=== PATIENT | female | born 1995 | race Caucasian/White ===

== ENCOUNTER 2018-01-07 16:54 | Emergency (ER) | payer OTHER, SELFPAY ==
[2018-01-07 16:56] VITALS: BP 158/83; PULSE 122; RESP 18; TEMP 36.4; O2SAT 99; BMI 22.5
--- NOTE | 2018-01-07 17:05 | EKG12_ITS ---
Test Reason : GENILLNESS Blood Pressure : / mmHG Vent. Rate : 098 BPM Atrial Rate : 098 BPM P-R Int : 150 ms QRS Dur : 084 ms QT Int : 372 ms P-R-T Axes : 078 075 063 degrees QTc Int : 474 ms Normal sinus rhythm Normal ECG Confirmed by QUINTIN CHAVEZ, LALITHA ([id number]), senior editor JOSE CHEN ([id number]) on 01/10/2018 1:08:25 PM Referred By: KATIE Confirmed By:LALITHA RIBEIRO MD
[2018-01-07 17:08] VITALS: BP 130/82; BP 136/86; BP 136/91; PULSE 99
[2018-01-07] MEDS: 0.9% Normal Saline 1,000 ML 150 ML IV (17:19)
[2018-01-07 17:23] LABS: Absolute Lymphocyte Count 1.89 X10^3/ul (0.83-4.51); Absolute Neutrophil Count 3.8 X10^3/uL (2.0-7.7); Basophil# 0.01 X10^3/uL; Basophil% 0.2 % (0-1); Eosinophils% 3.1 % (0-5); Hematocrit 39.4 % (37-47); Hemoglobin 12.9 g/dl (12.0-15.0); Lymphocyte # 1.89 X10^3/ul (4.0); Lymphocyte % 29.8 % (19-41); Mean Corp Hgb Conc 32.7 g/gl (32-36); Mean Corpuscular Volume 85.7 fL (81-99); Monocyte# 0.47 X10^3/uL; Monocyte% 7.4 % (0-10); Neutrophil # 3.77 X10^3/uL (2.7-7.7); Neutrophil % 59.3 % (47-70); POSITIVE COUNT NO; POSITIVE DIFFERENTIAL NO; POSITIVE MORPHOLOGY NO; Platelet Count 278 K/mm3 (150-450); RBC Distribution Width CV 12.5 % (11.6-14.6); RBC Distribution Width SD 38.7 fl (35.1-43.9); White Blood Count 6.4 K/mm3 (4.4-11.0)
[2018-01-07 17:44] LABS: Anion Gap 7 (5-15); BUN 12 mg/dL (7-18); BUN/Creat Ratio 14.1 RATIO (10-20); Calcium,Total 8.6 mg/dL (8.5-10.1); Chloride 106 mmol/L (98-107); Creatinine, Serum 0.85 mg/dL (0.55-1.02); EST Glomerular Filtration Rate 87 mL/min (>60); Est Glom Filt Rate - Afr Amer 105 mL/min (>60); Estimated Creatinine Clearance 91.83 ml/min; Glucose 90 mg/dL (74-106); Potassium 3.3 mmol/L (3.5-5.1); Sodium Level 140 mmol/L (136-145); Thyroid Stim Hormone (TSH) 5.82 uIU/mL (0.358-3.74)
[2018-01-07 17:50] VITALS: BP 137/86; PULSE 85; RESP 22; O2SAT 100
[2018-01-07 18:25] LABS: Pregnancy, Serum, hCG Quali. NEGATIVE Negative (0-9 Nonpreg)
[2018-01-07 18:42] LABS: Bacteria 0 SEEN /hpf (None Seen); Mucous, Urine 0 SEEN /hpf (<or=2+); Red Blood Cells-Urine 0 SEEN /hpf (0-5)
[2018-01-07 19:03] VITALS: BP 121/84; PULSE 82; RESP 16; O2SAT 100
[2018-01-07 19:04] LABS: Color, Urine Yellow (Yellow); Glucose, Dipstick Normal (Normal); Ketone-Dipstick 5 mg/dl (Negative); Leukocyte Esterase-Dipstick Negative /ul (Negative); Nitrite-Dipstick Negative (Negative); Occult Blood-Urine Negative /ul (Negative); Protein-Dipstick Negative (Negative); Urine Bilirubin Dipstick Negative (Negative); Urine Clarity Clear (Clear); Urine Urobilinogen Normal (Normal)
--- NOTE | 2018-01-07 19:18 | ED.VISSUMM ---
- ER Visit Summary Date of Service: 01/07/18 Chief Complaint: [Not feeling well] History of Present Illness: The patient is a 22 F [presents the emergency department with multiple complaints. Patient states that she has had episodes of feeling lightheaded and dizzy over the last 2-3 days. Patient had a severe headache but mostly resolved at this time. Patient has had no energy. Patient at times feels somewhat short of breath but she denies any chest pain. Patient is currently nursing a 1-year-old. Patient denies any rectal bleeding or dysuria. She has had some urinary frequency. Patient tells me that she feels anxious and she is had no appetite. Patient is unsure if she is may be anemic. Patient also believes that she might be starting her period soon as she has had some PMS and hormonal issues with her period. Patient also with history of anxiety. She has not had any fevers or recent illness.] Physical Examination: [HEENT-PERRLA, EOMI. Cranial nerves II through XII grossly intact. TMs clear. Mucous membranes moist. No adenopathy. Cardiovascular-regular rate and rhythm without murmur or ectopy Lungs-clear to auscultation, chest wall stable without crepitus or subcu emphysema Abdomen-normoactive bowel sounds, soft, nontender, no rebound or rigidity, no peritoneal signs. Extremities-intact ?4, normal range of motion, normal pulses, atraumatic] Test Results: [EKG obtained arrival shows sinus rhythm with a ventricular rate of 98 bpm with no acute ST segment changes. CBC with differential was normal. Chemistries showed a slightly depressed potassium of 3.3. Urinalysis was normal. TSH was slightly elevated at 5.82. Orthostatic vital signs were negative.] Emergency Department Course and Treatment: [Patient received 40 mEq of potassium chloride p.o.] Treatment Plan: [Follow-up with primary care physician for further evaluation of her thyroid. Patient does not want to start any medication for anxiety given that she is nursing.] Disposition: [Discharged to home in stable condition] Impression: [Anxiety Hypothyroidism Hypokalemia] This note was generated with [employer] software. It may contain incorrect words, spelling, and punctuation that were not noted in review of the chart prior to signing ED Disposition - Plan for ED Patient: Chief Complaint: General Illness Referrals: Nitish Browning, STOCKROOM SELECTOR-C [Primary Care Provider] -
--- NOTE | 2018-01-07 19:22 | ED.DCSUM_ITS ---
- ER Visit Summary Date of Service: 01/07/18 Chief Complaint: [Not feeling well] History of Present Illness: The patient is a 22 F [presents the emergency department with multiple complaints. Patient states that she has had episodes of feeling lightheaded and dizzy over the last 2-3 days. Patient had a severe headache but mostly resolved at this time. Patient has had no energy. Patient at times feels somewhat short of breath but she denies any chest pain. Patient is currently nursing a 1-year-old. Patient denies any rectal bleeding or dysuria. She has had some urinary frequency. Patient tells me that she feels anxious and she is had no appetite. Patient is unsure if she is may be anemic. Patient also believes that she might be starting her period soon as she has had some PMS and hormonal issues with her period. Patient also with history of anxiety. She has not had any fevers or recent illness.] Physical Examination: [HEENT-PERRLA, EOMI. Cranial nerves II through XII grossly intact. TMs clear. Mucous membranes moist. No adenopathy. Cardiovascular-regular rate and rhythm without murmur or ectopy Lungs-clear to auscultation, chest wall stable without crepitus or subcu emphysema Abdomen-normoactive bowel sounds, soft, nontender, no rebound or rigidity, no peritoneal signs. Extremities-intact ?4, normal range of motion, normal pulses, atraumatic] Test Results: [EKG obtained arrival shows sinus rhythm with a ventricular rate o f 98 bpm with no acute ST segment changes. CBC with differential was normal. Chemistries showed a slightly depressed potassium of 3.3. Urinalysis was normal. TSH was slightly elevated at 5.82. Orthostatic vital signs were negative.] Emergency Department Course and Treatment: [Patient received 40 mEq of potassium chloride p.o.] Treatment Plan: [Follow-up with primary care physician for further evaluation of her thyroid. Patient does not want to start any medication for anxiety given that she is nursing.] Disposition: [Discharged to home in stable condition] Impression: [Anxiety Hypothyroidism Hypokalemia] This note was generated with [employer] software. It may contain incorrect words, spelling, and punctuation that were not noted in review of the chart prior to signing ED Disposition - Plan for ED Patient: Chief Complaint: General Illness Referrals: Nitish Browning, WATER TREATMENT TECHNICIAN-C [Primary Care Provider] -
--- NOTE | 2018-01-07 19:22 | ED.DEP ---
ED Disposition - Plan for ED Patient: Chief Complaint: General Illness Instructions: ED Stress React, ED Hypothyroidism Referrals: Nitish Browning, SHOE SPRAYER-C [Primary Care Provider] - 3-5 Days
--- NOTE | 2018-01-07 19:22 | DCINST.ED_ITS ---
ED Disposition - Plan for ED Patient: Chief Complaint: General Illness Instructions: ED Stress React, ED Hypothyroidism Referrals: Nitish Browning, REJECT OPENER-C [Primary Care Provider] - 3-5 Days
[2018-01-07 19:28] LABS: Squamous Epithelial Cells - UA 0-5 SEEN /hpf (5-10); White Blood Cells 0-5 SEEN /hpf (0-5)
[2018-01-07 19:36] VITALS: BP 108/92; PULSE 86; RESP 24; O2SAT 98
--- NOTE | 2018-01-07 19:36 | ED.RN ---
IV DC'ED, CATHETER INTACT, SMALL GAUZE DRESSING PLACED. DISCHARGE INSTRUCTIONS GIVEN TO AND REVIEWED WITH PATIENT, PATIENT DENIES QUESTIONS OR CONCERNS AND VOICES UNDERSTANDING OF DISCHARGE INSTRUCTIONS. PT AMBULATES OUT OF ROOM WITHOUT DIFFICULTY.
== END 2018-01-07 19:40 | disposition home or self-care (01) ==
PROVIDERS: Emergency Provider Emergency Medicine; Family Provider Nurse Practitioner Family; PCP Nurse Practitioner Family
DX: F41.9 Anxiety disorder, unspecified (principal); E03.9 Hypothyroidism, unspecified; E87.6 Hypokalemia; R51 Headache; R35.0 Frequency of micturition; R05 Cough; Z86.2 Personal history of diseases of the blood and blood-forming organs and certain disorders involving the immune mechanism
CPT/HCPCS: 80048; 81001; 84443; 84703; 85025; 93005; 96360; 96361; 99285; J7030; A4216

== ENCOUNTER 2020-07-19 22:25 | Outpatient (CLI) | payer MEDICAID, SELFPAY ==
[2020-07-19 22:45] VITALS: BP 137/75; PULSE 133; TEMP 37.1
[2020-07-19 22:52] VITALS: BMI 28.5
--- NOTE | 2020-07-19 23:17 | OB.TRI.NOTE ---
HPI - General HPI Narrative BANDAR BECK, is a 25 F at 38 weeks gestation who presents to triage with c/o contractions starting earlier in the day. Patient denies any loss of fluid or vaginal bleeding. Positive movement. Maternal Data Information NORA Calculator Estimated Delivery Date Method Current WG Current Estimate 08/04/20 Manual 38w 2d PFSH Home Medications ferrous sulfate [iron] 325 mg PO QODAY 07/19/20 [History Last Taken 07/18/20 2200] levothyroxine 50 mcg PO DAILY 07/19/20 [History Last Taken 07/19/20 1000] [id number] [] tab PO DAILY 07/19/20 [History Last Taken Unknown] Allergy/AdvReac Type Severity Reaction Status Date / Time No Known Allergies Allergy Verified 07/19/20 22:52 Social History Smoking Status: Never smoker History Elective abortions Hx Para 0 Spontaneous abortions Hx # Term Pregnancies Ectopic pregnancies Hx # Pregnancies Multiple births # of living children ROS Eyes Eyes: Denies blurry vision Cardiovascular Cardiovascular: Reports none; Denies chest pain at rest, chest pain with activity or dizziness Respiratory/Chest Respiratory/Chest: Denies cough or dyspnea Gastrointestinal Gastrointestinal: Reports none and other; Denies diarrhea or vomiting Genitourinary Genitourinary: Denies dysuria Musculoskeletal Musculoskeletal: Reports none Integumentary Integumentary: Reports none; Denies rash Neurologic Neurologic: Denies dizziness, headache(s) or other visual disturbances Psychiatric Psychiatric: Reports none Physical Exam Const alert and no apparent distress General Appearance: cooperative Orientation / Consciousness: awake Exam Limitations: no limitations HEENT normocephalic Eyes General Eye: normal appearance of both eyes Neck full ROM Chest inspection of chest normal Resp normal respiratory effort and normal air movement Effort and Inspection: symmetric chest movement Auscultation: clear to auscultation bilaterally Cardio regular rate GI soft to palpation, non-tender and non-distended Inspection: and other Back/Spine normal ROM Extremity full ROM, normal capillary refill and no calf tenderness Skin no rashes or lesions noted Neuro oriented x3 and CN's II-XII intact bilaterally Psych mental status grossly normal NST FHR Rate Baby A Baseline: 125 Variability:: Moderate Accelerations:: 15 x 15 Decelerations:: None NST Reactive:: Yes FHR Category:: Category I Uterine Activity:: Irregular Assessment & Plan (1) 38 weeks gestation of : (2) Uterine contractions: PLAN: Cat. 1 tracing TOCO with irregular contractions that palpate mild and relaxed in between CE unchanged D/C home with follow up in office this week Dr. Tyrell monroe
== END 2020-07-20 00:20 | disposition home or self-care (01) ==
LOC: WPOUT 22:34 → WP 22:34
PROVIDERS: PCP Nurse Practitioner Family; Referring Provider Advanced Practice Midwife; Visit Provider Advanced Practice Midwife
DX: O62.9 Abnormality of forces of labor, unspecified (principal); Z3A.38 38 weeks gestation of pregnancy
CPT/HCPCS: 59025; 59050; 99218; G0378

== ENCOUNTER 2020-07-28 11:00 | Inpatient (IN) | payer MEDICAID, SELFPAY ==
[2020-07-28] VITALS (39 sets, daily range): BP systolic 106–133; BP diastolic 62–85; PULSE 30–117; RESP 16–18; TEMP 36.8–37.4; O2SAT 81–100; BMI 27.5
[2020-07-28] MEDS: Lactated Ringers 1,000 ML 50 ML IV (11:15)
[2020-07-28] MEDS: Lactated Ringers 500 ML 999 ML IV (11:33)
[2020-07-28 11:35] LABS: Absolute Lymphocyte Count 1.95 X10^3/uL (0.83-4.51); Absolute Neutrophil Count 7.9 X10^3/uL (2.0-7.7); Basophil# 0.03 X10^3/uL; Basophil% 0.3 % (0-1); Eosinophil# 0.02 X10^3/uL; Eosinophils% 0.2 % (0-5); Hematocrit 33.8 % (37-47); Hemoglobin 11.3 g/dL (12.0-15.0); Lymphocyte # 1.95 X10^3/ul (0.83-4.51); Lymphocyte % 18.2 % (19-41); Mean Corp Hgb Conc 33.4 g/dL (32-36); Mean Corpuscular Hgb 29.5 pg (27.0-32.0); Mean Corpuscular Volume 88.3 fL (81-99); Mean Platelet Vol. 9.1 fl (6.2-12.0); Monocyte# 0.69 X10^3/uL; Monocyte% 6.4 % (0-10); NRBC Flagged by Analyzer 0 % (0-5); Neutrophil # 7.91 X10^3/uL (2.7-7.7); Neutrophil % 73.8 % (47-70); Platelet Count 232 K/mm3 (150-450); RBC Distribution Width CV 13.8 % (11.6-14.6); RBC Distribution Width SD 44.6 fl (35.1-43.9); Red Blood Count 3.83 M/mm3 (4.2-5.4); White Blood Count 10.7 K/mm3 (4.4-11.0)
[2020-07-28] MEDS: Oxytocin 30 units/NS 500 ml 30 UNITS/500 ML IV.SOLN IV (12:15)
--- NOTE | 2020-07-28 12:23 | HP.PCM.OB_ITS ---
HPI - General General Date of Admission: 07/28/20 HPI Narrative * BANDAR BECK, is a 25 F @39 weeks who presents for elective IOL for h/o fast labor and Multip with fields score >8. Pt was counseled on risks of IOL but wished to proceed today. Maternal Data Information NORA Calculator Estimated Delivery Date Method Current WG Current Estimate 08/04/20 Manual 39w 0d PFSH PFSH Medical History (Updated 07/28/20 @ 12:[address] Danuta Thorpe MD) Thyroid disorder Home Medications ferrous sulfate [iron] 325 mg PO QODAY 07/19/20 [History Last Taken 07/18/20 2200] levothyroxine 50 mcg PO DAILY 07/19/20 [History Last Taken 07/19/20 1000] [id number] [] tab PO DAILY 07/19/20 [History Last Taken Unknown] Allergy/AdvReac Type Severity Reaction Status Date / Time No Known Allergies Allergy Verified 07/28/20 11:07 Surgical History (Updated 07/28/20 @ 11:54 by Olga Parker) History of surgery Social History Smoking Status: Never smoker History Elective abortions Hx Para 1 Spontaneous abortions Hx # Term Pregnancies Ectopic pregnancies Hx # Pregnancies Multiple births # of living children NST FHR Rate Baby A Baseline: 145 Variability:: Moderate Accelerations:: 15 x 15 NST Reactive:: Yes FHR Category:: Category I Uterine Activity:: irregular Vital Signs Vital Signs Vital Signs: 07/28/20 11:55 Temperature 99.3 F H Temperature Source Temporal Pulse Rate 99 Blood Pressure 122/69 H BP Systolic 122 BP Diastolic 69 Weight Weight: 75.1 kg Body Mass Index (BMI) 27.5 Physical Exam Narrative VE: 5/7/-2 on admission Const alert and oriented x3 Labs Labs Labs: Blood Type B POSITIVE Antibody Screen NEGATIVE Hct 33.8 % (37-47) L Hgb 11.3 g/dL (12.0-15.0) L Rhogam given: No Assessment & Plan (1) 39 weeks gestation of : (2) Elective induction of labor planned: PLAN: Admit to L&D [facility] FHR/TOCO Epidural if requested for pain Monitor VS Anticipate Pitocin and AROM for IOL
[2020-07-28] MEDS: fentaNYL-bupivacaine (epidural) 100 ML BAG EPIDURAL (13:07)
[2020-07-28] MEDS: Oxytocin 30 units/NS 500 ml 30 UNITS/500 ML IV.SOLN 334 UNITS IV (14:50)
--- NOTE | 2020-07-28 15:07 | EX.PCM.OBRPT ---
Assessment & Plan (1) Precipitate labor, with delivery: (2) Vaginal delivery: Maternal Data Information NORA Calculator Estimated Delivery Date Method Current WG Current Estimate 08/04/20 Manual 39w 0d Vaginal Delivery Maternal Presentation Maternal Presentation: Elective Induction Type of Induction: Pitocin and Amniotomy Operative Information Date of Procedure: 07/28/20 Pre-Operative Diagnosis: term gestation, h/o Fast labor, Post-Operative Diagnosis: same, live male infant, Precipitous delivery Surgery / Procedure Performed: Spontaneous Vaginal Delivery Type of Anesthesia: Epidural Estimated Blood Loss: 100 Time of Delivery: 14:48 Findings Description of Procedure: of a live male infant. Patient was fully dilated resting comfortably with epidural in place. With contractions good maternal pushing efforts delivered 's head. 1 loose nuchal cord was noted. It was not reduced prior to delivery gentle downward traction deliver the anterior shoulder followed by the rest infant's body. The infant was placed on the mother's chest for immediate skin to skin. Delayed cord clamping was performed. Pitocin was started and placenta delivered spontaneously without complication. First-degree perineal laceration was appreciated. It was repaired with 3-0 repeated in a subcuticular fashion.. Presentation: Vertex Amniotic Membrane Rupture Type: Artificial Amniotic Fluid Description: Clear Placental Delivery Description: Spontaneous Placenta Disposition: [facility] Specimen(s) Removed: placenta Cord Vessel Description: 3 Vessels Cord Entanglement: Around neck x 1, loose Nuchal Cord Compression: Without compression A Gender: Male (1 minute): 8 (5 minute): 9 Delayed Cord Clamping: Yes Post Vaginal Delivery Medications Given After Delivery: IV Pitocin Laceration: Perineal Extension/lac and 1st degree Complication Complications: None Admit VTE Documentation VTE Present on Admission: No VTE Mechan Device Prophylaxis: None VTE Pharm Prophylaxis Ordered: No Reason Prophylaxis Not Ordered: Procedure Not Indicated
[2020-07-28] MEDS: 0.9% Saline Lock 10 ML Syringe IV (17:36)
[2020-07-28] MEDS: Ibuprofen 600 MG Tablet PO (23:20)
[2020-07-29 03:25] VITALS: BP 118/71; PULSE 81; RESP 18; TEMP 36.6
[2020-07-29] MEDS: Acetaminophen 500 MG Tablet 1000 MG PO (03:32)
[2020-07-29] MEDS: Levothyroxine 50 MCG Tablet PO (05:47)
--- NOTE | 2020-07-29 07:40 | PCM.PN.OB ---
Subjective Subjective patient seen at bedside, doing well. Patient reports good pain control. lochia mild. breast feeding. Objective Data Objective Data Vital Signs: Vital Signs Temp Pulse Resp BP Pulse Ox 97.8 F 81 18 118/71 100 07/29/20 03:25 07/29/20 03:25 07/29/20 03:25 07/29/20 03:25 07/28/20 14:01 Oxygen Delivery Method Room Air Weight: 75.1 kg Body Mass Index (BMI) 27.5 Intake & Output: Intake and Output for Last 24 Hours 07/27/20 07/28/20 07/29/20 23:59 23:59 23:59 Intake Total 1183.64 / 1183.64 Output Total 600 / 600 Balance 583.64 / 583.64 Lab / Micro Data Result Diagrams: 07/28/20 11:15 Labs: Laboratory Results - last 24 hr 07/28/20 07/28/20 11:15 11:15 WBC 10.7 RBC 3.83 L Hgb 11.3 L Hct 33.8 L MCV 88.3 MCH 29.5 MCHC 33.4 RDW Std Deviation 44.6 H RDW Coeff of Binh 13.8 Plt Count 232 MPV 9.1 Immature Gran % (Auto) 1.100 H Neut % (Auto) 73.8 H Lymph % (Auto) 18.2 L [place] % (Auto) 6.4 Eos % (Auto) 0.2 Baso % (Auto) 0.3 Absolute Neuts (auto) 7.9 H Absolute Lymphs (auto) 1.95 Nucleated RBC % 0 Blood Type B POSITIVE Antibody Screen NEGATIVE Micro: Microbiology 07/28/20 11:15 Mucosa - Nose SARS-CoV-2 Antigen (Rapid) - Final Assessment & Plan (1) Vaginal delivery: PLAN: PPD#1 , Doing well Routine care pain mgmt ambulation dc home
--- NOTE | 2020-07-29 07:41 | PCM.DC ---
Discharge Instructions Diet Discharge Diet: No restrictions Activity May resume sexual activity in: 6-8 weeks Dressing / Incision Call your doctor if you observe: Fever of 101 or Higher, Inability to urinate, Using more than 1 pad per hour and Uncontrolled pain Follow Up Care Please Follow Up With: Danuta Thorpe MD When: 1-2 weeks post and again at 6 weeks post . [phone] Test Results: Test results from this visit will be discussed in further detail at your follow-up appointment, if applicable. Discharge Plan Admission Admit Date/Time: 07/28/20 11:00 Attending Provider: Danuta Thorpe Primary Care Provider: Nitish Browning NP Instructions Forms: Information Discharge Orders/Prescriptions Prescriptions: Continued levothyroxine 50 mcg Tablet 50 mcg PO DAILY RF: 0 ferrous sulfate [iron] 325 mg (65 mg iron) Tablet 325 mg PO QODAY RF: 0 [id number]-FA 1 mg Tablet PO DAILY RF: 0 Referrals / Follow Up: Nitish Browning BILINGUAL EXECUTIVE ASSISTANT, BILINGUAL EXECUTIVE ASSISTANT-C [Primary Care Provider] -
[2020-07-29 07:44] VITALS: BP 114/77; PULSE 84; RESP 16; TEMP 36.7; O2SAT 98
[2020-07-29 11:25] VITALS: BP 106/68; PULSE 89; RESP 18; TEMP 36.8; O2SAT 97
[2020-07-29] MEDS: Ibuprofen 600 MG Tablet PO (12:08)
[2020-07-29 17:46] VITALS: BP 126/87; PULSE 87; RESP 18; TEMP 36.8
== END 2020-07-29 18:30 | disposition home or self-care (01) | DRG 560 ==
PROVIDERS: Admitting Provider Obstetrics & Gynecology; PCP Nurse Practitioner Family; Visit Provider Obstetrics & Gynecology
DX: O99.284 Endocrine, nutritional and metabolic diseases complicating childbirth (principal); O62.3 Precipitate labor; E07.9 Disorder of thyroid, unspecified; Z3A.39 39 weeks gestation of pregnancy; Z37.0 Single live birth; Z79.899 Other long term (current) drug therapy; O69.81X0 Labor and delivery complicated by cord around neck, without compression, not applicable or unspecified; O70.0 First degree perineal laceration during delivery
CPT/HCPCS: 59025; 59050; 85025; 86850; 86900; 86901; 87426; 99218; J7120; A4216; G0378

== ENCOUNTER 2023-12-21 07:45 | Inpatient (IN) | payer MEDICAID, SELFPAY ==
[2023-12-21] VITALS (69 sets, daily range): BP systolic 98–136; BP diastolic 52–87; PULSE 77–111; RESP 16–20; TEMP 36.2–36.7; O2SAT 79–100; BMI 27.5
[2023-12-21] MEDS: Lactated Ringers 1,000 ML 50 ML IV (08:00)
[2023-12-21 08:25] LABS: Absolute Lymphocyte Count 1.69 X10^3/uL (0.83-4.51); Absolute Neutrophil Count 7.4 X10^3/uL (2.0-7.7); Basophil# 0.03 X10^3/uL; Basophil% 0.3 % (0-1); Eosinophil# 0.02 X10^3/uL; Eosinophils% 0.2 % (0-5); Hematocrit 34.3 % (37-47); Hemoglobin 11.4 g/dL (12.0-15.0); Lymphocyte # 1.69 X10^3/ul (0.83-4.51); Lymphocyte % 16.9 % (19-41); Mean Corp Hgb Conc 33.2 g/dL (32-36); Mean Corpuscular Hgb 29.2 pg (27.0-32.0); Mean Corpuscular Volume 87.7 fL (81-99); Mean Platelet Vol. 9.2 fl (6.2-12.0); Monocyte# 0.77 X10^3/uL; Monocyte% 7.7 % (0-10); NRBC Flagged by Analyzer 0 % (0-5); Platelet Count 244 K/mm3 (150-450); RBC Distribution Width CV 13.6 % (11.6-14.6); RBC Distribution Width SD 43.5 fl (35.1-43.9); Red Blood Count 3.91 M/mm3 (4.2-5.4)
[2023-12-21 08:58] LABS: Syphilis Antibodies Non-reactive
--- NOTE | 2023-12-21 12:25 | PN.OBGYN_ITS ---
Subjective Subjective AROM for clear fluid. 7 cm 80 -1 very soft. No epidural. No pit Objective Data Objective Data Vital Signs: Vital Signs Temp Pulse Resp BP Pulse Ox 97.2 F L 109 H 16 118/71 97 12/21/23 11:29 12/21/23 11:27 12/21/23 11:29 12/21/23 11:27 12/21/23 09:41 Weight: 73.9 kg Body Mass Index (BMI) 27.5 Intake & Output: Intake and Output for Last 24 Hours 12/19/23 12/20/23 12/21/23 23:59 23:59 23:59 Intake Total 213.33 / 213.33 Balance 213.33 / 213.33 Lab / Micro Data 12/21/23 08:00 Labs: Laboratory Results - last 24 hr 12/21/23 08:00: WBC 10.0, RBC 3.91 L, Hgb 11.4 L, Hct 34.3 L, MCV 87.7, MCH 29.2, MCHC 33.2, RDW Std Deviation 43.5, RDW Coeff of Binh 13.6, Plt Count 244, MPV 9.2, Immature Gran % (Auto) 0.900, Neut % (Auto) 74.0 H, Lymph % (Auto) 16.9 L, [place] % (Auto) 7.7, Eos % (Auto) 0.2, Baso % (Auto) 0.3, Absolute Neuts (auto) 7.4, Absolute Lymphs (auto) 1.69, Nucleated RBC % 0, Syphilis Total Ab Non- reactive, Blood Type B POSITIVE, Antibody Screen NEGATIVE Assessment & Plan (1) Normal labor: (2) 39 weeks gestation of : PLAN: Plan expectant management
[2023-12-21] MEDS: fentaNYL-bupivacaine (epidural) 100 ML BAG EPIDURAL (13:58)
--- NOTE | 2023-12-21 14:12 | PCM.PN.CNM ---
Subjective Subjective Called to patient's room by nursing due to patient being unmedicated and feeling pushy. Arrived to room and patient was sitting up for epidural placement. Objective Data Objective Data Vital Signs: Vital Signs Temp Pulse Resp BP Pulse Ox 97.6 F L 81 18 102/57 L 100 12/21/23 13:36 12/21/23 14:10 12/21/23 13:36 12/21/23 14:10 12/21/23 14:06 Weight: 162 lb 14.746 oz Body Mass Index (BMI) 27.5 Intake & Output: Intake and Output for Last 24 Hours 12/19/23 12/20/23 12/21/23 23:59 23:59 23:59 Intake Total 213.33 / 213.33 Balance 213.33 / 213.33 Lab / Micro Data 12/21/23 08:00 Labs: Laboratory Results - last 24 hr 12/21/23 08:00: WBC 10.0, RBC 3.91 L, Hgb 11.4 L, Hct 34.3 L, MCV 87.7, MCH 29.2, MCHC 33.2, RDW Std Deviation 43.5, RDW Coeff of Binh 13.6, Plt Count 244, MPV 9.2, Immature Gran % (Auto) 0.900, Neut % (Auto) 74.0 H, Lymph % (Auto) 16.9 L, [place] % (Auto) 7.7, Eos % (Auto) 0.2, Baso % (Auto) 0.3, Absolute Neuts (auto) 7.4, Absolute Lymphs (auto) 1.69, Nucleated RBC % 0, Syphilis Total Ab Non-reactive, Blood Type B POSITIVE, Antibody Screen NEGATIVE Assessment & Plan (1) Spontaneous onset of labor: (2) Normal labor: PLAN: Plan NST reactive. Cat. 1 tracing CE / Continue to monitor and anticipate
[2023-12-21] MEDS: Lactated Ringers 1,000 ML 999 ML IV (14:18)
[2023-12-21] MEDS: Oxytocin 15 Units/NS 250ml 15 UNITS/250 ML IV.SOLN 83 UNITS IV (14:34)
[2023-12-21] MEDS: Oxytocin 10 UNITS/ML Vial IM (14:34)
--- NOTE | 2023-12-21 14:39 | EX.PCM.OBVAG ---
Assessment & Plan (1) Spontaneous onset of labor: (2) Normal labor: (3) (spontaneous vaginal delivery): (4) Thyroid disorder: COMMENT: hypothroid Maternal Data Information NORA Calculator Estimated Delivery Date Method Current WG Current Estimate 12/28/23 Manual 39w 0d Vaginal Delivery Maternal Presentation Maternal Presentation: Active Labor Maternal Presentation: at 39 weeks gestation that presented in spontaneous labor. Type of Induction: Pitocin and Amniotomy Vaginal Delivery Information Procedure Performed: Spontaneous Vaginal Delivery Surgeon/Practitioner: Sowmya Elder Pre-Procedure Diagnosis: Term gestation, spontaneous onset of labor Post-Procedure Diagnosis: , Live Type of anesthesia: Epidural Estimated Blood Loss: 150 Time of Delivery: 14:29 Findings Description of procedure: Patient quickly progressed to complete dilation. With good maternal effort, head delivered followed by anterior shoulder and remainder of body without any force, delay, or traction. Vigorous female was delivered atraumatically and placed on maternal abdomen. Pitocin IV started for active management of the third stage of labor. 3 vessel cord clamped and cut after delay and placed immediately skin to skin with patient. Placenta delivered spontaneously and intact. After inspection, vagina and perineum are intact. Vaginal sweep performed. Fundus is firm 2 below U and bleeding is hemostatic. Sponge and sharps counts correct. Patient and infant bonding well at this time. Dr. [place] notified of delivery. Routine post orders placed. Presentation: Vertex Amniotic Membrane Rupture Type: Artificial Amniotic Fluid Description: Clear Placental Delivery Description: Spontaneous Placenta Disposition: [facility] Specimen collected: No Cord Vessel Description: 3 Vessels Cord Entanglement: None Nuchal Cord Compression: Without compression A Gender: Female (1 minute): 9 (5 minute): 9 Delayed Cord Clamping: Yes Oilseed Meat Presser tinning machine set up operator: No Post Vaginal Deli Medications given after delivery: IV Pitocin and IM Pitocin Episiotomy Description: None Laceration: None Complication Complications: No
[2023-12-21] MEDS: Methylergonovine 0.2 MG/ML Ampul IM (15:18)
[2023-12-21] MEDS: 0.9% Saline Lock 10 ML Syringe IV (17:30)
[2023-12-21] MEDS: Acetaminophen 500 MG Tablet 1000 MG PO (17:45)
[2023-12-21] MEDS: Naproxen 500 MG Tablet PO (20:35)
[2023-12-22 03:33] VITALS: PULSE 82; O2SAT 98
[2023-12-22 03:34] VITALS: BP 103/63; PULSE 68; PULSE 82; RESP 16; TEMP 36.6; O2SAT 98
[2023-12-22] MEDS: Acetaminophen 500 MG Tablet 1000 MG PO (03:40)
[2023-12-22] MEDS: Levothyroxine 25 MCG TABLET PO (06:06)
--- NOTE | 2023-12-22 06:36 | DS.PCM_ITS ---
Providers Date of Admission: 12/21/23 Primary Care Physician: Nitish Browning, RESEARCH SCIENTIST-C Reason For Visit: VAGINAL DELIVERY Diagnosis Discharge Diagnosis (1) (spontaneous vaginal delivery): Status: Acute Code(s): O80 - Encounter for full-term uncomplicated delivery (2) Thyroid disorder: Status: Acute Code(s): E07.9 - Disorder of thyroid, unspecified (3) Care and examination of lactating mother: Status: Acute Code(s): Z39.1 - Encounter for care and examination of lactating mother Plan PPD 1 Routine care Pain control D/C home with follow up in office Medications at Discharge Home Medications ferrous sulfate 325 mg (65 mg iron) tablet (iron) 325 mg PO QODAY anemia 07/19/20 levothyroxine 50 mcg tablet 50 mcg PO DAILY hypothyroid 07/19/20 [id number] 1 mg tablet 1 tab PO DAILY 07/19/20 Hospital Course Operations None Procedures None Summary of Care Provided Minutes Spent on Discharge: 15 Hospital Course: Patient had vaginal delivery. Hospital course was uneventful. Physical Exam Narrative Patient seen at bedside. Denies pain. Ambulating and voiding without difficulty. Lochia decreased. Desires discharge home today. Const alert and oriented x3 General Appearance: Negative for in distress HEENT normocephalic Eyes General Eye: normal appearance of both eyes Neck General: normal visual inspection Chest Chest: symmetrical chest wall rise Resp normal respiratory effort and normal air movement Effort and Inspection: symmetric chest movement; Negative for tachypneic Auscultation: clear to auscultation bilaterally Cardio regular rate and regular rhythm Peripheral Pulses: pulses 2+ throughout GI normal to inspection, nondistended, normoactive bowel sounds Narrative: Ice to perineum OB / External & Speculum: vaginal bleeding and other Lochia decreasing Uterus Palpation: uterus fundus firm (Below U) Extremity normal to inspection, full ROM and normal capillary refill Skin no rashes or lesions noted Neuro oriented x3, CN's II-XII intact bilaterally and gait normal Psych mental status grossly normal, thought process normal and activity/motor behavior normal Weight / BMI Weight Weight: 162 lb 14.746 oz Body Mass Index (BMI) 27.5 ABG / Lab / Microbiology Data 12/21/23 08:00 Laboratory: Laboratory Results - last 24 hr 12/21/23 08:00: WBC 10.0, RBC 3.91 L, Hgb 11.4 L, Hct 34.3 L, MCV 87.7, MCH 29.2, MCHC 33.2, RDW Std Deviation 43.5, RDW Coeff of Binh 13.6, Plt Count 244, MPV 9.2, Immature Gran % (Auto) 0.900, Neut % (Auto) 74.0 H, Lymph % (Auto) 16.9 L, [place] % (Auto) 7.7, Eos % (Auto) 0.2, Baso % (Auto) 0.3, Absolute Neuts (auto) 7.4, Absolute Lymphs (auto) 1.69, Nucleated RBC % 0, Syphilis Total Ab Non- reactive, Blood Type B POSITIVE, Antibody Screen NEGATIVE D/C Instructions Discharge Diet: No restrictions Discharge Activity: Return to Normal Activity, No Restrictions, May Drive, May Shower and May Take a Tub Bath (Warm water only. No bath salts, soaps, bubbles) May resume sexual activity in: 6-8 weeks Weight Bearing Status: Weight bearing as tolerated Call your doctor if you observe: Fever of 101 or Higher, Inability to urinate, Using more than 1 pad per hour, Shortness of breath, Dizziness, Chest pain, Calf discomfort and Uncontrolled pain Please Follow Up With: [facility] When: 2 weeks in office or virtual Meaningful Use Info Meaningful Use Meaningful Use Diagnoses (Choose all that apply): None applicable Ischemic Stroke Statin Dosing Therapy Reference: STATIN DOSE THERAPY REFERENCE: * Patients > 75 years receive moderate or high dose statin therapy. * Patients 75 years or YOUNGER should receive HIGH intensity statin dose unless contraindicated. You will be required to document reason for non-treatment if statin daily dose does not meet guidelines. HIGH DOSE STATIN THERAPY DAILY Atorvastatin > than or = to 40 mg Rosuvastatin > than or = to 20 mg Amlodipine + Atorvastatin > than or = to 2.5/40 mg Ezetimibe + Simvastatin 10/80 mg Simvastatin 80mg Discharge Plan Admission Admit Date/Time: 12/21/23 07:45 Primary Reason for Your Visit: Labor and Delivery Attending Provider: Sowmya Elder Primary Care Provider: Nitish Browning RESEARCH SCIENTIST Discharge Orders/Prescriptions Prescriptions: Continued levothyroxine 50 mcg Tablet 50 mcg PO DAILY ferrous sulfate [iron] 325 mg (65 mg iron) Tablet 325 mg PO QODAY [id number] 1 mg Tablet 1 tab PO DAILY Discontinued polyethylene glycol 3350 [Miralax] 17 gram/dose powder 4 g PO QODAY Referrals / Follow Up: Sowmya Elder CNM [Med Staff - [facility] Practice Prof] - Nitish Browning RESEARCH SCIENTIST, RESEARCH SCIENTIST-C [Primary Care Provider] - Disposition Disposition (needs filled in before D/C Order can be placed): Home, Self Care
[2023-12-22 10:39] VITALS: BP 125/74; PULSE 102
[2023-12-22 10:40] VITALS: BP 125/74; PULSE 102; RESP 15; TEMP 36.1
[2023-12-22 16:10] VITALS: BP 130/71; PULSE 93; RESP 15; TEMP 36.4
--- NOTE | 2023-12-26 13:04 | NURSING ---
Follow up phone call made. Patient states she is doing well only having slight discomfort, taking OTC pain med for it. Denies any headaches, visual disturbances, flu like symptoms or Baby Blues. States her bleed is minimal. Patient states is going well, nursing very coupe of hours, having lots of wets and dirty diapers. Denies any questions at this time.
--- NOTE | 2024-01-30 20:40 | PCM.HP.OB ---
HPI - General General Date of Admission: 12/21/23 Date of Service: 12/21/23 HPI Narrative BANDAR BECK, is a 29 F who presents in active labor. Membranes in tact. Hx of precipitous labor. Maternal Data Information NORA Calculator Estimated Delivery Date Method Current WG Current Estimate 12/28/23 Manual 44w 5d Final NORA: 12/28/23 Gestational age: 39 PFSH PFSH Medical History Care and examination of lactating mother (spontaneous vaginal delivery) Thyroid disorder Home Medications ?Medication ?Instructions ?Recorded ?Last Taken ?Type ferrous sulfate 325 mg (65 mg 325 mg PO QODAY anemia 07/19/20 12/20/23 22:00 History iron) tablet (iron) 325 mg levothyroxine 50 mcg tablet 50 mcg PO DAILY hypothyroid 07/19/20 12/21/23 06:00 History [id number] 1 mg 1 tab PO DAILY 07/19/20 12/18/23 12:00 History tablet 1 TAB Allergy/AdvReac Type Severity Reaction Status Date / Time No Known Allergies Allergy Verified 12/21/23 08:33 Surgical History History of surgery Social History Smoking Status: Never smoker History Elective abortions Hx Para 2 Spontaneous abortions Hx # Term Pregnancies Ectopic pregnancies Hx # Pregnancies Multiple births # of living children NST FHR Rate Baby A FHR Category:: Category I ROS Constitutional Constitutional: Denies fatigue, fever(s) or malaise Eyes Eyes: Denies change in vision ENT HEENT: Denies dizziness or headache(s) Cardiovascular Cardiovascular: Denies chest pain, dyspnea or lightheadedness Respiratory/Chest Respiratory/Chest: Denies cough or dyspnea Gastrointestinal Gastrointestinal: Denies change in bowel habits Genitourinary Genitourinary: Denies burning urination or genital lesions Integumentary Integumentary: Denies rash Neurologic Neurologic: Denies confusion, dizziness, headache(s), numbness or weakness Vital Signs Vital Signs Vital Signs: Weight Weight: 73.9 kg Body Mass Index (BMI) 27.5 Physical Exam Const alert and no apparent distress General Appearance: cooperative HEENT normocephalic Resp normal respiratory effort GI soft to palpation GI Narrative: gravid, nontender, appropriate for gestational age Extremity no calf tenderness General Extremity: edema Skin no wounds Rashes: No rashes noted Psych activity/motor behavior normal Labs Labs Labs: Blood Type B POSITIVE Antibody Screen NEGATIVE Hct 34.3 % (37-47) L Hgb 11.4 g/dL (12.0-15.0) L Syphilis Total Ab Non-reactive Rhogam given: No Assessment & Plan (1) Normal labor and delivery: (2) 39 weeks gestation of : PLAN: Plan Admit for labor. Epidural prn.
== END 2023-12-22 17:50 | disposition home or self-care (01) | DRG 560 ==
LOC: WPOUT 07:48 → WP 07:48
PROVIDERS: Obstetrics & Gynecology; Admitting Provider Advanced Practice Midwife; PCP Nurse Practitioner Family; Referring Provider Advanced Practice Midwife; Visit Provider Advanced Practice Midwife
DX: O99.284 Endocrine, nutritional and metabolic diseases complicating childbirth (principal); Z37.0 Single live birth; E07.9 Disorder of thyroid, unspecified; F17.210 Nicotine dependence, cigarettes, uncomplicated; Z3A.39 39 weeks gestation of pregnancy; O99.334 Smoking (tobacco) complicating childbirth; Z79.890 Hormone replacement therapy
CPT/HCPCS: 59025; 59050; 85025; 86780; 86850; 86900; 86901; 99221; A4216; G0378

== ENCOUNTER 2024-08-04 14:20 | Emergency (ER) | payer MEDICAID, SELFPAY ==
[2024-08-04 14:20] VITALS: BP 146/94; PULSE 104; RESP 19; TEMP 36.5; O2SAT 98; BMI 23.1
[2024-08-04 14:22] VITALS: BP 146/94; PULSE 104; RESP 19; TEMP 36.5; O2SAT 98
--- OUTSIDE RECORDS SUMMARY | 2024-08-04 14:53 | XMS RPT_ITS | CCD ---
Author Organization [facility] Care Team Providers Care Epic Anesthesia Analyst Name Role Phone Marisel Belle MD Unavailable NALLELY HEARING AND SPEECH ASSISTANT - TRANSITIONAL CARE MANAGER, KARLA Simon Primary Care Phys ician PinellasKarla price CNP Primary Care Provider NallelyKarla price CNP Primary Care Provider Unavailable Primary Care Provider Unavailabl e NALLELYKAMALA PUENTESN - STEPHY, KARLA Simon Attending U navailable NALLELY HEARING AND SPEECH ASSISTANT - TRANSITIONAL CARE MANAGER, KARLA Simon Primary Care U navailable NALLELY HEARING AND SPEECH ASSISTANT - TRANSITIONAL CARE MANAGER, KARLA Simon Primary Care U navailable REFERRING, VINAYAK COLE Attending Unavailable NALLELY HEARING AND SPEECH ASSISTANT - TRANSITIONAL CARE MANAGER, KARLA Simon Attending U navailable NALLELY HEARING AND SPEECH ASSISTANT - TRANSITIONAL CARE MANAGER, KARLA Simon Primary Care U navailable [place] TRANSITIONAL CARE MANAGER, Karla Simon Primary Care Provider [phone]( [phone] DANUTA CASTILLO Referring Unavail able KARLA BROWNING Primary Care Unavailable KARLA BROWNING Primary Care Unavailable DANUTA CASTILLO Attending Unavail able KARLA BROWNING Primary Care Unavailable DANUTA CASTILLO Attending Unavail able DANUTA CASTILLO Attending Unavail able KARLA BROWNING Primary Care Unavailable KARLA BROWNING Primary Care Unavailable SOWMYA ELDER Attending Unavailable DANUTA CASTILLO Attending Unavail able KARLA BROWNING Primary Care Unavailable KARLA BROWNING Primary Care Unavailable DANUTA CASTILLO Attending Unavail able KARLA BROWNING Primary Care Unavailable ANDREIA RAINES Referring Unavailable DANUTA CASTILLO Attending Unavail able NELITZYT DANUTA MARLOW Referring Unavail able NALLELYKARLA CARRASQUILLO Primary Care Unavailable MILENAT DANUTA MARLOW Referring Unavail able NALLELYKARLA CARRASQUILLO Primary Care Unavailable NEYRUBYT MARLOWDANUTA WEISS Attending Unavail able NEYRUBYT MARLOWDANUTA WEISS Referring Unavail able NALLELYKARLA CARRASQUILLO Primary Care Unavailable NALLELY, KARLA Simon Primary Care Unavailable SOWMYA ELDER Referring Unavailable NALLELYKARLA CARRASQUILLO Primary Care Unavailable ANDREIA RAINES Attending Unavailable NALLELYKARLA CARRASQUILLO Primary Care Unavailable NEYRUBYT MARLOWDANUTA IRBY Referring Unavail able NALLELY, KARLA Simon Primary Care Unavailable MILENAT DANUTA MARLOW Attending Unavail able NALLELYKARLA CARRASQUILLO Primary Care Unavailable NELITZYT DANUTA MARLOW Attending Unavail able NALLELY, KARLA Simon Primary Care Unavailable DANUTA CASTILLO Attending Unavail able NALLELYKARLA CARRASQUILLO Primary Care Unavailable JOSETTE SHARMA Attending Unavailable NALLELYKARLA CARRASQUILLO Primary Care Unavailable MILENAT DANUTA MARLOW Attending Unavail able DANUTA CASTILLO Attending Unavail able NALLELYKARLA CARRASQUILLO Primary Care Unavailable DANUTA CASTILLO Referring Unavail able NALLELY, KARLA Simon Primary Care Unavailable NALLELYKARLA CARRASQUILLO Primary Care Unavailable SOWMYA ELDER Attending Unavailable NALLELYKARLA CARRASQUILLO Primary Care Unavailable SOWMYA ELDER Referring Unavailable Sowmya Elder Admitting Unavailable Sowmya Elder Attending Unavailable Sowmya Elder Referring Unavailable Nallely RETAIL ASSOCIATE, Karla Ansari Primary Care Unav ailable NALLELYKARLA MALONE APRN, CNP Attending U navailable NALLELYKARLA MALONE APRN, CNP Primary Care U navailable NALLELY KARLA GUERRERO CNP Attending U navailable NALLELYKARLA MALONE APRN, CNP Primary Care U navailable NALLELY GAURANG Lezama CNP, KARLA Simon Primary Care U navailable NALLELYFOREIGN Lezama CNP, KARLA Simon Attending U navailable Medications Current Medications Medication Drug Class(es) Dates Sig (Normalized) Sig (Original) acetaminophen 500 mg oral tablet (6 sources) Start: 01-11-2021 Tylenol Dose : 500 mg =, Oral, 0 Refill(s) Start Date: 01/11/21 Status: Ordered Repeat number: 1 ascorbic acid 500 mg oral tablet (1 source) Vitamin C take 1 tablet by mouth once daily ascorbic acid (Vitamin C) 500 mg tablet Take 1 tablet (500 mg) by mouth once daily. 0 Active cetirizine hydrochloride 10 mg oral tablet (4 sources) Histamine-1 Receptor Antagonist Start: 01-25-2024 Zyrtec 10 mg oral tablet Dose : 10 mg = 1 tab(s), Oral, qDay, # 90 tab(s), 1 Refill(s), Pharmacy: [id number], Seasonal allergies, 164, cm, 01/25/24 13:07:00 EST, Height, kg, 01/25/24 13:07:00 EST, Dosing Weight Start Date: 01/25/24 Status: Ordered Quantity: 90.0 Unit: tab(s) Repeat number: 2 Indications: Other seasonal allergic rhinitis; Start: 12-06-2022 Zyrtec 10 mg o ral tablet Dose : 10 mg = 1 tab(s), Oral, qDay, # 90 tab(s), 1 Refill(s), Pharmacy: [id number], Seasonal allergies, 162.5, cm, 06/13/23 9:02:00 EDT, Height, kg, 06/13/23 9:02:00 EDT, Dosing Weight Start Date: 06/13/23 Status: Ordered cream base (1 source) Start: 01-23-2023 cream base Ind ications: Anal fissure Nifedipine 0.2% cream, to be applied rectally 30 minutes prior to bowel movements. 60 g 1 01/23/2023 Active ferrous sulfate (SLOW FE) 137 mg (45 mg iron) TbER (16 sources) ferrous sulfate (SLOW FE) 137 mg (45 mg iron) TbER Take by mouth. Active hydrocortisone 25 mg/ml topical cream (4 sources) Corticosteroid Start: 09-23-2020 End: 05-07-2022 hydrocortisone (ANUSOL-HC) 2.5 % rectal cream by RECTAL route twice daily. 30 g 0 09/23/2020 05/07/2022 Discontinued (Course of therapy completed) Start: 09-08-2020 End: 05-07-2022 hydrocortisone (ANUSOL-HC) 2 5 mg suppository 1 Suppository by RECTAL route twice daily. 30 Suppository 0 09/08/2020 05/07/2022 Discontinued (Course of therapy completed) Comment on above: 1 Suppository by REC JENNIFER route twice daily. by RECTAL route twic e daily. levothyroxine sodium 0.025 mg oral tablet (20 sources) l-Thyroxine Start: 06-20-2024 levothyroxine 25 mcg (0.025 mg) oral tablet Dose : 37.5 mcg = 1.5 tab(s), Oral, qDayAC, # 135 tab(s), 0 Refill(s), Pharmacy: [facility], 164, cm, 05/28/24 7:05:00 EDT, Height, kg, 05/28/24 7:05:00 EDT, Dosing Weight Start Date: 06/20/24 Status: Ordered Quantity: 135.0 Unit: tab(s) Repeat number: 1 Start: 09-01-2023 levothyroxine 25 mcg (0.025 mg) oral tablet Dose : 37.5 mcg = 1.5 tab(s), Oral, qDayAC, # 135 tab(s), 0 Refill(s), Pharmacy: [facility], 162.5, cm, 06/13/23 9:02:00 EDT, Height, kg, 06/13/23 9:02:00 EDT, Dosing Weight Start Date: 09/01/23 Status: Ordered Start: 03-29-2023 take 1 tablet by syed th once daily levothyroxine (SYNTHROID) 25 mcg tablet Take 25 mcg by mouth once daily. 03/29/2023 Active Start: 12-06-2022 levothyroxine 25 mcg (0.025 mg) oral tablet Dose : 37.5 mcg = 1.5 tab(s), Oral, qDayAC, # 135 tab(s), 1 Refill(s), Pharmacy: [facility], 162.5, cm, 06/13/23 9:02:00 EDT, Height, kg, 06/13/23 9:02:00 EDT, Dosing Weight Start Date: 06/13/23 Status: Ordered Start: 11-16-2020 End: 08-13-2021 levothyroxine 50 mcg (0.05 m g) oral tablet Dose : 50 mcg = 1 tab(s), Oral, qDay, # 90 tab(s), 2 Refill(s), [facility], Hypothyroidism, 162, cm, 11/16/20 10:56:00 EDT, Height, kg, 11/16/20 10:56:00 EDT, Dosing Weight Start Date: 11/16/20 Stop Date: 08/13/21 Status: Ordered Start: 04-09-2018 End: 05-22-2023 levothyroxine (SYNTHROID) 50 mcg tablet Take 50 mcg by mouth once daily. taking 25mcg tablets 1 1/2 tablets daily 0 04/09/2018 05/22/2023 Discontinued (Dosage adjustment) Start: 04-09-2018 take 0.5 tablet by m outh once daily levothyroxine (SYNTHROID) 50 mcg tablet Take 0.5 tablets by mouth once daily. 0 04/09/2018 Active take 1 capsule by mo akh once daily, then take 1 capsule by mouth once daily levothyroxine (Tirosint) 25 mcg capsule Take 1 capsule (25 mcg) by mouth once daily. 1 1/2 tabs daily 0 Active Comment on above: Take 1 tablet by syed th once daily. Take 0.5 tablets by mouth once daily. Take 50 mcg by mouth once daily. taking 25mcg tablets 1 1/2 tablets daily magnesium oxide 250 mg oral tablet (4 sources) Start: 12-06-2022 take 1 mg by mouth once daily Magnesium 250 mg tablet mg = tab(s), Oral, qDay, 0 Refill(s) Start Date: 12/06/22 Status: Ordered take 1 tablet by mouth once teofilo y magnesium oxide (Mag-Ox) 400 mg tablet Take 1 tablet (400 mg) by mouth once daily. 0 Active norethindrone 0.35 mg oral tablet (2 sources) Start: 09-08-2020 End: 05-07-2022 take 1 tablet by mouth once daily Norethindrone, Contraceptive, (ORTHO MICRONOR) 0.35 mg tablet Take 1 tablet by mouth once daily. 1 Package 5 09/08/2020 05/07/2022 Discontinued Comment on above: Take 1 tablet by syed th once daily. polyethylene glycol [id number] mg powder for oral solution (3 sources) Osmotic Laxative Start: 01-25-2024 End: 07-23-2024 take 17 doses by mouth once daily Miralax Powder Packet Dose : 17 gram(s) =, Oral, qDay, dissolve in water or juice before taking, # 255 gram(s), 5 Refill(s), Pharmacy: [facility], Chronic idiopathic constipation, 164, cm, 01/25/24 13:07:00 EST, Height, kg, 01/25/24 13:07:00 EST, Dosing Weight Start Date: 01/25/24 Stop Date: 07/23/24 Status: Ordered Quantity: 255.0 Unit: g Repeat number: 6 Indications: Chronic idiopathic constipation; Start: 06-13-2023 End: 12-10-2023 take 17 doses by mouth once daily Miralax Powder Packet Dose : 17 gram(s) =, Oral, qDay, dissolve in water or juice before taking, # 255 gram(s), 5 Refill(s), Pharmacy: [facility], Chronic idiopathic constipation, 162.5, cm, 06/13/23 9:02:00 EDT, Height, kg, 06/13/23 9:02:00 EDT, Dosing Weight Start Date: 06/13/23 Stop Date: 12/10/23 Status: Ordered Prenatabs Rx oral tablet (2 sources) Start: 06-13-2023 take 1 tablet by mouth once daily Prenatabs Rx oral tablet tab(s), Oral, qDay, 0 Refill(s) Start Date: 06/13/23 Status: Ordered Tunosord-Tr-Unp-Fe-FA ( VITAMIN) tab (2 sources) End: 05-07-2022 take 1 tablet by mouth once Qbxhhoui-Ma-Fml-Fe-FA ( VITAMIN) tab Take 1 tablet by mouth. 0 05/07/2022 Discontinued take 1 tablet by mouth once Pren atal Lykiwklo-Bp-Dms-Fe-FA ( VITAMIN) tab Take 1 tablet by mouth. 0 Active Comment on above: Take 1 tablet by syed th. vit 32-frbm-iolte-dha (SELECT-OB+DHA) 29 mg iron-1 mg -250 mg (20 sources) vit 54-ujvm-djcby-dha (SELECT-OB+DHA) 29 mg iron-1 mg -250 mg Take by mouth as directed. Take 1 tablet and 1 capsule by mouth daily. Active vit 33- kcor-mxtbl-smc (SELECT-OB+DHA) 29 mg iron-1 mg -250 mg Take by mouth as directed. Take 1 tablet and 1 capsule by mouth daily. 0 Active Comment on above: Take by mouth as dir ected. Take 1 tablet and 1 capsule by mouth daily. Zinc (4 sources) Start: 12-06-2022 take 1 mg by mouth once daily Zinc mg =, Oral, qDay, 0 Refill(s) Start Date: 12/06/22 Status: Ordered Repeat number: 1 Start: 12-06-2022 take 1 mg by mouth once daily Zinc mg =, Oral, qDay, 0 Refill(s) Start Date: 12/06/22 Status: Ordered Completed/Discontinued Medications Medication Drug Class(es) Dates Sig (Normalized) Sig (Original) NIFEdipine (3 sources) Dihydropyridine Calcium Channel Andrea Start: 06-13-2023 Nifedipine 0.2% Rectal Ointment Nifedipine 0.2% Rectal Ointment, 0 Refill(s), 60.2 Start Date: 06/13/23 Status: Ordered Repeat number: 1 Start: 06-13-2023 Nifedipine 0.2 % Rectal Ointment Nifedipine 0.2% Rectal Ointment, 0 Refill(s), 60.2 Start Date: 06/13/23 Status: Ordered pramoxine hydrochloride 10 mg/ml rectal foam (1 source) Start: 12-06-2022 End: 01-05-2023 apply 1 dose topically twice daily Proctofoam NS 1% rectal foam Dose = 1 moises, Topical, BID, # 15 gram(s), 5 Refill(s), Pharmacy: [facility], Hemorrhoid, 162.5, cm, 12/06/22 8:57:00 EDT, Height, kg, 12/06/22 8:57:00 EDT, Dosing Weight Start Date: 12/06/22 Stop Date: 01/05/23 Status: Ordered VIT-FE FUMARATE-FA (3 sources) Start: 09-19-2016 take 1 tablet by mouth once daily VITAMINS 28-0.8 MG TABS One tablet by mouth daily VIT-FE FUMARATE-FA [id number] Marisel Belle MD VIT-FE FUMARATE-FA (1 source) Start: 09-19-2016 take 1 tablet by mouth once daily VITAMINS 28-0.8 MG TABS One tablet by mouth daily VIT-FE FUMARATE-FA [id number] Marisel Belle MD Problems Active Problems Problem Classification Problem Date Documented Da te Episodic/Chronic Deficiency and other anemia (6 sources) Anemia 11-16-2020 Episodic Deficiency and other anemia (4 sources) Anemia, unspecified; Translations: [Anemia, unspecified] Onset: 06-08-2023 Episodic Hemorrhoids (4 sources) Hemorrhoids 11-25-2021 Episodic Malaise and fatigue (1 source) Asthenia; Translations: [Weakness] Episodic Other complications of (1 source) Anemia complicating , third trimester; Translations: [Anemia during in third trimester] Onset: 09-27-2023 Chronic Other complications of (1 source) Hemorrhoids in ; Translations: [Hemorrhoids in , third trimester] 12-01-2023 Episodic Other complications of (1 source) Supervision of high risk , unspecified, third trimester; Translations: [Supervision of high risk in third trimester] Onset: 12-01-2023 Episodic Other complications of (1 source) Hemorrhoids in , third trimester; Translations: [Hemorrhoids in in third trimester] Onset: 12-01-2023 Episodic Other complications of (1 source) Endocrine, nutritional and metabolic diseases complicating , third trimester; Translations: [Hypothyroidism during in third trimester] Onset: 12-01-2023 Episodic Other ear and sense organ disorders (1 source) Bilateral earache; Translations: [Otalgia, bilateral] Episodic Other female genital disorders (1 source) Vaginal irritation; Translations: [Other specified noninflammatory disorders of vagina] 12-29-2023 Episodic Other gastrointestinal disorders (3 sources) Chronic idiopathic constipation 06-13-2023 Chronic Other screening for suspected conditions (not mental disorders or infectious disease) (10 sources) Encounter for screening for diabetes mellitus; Translations: [Encounter for screening for lipoid disorders] Onset: 06-08-2023 Episodic Other upper respiratory disease (4 sources) Seasonal allergy 06-03-2022 Chronic Other upper respiratory infections (2 sources) Upper respiratory infection; Translations: [Acute upper respiratory infection, unspecified] Episodic Residual codes; unclassified (1 source) Gestation period, 8 weeks; Translations: [8 weeks gestation of ] 05-22-2023 Episodic Residual codes; unclassified (3 sources) Increased body mass index 06-13-2023 Episodic Residual codes; unclassified (2 sources) Gestation period, 13 weeks; Translations: [13 weeks gestation of ] 06-23-2023 Episodic Residual codes; unclassified (2 sources) Gestation period, 19 weeks; Translations: [19 weeks gestation of ] 08-03-2023 Episodic Residual codes; unclassified (1 source) Gestation period, 22 weeks; Translations: [22 weeks gestation of ] 08-30-2023 Episodic Residual codes; unclassified (2 sources) Gestation period, 23 weeks; Translations: [23 weeks gestation of ] 09-01-2023 Episodic Residual codes; unclassified (1 source) Gestation period, 26 weeks; Translations: [26 weeks gestation of ] 09-27-2023 Episodic Residual codes; unclassified (1 source) Gestation period, 28 weeks; Translations: [28 weeks gestation of ] 10-11-2023 Episodic Residual codes; unclassified (1 source) Gestation period, 30 weeks; Translations: [30 weeks gestation of ] 10-25-2023 Episodic Residual codes; unclassified (1 source) Gestation period, 32 weeks; Translations: [32 weeks gestation of ] 11-08-2023 Episodic Residual codes; unclassified (2 sources) Gestation period, 35 weeks; Translations: [35 weeks gestation of ] 11-23-2023 Episodic Residual codes; unclassified (2 sources) Gestation period, 36 weeks; Translations: [36 weeks gestation of ] 12-01-2023 Episodic Residual codes; unclassified (1 source) Gestation period, 37 weeks; Translations: [37 weeks gestation of ] 12-13-2023 Episodic Residual codes; unclassified (1 source) 36 weeks gestation of ; Translations: [36 weeks gestation of ] Onset: 12-01-2023 Episodic Thyroid disorders (11 sources) Hypothyroidism; Translations: [Hypothyroidism, unspecified] Onset: 06-08-2023 11-05-2018 Chronic Unclassified (15 sources) Patient encounter status 11-01-2019 Comment on above: Screening cholestero l panel: 2021 Lab results show: - LDL: 69 - HDL: 62 - T Unclassified (3 sources) Non-smoker 06-13-2023 Unclassified (20 sources) [facility] Education - COMMON Onset: 05-22-2023 05-22-2023 Unclassified (20 sources) Education - [place] Onset: 05-22-2023 05-22-2023 Unclassified (1 source) Breast fed 05-28-2024 Past or Other Problems Problem Classification Problem Date Documented Date Episodic/Chronic Anal and rectal conditions (20 sources) Anal fissure; Translations: [Anal fissure, unspecified] Onset: 05-22-2023 01-23-2023 Episodic Deficiency and other anemia (20 sources) Iron deficiency anemia; Translations: [Iron deficiency anemia, unspecified] Onset: 01-08-2007 Resolved: 11-13-2014 11-13-2014 Episodic Diabetes or abnormal glucose tolerance complicating ; childbirth; or the puerperium (20 sources) Abnormal glucose level; Translations: [Abnormal glucose complicating ] Onset: 11-18-2016 Resolved: 02-28-2017 02-28-2017 Episodic Immunizations and screening for infectious disease (20 sources) Rubella non-immune ; Translations: [Supervision of other high risk pregnancies, unspecified trimester] Onset: 07-27-2016 Resolved: 02-28-2017 10-13-2016 Episodic Menstrual disorders (20 sources) Excessive and frequent menstruation; Translations: [Excessive and frequent menstruation with regular cycle] Onset: 01-08-2007 Resolved: 11-13-2014 11-13-2014 Chronic Other complications of (20 sources) Anemia in mother complicating , childbirth AND/OR puerperium; Translations: [Anemia complicating , third trimester] Onset: 11-18-2016 Resolved: 02-28-2017 02-28-2017 Chronic Other complications of (20 sources) Anemia of ; Translations: [Anemia complicating , third trimester] Onset: 09-27-2023 Resolved: 02-05-2024 09-27-2023 Chronic Other complications of (17 sources) Hypothyroidism in ; Translations: [Endocrine, nutritional and metabolic diseases complicating , second trimester] Onset: 12-06-2023 Resolved: 02-05-2024 08-30-2023 Episodic Other complications of (15 sources) High risk ; Translations: [Supervision of high risk , unspecified, third trimester] Onset: 12-06-2023 Resolved: 02-05-2024 10-11-2023 Episodic Other nutritional; endocrine; and metabolic disorders (20 sources) H/O: hypothyroidism; Translations: [Personal history of other endocrine, nutritional and metabolic disease] Onset: 12-05-2019 12-05-2019 Episodic Other nutritional; endocrine; and metabolic disorders (1 source) Personal history of other endocrine, nutritional and metabolic disease; Translations: [History of hypothyroidism] Onset: 05-22-2023 Episodic Other and delivery including normal (20 sources) Primigravida; Translations: [Gestation period, 20 weeks] Onset: 06-27-2016 Resolved: 12-06-2023 10-13-2016 Episodic Other skin disorders (20 sources) Localized swelling, mass and lump, left upper limb; Translations: [Localized superficial swelling, mass, or lump] Onset: 09-01-2023 Resolved: 02-05-2024 09-01-2023 Episodic Residual codes; unclassified (20 sources) History of past delivery; Translations: [Personal history of other complications of , childbirth and the puerperium] Onset: 12-05-2019 Resolved: 09-08-2020 09-08-2020 Episodic Residual codes; unclassified (1 source) 23 weeks gestation of ; Translations: [23 weeks gestation of ] Onset: 09-05-2023 Episodic Residual codes; unclassified (1 source) 19 weeks gestation of ; Translations: [19 weeks gestation of ] Onset: 08-03-2023 Episodic Residual codes; unclassified (1 source) 13 weeks gestation of ; Translations: [13 weeks gestation of ] Onset: 06-23-2023 Episodic Residual codes; unclassified (1 source) 8 weeks gestation of ; Translations: [8 weeks gestation of ] Onset: 06-23-2023 Episodic Results Test Name Value Interpretation Reference Range Facil ity .Auto Diffon 07-11-2024 Basophil, Absolute 0.0 10 3/mcL Normal 0.0-0.3 [facility] Comment on above: Performed By: #### A DIFF, CBC, TSH, FT4, FERR, FE, FT3, ANEU, IBC #### [address] [address] Basophils/100 WBC (Bld) 0.5 % Normal 0.0-2.[address] [facility] Comment on above: Performed By: #### A DIFF, CBC, TSH, FT4, FERR, FE, FT3, ANEU, IBC #### [address] [address] Eosinophil, Absolute 0.1 10 3/mcL Normal 0.0-0.7 [facility] Comment on above: Performed By: #### A DIFF, CBC, TSH, FT4, FERR, FE, FT3, ANEU, IBC #### [address] [address] Eosinophils/100 WBC (Bld) 2.4 % Normal 0.0-6.[address] [facility] Comment on above: Performed By: #### A DIFF, CBC, TSH, FT4, FERR, FE, FT3, ANEU, IBC #### [address] [address] Lymphocyte, Absolute 2.2 10 3/mcL Normal 0.9-4.3 [facility] Comment on above: Performed By: #### A DIFF, CBC, TSH, FT4, FERR, FE, FT3, ANEU, IBC #### [address] [address] Lymphocytes/100 WBC (Bld) 43.3 % High 20.0-40.[address] [facility] Comment on above: Performed By: #### A DIFF, CBC, TSH, FT4, FERR, FE, FT3, ANEU, IBC #### [address] [address] Monocyte, Absolute 0.4 10 3/mcL Normal 0.1-1.4 [facility] Comment on above: Performed By: #### A DIFF, CBC, TSH, FT4, FERR, FE, FT3, ANEU, IBC #### [address] [address] Monocytes/100 WBC (Bld) 7.5 % Normal 2.0-13.[address] [facility] Comment on above: Performed By: #### A DIFF, CBC, TSH, FT4, FERR, FE, FT3, ANEU, IBC #### [address] [address] Neutrophils/100 WBC (Bld) 46.3 % Low 50.0-75.[address] [facility] Comment on above: Performed By: #### A DIFF, CBC, TSH, FT4, FERR, FE, FT3, ANEU, IBC #### [address] [address] .GFRon 07-11-2024 Estimated Glomerular Filtration Rate 119 ml/min/1.73sqm Normal [facility] Comment on above: Result Comment: Stages of Chronic Kidney Disease (CKD) Stage Description eGFR(ml/min/1.73 sq.m.) CKD 1 Normal kidney function or >=90 normal kindney function with possible kidney damage (ex. Proteinuria) CKD 2 Kidney damage with mild loss 60-89 of kidney function CKD 3a Mild to moderate loss of kidney 45-59 function CKD 3b Moderate to severe loss of 30-44 of kindey function CKD 4 Severe loss of kidney function 15-29 CKD 5 Kidney failure <15 Note: (go live 2024) the eGFR calculation was updated to the 2020 CKD-EPI creatinine equation without a race factor to calculate the eGFR results. Performed By: #### A DIFF, CBC, TSH, FT4, FERR, FE, FT3, ANEU, IBC #### [address] [address] .NEUABSon 07-11-2024 Neutrophil, Absolute 2.3 10 3/mcL Normal 2.3-8.1 [facility] Comment on above: Performed By: #### A DIFF, CBC, TSH, FT4, FERR, FE, FT3, ANEU, IBC #### [address] [address] A1Con 07-11-2024 Glucose [Mass/Vol] 105 mg/dL Normal [facility] Comment on above: Result Comment: Pauline mated Average Glucose calculated by equation ((28.7xA1C)-46.7) Estimated average glucose (eAG) is a calculated value from Hemoglobin A1C and is development representative of the average blood glucose level in the last 2-3 month period. Normal range: less than 114 mg/dL Performed By: #### A DIFF, CBC, TSH, FT4, FERR, FE, FT3, ANEU, IBC #### [address] [address] HbA1c (Bld) [Mass fraction] 5.3 % Normal 4.3-6.[address] [facility] Comment on above: Performed By: #### A DIFF, CBC, TSH, FT4, FERR, FE, FT3, ANEU, IBC #### [address] [address] CBCon 07-11-2024 Erythrocyte distribution width (RBC) [Ratio] 12.9 % Normal 11.5-15.[address] [facility] Comment on above: Performed By: #### A DIFF, CBC, TSH, FT4, FERR, FE, FT3, ANEU, IBC #### [address] [address] Hematocrit (Bld) [Volume fraction] 37.6 % Normal 34.0-46.[address] [facility] Comment on above: Performed By: #### A DIFF, CBC, TSH, FT4, FERR, FE, FT3, ANEU, IBC #### [address] [address] Hgb 12.7 G/dL Normal 12.0-16.0 [facility] [facility] Comment on above: Performed By: #### A DIFF, CBC, TSH, FT4, FERR, FE, FT3, ANEU, IBC #### [address] [address] MCH (RBC) [Entitic mass] 28.3 pg Normal 27.0-33.[address] [facility] Comment on above: Performed By: #### A DIFF, CBC, TSH, FT4, FERR, FE, FT3, ANEU, IBC #### [address] [address] MCHC 33.8 G/dL Normal 32.0-36.[address] [facility] Comment on above: Performed By: #### A DIFF, CBC, TSH, FT4, FERR, FE, FT3, ANEU, IBC #### [address] [address] MCV (RBC) [Entitic vol] 83.7 fL Normal 80.0-99.[address] [facility] Comment on above: Performed By: #### A DIFF, CBC, TSH, FT4, FERR, FE, FT3, ANEU, IBC #### [address] [address] Platelet 272 10 3/mcL Normal 150-[address] [facility] Comment on above: Performed By: #### A DIFF, CBC, TSH, FT4, FERR, FE, FT3, ANEU, IBC #### [address] [address] Platelet mean volume (Bld) [Entitic vol] 7.5 fL Normal 6.6-10.[address] [facility] Comment on above: Performed By: #### A DIFF, CBC, TSH, FT4, FERR, FE, FT3, ANEU, IBC #### [address] [address] RBC 4.49 10 6/mcL Normal 4.10-5.[address] [facility] Comment on above: Performed By: #### A DIFF, CBC, TSH, FT4, FERR, FE, FT3, ANEU, IBC #### [address] [address] WBC 5.0 10 3/mcL Normal 4.5-10.[address] [facility] Comment on above: Performed By: #### A DIFF, CBC, TSH, FT4, FERR, FE, FT3, ANEU, IBC #### [place] [id number] CMPon 07-11-2024 Albumin Level 4.1 G/dL Normal 3.5-5.[address] [facility] Comment on above: Performed By: #### A DIFF, CBC, TSH, FT4, FERR, FE, FT3, ANEU, IBC #### [place] [address] Albumin/Globulin [Mass ratio] 1.2 {ratio} Normal 1.1-2.[address] [facility] Comment on above: Performed By: #### A DIFF, CBC, TSH, FT4, FERR, FE, FT3, ANEU, IBC #### [place] [address] ALP [Catalytic activity/Vol] 79 U/L Normal 40-[address] [facility] Comment on above: Performed By: #### A DIFF, CBC, TSH, FT4, FERR, FE, FT3, ANEU, IBC #### [place] [address] ALT [Catalytic activity/Vol] 23 U/L Normal 14-[address] [facility] Comment on above: Performed By: #### A DIFF, CBC, TSH, FT4, FERR, FE, FT3, ANEU, IBC #### [place] [address] AST [Catalytic activity/Vol] 17 U/L Normal 10-[address] [facility] Comment on above: Performed By: #### A DIFF, CBC, TSH, FT4, FERR, FE, FT3, ANEU, IBC #### [place] [id number] Bili Total 0.6 mg/dL Normal 0.2-1.[address] [facility] Comment on above: Result Comment: Use of this assay is not recommended for patients undergoing treatment with eltrombopag due to the potential for falsely elevated results. Performed By: #### A DIFF, CBC, TSH, FT4, FERR, FE, FT3, ANEU, IBC #### [place] [id number] BUN/Creatinine Ratio 26 ratio Normal 7-27 [facility] Comment on above: Performed By: #### A DIFF, CBC, TSH, FT4, FERR, FE, FT3, ANEU, IBC #### [place] [address] Calcium [Mass/Vol] 8.8 mg/dL Normal 8.4-10.2 [facility] Comment on above: Performed By: #### A DIFF, CBC, TSH, FT4, FERR, FE, FT3, ANEU, IBC #### [place] [address] Chloride [Moles/Vol] 104 mmol/L Normal 98-107 [facility] Comment on above: Performed By: #### A DIFF, CBC, TSH, FT4, FERR, FE, FT3, ANEU, IBC #### [place] [address] CO2 [Moles/Vol] 28 mmol/L Normal 22-[address] [facility] Comment on above: Performed By: #### A DIFF, CBC, TSH, FT4, FERR, FE, FT3, ANEU, IBC #### [place] [address] Creatinine [Mass/Vol] 0.70 mg/dL Normal 0.51-0.[address] [facility] Comment on above: Performed By: #### A DIFF, CBC, TSH, FT4, FERR, FE, FT3, ANEU, IBC #### [place] [address] Electrolyte Balance 7.0 mEq/L Normal 4.0-15.0 [facility] Comment on above: Performed By: #### A DIFF, CBC, TSH, FT4, FERR, FE, FT3, ANEU, IBC #### [place] [address] Globulin 3.4 G/dL Normal 2.7-4.[address] [facility] Comment on above: Performed By: #### A DIFF, CBC, TSH, FT4, FERR, FE, FT3, ANEU, IBC #### [address] [address] Glucose [Mass/Vol] 77 mg/dL Normal 70-105 [facility] Comment on above: Performed By: #### A DIFF, CBC, TSH, FT4, FERR, FE, FT3, ANEU, IBC #### [address] [address] Potassium [Moles/Vol] 4.1 mmol/L Normal 3.5-5.[address] [facility] Comment on above: Performed By: #### A DIFF, CBC, TSH, FT4, FERR, FE, FT3, ANEU, IBC #### [address] [address] Sodium [Moles/Vol] 139 mmol/L Normal 136-145 [facility] Comment on above: Performed By: #### A DIFF, CBC, TSH, FT4, FERR, FE, FT3, ANEU, IBC #### [address] [address] Total Protein 7.5 G/dL Normal 6.4-8.[address] [facility] Comment on above: Performed By: #### A DIFF, CBC, TSH, FT4, FERR, FE, FT3, ANEU, IBC #### [address] [address] Urea nitrogen [Mass/Vol] 18 mg/dL Normal 7-[address] [facility] Comment on above: Performed By: #### A DIFF, CBC, TSH, FT4, FERR, FE, FT3, ANEU, IBC #### [address] [address] FEon 07-11-2024 Iron [Mass/Vol] 67 ug/dL Normal 50-[address] [facility] Comment on above: Performed By: #### A DIFF, CBC, TSH, FT4, FERR, FE, FT3, ANEU, IBC #### [address] [address] FT3on 07-11-2024 Free T3 [Mass/Vol] 2.41 pg/mL Normal 2.30-4.00 [facility] Comment on above: Performed By: #### A DIFF, CBC, TSH, FT4, FERR, FE, FT3, ANEU, IBC #### [address] [address] FT4on 07-11-2024 Free T4 [Mass/Vol] 0.95 ng/dL Normal 0.76-1.46 [facility] Comment on above: Performed By: #### A DIFF, CBC, TSH, FT4, FERR, FE, FT3, ANEU, IBC #### [address] [address] IBCon 07-11-2024 TIBC 352 mcg/dL Normal 250-[address] [facility] Comment on above: Performed By: #### A DIFF, CBC, TSH, FT4, FERR, FE, FT3, ANEU, IBC #### [address] [address] LABORATORYOrdered By: SYSTEM SYSTEM on 07-11-2024 Albumin BCP dye [Mass/Vol] 4.1 G/dL Normal 3.5 - 5.0 G/dL AO ADM SS Albumin/Globulin [Mass ratio] 1.2 {ratio} Normal 1.1 - 2.5 ratio AO ADM SS ALP [Catalytic activity/Vol] 79 U/L Normal 40 - 135 U/L AO ADM SS ALT With P-5'-P [Catalytic activity/Vol] 23 U/L Normal 14 - 59 U/L AO ADM SS AST With P-5'-P [Catalytic activity/Vol] 17 U/L Normal 10 - 40 U/L AO ADM SS Basophils (Bld) [#/Vol] 0.0 103/mcL Normal 0.0 - 0.3 10^3/mcL AO Workflow SS Basophils/100 WBC (Bld) 0.5 % Normal 0.0 - 2.5 % AO Workflow SS Bilirubin [Mass/Vol] 0.6 mg/dL Normal 0.2 - 1.0 mg/dL AO ADM SS Comment on above: Interpretive Data: U se of this assay is not recommended for patients undergoing treatment with eltrombopag due to the potential for falsely elevated results. Calcium [Mass/Vol] 8.8 mg/dL Normal 8.4 - 10.2 mg/dL AO ADM SS Chloride [Moles/Vol] 104 mmol/L Normal 98 - 107 mmol/L AO ADM SS CO2 [Moles/Vol] 28 mmol/L Normal 22 - 29 mmol/L AO AD M SS Creatinine [Mass/Vol] 0.70 mg/dL Normal 0.51 - 0.95 mg/dL AO ADM SS Electrolyte Balance 7.0 mEq/L Normal 4.0 - 15.0 mEq/L AO ADM SS Eosinophil, Absolute 0.1 103/mcL Normal 0.0 - 0 .7 10^3/mcL AO Workflow SS Eosinophils/100 WBC (Bld) 2.4 % Normal 0.0 - 6.0 % AO Workflow SS Erythrocyte distribution width (RBC) [Ratio] 12.9 % Normal 11.5 - 15.5 % AO Workflow SS Estimated Glomerular Filtration Rate 119 ml/min/1.73sqm Invalid Interpretation Code AO Chemistry S Comment on above: Interpretive Data: Stages of Chronic Kidney Disease (CKD) Stage Description eGFR(ml/min/1.73 sq.m.) CKD 1 Normal kidney function or >=90 normal kindney function with possible kidney damage (ex. Proteinuria) CKD 2 Kidney damage with mild loss 60-89 of kidney function CKD 3a Mild to moderate loss of kidney 45-59 function CKD 3b Moderate to severe loss of 30-44 of kindey function CKD 4 Severe loss of kidney function 15-29 CKD 5 Kidney failure <15 Note: (go live 2024) the eGFR calculation was updated to the 2020 CKD-EPI creatinine equation without a race factor to calculate the eGFR results. Free T3 [Mass/Vol] 2.41 pg/mL Normal 2.30 - 4. 00 pg/mL AO ADM SS Free T4 [Mass/Vol] 0.95 ng/dL Normal 0.76 - 1. 46 ng/dL AO ADM SS Globulin 3.4 G/dL Normal 2.7 - 4.4 G/dL AO ADM SS Glucose [Mass/Vol] 105 mg/dL Invalid Interpretation Code AO Chemistry S Comment on above: Interpretive Data: E stimated average glucose (eAG) is a calculated value from Hemoglobin A1C and is development representative of the average blood glucose level in the last 2-3 month period. Normal range: less than 114 mg/dL Glucose [Mass/Vol] 77 mg/dL Normal 70 - 105 mg/dL AO ADM SS HbA1c (Bld) [Mass fraction] 5.3 % Normal 4.3 - 6.4 % AO ADM SS Hematocrit (Bld) [Volume fraction] 37.6 % Normal 34.0 - 46.0 % AO Workflow SS Hemoglobin (Bld) [Mass/Vol] 12.7 G/dL Normal 12.0 - 16.0 G/dL AO Workflow SS Iron [Mass/Vol] 67 ug/dL Normal 50 - 170 mcg/dL AO A DM SS Iron binding capacity [Mass/Vol] 352 mcg/dL Normal 250 - 450 mcg/dL AO ADM SS Lymphocytes (Bld) [#/Vol] 2.2 103/mcL Normal 0.9 - 4.3 10^3/mcL AO Workflow SS Lymphocytes/100 WBC (Bld) 43.3 % High 20.0 - 40.0 % AO Workflow SS MCH (RBC) [Entitic mass] 28.3 pg Normal 27.0 - 33.0 pg AO Workflow SS MCHC 33.8 G/dL Normal 32.0 - 36.0 G/dL AO Workf low SS MCV (RBC) [Entitic vol] 83.7 fL Normal 80.0 - 99.0 fL AO Workflow SS Monocytes (Bld) [#/Vol] 0.4 103/mcL Normal 0.1 - 1.4 10^3/mcL AO Workflow SS Monocytes/100 WBC (Bld) 7.5 % Normal 2.0 - 13.0 % AO Workflow SS Neutrophils (Bld) [#/Vol] 2.3 103/mcL Normal 2.3 - 8.1 10^3/mcL AO Workflow SS Neutrophils/100 WBC (Bld) 46.3 % Low 50.0 - 75.0 % AO Workflow SS Platelet mean volume (Bld) [Entitic vol] 7.5 fL Normal 6.6 - 10.5 fL AO Workflow SS Platelets (Bld) [#/Vol] 272 103/mcL Normal 150 - 450 10^3/mcL AO Workflow SS Potassium [Moles/Vol] 4.1 mmol/L Normal 3.5 - 5.1 mmol/L AO ADM SS Protein [Mass/Vol] 7.5 G/dL Normal 6.4 - 8.2 G/dL AO ADM SS RBC (Bld) [#/Vol] 4.49 106/mcL Normal 4.10 - 5.3 0 10^6/mcL AO Workflow SS Sodium [Moles/Vol] 139 mmol/L Normal 136 - 145 mmol/L AO ADM SS TSH Qn 1.46 m[IU]/L Normal 0.36 - 3.74 mcIU/mL AO ADM SS Urea nitrogen [Mass/Vol] 18 mg/dL Normal 7 - 18 mg/dL AO ADM SS Urea nitrogen/Creatinine [Mass ratio] 26 ratio Normal 7 - 27 ratio AO ADM SS WBC (Bld) [#/Vol] 5.0 103/mcL Normal 4.5 - 10.8 10^3/mcL AO Workflow SS LABORATORYOrdered By: Jacob Velasquez on 07-11-2024 Cholesterol [Mass/Vol] 160 mg/dL Normal 0 - 200 mg/dL AO ADM SS Comment on above: Interpretive Data: C holesterol Reference Interval: Less than 200 Desirable 200-239 Borderline high risk 240 and above High risk Cholesterol in HDL [Mass/Vol] 65 mg/dL High 40 - 60 mg/dL AO ADM SS Cholesterol in LDL [Mass/Vol] 90 mg/dL Normal 0 - 130 mg/dL AO ADM SS Triglyceride [Mass/Vol] 25 mg/dL Normal 0 - 150 mg/dL AO ADM SS Comment on above: Interpretive Data: T riglyceride Reference Interval: Less than 150 Normal 150-199 Borderline high risk 200-499 High risk 500 or higher Very high risk LIPIDon 07-11-2024 Cholesterol [Mass/Vol] 160 mg/dL Normal 0-[address] [facility] Comment on above: Result Comment: Chol esterol Reference Interval: Less than 200 Desirable 200-239 Borderline high risk 240 and above High risk Performed By: #### A DIFF, CBC, TSH, FT4, FERR, FE, FT3, ANEU, IBC #### [place] [address] [place], [place] [address] Cholesterol in HDL [Mass/Vol] 65 mg/dL High 40-[address] [facility] Comment on above: Performed By: #### A DIFF, CBC, TSH, FT4, FERR, FE, FT3, ANEU, IBC #### [place] [address] [place], [place] [address] Cholesterol in LDL [Mass/Vol] 90 mg/dL Normal 0-[address] [facility] Comment on above: Performed By: #### A DIFF, CBC, TSH, FT4, FERR, FE, FT3, ANEU, IBC #### [address] [address] Triglyceride [Mass/Vol] 25 mg/dL Normal 0-[address] [facility] Comment on above: Result Comment: Trig lyceride Reference Interval: Less than 150 Normal 150-199 Borderline high risk 200-499 High risk 500 or higher Very high risk Performed By: #### A DIFF, CBC, TSH, FT4, FERR, FE, FT3, ANEU, IBC #### [address] [address] TSHon 07-11-2024 TSH Qn 1.46 m[IU]/L Normal 0.36-3.[address] [facility] Comment on above: Performed By: #### A DIFF, CBC, TSH, FT4, FERR, FE, FT3, ANEU, IBC #### [address] [address] .Auto Diffon 05-28-2024 Basophil, Absolute 0.0 10 3/mcL Normal 0.0-0.3 [facility] Comment on above: Performed By: #### A DIFF, CBC, TSH, FT4, FERR, FE, FT3, ANEU, IBC #### [address] [address] Basophils/100 WBC (Bld) 0.4 % Normal 0.0-2.[address] [facility] Comment on above: Performed By: #### A DIFF, CBC, TSH, FT4, FERR, FE, FT3, ANEU, IBC #### [address] [address] Eosinophil, Absolute 0.1 10 3/mcL Normal 0.0-0.7 [facility] Comment on above: Performed By: #### A DIFF, CBC, TSH, FT4, FERR, FE, FT3, ANEU, IBC #### [address] [address] Eosinophils/100 WBC (Bld) 1.2 % Normal 0.0-6.[address] [facility] Comment on above: Performed By: #### A DIFF, CBC, TSH, FT4, FERR, FE, FT3, ANEU, IBC #### [address] [address] Lymphocyte, Absolute 2.6 10 3/mcL Normal 0.9-4.3 [facility] Comment on above: Performed By: #### A DIFF, CBC, TSH, FT4, FERR, FE, FT3, ANEU, IBC #### [address] [address] Lymphocytes/100 WBC (Bld) 40.8 % High 20.0-40.[address] [facility] Comment on above: Performed By: #### A DIFF, CBC, TSH, FT4, FERR, FE, FT3, ANEU, IBC #### [address] [address] Monocyte, Absolute 0.6 10 3/mcL Normal 0.1-1.4 [facility] Comment on above: Performed By: #### A DIFF, CBC, TSH, FT4, FERR, FE, FT3, ANEU, IBC #### [address] [address] Monocytes/100 WBC (Bld) 9.4 % Normal 2.0-13.[address] [facility] Comment on above: Performed By: #### A DIFF, CBC, TSH, FT4, FERR, FE, FT3, ANEU, IBC #### [address] [address] Neutrophils/100 WBC (Bld) 48.2 % Low 50.0-75.[address] [facility] Comment on above: Performed By: #### A DIFF, CBC, TSH, FT4, FERR, FE, FT3, ANEU, IBC #### [address] [address] .GFRon 05-28-2024 Estimated Glomerular Filtration Rate 98 ml/min/1.73sqm Normal [facility] Comment on above: Result Comment: Stages of Chronic Kidney Disease (CKD) Stage Description eGFR(ml/min/1.73 sq.m.) CKD 1 Normal kidney function or >=90 normal kindney function with possible kidney damage (ex. Proteinuria) CKD 2 Kidney damage with mild loss 60-89 of kidney function CKD 3a Mild to moderate loss of kidney 45-59 function CKD 3b Moderate to severe loss of 30-44 of kindey function CKD 4 Severe loss of kidney function 15-29 CKD 5 Kidney failure <15 Note: (go live 2024) the eGFR calculation was updated to the 2020 CKD-EPI creatinine equation without a race factor to calculate the eGFR results. Performed By: #### A DIFF, CBC, TSH, FT4, FERR, FE, FT3, ANEU, IBC #### [address] [address] .NEUABSon 05-28-2024 Neutrophil, Absolute 3.1 10 3/mcL Normal 2.3-8.1 [facility] Comment on above: Performed By: #### A DIFF, CBC, TSH, FT4, FERR, FE, FT3, ANEU, IBC #### [address] [address] CBCon 05-28-2024 Erythrocyte distribution width (RBC) [Ratio] 13.8 % Normal 11.5-15.[address] [facility] Comment on above: Performed By: #### A DIFF, CBC, TSH, FT4, FERR, FE, FT3, ANEU, IBC #### [place] [address] Hematocrit (Bld) [Volume fraction] 38.8 % Normal 34.0-46.[address] [facility] Comment on above: Performed By: #### A DIFF, CBC, TSH, FT4, FERR, FE, FT3, ANEU, IBC #### [place] [address] Hgb 13.3 G/dL Normal 12.0-16.[address] [facility] Comment on above: Performed By: #### A DIFF, CBC, TSH, FT4, FERR, FE, FT3, ANEU, IBC #### [address] [address] MCH (RBC) [Entitic mass] 28.4 pg Normal 27.0-33.[address] [facility] Comment on above: Performed By: #### A DIFF, CBC, TSH, FT4, FERR, FE, FT3, ANEU, IBC #### [address] [address] MCHC 34.2 G/dL Normal 32.0-36.[address] [facility] Comment on above: Performed By: #### A DIFF, CBC, TSH, FT4, FERR, FE, FT3, ANEU, IBC #### [address] [address] MCV (RBC) [Entitic vol] 83.0 fL Normal 80.0-99.[address] [facility] Comment on above: Performed By: #### A DIFF, CBC, TSH, FT4, FERR, FE, FT3, ANEU, IBC #### [address] [address] Platelet 278 10 3/mcL Normal 150-[address] [facility] Comment on above: Performed By: #### A DIFF, CBC, TSH, FT4, FERR, FE, FT3, ANEU, IBC #### [address] [address] Platelet mean volume (Bld) [Entitic vol] 7.3 fL Normal 6.6-10.[address] [facility] Comment on above: Performed By: #### A DIFF, CBC, TSH, FT4, FERR, FE, FT3, ANEU, IBC #### [address] [address] RBC 4.67 10 6/mcL Normal 4.10-5.[address] [facility] Comment on above: Performed By: #### A DIFF, CBC, TSH, FT4, FERR, FE, FT3, ANEU, IBC #### [address] [address] WBC 6.5 10 3/mcL Normal 4.5-10.[address] [facility] Comment on above: Performed By: #### A DIFF, CBC, TSH, FT4, FERR, FE, FT3, ANEU, IBC #### [address] [address] CMPon 05-28-2024 Albumin Level 4.3 G/dL Normal 3.5-5.[address] [facility] Comment on above: Performed By: #### A DIFF, CBC, TSH, FT4, FERR, FE, FT3, ANEU, IBC #### [place] [id number] Albumin/Globulin [Mass ratio] 1.2 {ratio} Normal 1.1-2.[address] [facility] Comment on above: Performed By: #### A DIFF, CBC, TSH, FT4, FERR, FE, FT3, ANEU, IBC #### [place] [id number] ALP [Catalytic activity/Vol] 84 U/L Normal 40-[address] [facility] Comment on above: Performed By: #### A DIFF, CBC, TSH, FT4, FERR, FE, FT3, ANEU, IBC #### [place] [id number] ALT [Catalytic activity/Vol] 21 U/L Normal 14-[address] [facility] Comment on above: Performed By: #### A DIFF, CBC, TSH, FT4, FERR, FE, FT3, ANEU, IBC #### [place] [phone] AST [Catalytic activity/Vol] 13 U/L Normal 10-[address] [facility] Comment on above: Performed By: #### A DIFF, CBC, TSH, FT4, FERR, FE, FT3, ANEU, IBC #### [place] [id number] Bili Total 0.4 mg/dL Normal 0.2-1.[address] [facility] Comment on above: Result Comment: Use of this assay is not recommended for patients undergoing treatment with eltrombopag due to the potential for falsely elevated results. Performed By: #### A DIFF, CBC, TSH, FT4, FERR, FE, FT3, ANEU, IBC #### [address] [address] BUN/Creatinine Ratio 21 ratio Normal 7-27 [facility] Comment on above: Performed By: #### A DIFF, CBC, TSH, FT4, FERR, FE, FT3, ANEU, IBC #### [address] [address] Calcium [Mass/Vol] 9.2 mg/dL Normal 8.4-10.2 [facility] Comment on above: Performed By: #### A DIFF, CBC, TSH, FT4, FERR, FE, FT3, ANEU, IBC #### [address] [address] Chloride [Moles/Vol] 103 mmol/L Normal 98-107 [facility] Comment on above: Performed By: #### A DIFF, CBC, TSH, FT4, FERR, FE, FT3, ANEU, IBC #### [address] [address] CO2 [Moles/Vol] 27 mmol/L Normal 22-[address] [facility] Comment on above: Performed By: #### A DIFF, CBC, TSH, FT4, FERR, FE, FT3, ANEU, IBC #### [place] [id number] Creatinine [Mass/Vol] 0.82 mg/dL Normal 0.55-1.[address] [facility] Comment on above: Result Comment: Test ing performed on Siemens Dimension EXL analyzer using a modified kinetic Benita technique. Performed By: #### A DIFF, CBC, TSH, FT4, FERR, FE, FT3, ANEU, IBC #### [place] [address] Electrolyte Balance 8.0 mEq/L Normal 4.0-15.0 [facility] Comment on above: Performed By: #### A DIFF, CBC, TSH, FT4, FERR, FE, FT3, ANEU, IBC #### [address] [address] Globulin 3.6 G/dL Normal 1.5-3.[address] [facility] Comment on above: Performed By: #### A DIFF, CBC, TSH, FT4, FERR, FE, FT3, ANEU, IBC #### [address] [address] Glucose [Mass/Vol] 74 mg/dL Normal 70-105 [facility] Comment on above: Performed By: #### A DIFF, CBC, TSH, FT4, FERR, FE, FT3, ANEU, IBC #### [address] [address] Potassium [Moles/Vol] 4.4 mmol/L Normal 3.5-5.[address] [facility] Comment on above: Performed By: #### A DIFF, CBC, TSH, FT4, FERR, FE, FT3, ANEU, IBC #### [address] [address] Sodium [Moles/Vol] 138 mmol/L Normal 136-145 [facility] Comment on above: Performed By: #### A DIFF, CBC, TSH, FT4, FERR, FE, FT3, ANEU, IBC #### [address] [address] Total Protein 7.9 G/dL Normal 6.4-8.[address] [facility] Comment on above: Performed By: #### A DIFF, CBC, TSH, FT4, FERR, FE, FT3, ANEU, IBC #### [address] [address] Urea nitrogen [Mass/Vol] 17 mg/dL Normal 7-[address] [facility] Comment on above: Performed By: #### A DIFF, CBC, TSH, FT4, FERR, FE, FT3, ANEU, IBC #### [address] [address] XR SINUSES PARANASAL MINIMUM 3 VIEWSon 05-28-2024 XR SINUSES PARANASAL MINIMUM 3 VIEWS ORIGINAL EXAMINATION: THREE XRAY VIEWS OF THE SINUSES05/28/2024 12:25 pm COMPARISON: None HISTORY: ORDERING SYSTEM PROVIDED HISTORY: Reason for Exam: right maxillary pain & swelling with previous dental cavity, not improved with ATB, worsening FINDINGS: No air-fluid levels are evident within the paranasal sinuses. No fractures or dislocations. No periapical lucencies however, not tailored for dental evaluation. IMPRESSION: No acute radiographic finding. Interpreted by: Lonny Lang DO Preliminary Report By: Lonny Lang DO Electronically signed By Lonny Lang DO Dictated Date: 05/28/2024 12:30:20 PM Prelim Date: 05/28/2024 12:31:40 PM Sign Date: 05/28/2024 12:31:40 PM Ordering Provider: KARLA BROWNING [facility] H AND P Exam - OB/GYNon - H&P Exam - [employer] [facility] Medical Records Department [address] [place] [id number] H P Exam - [employer] 01/30/242039 MR#: [id number] Acct: [id number] Name: KATTY CHAUHAN Rep #: [id number] : 1995 29 From: Josette Sharma MD PCP: SAMMY TamezC Status:DIS IN Location: [id number] HPI - General General Date of Admission: 12/21/23 Date of Service: 12/21/23 HPI Narrative KATTY CHAUHAN, is a 29 F who presents in active labor. Membranes in tact. Hx of precipitous labor. Maternal Data Information NORA Calculator Estimated Delivery Date Method Current WG Current Estimate 12/28/23 Manual 44w 5d Final NORA: 12/28/23 Gestational age: 39 PFSH PFSH Medical History Care and examination of lactating mother (spontaneous vaginal delivery) Thyroid disorder Home Medications ???Medication ???Instructions ???Recorded ???Last Taken ???Type ferrous sulfate 325 mg (65 mg 325 mg PO QODAY anemia 07/19/20 12/20/23 22:00 History iron) tablet (iron) 325 mg levothyroxine 50 mcg tablet 50 mcg PO DAILY hypothyroid 07/19/20 12/21/23 06:00 History [id number] 1 mg 1 tab PO DAILY 07/19/20 12/18/23 12:00 History tablet 1 TAB Allergy/AdvReac Type Severity Reaction Status Date / Time No Known Allergies Allergy Verified 12/21/23 08:33 Surgical History History of surgery Social History Smoking Status: Never smoker History Elective abortions Hx Para 2 Spontaneous abortions Hx # Term Pregnancies Ectopic pregnancies Hx # Pregnancies Multiple births # of living children NST FHR Rate Baby A FHR Category:: Category I ROS Constitutional Constitutional: Denies fatigue, fever(s) or malaise Eyes Eyes: Denies change in vision ENT HEENT: Denies dizziness or headache(s) Cardiovascular Cardiovascular: Denies chest pain, dyspnea or lightheadedness Respiratory/Chest Respiratory/Chest: Denies cough or dyspnea Gastrointestinal Gastrointestinal: Denies change in bowel habits Genitourinary Genitourinary: Denies burning urination or genital lesions Integumentary Integumentary: Denies rash Neurologic Neurologic: Denies confusion, dizziness, headache(s), numbness or weakness Vital Signs Vital Signs Vital Signs: Weight Weight: 73.9 kg Body Mass Index (BMI) 27.5 Physical Exam Const alert and no apparent distress General Appearance: cooperative HEENT normocephalic Resp normal respiratory effort GI soft to palpation GI Narrative: gravid, nontender, appropriate for gestational age Extremity no calf tenderness General Extremity: edema Skin no wounds Rashes: No rashes noted Psych activity/motor behavior normal Labs Labs Labs: Blood Type B POSITIVE Antibody Screen NEGATIVE Hct 34.3 % (37-47) L Hgb 11.4 g/dL (12.0-15.0) L Syphilis Total Ab Non-reactive Rhogam given: No Assessment Plan (1) Normal labor and delivery: (2) 39 weeks gestation of : PLAN: Plan Admit for labor. Epidural prn. 01/30/242047 Cosigner Signature (if applicable): CC: RETAIL ASSOCIATEKeri Browning; Dr. Josette Sharma MD Signed Normal [facility] .Auto Diffon 01-23-2024 Basophil, Absolute 0.0 10 3/mcL Normal 0.0-0.2 [facility] Comment on above: Performed By: #### A DIFF, CBC, TSH, FT4, FERR, FE, FT3, ANEU, IBC #### [address] [address] Basophils/100 WBC (Bld) 0.3 % Normal 0.0-2.[address] [facility] Comment on above: Performed By: #### A DIFF, CBC, TSH, FT4, FERR, FE, FT3, ANEU, IBC #### [address] [address] Eosinophil, Absolute 0.2 10 3/mcL Normal 0.0-0.7 [facility] Comment on above: Performed By: #### A DIFF, CBC, TSH, FT4, FERR, FE, FT3, ANEU, IBC #### [address] [address] Eosinophils/100 WBC (Bld) 2.5 % Normal 0.0-7.[address] [facility] Comment on above: Performed By: #### A DIFF, CBC, TSH, FT4, FERR, FE, FT3, ANEU, IBC #### [address] [address] Lymphocyte, Absolute 2.1 10 3/mcL Normal 0.9-4.3 [facility] Comment on above: Performed By: #### A DIFF, CBC, TSH, FT4, FERR, FE, FT3, ANEU, IBC #### [address] [address] Lymphocytes/100 WBC (Bld) 26.9 % Normal 20.0-40.[address] [facility] Comment on above: Performed By: #### A DIFF, CBC, TSH, FT4, FERR, FE, FT3, ANEU, IBC #### [address] [address] Monocyte, Absolute 0.5 10 3/mcL Normal 0.1-1.4 [facility] Comment on above: Performed By: #### A DIFF, CBC, TSH, FT4, FERR, FE, FT3, ANEU, IBC #### [address] [address] Monocytes/100 WBC (Bld) 6.7 % Normal 2.0-13.[address] [facility] Comment on above: Performed By: #### A DIFF, CBC, TSH, FT4, FERR, FE, FT3, ANEU, IBC #### [address] [address] Neutrophils/100 WBC (Bld) 63.6 % Normal 50.0-75.[address] [facility] Comment on above: Performed By: #### A DIFF, CBC, TSH, FT4, FERR, FE, FT3, ANEU, IBC #### [address] [address] .NEUABSon 01-23-2024 Neutrophil, Absolute 4.9 10 3/mcL Normal 2.3-8.1 [facility] Comment on above: Performed By: #### A DIFF, CBC, TSH, FT4, FERR, FE, FT3, ANEU, IBC #### [address] [address] CBCon 01-23-2024 Erythrocyte distribution width (RBC) [Ratio] 13.0 % Normal 11.5-15.[address] [facility] Comment on above: Performed By: #### A DIFF, CBC, TSH, FT4, FERR, FE, FT3, ANEU, IBC #### [address] [address] Hematocrit (Bld) [Volume fraction] 35.8 % Normal 34.0-46.[address] [facility] Comment on above: Performed By: #### A DIFF, CBC, TSH, FT4, FERR, FE, FT3, ANEU, IBC #### [address] [address] Hgb 12.1 G/dL Normal 12.0-16.[address] [facility] Comment on above: Performed By: #### A DIFF, CBC, TSH, FT4, FERR, FE, FT3, ANEU, IBC #### [place] [id number] MCH (RBC) [Entitic mass] 29.5 pg Normal 27.0-33.[address] [facility] Comment on above: Performed By: #### A DIFF, CBC, TSH, FT4, FERR, FE, FT3, ANEU, IBC #### [address] [address] MCHC 33.7 G/dL Normal 32.0-36.[address] [facility] Comment on above: Performed By: #### A DIFF, CBC, TSH, FT4, FERR, FE, FT3, ANEU, IBC #### [place] [address] MCV (RBC) [Entitic vol] 87.5 fL Normal 80.0-99.[address] [facility] Comment on above: Performed By: #### A DIFF, CBC, TSH, FT4, FERR, FE, FT3, ANEU, IBC #### [place] [id number] Platelet 281 10 3/mcL Normal 150-[address] [facility] Comment on above: Performed By: #### A DIFF, CBC, TSH, FT4, FERR, FE, FT3, ANEU, IBC #### [place] [address] Platelet mean volume (Bld) [Entitic vol] 7.2 fL Normal 6.6-10.[address] [facility] Comment on above: Performed By: #### A DIFF, CBC, TSH, FT4, FERR, FE, FT3, ANEU, IBC #### [place] [id number] RBC 4.09 10 6/mcL Low 4.10-5.[address] [facility] Comment on above: Performed By: #### A DIFF, CBC, TSH, FT4, FERR, FE, FT3, ANEU, IBC #### [address] [address] WBC 7.7 10 3/mcL Normal 4.5-10.[address] [facility] Comment on above: Performed By: #### A DIFF, CBC, TSH, FT4, FERR, FE, FT3, ANEU, IBC #### [address] [address] FEon 01-23-2024 Iron [Mass/Vol] 65 ug/dL Normal 50-[address] [facility] Comment on above: Performed By: #### A DIFF, CBC, TSH, FT4, FERR, FE, FT3, ANEU, IBC #### [address] [address] Leti 01-23-2024 Ferritin [Mass/Vol] 24.0 ng/mL Normal 8.0-252.0 [facility] Comment on above: Performed By: #### A DIFF, CBC, TSH, FT4, FERR, FE, FT3, ANEU, IBC #### [address] [address] FT3on 01-23-2024 Free T3 [Mass/Vol] 2.87 pg/mL Normal 2.30-4.00 [facility] Comment on above: Performed By: #### A DIFF, CBC, TSH, FT4, FERR, FE, FT3, ANEU, IBC #### [address] [address] FT4on 01-23-2024 Free T4 [Mass/Vol] 0.97 ng/dL Normal 0.76-1.46 [facility] Comment on above: Performed By: #### A DIFF, CBC, TSH, FT4, FERR, FE, FT3, ANEU, IBC #### [address] [address] IBCon 01-23-2024 TIBC 388 mcg/dL Normal 250-[address] [facility] Comment on above: Performed By: #### A DIFF, CBC, TSH, FT4, FERR, FE, FT3, ANEU, IBC #### [address] [place], [place] [address] LABORATORYOrdered By: SYSTEM SYSTEM on 01-23-2024 Basophils (Bld) [#/Vol] 0.0 103/mcL Normal 0.0 - 0.2 10^3/mcL AO Workflow SS Basophils/100 WBC (Bld) 0.3 % Normal 0.0 - 2.5 % AO Workflow SS Eosinophil, Absolute 0.2 103/mcL Normal 0.0 - 0 .7 10^3/mcL AO Workflow SS Eosinophils/100 WBC (Bld) 2.5 % Normal 0.0 - 7.0 % AO Workflow SS Erythrocyte distribution width (RBC) [Ratio] 13.0 % Normal 11.5 - 15.5 % AO Workflow SS Ferritin [Mass/Vol] 24.0 ng/mL Normal 8.0 - 25 2.0 ng/mL AO ADM SS Free T3 [Mass/Vol] 2.87 pg/mL Normal 2.30 - 4. 00 pg/mL AO ADM SS Free T4 [Mass/Vol] 0.97 ng/dL Normal 0.76 - 1. 46 ng/dL AO ADM SS Hematocrit (Bld) [Volume fraction] 35.8 % Normal 34.0 - 46.0 % AO Workflow SS Hemoglobin (Bld) [Mass/Vol] 12.1 G/dL Normal 12.0 - 16.0 G/dL AO Workflow SS Iron [Mass/Vol] 65 ug/dL Normal 50 - 170 mcg/dL AO A DM SS Iron binding capacity [Mass/Vol] 388 mcg/dL Normal 250 - 450 mcg/dL AO ADM SS Lymphocytes (Bld) [#/Vol] 2.1 103/mcL Normal 0.9 - 4.3 10^3/mcL AO Workflow SS Lymphocytes/100 WBC (Bld) 26.9 % Normal 20.0 - 40.0 % AO Workflow SS MCH (RBC) [Entitic mass] 29.5 pg Normal 27.0 - 33.0 pg AO Workflow SS MCHC 33.7 G/dL Normal 32.0 - 36.0 G/dL AO Workf low SS MCV (RBC) [Entitic vol] 87.5 fL Normal 80.0 - 99.0 fL AO Workflow SS Monocytes (Bld) [#/Vol] 0.5 103/mcL Normal 0.1 - 1.4 10^3/mcL AO Workflow SS Monocytes/100 WBC (Bld) 6.7 % Normal 2.0 - 13.0 % AO Workflow SS Neutrophils (Bld) [#/Vol] 4.9 103/mcL Normal 2.3 - 8.1 10^3/mcL AO Workflow SS Neutrophils/100 WBC (Bld) 63.6 % Normal 50.0 - 75.0 % AO Workflow SS Platelet mean volume (Bld) [Entitic vol] 7.2 fL Normal 6.6 - 10.5 fL AO Workflow SS Platelets (Bld) [#/Vol] 281 103/mcL Normal 150 - 450 10^3/mcL AO Workflow SS RBC (Bld) [#/Vol] 4.09 106/mcL Low 4.10 - 5.3 0 10^6/mcL AO Workflow SS TSH Qn 1.27 m[IU]/L Normal 0.36 - 3.74 mcIU/mL AO ADM SS WBC (Bld) [#/Vol] 7.7 103/mcL Normal 4.5 - 10.8 10^3/mcL AO Workflow SS TSHon 01-23-2024 TSH Qn 1.27 m[IU]/L Normal 0.36-3.[address] [facility] Comment on above: Performed By: #### A DIFF, CBC, TSH, FT4, FERR, FE, FT3, ANEU, IBC #### [address] [address] BACTERIAL VAGINOSIS NAATon 1 02-27-2023 Lactobacillus crispatus+gasseri+je nsenii + Gardnerella vaginalis + Atopobium vaginae rRNA ONEL+probe Ql (Vag fld) Negative Normal Negative for bacterial vaginosis [facility] Comment on above: Order Comment: Speci men Type: SWABOrdering Facility: [facility] Address: [address] [place] [address] Performed By: #### B VAMP, CVTV ####[facility] [id number] [place] [address] [place] PHOENIX/TRICHOMONAS NAATon 1 02-27-2023 C. glabrata RNA ONEL+probe Ql (Vag fld) Negative Normal Negative for Phoenix glabrata [facility] Comment on above: Order Comment: Speci men Type: SWABOrdering Facility: [facility] Address: [address] [place] [address] Performed By: #### Josue VAMP, CVTV ####[facility] [id number] [place] [address] [place] sp DNA ONEL+probe Ql (Vag fld) Negative Normal Negative for Phoenix species [facility] Comment on above: Order Comment: Speci men Type: SWABOrdering Facility: [facility] Address: [address] [place] [address] Performed By: #### Josue VAMP, CVTV ####[facility] [id number] [place] [address] [place] T. vaginalis DNA ONEL+probe Ql (Unsp spec) Negative Normal Negative for Trichomonas vaginalis by amplification [facility] Comment on above: Order Comment: Speci men Type: SWABOrdering Facility: [facility] Address: [address] [place] [address] Performed By: #### Josue VAMP, CVTV ####[facility] [id number] [place] [address] [place] CBC W/Diff, Automatedon 10-3 -2023 Absolute Lymph 1.69 X10 3/uL Normal 0.83-4.51 [facility] Comment on above: Performed By: #### B TS, L100.0100 #### [facility] [address] [place], [address] Absolute Neut 7.4 X10 3/uL Normal 2.0-7.7 [facility] Comment on above: Performed By: #### Josue TS, L100.0100 #### [facility] [address] [place], [address] Basophils/100 WBC (Bld) 0.3 % Normal 0-1 [facility] Comment on above: Performed By: #### Josue BOBBY, L100.0100 #### [facility] [address] [place], [address] Eosinophils/100 WBC (Bld) 0.2 % Normal 0-5 [facility] Comment on above: Performed By: #### Josue BOBBY, L100.0100 #### [facility] [address] [place], [address] Erythrocyte distribution width (RBC) [Ratio] 13.6 % Normal 11.6-14.6 [facility] Comment on above: Performed By: #### Josue BOBBY, L100.0100 #### [facility] [address] [place], [address] Hematocrit (Bld) [Volume fraction] 34.3 % Low 37-47 [facility] Comment on above: Performed By: #### Josue BOBBY, L100.0100 #### [facility] [address] [place], [address] Hemoglobin (Bld) [Mass/Vol] 11.4 g/dL Low 12.0-15.0 [facility] Comment on above: Performed By: #### Josue BOBBY, L100.0100 #### [facility] [address] [place], [address] IG% 0.900 Normal 0.0-0.9 [facility] Comment on above: Result Comment: IG% - Immature Granulocytes (promyelocytes, myelocytes and metamyelocytes) > 1% indicates that a LEFT SHIFT is Present. Performed By: #### B DIAMANTE, L100.0100 #### [facility] [address] [place], [address] Lymphocytes/100 WBC (Bld) 16.9 % Low 19-41 [facility] Comment on above: Performed By: #### Josue BOBBY, L100.0100 #### [facility] [address] [place], [address] MCH (RBC) [Entitic mass] 29.2 pg Normal 27.0-32.0 [facility] Comment on above: Performed By: #### Josue BOBBY, L100.0100 #### [facility] [address] [place], [address] MCHC (RBC) [Mass/Vol] 33.2 g/dL Normal 32-36 [facility] Comment on above: Performed By: #### Josue BOBBY, L100.0100 #### [facility] [address] [place], [address] MCV (RBC) [Entitic vol] 87.7 fL Normal 81-99 [facility] Comment on above: Performed By: #### Josue BOBBY, L100.0100 #### [facility] [address] [place], [address] Monocytes/100 WBC (Bld) 7.7 % Normal 0-10 [facility] Comment on above: Performed By: #### Josue BOBBY, L100.0100 #### [facility] [address] [place], [address] Neutrophils/100 WBC (Bld) 74.0 % High 47-70 [facility] Comment on above: Performed By: #### Josue BOBBY, L100.0100 #### [facility] [address] [place], [address] Nucleated RBC (Bld) [#/Vol] 0 10*3/uL Normal 0-5 [facility] Comment on above: Performed By: #### Josue BOBBY, L100.0100 #### [facility] [address] [place], [address] Platelet mean volume (Bld) [Entitic vol] 9.2 fL Normal 6.2-12.0 [facility] Comment on above: Performed By: #### Josue BOBBY, L100.0100 #### [facility] [address] [place], [address] Platelets (Bld) [#/Vol] 244 10*3/uL Normal 150-450 [facility] Comment on above: Performed By: #### Josue BOBBY, L100.0100 #### [facility] [address] [place], [address] RBC (Bld) [#/Vol] 3.91 10*6/uL Low 4.2-5.4 [facility] Comment on above: Performed By: #### B DIAMANTE, L100.0100 #### [facility] [address] [place], [address] RDW SD 43.5 fl Normal 35.1-43.9 [facility] Comment on above: Performed By: #### Josue BOBBY, L100.0100 #### [facility] [address] [place], [address] WBC (Bld) [#/Vol] 10.0 10*3/uL Normal 4.4-11.0 [facility] Comment on above: Performed By: #### Josue BOBBY, L100.0100 #### [facility] [address] [place], [address] L509.8000on 12-21-2023 Syphilis Abs Non-Reactive Normal [facility] Comment on above: Performed By: #### L 509.8000 #### [facility] [address] [place], [address] MR/OB.VAGDELIon 12-21-2023 MR/OB.VAGDELI [facility] Medical Records Department [address] [place] [address] OB VAGINAL DELIVERY 12/21/23 1439 MR#: [id number] Acct: [id number] Name: KATTY CHAUHAN Rep #: [id number] : 1995 28 From: Sowmya Elder CNM PCP: Karla Browning BOLA-C Status:ADM IN Location: [id number] Assessment Plan (1) Spontaneous onset of labor: (2) Normal labor: (3) (spontaneous vaginal delivery): (4) Thyroid disorder: COMMENT: hypothroid Maternal Data Information NORA Calculator Estimated Delivery Date Method Current WG Current Estimate 12/28/23 Manual 39w 0d Vaginal Delivery Maternal Presentation Maternal Presentation: Active Labor Maternal Presentation: at 39 weeks gestation that presented in spontaneous labor. Type of Induction: Pitocin and Amniotomy Vaginal Delivery Information Procedure Performed: Spontaneous Vaginal Delivery Surgeon/Practitione r: Sowmya Elder Pre-Procedure Diagnosis: Term gestation, spontaneous onset of labor Post-Procedure Diagnosis: , Live infant Type of anesthesia: Epidural Estimated Blood Loss: 150 Time of Delivery: 14:29 Findings Description of procedure: Patient quickly progressed to complete dilation. With good maternal effort, head delivered followed by anterior shoulder and remainder of body without any force, delay, or traction. Vigorous female was delivered atraumatically and placed on maternal abdomen. Pitocin IV started for active management of the third stage of labor. 3 vessel cord clamped and cut after delay and infant placed immediately skin to skin with patient. Placenta delivered spontaneously and intact. After inspection, vagina and perineum are intact. Vaginal sweep performed. Fundus is firm 2 below U and bleeding is hemostatic. Sponge and sharps counts correct. Patient and infant bonding well at this time. Dr. [place] notified of delivery. Routine post orders placed. Presentation: Vertex Amniotic Membrane Rupture Type: Artificial Amniotic Fluid Description: Clear Placental Delivery Description: Spontaneous Placenta Disposition: [facility] Specimen collected: No Cord Vessel Description: 3 Vessels Cord Entanglement: None Nuchal Cord Compression: Without compression Infant A Gender: Female (1 minute): 9 (5 minute): 9 Delayed Cord Clamping: Yes Stage Driver geographic information systems director: No Post Vaginal Deli Medications given after delivery: IV Pitocin and IM Pitocin Episiotomy Description: None Laceration: None Complication Complications: No 12/21/23 1444 Cosigner Signature (if applicable): CC: BRIAN Elder; RETAIL ASSOCIATE-C Karla Browning Signed Normal [facility] Type AND Screenon 12-21-2023 Ab SCREEN GEL Negative [facility] Comment on above: Order Comment: Labor Performed By: #### B TS, L100.0100 #### [facility] [address] [place], [address] URINE OB DIP B/Oon 4 Glucose Ql (U) Negative Neg mg/dL [facility] Interpretation and review of laboratory results Normal [facility] Protein.monoclonal (U) [Mass/Vol] Negative Neg mg/dL [facility] URINE OB DIP B/Oon 4 Glucose Ql (U) Negative Neg mg/dL [facility] Protein.monoclonal (U) [Mass/Vol] Negative Neg mg/dL [facility] URINE OB DIP B/Oon 4 Glucose Ql (U) Negative Neg mg/dL [facility] Protein.monoclonal (U) [Mass/Vol] Negative Neg mg/dL [facility] ROUTINE, GROUP B ST REP PCRon 11-24-2023 ROUTINE, GROUP B STREP PCR GROUP B STREP PCR: Negative for Group B Streptococcus by PCR. Normal [facility] Comment on above: Performed By: #### 6 30-4 #### [facility] CLIA [id number] [address] [place] [address] [place] UA DIP, URINE (POC)on 2023 BILIRUBIN UA (POCT) Negative Negative [facility] CLARITY UA (POCT) Clear [facility] COLOR UA (POCT) Yellow [facility] GLUCOSE UA (POCT) Negative Negative mg/dL [facility] Hemoglobin Ql (U) Trace-intact Abnormal Negative [facility] Interpretation and review of laboratory results Abnormal [facility] KETONE UA (POCT) Negative Negative mg/dL [facility] LEUK[facility] (POCT) Negative Negative [facility] NITRITE UA (POCT) Negative Negative [facility] PH UA (POCT) 7.0 4.5 - 8.0 [facility] Protein Ql (U) Negative Negative mg/dL [facility] SPECIFIC GRAVITY UA (POCT) 1.015 1.005 - 1.030 [facility] UROBILINOGEN UA (POCT) 0.2 Normal E.U./dL [facility] Location:[facility], [address] , [place], [address] [facility] CBC panel Auto (Bld)on 11-22 Erythrocyte distribution width (RBC) [Ratio] 13.6 % Normal 11.5-15.0 [facility] Comment on above: Order Comment: Speci men Type: BLOOD SPECIMENOrdering Facility: [facility] Address: [address] [place] [address] Performed By: #### 6 30-4 #### [facility] CLIA [id number] [address] [place] [address] [place] Hematocrit (Bld) [Volume fraction] 31.4 % Low 36.0-46.0 [facility] Comment on above: Order Comment: Speci men Type: BLOOD SPECIMENOrdering Facility: [facility] Address: [address] [place] [address] Performed By: #### 6 30-4 #### [facility] CLIA [id number] [address] [place] [address] [place] Hemoglobin (Bld) [Mass/Vol] 10.7 g/dL Low 11.5-15.5 [facility] Comment on above: Order Comment: Speci men Type: BLOOD SPECIMENOrdering Facility: [facility] Address: [address] [place] [address] Performed By: #### 6 30-4 #### [facility] CLIA [id number] [address] [place] [address] [place] MCH (RBC) [Entitic mass] 29.4 pg Normal 26.0-34.0 [facility] Comment on above: Order Comment: Speci men Type: BLOOD SPECIMENOrdering Facility: [facility] Address: [address] [place] [address] Performed By: #### 6 30-4 #### [facility] CLIA [id number] [address] [place] [address] [place] MCHC (RBC) [Mass/Vol] 34.1 g/dL Normal 30.5-36.0 [facility] Comment on above: Order Comment: Speci men Type: BLOOD SPECIMENOrdering Facility: [facility] Address: [address] [place] [address] Performed By: #### 6 30-4 #### [facility] CLIA [id number] [address] [place] [address] [place] MCV (RBC) [Entitic vol] 86.3 fL Normal 80.0-100.0 [facility] Comment on above: Order Comment: Speci men Type: BLOOD SPECIMENOrdering Facility: [facility] Address: [address] [place] [address] Performed By: #### 6 30-4 #### [facility] CLIA [id number] [address] [place] [address] [place] Nucleated RBC (Bld) [#/Vol] 10*3/uL Normal <0.01 [facility] Comment on above: Order Comment: Speci men Type: BLOOD SPECIMENOrdering Facility: [facility] Address: [address] [place] [address] Performed By: #### 6 30-4 #### [facility] CLIA [id number] [address] [place] [address] [place] Platelet mean volume (Bld) [Entitic vol] 8.8 fL Low 9.0-12.7 [facility] Comment on above: Order Comment: Speci men Type: BLOOD SPECIMENOrdering Facility: [facility] Address: [address] [place] [address] Performed By: #### 6 30-4 #### [facility] CLIA [id number] [address] [place] [address] [place] Platelets (Bld) [#/Vol] 211 10*3/uL Normal 150-400 [facility] Comment on above: Order Comment: Speci men Type: BLOOD SPECIMENOrdering Facility: [facility] Address: [address] [place] [address] Performed By: #### 6 30-4 #### [facility] CLIA [id number] [address] [place] [address] [place] RBC (Bld) [#/Vol] 3.64 10*6/uL Low 3.90-5.20 [facility] Comment on above: Order Comment: Speci men Type: BLOOD SPECIMENOrdering Facility: [facility] Address: [address] [place] [address] Performed By: #### 6 30-4 #### [facility] CLIA [id number] [address] [place] [address] [place] WBC (Bld) [#/Vol] 8.77 10*3/uL Normal 3.70-11.00 [facility] [facility] Comment on above: Order Comment: Speci men Type: BLOOD SPECIMENOrdering Facility: [facility] Address: [address] [place] [address] Performed By: #### 6 30-4 #### [facility] CLIA [id number] [address] [place] [address] [place] URINE OB DIP B/Oon 4 Glucose Ql (U) Negative Neg mg/dL [facility] Protein.monoclonal (U) [Mass/Vol] Negative Neg mg/dL [facility] CNPNataliia 10-12-2023 CNPN Telephone ([id number]) ---- KATTY CHAUHAN ([id number]) 1995 F Date Time Provider Department 10/12/23 NURSE SUPERVISOR [facility] [id number] During your visit today, we recorded the following information about you: Josette Green RN 10/12/2023 9:51 AM Signed 3rd risk assessment form submitted 10/12/2023. 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 - levothyroxine (SYNTHROID) 25 mcg tablet Take 25 mcg by mouth once daily. - vit 11-zrwp-pmkqz-dha (SELECT-OB+DHA) 29 mg iron-1 mg -250 mg Take by mouth as directed. Take 1 tablet and 1 capsule by mouth daily. Problem List As Of Date 10/12/2023 Noted Resolved Excessive or frequent menstruation [N92.0] 01/08/2007 11/13/2014 Dysmenorrhea [N94.6] 01/08/2007 11/13/2014 Iron deficiency anemia, unspecified [D50.9] 01/08/2007 11/13/2014 Patient request for diagnostic testing [Z01.89] 06/16/2016 09/08/2020 Supervision of normal [Z34.90] 06/27/2016 Rubella non-immune status, antepartum [O09.899,* 7 02/28/2017 Antepartum anemia complicating in thi*11/18/2016 02/28/2017 Abnormal glucose complicating [O99.81*11/18/2016 02/28/2017 History of hypothyroidism [Z86.39] 12/05/2019 History of precipitous delivery [Z87.59] 12/05/2019 09/08/2020 Anal fissure [K60.2] 05/22/2023 Axillary mass, left [R22.32] 09/01/2023 Anemia during in third trimester [O99*09/27/2023 Encounter Status:Closed by JOSETTE GREEN on 10/12/23 Normal [facility] CBC panel Auto (Bld)on 09-26 Erythrocyte distribution width (RBC) [Ratio] 12.2 % Normal 11.5-15.0 [facility] Comment on above: Order Comment: Speci men Type: BLOOD SPECIMENOrdering Facility: [facility] Address: [address] [place] [address] Performed By: #### 5 8410-2 ####[facility] [id number] [place] [address] [place] Hematocrit (Bld) [Volume fraction] 30.2 % Low 36.0-46.0 [facility] Comment on above: Order Comment: Speci men Type: BLOOD SPECIMENOrdering Facility: [facility] Address: [address] [place] [address] Performed By: #### 5 8410-2 ####[facility] [id number] [address] [place] Hemoglobin (Bld) [Mass/Vol] 10.0 g/dL Low 11.5-15.5 [facility] Comment on above: Order Comment: Speci men Type: BLOOD SPECIMENOrdering Facility: [facility] Address: [address] [place] [address] Performed By: #### 5 8410-2 ####[facility] [id number] [place] [address] [place] MCH (RBC) [Entitic mass] 29.0 pg Normal 26.0-34.0 [facility] Comment on above: Order Comment: Speci men Type: BLOOD SPECIMENOrdering Facility: [facility] Address: [address] [place] [address] Performed By: #### 5 8410-2 ####[facility] [id number] [place] [address] [place] MCHC (RBC) [Mass/Vol] 33.1 g/dL Normal 30.5-36.0 [facility] Comment on above: Order Comment: Speci men Type: BLOOD SPECIMENOrdering Facility: [facility] Address: [address] [place] [address] Performed By: #### 5 8410-2 ####[facility] [id number] [place] [address] [place] MCV (RBC) [Entitic vol] 87.5 fL Normal 80.0-100.0 [facility] Comment on above: Order Comment: Speci men Type: BLOOD SPECIMENOrdering Facility: [facility] Address: [address] [place] [address] Performed By: #### 5 8410-2 ####[facility] [id number] [place] [address] [place] Nucleated RBC (Bld) [#/Vol] 10*3/uL Normal <0.01 [facility] Comment on above: Order Comment: Speci men Type: BLOOD SPECIMENOrdering Facility: [facility] Address: [address] [place] [address] Performed By: #### 5 8410-2 ####[facility] [id number] [place] [address] [place] Platelet mean volume (Bld) [Entitic vol] 8.6 fL Low 9.0-12.7 [facility] Comment on above: Order Comment: Speci men Type: BLOOD SPECIMENOrdering Facility: [facility] Address: [address] [place] [address] Performed By: #### 5 8410-2 ####[facility] [id number] [place] [address] [place] Platelets (Bld) [#/Vol] 226 10*3/uL Normal 150-400 [facility] Comment on above: Order Comment: Speci men Type: BLOOD SPECIMENOrdering Facility: [facility] Address: [address] [place] [address] Performed By: #### 5 8410-2 ####[facility] [id number] [place] [address] [place] RBC (Bld) [#/Vol] 3.45 10*6/uL Low 3.90-5.20 [facility] Comment on above: Order Comment: Speci men Type: BLOOD SPECIMENOrdering Facility: [facility] Address: [address] [place] [address] Performed By: #### 5 8410-2 ####[facility] [id number] [place] [address] [place] WBC (Bld) [#/Vol] 7.47 10*3/uL Normal 3.70-11.00 [facility] Comment on above: Order Comment: Speci men Type: BLOOD SPECIMENOrdering Facility: [facility] Address: [address] [place] [address] Performed By: #### 5 8410-2 ####[facility] [id number] [place] [address] [place] GESTATIONAL GLUCOSE SCREEN, 1-HOUR, 50 GRAM, NON-FASTINGon 09-27-2023 Glucose [Mass/Vol] 98 mg/dL Normal 74-134 [facility] Comment on above: Order Comment: Speci men Type: BLOOD SPECIMENOrdering Facility: [facility] Address: [address] [place] [address] Result Comment: [facility] Congress of Obstetricians and Gynecologists (Mary Jane/Malika) guidelines state a gestational diabetes mellitus positive screen is made, in women not previously diagnosed with overt diabetes, when the 1 hr plasma glucose level is equal to or above 140 mg/dL. The [facility] [place] recommends a 135 mg/dL cutoff. Performed By: #### 6 30-4 #### [facility] CLIA [id number] [address] [place] [address] [place] Reagin and Treponema pallidu m IgG and IgM [Interp]on 09-27-2023 T. pallidum IgG+IgM IA Ql (S) Non-Reactive Normal Nonreactive [facility] Comment on above: Order Comment: Speci men Type: BLOOD SPECIMENOrdering Facility: [facility] Address: [address] [place] [address] Performed By: #### M HENRIQUEO, 21915-8 ####[facility] [id number] [place] [address] [place] Reagin+T pallidum IgG+IgM Se rPl-Impon 09-27-2023 Reagin and Treponema pallidum IgG and IgM [Interp] Cannot exclude recent Treponemal infection if specimen collected within 7-10 days after appearance of suspect lesions or 2-3 weeks after an exposure. Clinical correlation is required. Normal [facility] Comment on above: Order Comment: Speci men Type: BLOOD SPECIMENOrdering Facility: [facility] Address: [address] [place] [address] Performed By: #### M HENRIQUEO, 51441-5 ####[facility] [id number] [place] [address] [place] T3Free SerPl-mCncon 09-27-19 24 Free T3 [Mass/Vol] 2.0 pg/mL Low 2.3-4.1 [facility] Comment on above: Order Comment: Speci men Type: BLOOD SPECIMENOrdering Facility: [facility] Address: [address] [place] [address] Performed By: #### 3 016-3, 3024-7, 3051-0 ####[facility] [id number] [place] [address] [place] T4 Free SerPl-mCncon 024 Free T4 [Mass/Vol] 0.9 ng/dL Normal 0.9-1.7 [facility] Comment on above: Order Comment: Speci men Type: BLOOD SPECIMENOrdering Facility: [facility] Address: [address] [place] [address] Performed By: #### 3 016-3, 3024-7, 3051-0 ####[facility] [id number] [place] [address] [place] THYROID PEROXIDASE ANTIBODYo n 09-27-2023 TPO Ab Qn 5.5 [IU]/mL Normal <5.6 [facility] Comment on above: Order Comment: Moon ramirez Type: BLOOD SPECIMENOrdering Facility: [facility] Address: [address] [place] [address] Result Comment: Thyr oid Peroxidase Antibody test is used as an aid in diagnosis of autoimmune thyroid disease. Clinical correlation is required. Performed By: #### M ICRO, 89865-3 ####[facility] [id number] [place] [address] [place] THYROID STIMULATING IMMUNOGL OBULIN BLOODon 09-27-2023 Thyroid stimulating immunoglobulins actual/normal (S) [Relative mass conc] % Normal <0.55 [facility] Comment on above: Order Comment: Moon ramirez Type: BLOOD SPECIMENOrdering Facility: [facility] Address: [address] [place] [address] Result Comment: Thyr oid Stimulating Immunoglobulin test is used as an aid in diagnosis of autoimmune hyperthyroidism especially in patients with Grave's orbitopathy and dermopathy. Low positive TSH receptor stimulating antibody levels may occasionally be found in patients with autoimmune hypothyroidism. Clinical correlation is required. Performed By: #### 6 30-4 #### [facility] CLIA [id number] [address] [place] [address] [place] TSI QUALITATIVE Negative Normal Negative [facility] Comment on above: Order Comment: Moon ramirez Type: BLOOD SPECIMENOrdering Facility: [facility] Address: [address] [place] [address] Performed By: #### 6 30-4 #### [facility] CLIA [id number] [address] [place] [address] [place] TSH SerPl-aCncon 09-27-2023 TSH Qn 1.480 m[IU]/L Normal 0.270-4.200 [facility] Comment on above: Order Comment: Speci men Type: BLOOD SPECIMENOrdering Facility: [facility] Address: [address] [place] [address] Result Comment: If t he patient is , TSH reference range varies by gestational period: First Trimester (weeks 9-12): 0.180-2.990 mIU/L Second Trimester: 0.110-3.980 mIU/L Third Trimester: 0.480-4.710 mIU/L Damon Oliver et al. A Practical Approach for the Verifications and Determination of Site- and Trimester-Specific Reference Intervals for Thyroid Function tests in . Thyroid, 2019:29:3:412-420. Mehdi Nogueira, et al. 2017 Guidelines of the [place] Thy[employer] for the Diagnosis and Management of Thyroid Disease during and the . Thyroid, 2017:27:3:315-389. Performed By: #### 3 016-3, 3024-7, 3051-0 ####[facility] [id number] [place] [address] [place] Armando 09-05-2023 CNPN Telephone (OBGYWM) ---- KATTY CHAUHAN ([id number]) 1995 F Date Time Provider Department 09/05/23 ANDREIA RAINES During your visit today, we recorded the following information about you: Allergies As of Date: 09/05/2023 (No Known Allergies) Date Reviewed: 09/01/2023 Reviewed by: Andreia Raines APRN.TRANSITIONAL CARE MANAGER - Fully Assessed Prescriptions as of 09/08/2023 - levothyroxine (SYNTHROID) 25 mcg tablet Take 25 mcg by mouth once daily. - vit 11-dfid-pgqjn-dha (SELECT-OB+DHA) 29 mg iron-1 mg -250 mg Take by mouth as directed. Take 1 tablet and 1 capsule by mouth daily. Problem List As Of Date 09/05/2023 Noted Resolved Excessive or frequent menstruation [N92.0] 01/08/2007 11/13/2014 Dysmenorrhea [N94.6] 01/08/2007 11/13/2014 Iron deficiency anemia, unspecified [D50.9] 01/08/2007 11/13/2014 Patient request for diagnostic testing [Z01.89] 06/16/2016 09/08/2020 Supervision of normal [Z34.90] 06/27/2016 Rubella non-immune status, antepartum [O09.899,* 7 02/28/2017 Antepartum anemia complicating in thi*11/18/2016 02/28/2017 Abnormal glucose complicating [O99.81*11/18/2016 02/28/2017 History of hypothyroidism [Z86.39] 12/05/2019 History of precipitous delivery [Z87.59] 12/05/2019 09/08/2020 Anal fissure [K60.2] 05/22/2023 Axillary mass, left [R22.32] 09/01/2023 Encounter Status:Closed by ANDREIA RAINES on 09/08/23 Normal [facility] BREAST LTD LTon 09-04 [facility] * * *Final Report* * * DATE OF EXAM: Sep 05 2023 9:18AM WRU 0593 - [facility] BREAST Natanael Ulien LT / PROCEDURE REASON: multiple diagnoses * * * * Physician Interpretation * * * * #[id number] - [facility] BREAST Natanael Ulien LIMITED ULTRASOUND OF LEFT BREAST: 09/05/2023 HISTORY: Multiple Diagnoses. RESULT: No prior exams were available for comparison. Color flow and real-time ultrasound of the left breast were performed. Munson scale images of the real-time examination were reviewed. IMPRESSION: NEGATIVE There is no sonographic evidence of malignancy. There is no abnormality seen in the left axilla to correspond with the palpable abnormality in the left axilla, however, clinical correlation is recommended. Tawny phillips:09/05/2023 09:26:38 Cardiac Cath Technologist(s): Yumiko Hernandez Ultrasound BI-RADS: Category 1: Negative Multiple national specialty organizations have released breast cancer screening guidelines for women at average risk for developing breast cancer - guidelines that are based on both evidence and opinion, yet differ on when to start and how often to screen for breast cancer. With representation from Breast Imaging, Internal Medicine, Women's Health, Family Medicine, and Medical/Surgical Oncology, the [facility] has carefully reviewed the data and reached the following consensus: 1) All women should engage in shared decision-making with their providers to decide when to start and how often to screen; 2) All women should have the opportunity to start screening mammography at age 40; 3) For women ages 45-55, we recommend annual screening mammograms; 4) For women ages 55 and over, we support both the transition from an annual to a biennial interval if this aligns more with patient's values and preferences, or continuation with annual screening; 5) All women should discuss with their providers when to stop screening mammograms. Public Relations Officer: Maciel Transcribe Date/Time: Sep 05 2023 9:07A Dictated by : TAWNY SHARMA MD This examination was interpreted and the report reviewed and electronically signed by: TAWNY SHARMA MD on Sep 05 2023 9:26AM EST [id number] Normal [facility] US Breast - left limitedon 0 09-05-2023 IMPRESSION: NEGATIVE There is no sonographic evidence of malignancy. There is no abnormality seen in the left axilla to correspond with the palpable abnormality in the left axilla, however, clinical correlation is recommended. Tawny phillips:09/05/2023 09:26:38 Cardiac Cath Technologist(s): Yumiko Hernandez Ultrasound BI-RADS: Category 1: Negative Multiple national specialty organizations have released breast cancer screening guidelines for women at average risk for developing breast cancer - guidelines that are based on both evidence and opinion, yet differ on when to start and how often to screen for breast cancer. With representation from Breast Imaging, Internal Medicine, Women's Health, Family Medicine, and Medical/Surgical Oncology, the [facility] has carefully reviewed the data and reached the following consensus: 1) All women should engage in shared decision-making with their providers to decide when to start and how often to screen; 2) All women should have the opportunity to start screening mammography at age 40; 3) For women ages 45-55, we recommend annual screening mammograms; 4) For women ages 55 and over, we support both the transition from an annual to a biennial interval if this aligns more with patient's values and preferences, or continuation with annual screening; 5) All women should discuss with their providers when to stop screening mammograms. Public Relations Officer: Maciel Transcribe Date/Time: Sep 05 2023 9:07A Dictated by : TAWNY SHARMA MD This examination was interpreted and the report reviewed and electronically signed by: TAWNY SHARMA MD on Sep 05 2023 9:26AM [facility] DIVISION OF RADIOLOGY * * *Final Report* * * DATE OF EXAM: Sep 05 2023 9:18AM WRU 0593 - [facility] BREAST LTD LT / PROCEDURE REASON: multiple diagnoses * * * * Physician Interpretation * * * * #[id number] - [facility] US BREAST LTD LT LIMITED ULTRASOUND OF LEFT BREAST: 09/05/2023 HISTORY: Multiple Diagnoses. RESULT: No prior exams were available for comparison. Color flow and real-time ultrasound of the left breast were performed. Munson scale images of the real-time examination were reviewed. DIVISION OF RADIOLOGY Provider, [facility] [place] - 09/05/2023 * * *Final Report* * * DATE OF EXAM: Sep 05 2023 9:18AM WRU 0593 - [facility] US BREAST LTD LT / PROCEDURE REASON: multiple diagnoses * * * * Physician Interpretation * * * * #[id number] - [facility] US BREAST LTD LT LIMITED ULTRASOUND OF LEFT BREAST: 09/05/2023 HISTORY: Multiple Diagnoses. RESULT: No prior exams were available for comparison. Color flow and real-time ultrasound of the left breast were performed. Munson scale images of the real-time examination were reviewed. IMPRESSION IMPRESSION: NEGATIVE There is no sonographic evidence of malignancy. There is no abnormality seen in the left axilla to correspond with the palpable abnormality in the left axilla, however, clinical correlation is recommended. Tawny santacruz/maciel:09/05/2023 09:26:38 Cardiac Cath Technologist(s): Yumiko Hernandez Ultrasound BI-RADS: Category 1: Negative Multiple national specialty organizations have released breast cancer screening guidelines for women at average risk for developing breast cancer - guidelines that are based on both evidence and opinion, yet differ on when to start and how often to screen for breast cancer. With representation from Breast Imaging, Internal Medicine, Women's Health, Family Medicine, and Medical/Surgical Oncology, the [facility] has carefully reviewed the data and reached the following consensus: 1) All women should engage in shared decision-making with their providers to decide when to start and how often to screen; 2) All women should have the opportunity to start screening mammography at age 40; 3) For women ages 45-55, we recommend annual screening mammograms; 4) For women ages 55 and over, we support both the transition from an annual to a biennial interval if this aligns more with patient's values and preferences, or continuation with annual screening; 5) All women should discuss with their providers when to stop screening mammograms. Public Relations Officer: Maciel Transcribe Date/Time: Sep 05 2023 9:07A Dictated by : TAWNY SHARMA MD This examination was interpreted and the report reviewed and electronically signed by: TAWNY SHARMA MD on Sep 05 2023 9:26AM EST [facility] Radiology Study observation (narrative) [facility] US Breast - left limitedOrde red By: [facility] Provider on 09-05-2023 [facility] CNOVon 09-01-2023 CNOV Office Visit (OBGYWM) ---- KATTY CHAUHAN ([id number]) 1995 F Date Time Provider Department 09/01/23 11:00 AM ANDREIA RAINES During your visit today, we recorded the following information about you: Pulse Respiration Blood pressure Weight 78/minute 12/minute 118/70 65.3 kg Andreia Raines APRN.CNP 09/01/2023 11:38 AM Signed Boat Cleaner offered: Patient declines. Katty Chauhan is a 28 year old female who presents for problem visit left axillary lump HPI: Recurring tenderness to left axillae for past few months,. Is 23 weeks and has only noticed this tenderness with the I . Yesterday morning, noticed tenderness during shower and for the first time, noticed swelling. No fever or chills. No redness. No drainage. No nipple discharge. No past breast problems or mammogram. History breast cancer in [facility], diagnosed in s. OB History T2 L2 SAB0 IAB0 Ectopic0 Multiple0 Live Births2 Neonatal Nurse History LMP: 03/23/2023 (Exact Date), Age at Menarche: Age at First : Age at Menopause: Neonatal Nurse History Comments: Sexual Activity: Yes; Male Contraception: No contraception data on record PAST MEDICAL HISTORY Diagnosis Date Chlamydia 2012 Excessive or frequent menstruation Heavy periods Hemorrhoid Hypothyroidism Iron deficiency anemia, unspecified 2006 Anemia, iron def. PMH - PAST MEDICAL HISTORY OF age 6 pneumonia PAST SURGICAL HISTORY Procedure Laterality Date APPENDECTOMY 01/2017 PAST SURGICAL HISTORY OF wisdom teeth FAMILY HISTORY Problem Relation Age of Onset Hypertension Mother Heart Mother Mitrial Valve Thyroid Mother Heart Father Thyroid Father No Known Problems Sister Breast Cancer Maternal Grandmother Thyroid Maternal Grandmother Diabetes Maternal Grandmother Cancer Maternal Grandfather lung other (Parkinson's Disease) Paternal Grandmother Cancer Paternal Grandfather lung Thyroid Maternal Aunt No Known Problems Son Social History Tobacco Use Smoking status: Never Smokeless tobacco: Never Vaping Use Vaping Use: Never used Substance Use Topics Alcohol use: Not Currently Comment: Rarely, not while Drug use: No Current Outpatient Medications Medication Sig levothyroxine (SYNTHROID) 25 mcg tablet vit 37-bdqc-xjydz-dha (SELECT-OB+DHA) 29 mg iron-1 mg -250 mg Take by mouth as directed. Take 1 tablet and 1 capsule by mouth daily. No current facility-administer ed medications for this visit. Allergies As of Date: 09/01/2023 (No Known Allergies) Fully Assessed 08/30/2023 REVIEW OF SYSTEMS Breast: see HPI. Allergies and current medication updated:Yes EXAM: BP 118/70 Pulse 78 Resp 12 Wt 144 lb (65.3kg) SpO2 100% LMP 03/23/2023 GENERAL: pleasant, female in no apparent distress, gravid NECK: Supple, full range of motion, and no adenopathy BREAST: soft, non-tender, symmetric, no dominant mass, normal nipple-areolar complex, no lymphadenopathy, and no nipple discharge. Left axilla - 1 cm tender mass CHEST: Normal inspiratory effort NEURO: alert and oriented x3,exam grossly non-focal ASSESSMENT/PLAN: 1. Axillary mass, left - ICD9: 782.2, ICD10: R22.32 (primary diagnosis) - [facility] BREAST Natanael Ulien LEFT 2. 23 weeks gestation of - ICD9: V22.2, ICD10: Z3A.23 - [facility] LEFT Will notify of results. Follow- up at next OB visit 09/27/2023 and as needed Andreia Raines APRN.[facility] Medical Decision Making: Problems: Moderate: New problem with uncertain prognosis Data: Unique test(s) ordered: 1 Risk: Moderate: Moderate risk from testing/treatment Medical Decision Making Level: 4 - Moderate Allergies As of Date: 09/01/2023 (No Known Allergies) Date Reviewed: 09/01/2023 Reviewed by: Andreia Raines APRN.[facility] - Fully Assessed Reason for Visit: Axillary swelling [Other] Primary Visit Diagnosis:Axillary mass, left [R22.32] Other Visit Diagnosis:23 weeks gestation of [Z3A.23] Order(s):[facility] LEFT [[id number]] Order #: [id number] FUTURE Prescriptions as of 09/01/2023 - levothyroxine (SYNTHROID) 25 mcg tablet Take 25 mcg by mouth once daily. - vit 54-zixq-rhkuj-dha (SELECT-OB+DHA) 29 mg iron-1 mg -250 mg Take by mouth as directed. Take 1 tablet and 1 capsule by mouth daily. Problem List As Of Date 09/01/2023 Noted Resolved Excessive or frequent menstruation [N92.0] 01/08/2007 11/13/2014 Dysmenorrhea [N94.6] 01/08/2007 11/13/2014 Iron deficiency anemia, unspecified [D50.9] 01/08/2007 11/13/2014 Patient request for diagnostic testing [Z01.89] 06/16/2016 09/08/2020 Supervision of normal [Z34.90] 06/27/2016 Rubella non-immune status, antepartum [O09.899,* 7 02/28/2017 Antepartum anemia complicating in thi*11/18/2016 02/28/2017 Abnormal glucose complicating [O99.81*11/18/2016 02/28/2017 His (more content not included)... Normal [facility] 08-31-2023 CNPN Telephone ([facility]) ---- KATTY CHAUHAN ([id number]) 1995 F Date Time Provider Department 08/31/23 CLAM PICKER [facility] During your visit today, we recorded the following information about you: Josette Green RN 08/31/2023 10:15 AM Signed 2nd risk assessment form submitted 08/31/2023. Josette Green RN Allergies As of Date: 08/31/2023 (No Known Allergies) Date Reviewed: 08/30/2023 Reviewed by: Aubrey Jurado MA - Fully Assessed Reason for Visit: [employer] Developer - Other [3602] Cmt: BOB Prescriptions as of 08/31/2023 - levothyroxine (SYNTHROID) 25 mcg tablet - vit 74-gtvl-xtylq-dha (SELECT-OB+DHA) 29 mg iron-1 mg -250 mg Take by mouth as directed. Take 1 tablet and 1 capsule by mouth daily. Problem List As Of Date 08/31/2023 Noted Resolved Excessive or frequent menstruation [N92.0] 01/08/2007 11/13/2014 Dysmenorrhea [N94.6] 01/08/2007 11/13/2014 Iron deficiency anemia, unspecified [D50.9] 01/08/2007 11/13/2014 Patient request for diagnostic testing [Z01.89] 06/16/2016 09/08/2020 Supervision of normal [Z34.90] 06/27/2016 Rubella non-immune status, antepartum [O09.899,* 7 02/28/2017 Antepartum anemia complicating in thi*11/18/2016 02/28/2017 Abnormal glucose complicating [O99.81*11/18/2016 02/28/2017 History of hypothyroidism [Z86.39] 12/05/2019 History of precipitous delivery [Z87.59] 12/05/2019 09/08/2020 Anal fissure [K60.2] 05/22/2023 Encounter Status:Closed by JOSETTE GREEN on 08/31/23 [facility] ALPHA FETOPRO MATERNALon AFP, MATERNAL 0.85 MoM Normal [facility] Comment on above: Order Comment: Speci men Type: BLOOD SPECIMENOrdering Facility: [facility] Address: [address] [place] [address] Result Comment: 46.9 1 ng/mL Performed By: #### A FPMAT ####[facility] [id number] [address] [place] DATE OF COLLECTION #1 08/03/23 Normal [facility] Comment on above: Order Comment: Speci men Type: BLOOD SPECIMENOrdering Facility: [facility] Address: [address] [place] [address] Performed By: #### A FPMAT ####[facility] [id number] [place] [id number] [place] DATE RECEIVED 08/04/23 [facility] Comment on above: Order Comment: Speci men Type: BLOOD SPECIMENOrdering Facility: [facility] Address: [address] [place] [address] Performed By: #### A FPMAT ####[facility] [id number] [place] [id number] [place] NORA 12/28/23 Normal [facility] Comment on above: Order Comment: Speci men Type: BLOOD SPECIMENOrdering Facility: [facility] Address: [address] [place], [place] [address] Performed By: #### A FPMAT ####[facility] [id number] [place] [address] [place] GESTATION AT DATE OF SAMPLE 19 weeks 0 days (by dates) Normal [facility] Comment on above: Order Comment: Speci men Type: BLOOD SPECIMENOrdering Facility: [facility] Address: [address] [place] [address] Performed By: #### A FPMAT ####[facility] [id number] [place] [address] [place] INSULIN DEPENDENT DIABETES None Normal [facility] Comment on above: Order Comment: Speci men Type: BLOOD SPECIMENOrdering Facility: [facility] Address: [address] [place] [address] Performed By: #### A FPMAT ####[facility] [id number] [place] [address] [place] IVF No Normal [facility] Comment on above: Order Comment: Speci men Type: BLOOD SPECIMENOrdering Facility: [facility] Address: [address] [place] [address] Performed By: #### A FPMAT ####[facility] [id number] [place] [address] [place] LMP 03/23/23 Normal [facility] Comment on above: Order Comment: Speci men Type: BLOOD SPECIMENOrdering Facility: [facility] Address: [address] [place], [place] [address] Performed By: #### A FPMAT ####[facility] [id number] [place] [address] [place] MATERNAL AFP COMMENT See comments below Normal [facility] Comment on above: Order Comment: Moon ramirez Type: BLOOD SPECIMENOrdering Facility: [facility] Address: [address] [place] [address] Result Comment: INTE RPRETATION Screening result : Screen negative Risk of NTD : 1 in 7,000 Comment : The interpretation is for NTD only A screen negative result does not exclude the possibility of a neural tube defect, because screening does not detect all affected pregnancies Performed By: #### A FPMAT ####[facility] [id number] [place] [address] [place] MATERNAL AGE AT NORA 28 years Normal [facility] Comment on above: Order Comment: Moon ramirez Type: BLOOD SPECIMENOrdering Facility: [facility] Address: [address] [place] [address] Performed By: #### A FPMAT ####[facility] [id number] [place] [address] [place] PATIENT'S WEIGHT DAY OF COLLECTION 140 lb. Normal [facility] Comment on above: Order Comment: Moon ramirez Type: BLOOD SPECIMENOrdering Facility: [facility] Address: [address] [place] [address] Performed By: #### A FPMAT ####[facility] [id number] [place] [address] [place] INTERP-MATERNAL AFP Negative Normal Screen Negative [facility] Comment on above: Order Comment: Moon ramirez Type: BLOOD SPECIMENOrdering Facility: [facility] Address: [address] [place] [address] Performed By: #### A FPMAT ####[facility] [id number] [place] [address] [place] PREVIOUS NTD None Normal [facility] Comment on above: Order Comment: Speci men Type: BLOOD SPECIMENOrdering Facility: [facility] Address: [address] [place] [address] Performed By: #### A FPMAT ####[facility] [id number] [place] [address] [place] RISK OF NTD ;1:7000 Normal [facility] Comment on above: Order Comment: Speci men Type: BLOOD SPECIMENOrdering Facility: [facility] Address: [address] [place] [address] Performed By: #### A FPMAT ####[facility] [id number] [address] [place] SAMPLE #1 [id number] Normal [facility] Comment on above: Order Comment: Speci men Type: BLOOD SPECIMENOrdering Facility: [facility] Address: [address] [place] [address] Performed By: #### A FPMAT ####[facility] [id number] [place] [address] [place] STAFF REVIEW (MATERNAL SCREENS) Reviewed by Rico Kaufman MD, Ph.D ([id number]) Normal [facility] Comment on above: Order Comment: Speci men Type: BLOOD SPECIMENOrdering Facility: [facility] Address: [address] [place] [address] Performed By: #### A FPMAT ####[facility] [id number] [place] [address] [place] Examination level ultrasound on 08-03-2023 Indication anatomy survey Impression REMOTE READ The patient is referred for anatomic survey. - Single, live, intrauterine . - biometry is consistent with the established gestational age. - No malformations were visualized on a complete anatomic survey. - The amniotic fluid volume is normal amount. - The placenta is anterior, fundal. - The Transabdominal cervical length measures 33.5 mm with no evidence of funneling or other dynamic changes. - Not all structural malformations can be detected by ultrasound examination. Recommendations Follow up as clinically indicated. Maternal Assessment Height 163 cm Height (ft) 5 ft Height (in) 4 in Physical Exam Initial weight (lb) 134 lb Initial BMI 22.99 kg/m Maternal assessment other: 3 Para 2 Method Transabdominal ultrasound examination. View: Adequate visualization Kern . Number of fetuses: 1 Dating LMP on: 03/23/2023 GA by LMP 19 w + 0 d NORA by LMP: 12/28/2023 GA by prior assessment 19 w + 0 d NORA by prior assessment: 12/28/2023 Ultrasound examination on: 08/03/2023 GA by U/S based upon: AC, BPD, Femur, HC GA by U/S 19 w + 0 d NORA by U/S: 12/28/2023 Assigned: based on stated NORA, selected on 08/03/2023 Assigned GA 19 w + 0 d Assigned NORA: 12/28/2023 General Evaluation Cardiac activity present. FHR 148 bpm. movements: present. Presentation: breech Placenta: Placental site: anterior, fundal Umbilical cord: normal insertion, 3 vessel cord Amniotic fluid: Amount of AF: normal amount. MVP 5.7 cm Growth Overview Exam date GA BPD (mm) HC (mm) AC (mm) FL (mm) HL (mm) EFW (g) 08/03/2023 19w 0d 41 26% 158.8 39% 139.4 57% 29.6 70% 27.7 45% 275 52% Biometry Standard BPD 41.0 mm 18w 3d 26% Hadlock OFD 57.7 mm 18w 6d 71% Nicolaides HC 158.8 mm 18w 5d 39% Mango Cerebellum tr 19.7 mm 19w 0d 38% Hill Nuchal fold 5.5 mm AC 139.4 mm 19w 2d 57% Hadlock Femur 29.6 mm 19w 2d 70% Mango Humerus 27.7 mm 18w 6d 45% Mango EFW 275 g 19w 0d 52% Hadlock EFW (lb) 0 lb EFW (oz) 10 oz EFW by: Hadlock (HC-AC-FL) Extended Doll Wig Maker Rooted Hair 4.9 mm CM 3.4 mm 11% Nicolaides Extremities / Bony Struc FL / HC 0.19 83% Hadlock Other Structures FHR 148 bpm Anatomy Cranium: normal Lateral ventricles: normal Choroid plexus: normal Midline falx: normal Cavum septi pellucidi: normal Cerebellum: normal Cisterna magna: normal Head / Neck Vermis: normal Neck: normal Nuchal fold: normal Lips: normal Profile: normal Nose: normal Face Maxilla: normal Mandible: normal Orbits: normal Lens: normal 4-chamber view: normal RVOT view: normal LVOT view: normal 3-vessel view: normal 4-fafrhg-uojjbif view: normal Heart / Thorax Situs: situs solitus (normal) Aortic arch view: normal Ductal arch view: normal SVC: normal IVC: normal Cardiac axis: normal Rt lung: normal Lt lung: normal Diaphragm: normal Cord insertion: normal Stomach: normal Kidneys: normal Bladder: normal Genitals: normal Abdomen Abdom. wall: normal Cervical spine: normal Thoracic spine: normal Lumbar spine: normal Sacral spine: normal Arms: normal Legs: normal Rt upper arm: normal Rt forearm: normal Rt hand: normal Rt fingers: normal Lt upper arm: normal Lt forearm: normal Lt hand: normal Lt fingers: normal Rt upper leg: normal Rt lower leg: normal Rt foot: normal Lt upper leg: normal Lt lower leg: normal Lt foot: normal sex: female Wants to know sex: yes Maternal Structures Uterus / Cervix Uterus: Visualized Cervix: Visualized Approach: Transabdominal Cervical length 33.5 mm Ovaries / Tubes / Adnexa Rt ovary: Visualized Lt ovary: Visualized Performed By: Kassi Benton RDMS, RVT Read By: Arabella Pena M.D. MATERNAL MEDICINE [facility] Radiology Study observation (narrative) [facility] Armando 06-30-2023 BRAD Telephone (OBGYWM) ---- KATTY CHAUHAN ([id number]) 1995 F Date Time Provider Department 06/30/23 JOSETTE SHARMA During your visit today, we recorded the following information about you: Josette Vazquez RN 06/30/2023 2:30 PM Signed 14w1d Patient called to inquire about her Ivnvnxd12 results. Can you please review in CP's absence and release to [facility]. Thank you. KHALIDA Duarte Jennifer, MD 06/30/2023 3:50 PM Signed Screen negative. Low risk for trisomy 21/18/15 Gender is available if she wants to know. Released to [facility] Josette Vazquez RN 06/30/2023 4:22 PM Signed Patient notified. Josette Vazquez RN Allergies As of Date: 06/30/2023 (No Known Allergies) Date Reviewed: 06/23/2023 Reviewed by: Aubrey Jurado MA - Fully Assessed Reason for Visit: Results [95] Cmt: [id number] Prescriptions as of 06/30/2023 - levothyroxine (SYNTHROID) 25 mcg tablet - vit 93-djly-jutnz-dha (SELECT-OB+DHA) 29 mg iron-1 mg -250 mg Take by mouth as directed. Take 1 tablet and 1 capsule by mouth daily. Problem List As Of Date 06/30/2023 Noted Resolved Excessive or frequent menstruation [N92.0] 01/08/2007 11/13/2014 Dysmenorrhea [N94.6] 01/08/2007 11/13/2014 Iron deficiency anemia, unspecified [D50.9] 01/08/2007 11/13/2014 Patient request for diagnostic testing [Z01.89] 06/16/2016 09/08/2020 Supervision of normal [Z34.90] 06/27/2016 Rubella non-immune status, antepartum [O09.899,* 7 02/28/2017 Antepartum anemia complicating in thi*11/18/2016 02/28/2017 Abnormal glucose complicating [O99.81*11/18/2016 02/28/2017 History of hypothyroidism [Z86.39] 12/05/2019 History of precipitous delivery [Z87.59] 12/05/2019 09/08/2020 Anal fissure [K60.2] 05/22/2023 Encounter Status:Closed by JOSETTE VAZQUEZ on 06/30/23 Normal [facility] CBC panel Auto (Bld)on 06-22 Erythrocyte distribution width (RBC) [Ratio] 12.4 % Normal 11.5-15.0 [facility] Comment on above: Order Comment: Speci men Type: BLOOD SPECIMENOrdering Facility: [facility] Address: [address] [place] [address] Performed By: #### 6 30-4 #### [facility] CLIA [id number] [address] [place] [address] [place] Hematocrit (Bld) [Volume fraction] 35.6 % Low 36.0-46.0 [facility] Comment on above: Order Comment: Speci men Type: BLOOD SPECIMENOrdering Facility: [facility] Address: [address] [place] [address] Performed By: #### 6 30-4 #### [facility] CLIA [id number] [address] [place] [address] [place] Hemoglobin (Bld) [Mass/Vol] 11.9 g/dL Normal 11.5-15.5 [facility] Comment on above: Order Comment: Speci men Type: BLOOD SPECIMENOrdering Facility: [facility] Address: [address] [place] [address] Performed By: #### 6 30-4 #### [facility] CLIA [id number] [address] [place] [address] [place] MCH (RBC) [Entitic mass] 28.7 pg Normal 26.0-34.0 [facility] Comment on above: Order Comment: Speci men Type: BLOOD SPECIMENOrdering Facility: [facility] Address: [address] [place], [place] [id number] Performed By: #### 6 30-4 #### [facility] CLIA [id number] [address] [place] [address] [place] MCHC (RBC) [Mass/Vol] 33.4 g/dL Normal 30.5-36.0 [facility] Comment on above: Order Comment: Speci men Type: BLOOD SPECIMENOrdering Facility: [facility] Address: [address] [place] [address] Performed By: #### 6 30-4 #### [facility] CLIA [id number] [address] [place] [address] [place] MCV (RBC) [Entitic vol] 86.0 fL Normal 80.0-100.0 [facility] Comment on above: Order Comment: Speci men Type: BLOOD SPECIMENOrdering Facility: [facility] Address: [address] [place] [address] Performed By: #### 6 30-4 #### [facility] CLIA [id number] [address] [place] [address] [place] Nucleated RBC (Bld) [#/Vol] 10*3/uL Normal <0.01 [facility] Comment on above: Order Comment: Speci men Type: BLOOD SPECIMENOrdering Facility: [facility] Address: [address] [place] [address] Performed By: #### 6 30-4 #### [facility] CLIA [id number] [address] [place] [address] [place] Platelet mean volume (Bld) [Entitic vol] 8.8 fL Low 9.0-12.7 [facility] Comment on above: Order Comment: Speci men Type: BLOOD SPECIMENOrdering Facility: [facility] Address: [address] [place] [address] Performed By: #### 6 30-4 #### [facility] CLIA [id number] [address] [place] [address] [place] Platelets (Bld) [#/Vol] 264 10*3/uL Normal 150-400 [facility] Comment on above: Order Comment: Speci men Type: BLOOD SPECIMENOrdering Facility: [facility] Address: [address] [place] [address] Performed By: #### 6 30-4 #### [facility] CLIA [id number] [address] [place] [address] [place] RBC (Bld) [#/Vol] 4.14 10*6/uL Normal 3.90-5.20 [facility] Comment on above: Order Comment: Speci men Type: BLOOD SPECIMENOrdering Facility: [facility] Address: [address] [place] [address] Performed By: #### 6 30-4 #### [facility] CLIA [id number] [address] [place] [address] [place] WBC (Bld) [#/Vol] 8.23 10*3/uL Normal 3.70-11.00 [facility] Comment on above: Order Comment: Speci men Type: BLOOD SPECIMENOrdering Facility: [facility] Address: [address] [place] [address] Performed By: #### 6 30-4 #### [facility] CLIA [id number] [address] [place] [address] [place] nuchal translucency me asured by USon 06-23-2023 Indication First trimester screening Impression REMOTE READ 1. Single, live, intrauterine . 2. [place] rump length measurement is consistent with the established gestational age. 3. No gross abnormalities are noted. 4. The nuchal translucency measurement appears within normal limits at 1.5 mm. Maternal Structures: Left Ovary: Size 27 mm x 27 mm x 18 mm Recommendations Return for anatomy ultrasound Maternal Assessment Height 163 cm Height (ft) 5 ft Height (in) 4 in Physical Exam Initial weight (lb) 134 lb Initial BMI 22.99 kg/m Maternal assessment other: 3 Para 2 Method Transabdominal ultrasound examination Kern . Number of fetuses: 1 Dating LMP on: 03/23/2023 GA by LMP 13 w + 1 d NORA by LMP: 12/28/2023 Ultrasound examination on: 06/23/2023 GA by U/S based upon: CRL GA by U/S 13 w + 0 d NORA by U/S: 12/29/2023 Assigned: based on the LMP, selected on 06/23/2023 Assigned GA 13 w + 1 d Assigned NORA: 12/28/2023 General Evaluation Cardiac activity present Placenta: anterior Cord vessels: 3 vessel cord Amniotic fluid: normal amount Biometry Standard FHR 159 bpm CRL 67.2 mm 13w 0d 35% Hadlock NT 1.50 mm Anatomy The following structures appear normal: Cranium. Face. Abdominal wall. Stomach. Bladder. Arms. Legs. Maternal Structures Uterus / Cervix Uterus: Visualized Uterus length 122 mm Uterus width 99 mm Uterus height 96 mm Uterus Vol 603.5 cm Ovaries / Tubes / Adnexa Rt ovary: Not visualized Lt ovary: Visualized Lt ovary D1 27 mm Lt ovary D2 27 mm Lt ovary D3 18 mm Lt ovary Vol 6.8 cm Performed By: Kassi Benton RDMS, RVT Read By: Arabella Pena M.D. MATERNAL MEDICINE [facility] Radiology Study observation (narrative) [facility] HBV surface Ag Ser Qlon 05-0 HBV surface Ag Ql (S) Negative Normal Negative [facility] Comment on above: Order Comment: Speci men Type: BLOOD SPECIMENOrdering Facility: [facility] Address: [address] [place] [address] Performed By: #### 6 30-4 #### [facility] CLIA [id number] [address] [place] [address] [place] HCV Ab Ser Qlon 06-23-2023 HCV Ab Ql (S) Negative Normal Negative [facility] Comment on above: Order Comment: Speci men Type: BLOOD SPECIMENOrdering Facility: [facility] Address: [address] [place] [address] Result Comment: The result suggests no evidence of active infection with Hepatitis C virus. Should recent infection be suspected, repeat testing may be considered 4-6 weeks after this draw. Performed By: #### 1 6128-1 ####[facility] [id number] [address] [place] HIV 1+2 Ab IA Qlon 4 HIV 1 and 2 Ab IA.rapid Nom (S/P/Bld) Normal [facility] Comment on above: Order Comment: Speci men Type: BLOOD SPECIMENOrdering Facility: [facility] Address: [address] [place] [address] Result Comment: Test not indicated. Performed By: #### 6 30-4 #### [facility] CLIA [id number] [address] [place] [address] HIV 1+2 Ab+HIV1 p24 Ag IA Ql Non-Reactive Normal Nonreactive [facility] Comment on above: Order Comment: Speci men Type: BLOOD SPECIMENOrdering Facility: [facility] Address: [address] [place] [address] Performed By: #### 6 30-4 #### [facility] CLIA [id number] [address] [place] [address] [place] HIV immunoassay testing algorithm interpretation (S/P/Bld) [Interp] Normal [facility] Comment on above: Order Comment: Speci men Type: BLOOD SPECIMENOrdering Facility: [facility] Address: [address] [place] [address] Result Comment: No e vidence of HIV-1 or HIV-2 infection. Should recent infection be suspected, repeat testing may be considered 2-3 weeks after this draw. [place] Rev. Code 3701.243(E): This information has been disclosed to you from confidential records protected from disclosure by state law. ???You shall make no further disclosure of this information without the specific, written, and informed release of the individual to whom it pertains or as otherwise permitted by state law. A general authorization for the release of medical or other information is not sufficient for the purpose of the release of HIV test results or diagnoses. Performed By: #### 6 30-4 #### [facility] CLIA [id number] [address] [place] [address] [place] [address] [place] [id number] PLUSon 06-23-2023 Cell-free DNA./Cell-free DNA.total Dosage of chromosome-specific cfDNA (cfDNA) [Molar fraction] 6% Normal [facility] Comment on above: Order Comment: Speci men Type: BLOOD SPECIMENOrdering Facility: [facility] Address: [address] [place] [address] Performed By: #### M AT21 ####[facility] [id number] [place] [address] Chr 13+18+21+X+Y aneuploidy Dosage of chromosome-specific cfDNA Ql (cfDNA) Negative Normal [facility] Comment on above: Order Comment: Speci men Type: BLOOD SPECIMENOrdering Facility: [facility] Address: [address] [place] [address] Performed By: #### M AT21 ####[facility] LABCLIA [id number] [place] [address] Chr 21 trisomy Dosage of chromosome-specific cfDNA Ql (cfDNA) Negative Normal [facility] Comment on above: Order Comment: Speci men Type: BLOOD SPECIMENOrdering Facility: [facility] Address: [address] [place] [address] Performed By: #### M AT21 ####[facility] LABCLIA [id number] [place] [address] Chr X and Y aneuploidy risk Sequencing Ql (cfDNA) [Interp] Not detected Normal [facility] Comment on above: Order Comment: Speci men Type: BLOOD SPECIMENOrdering Facility: [facility] Address: [address] [place] [address] Result Comment: Not Detected Not Detected Performed By: #### M AT21 ####[facility] LABCLIA [id number] [facility] [place] [address] Citation Mack (Reference lab test) Comment Normal [facility] Comment on above: Order Comment: Speci men Type: BLOOD SPECIMENOrdering Facility: [facility] Address: [address] [place] [address] Result Comment: 1. P juan HURLEY, et al. Nat Med. 2012;14(3):296-305. 2. Rebecca POSADA et al. Prenat Diag. 2013;33(6):591-597. 3. Sae C, et al. Clin Chem. 2015 Apr;61(4):608-616. 4. Lavern HURLEY, et al. Nat Med. 2011;13(11):913-920. 5. ACOG/SMFM Practice Bulletin No. 226, Nov 2019. Performed By: #### M AT21 ####[facility] LABCLIA [id number] [place] [address] Gestational age Estimated from conception date Kern Normal [facility] Comment on above: Order Comment: Moon ramirez Type: BLOOD SPECIMENOrdering Facility: [facility] Address: [address] [place] [address] Performed By: #### M AT21 ####SEQUTrunk ArchiveM[facility] LABCLIA [id number] [place] [address] GESTATIONALAGE AGE > OR = 9W Yes Normal [facility] Comment on above: Order Comment: Moon ramirez Type: BLOOD SPECIMENOrdering Facility: [facility] Address: [address] [place] [address] Performed By: #### M AT21 ####[facility]ot[facility] LABCLIA [id number] [place] [address] Laboratory comment Mack (Report) Comment Normal [facility] Comment on above: Order Comment: Moon ramirez Type: BLOOD SPECIMENOrdering Facility: [facility] Address: [address] [place] [address] Result Comment: The MaterniT(R) 21 PLUS laboratory-developed test (LDT) analyzes circulating cell-free DNA from a maternal blood sample. This test is used for screening purposes and not diagnostic. Clinical correlation is recommended. Validation data on twin pregnancies is limited and the ability of this test to detect aneuploidy in higher multiple gestations has not yet been validated. Performed By: #### M AT21 ####[facility] LABCLIA [id number] [place] [address] medical genetics director name Nom (Provider) Comment Normal [facility] Comment on above: Order Comment: Speci men Type: BLOOD SPECIMENOrdering Facility: [facility] Address: [address] [place] [address] Result Comment: This specimen showed an expected representation of chromosome 21, 18 and 13 material. Clinical correlation is suggested. Comment Stephan Santizo MD, PhD, Director, [facility] Performed By: #### M AT21 ####[facility] LABCLIA [id number] [place] [address] LIMITATIONS OF THE TEST Comment Normal [facility] Comment on above: Order Comment: Speci ashley Type: BLOOD SPECIMENOrdering Facility: [facility] Address: [address] [place] [address] Result Comment: Chantelle nogueira the results of these tests are highly reliable, discordant results, including inaccurate sex prediction, may occur due to placental, maternal, or mosaicism or neoplasm; vanishing twin; prior maternal organ transplant; or other causes. These tests are screening tests and not diagnostic; they do not replace the accuracy and precision of diagnosis with CVS or amniocentesis. A patient with a positive test result should be referred for genetic counseling and offered invasive diagnosis for confirmation of test results.[5] The results of this testing, including the benefits and limitations, should be discussed with a qualified healthcare provider. management decisions, including termination of the , should not be based on the results of these tests alone. The healthcare provider is responsible for the use of this information in the management of their patient. Sex chromosomal aneuploidies are not reportable for known multiple gestations. A negative result does not ensure an unaffected nor does it exclude the possibility of other chromosomal abnormalities or defects which are not a part of these tests. An uninformative result may be reported, the causes of which may include, but are not limited to, insufficient sequencing coverage, noise or artifacts in the region, amplification or sequencing bias, or insufficient fraction. These tests are not intended to identify pregnancies at risk for neural tube defects or ventral wall defects. Testing for whole chromosome abnormalities (including sex chromosomes) and for subchromosomal abnormalities could lead to the potential discovery of both and maternal genomic abnormalities that could have major, minor, or no, clinical significance. Evaluating the significance of a positive or a non-reportable result may involve both invasive testing and additional studies on the mother. Such investigations may lead to a diagnosis of maternal chromosomal or subchromosomal abnormalities, which on occasion may be associated with benign or malignant maternal neoplasms. These tests may not accurately identify triploidy, balanced rearrangements, or the precise location of subchromosomal duplications or deletions; these may be detected by diagnosis with CVS or amniocentesis. The ability to report results may be impacted by maternal BMI, maternal weight, maternal systemic lupus erythematosus (SLE) and/or by certain pharmaceutical agents such as low molecular weight heparin (for example: Lovenox(R), Xaparin(R), Clexane(R) and Fragmin(R)). Performed By: #### M AT21 ####[facility] LABChalet TechIA [id number] [place] [address] Monosomy X risk Dosage of chromosome-specific cfDNA Ql (Plasma cell-free+WBC DNA) [Interp] Not detected Normal [facility] Comment on above: Order Comment: Spechanh ramirez Type: BLOOD SPECIMENOrdering Facility: [facility] Address: [address] [place] [address] Performed By: #### M AT21 ####[facility] LABCLIA [id number] [place] [address] NEGATIVE PREDICTIVE VALUE Note Normal [facility] Comment on above: Order Comment: Speci men Type: BLOOD SPECIMENOrdering Facility: [facility] Address: [address] [place] [address] Result Comment: The Negative Predictive Value (NPV) for trisomy 21, 18, and 13 is greater than 99%. The NPV for SCA and ESS cannot be calculated as SCA and ESS are only reported when an abnormality is detected. Performed By: #### M AT21 ####[employer] LABCLIA [id number] [place] [address] NOTE Comment Normal [facility] Comment on above: Order Comment: Speci men Type: BLOOD SPECIMENOrdering Facility: [facility] Address: [address] [place] [address] Result Comment: See Notes [employer]. is a subsidiary of [employer], using the brand [facility]. This test was developed and its performance characteristics determined by [employer]. It has not been cleared or approved by the Food and Drug Administration. This laboratory is certified under the Clinical Laboratory Improvement Amendments (CLIA) as qualified to perform high complexity clinical laboratory testing and accredited by the [employer] [place] [employer] (CAP). If there is future clinical need for adding MaterniT GENOME testing, this specimen will be available until term. [facility] samples will not be retained beyond 60 days. [facility] patients will have to send a new sample for re-sequencing ([facility] Test Code: [id number]). Performed By: #### M AT21 ####SEQUVinfolio-LABChirpifyRP LABCLIA [id number] [place] [address] PERFORMANCE CHARACTERISTICS Note Normal [facility] Comment on above: Order Comment: Moon ashley Type: BLOOD SPECIMENOrdering Facility: [facility] Address: [address] [place] [address] Result Comment: ! Sex ! Accuracy: 99.4% ! ! ! ! Region (associated syndrome) ! Est. Sens# ! Est. Spec ! ! ! ! Trisomy 21 (Down Syndrome) ! 99.1% ! 99.9% ! ! ! ! Trisomy 18 (Lopez Syndrome) ! >99.9% ! 99.6% ! ! ! ! Trisomy 13 (Patau Syndrome) ! 91.7% ! 99.7% ! ! ! ! Sex Chromosome Aneuploidies## ! 96.2% ! 99.7% ! ! ! * As reported in [facility] database nstd37 [https://www.ncbi.nlm.nih.gov/dbvar/studies/nstd37/ ] # Estimated Sensitivity. Sensitivity estimated across the observed size distribution of each syndrome [per ISCA database nstd37] and across the range of fractions observed in routine clinical NIPT. Actual sensitivity can also be influenced by other factors such as the size of the event, total sequence counts, amplification bias, or sequence bias. ## Kern gestation only. Performed By: #### Nicci AT21 ####[employer] LABCLIA [id number] [facility] [place] [address] POSITIVE PREDICTIVE VALUE N/A Normal [facility] Comment on above: Order Comment: Speci men Type: BLOOD SPECIMENOrdering Facility: [facility] Address: [address] [place] [address] Performed By: #### Nicci AT21 ####[facility] LABCLIA [id number] [place] [address] Reference Lab Test Method Comment Normal [facility] Comment on above: Order Comment: Speci men Type: BLOOD SPECIMENOrdering Facility: [facility] Address: [address] [place] [address] Result Comment: See Notes Circulating cell-free DNA was purified from the plasma component of maternal blood. The extracted DNA was then converted into a genomic DNA library for aneuploidy analysis of chromosomes 21, 18, and 13 via next generation sequencing.[1] Optional findings based on the test order include sex chromosome aneuploidy (SCA)[2], and enhanced sequencing series (ESS)[3], which will only be reported on as an additional finding when an abnormality is detected. SCA testing includes information on X and Y representation, while ESS testing includes deletions in selected regions (22q, 15q, 11q, 8q, 5p, 4p, 1p) and trisomy of chromosomes 16 and 22. Performed By: #### M AT21 ####[employer] LABChalet TechIA [id number] [place] [address] Sex Dosage of chromosome-specific cfDNA Nom (cfDNA) Comment Normal [facility] Comment on above: Order Comment: Speci men Type: BLOOD SPECIMENOrdering Facility: [facility] Address: [address] [place] [address] Result Comment: Cons istent with Female Performed By: #### M AT21 ####[facility] LABCLIA [id number] [place] [address] Test performance information Mack (Unsp spec) Comment Normal [facility] Comment on above: Order Comment: Speci men Type: BLOOD SPECIMENOrdering Facility: [facility] Address: [address] [place] [address] Result Comment: The performance characteristics of the MaterniT(R) 21 PLUS laboratory-developed test (LDT) have been determined in a clinical validation study with women at increased risk for chromosomal aneuploidy.[1-4] Performed By: #### M AT21 ####[facility] LABCLIA [id number] [place] [address] Trisomy 13 risk Dosage of chromosome-specific cfDNA Ql (cfDNA) [Interp] Negative Normal [facility] Comment on above: Order Comment: Speci men Type: BLOOD SPECIMENOrdering Facility: [facility] Address: [address] [place] [address] Performed By: #### M AT21 ####[facility] LABCLIA [id number] [place] [address] Trisomy 18 risk Dosage of chromosome-specific cfDNA Ql (Plasma cell-free+WBC DNA) [Interp] Negative Normal [facility] Comment on above: Order Comment: Speci men Type: BLOOD SPECIMENOrdering Facility: [facility] Address: [address] [place] [address] Performed By: #### M AT21 ####SEQUTrunk ArchiveM[facility] LABCLIA [id number] [place] [address] RUBELLA IGG ANTIBODYon 06-22 RUBELLA IGG AB, QUAL Positive Normal Positive [facility] Comment on above: Order Comment: Speci men Type: BLOOD SPECIMENOrdering Facility: [facility] Address: [address] [place] [address] Result Comment: The result suggests recent or past exposure to Rubella virus or history of Rubella vaccination. Positive result may also be seen due to presence of passively-transferred antibodies. Please correlate with patient's history. Performed By: #### R UBIGG ####[facility] LABCLIA [id number] [facility] [place] [address] [place] Reagin and Treponema pallidu m IgG and IgM [Interp]on 06-23-2023 T. pallidum IgG+IgM IA Ql (S) Non-Reactive Normal Nonreactive [facility] Comment on above: Order Comment: Speci [facility] Type: BLOOD SPECIMENOrdering Facility: [facility] Address: [address] [place] [address] Performed By: #### 6 30-4 #### [facility] CLIA [id number] [address] [place], [place] [address] [address] [place] Reagin+T pallidum IgG+IgM Se rPl-Impon 06-23-2023 Reagin and Treponema pallidum IgG and IgM [Interp] Cannot exclude recent Treponemal infection if specimen collected within 7-10 days after appearance of suspect lesions or 2-3 weeks after an exposure. Clinical correlation is required. Normal [facility] Comment on above: Order Comment: Speci men Type: BLOOD SPECIMENOrdering Facility: [facility] Address: [address] [place] [address] Performed By: #### 6 30-4 #### [facility] CLIA [id number] [address] [place] [address] [place] TSH SerPl-aCncon 06-23-2023 TSH Qn 1.070 m[IU]/L Normal 0.270-4.200 [facility] Comment on above: Order Comment: Speci men Type: BLOOD SPECIMENOrdering Facility: [facility] Address: [address] [place] [address] Result Comment: If t he patient is , TSH reference range varies by gestational period: First Trimester (weeks 9-12): 0.180-2.990 mIU/L Second Trimester: 0.110-3.980 mIU/L Third Trimester: 0.480-4.710 mIU/L Damon Oliver et al. A Practical Approach for the Verifications and Determination of Site- and Trimester-Specific Reference Intervals for Thyroid Function tests in . Thyroid, 2019:29:3:412-420. Mehdi Nogueira, et al. 2017 Guidelines of the [place] Thyroid Association for the Diagnosis and Management of Thyroid Disease during and the . Thyroid, 2017:27:3:315-389. Performed By: #### 3 016-3 ####[facility] LABCLIA [id number] [place] [address] [place] TYPE + SCREEN PRENATALon ABO B Normal [facility] Comment on above: Order Comment: Speci men Type: BLOOD SPECIMENOrdering Facility: [facility] Address: [address] [place] [address] Performed By: #### T SPN ####CC MAIN BLOOD BANKCLIA [id number] [address] HISTORICAL AB SCR STATUS Negative Normal [facility] Comment on above: Order Comment: Speci men Type: BLOOD SPECIMENOrdering Facility: [facility] Address: [address] [place] [address] Performed By: #### T SPN ####CC MAIN BLOOD BANKCLIA [id number] [address] OF [place] Rh Nom (Bld) Positive Normal [facility] Comment on above: Order Comment: Speci men Type: BLOOD SPECIMENOrdering Facility: [facility] Address: [address] [place] [address] Performed By: #### T SPN ####CC [facility] BLOOD BANKCLIA [id number] [address] OF [facility] TYPE AND SCREEN EXPIRATION 06/26/2023 23:59 Normal [facility] Comment on above: Order Comment: Speci men Type: BLOOD SPECIMENOrdering Facility: [facility] Address: [address] [place] [address] Performed By: #### T SPN ####CC [facility] BLOOD BANKCLIA [id number] [address] .Auto Diffon 06-08-2023 Basophil, Absolute 0.0 10 3/mcL Normal 0.0-0.2 [facility] ([place]) Comment on above: Performed By: #### T SH, ANEU, ADIFF, GFR, CBC, CMP, FT4, LIPID #### Sivlina Batista[address] [address] Basophils/100 WBC (Bld) 0.2 % Normal 0.0-2.5 [facility] ([place]) Comment on above: Performed By: #### T SH, ANEU, ADIFF, GFR, CBC, CMP, FT4, LIPID #### Silvina [address] [address] Eosinophil, Absolute 0.0 10 3/mcL Normal 0.0-0.4 [facility] ([place]) Comment on above: Performed By: #### T SH, ANEU, ADIFF, GFR, CBC, CMP, FT4, LIPID #### [address] [address] Eosinophils/100 WBC (Bld) 0.4 % Normal 0.0-7.0 [facility] ([place]) Comment on above: Performed By: #### T SH, ANEU, ADIFF, GFR, CBC, CMP, FT4, LIPID #### [address] [address] Lymphocyte, Absolute 1.7 10 3/mcL Normal 0.8-3.9 [facility] ([place]) Comment on above: Performed By: #### T SH, ANEU, ADIFF, GFR, CBC, CMP, FT4, LIPID #### [address] [address] Lymphocytes/100 WBC (Bld) 18.6 % Normal 10.0-50.0 [facility] ([place]) Comment on above: Performed By: #### T SH, ANEU, ADIFF, GFR, CBC, CMP, FT4, LIPID #### [address] [address] Monocyte, Absolute 0.6 10 3/mcL Normal 0.2-1.0 [facility] ([place] Comment on above: Performed By: #### T SH, ANEU, ADIFF, GFR, CBC, CMP, FT4, LIPID #### [address] [address] Monocytes/100 WBC (Bld) 6.0 % Normal 1.7-13.0 [facility] ([place]) Comment on above: Performed By: #### T SH, ANEU, ADIFF, GFR, CBC, CMP, FT4, LIPID #### [address] [address] Neutrophils/100 WBC (Bld) 74.8 % Normal 37.0-80.0 [facility] ([place]) Comment on above: Performed By: #### T SH, ANEU, ADIFF, GFR, CBC, CMP, FT4, LIPID #### [address] [address] .GFRon 06-08-2023 GFR 157 ml/min/1.73sqm Normal [facility] ([place]) Comment on above: Result Comment: GFR Population mean for , Non- Americans Ages 20-29 = 116 mL/min/1.73 sq.m. Ages 30-39 = 107 mL/min/1.73 sq.m. Ages 40-49 = 99 mL/min/1.73 sq.m. Ages 50-59 = 93 mL/min/1.73 sq.m. Ages 60-69 = 85 mL/min/1.73 sq.m. Ages 70+ = 75 mL/min/1.73 sq.m. Chronic Kidney Disease: Less than 60 mL/min/1.73 square meters End Stage Renal Disease: Less than 15 mL/min/1.73 square meters Performed By: #### T SH, CBC, FT4, ANEU, ADIFF #### [address] [address] GFR Non- 130 ml/min/1.73sqm Normal [facility] ([place]) Comment on above: Result Comment: GFR Population mean for , Non- Americans Ages 20-29 = 116 mL/min/1.73 sq.m. Ages 30-39 = 107 mL/min/1.73 sq.m. Ages 40-49 = 99 mL/min/1.73 sq.m. Ages 50-59 = 93 mL/min/1.73 sq.m. Ages 60-69 = 85 mL/min/1.73 sq.m. Ages 70+ = 75 mL/min/1.73 sq.m. Chronic Kidney Disease: Less than 60 mL/min/1.73 square meters End Stage Renal Disease: Less than 15 mL/min/1.73 square meters Performed By: #### T SH, CBC, FT4, ANEU, ADIFF #### [address] [address] .NEUABSon 06-08-2023 Neutrophil, Absolute 6.9 10 3/mcL High 2.9-6.2 [facility] ([place]) Comment on above: Performed By: #### T SH, ANEU, ADIFF, GFR, CBC, CMP, FT4, LIPID #### [address] [address] CBCon 06-08-2023 Erythrocyte distribution width (RBC) [Ratio] 13.3 % Normal 11.5-14.5 [facility] ([place]) Comment on above: Performed By: #### T SH, ANEU, ADIFF, GFR, CBC, CMP, FT4, LIPID #### [place] [address] Hematocrit (Bld) [Volume fraction] 33.7 % Low 37.0-47.0 [facility] ([place]) Comment on above: Performed By: #### T SH, ANEU, ADIFF, GFR, CBC, CMP, FT4, LIPID #### [place] [address] Hgb 11.8 G/dL Low 12.0-16.0 [facility] ([place]) Comment on above: Performed By: #### T SH, ANEU, ADIFF, GFR, CBC, CMP, FT4, LIPID #### [place] [id number] MCH (RBC) [Entitic mass] 29.5 pg Normal 27.0-31.2 [facility] ([place]) Comment on above: Performed By: #### T SH, ANEU, ADIFF, GFR, CBC, CMP, FT4, LIPID #### [place] [address] MCHC 35.0 G/dL Normal 33.0-37.0 [facility] ([place]) Comment on above: Performed By: #### T SH, ANEU, ADIFF, GFR, CBC, CMP, FT4, LIPID #### [place] [address] MCV (RBC) [Entitic vol] 84.2 fL Normal 80.0-94.0 [facility] ([place]) Comment on above: Performed By: #### T SH, ANEU, ADIFF, GFR, CBC, CMP, FT4, LIPID #### [address] [address] Platelet 277 10 3/mcL Normal 130-400 [facility] ([place]) Comment on above: Performed By: #### T SH, ANEU, ADIFF, GFR, CBC, CMP, FT4, LIPID #### [address] [address] Platelet mean volume (Bld) [Entitic vol] 7.5 fL Normal 7.4-10.4 [facility] ([place]) Comment on above: Performed By: #### T SH, ANEU, ADIFF, GFR, CBC, CMP, FT4, LIPID #### [address] [address] RBC 4.00 10 6/mcL Low 4.20-5.40 [facility] ([place]) Comment on above: Performed By: #### T SH, ANEU, ADIFF, GFR, CBC, CMP, FT4, LIPID #### [address] [address] WBC 9.2 10 3/mcL Normal 4.6-10.8 [facility] ([place]) Comment on above: Performed By: #### T SH, ANEU, ADIFF, GFR, CBC, CMP, FT4, LIPID #### [address] [address] CMPon 06-08-2023 Albumin Level 3.8 G/dL Normal 3.5-5.0 [facility] ([place]) Comment on above: Performed By: #### T SH, CBC, FT4, ANEU, ADIFF #### [address] [address] Albumin/Globulin [Mass ratio] 1.2 {ratio} Normal 1.1-2.5 [facility] ([place]) Comment on above: Performed By: #### T SH, CBC, FT4, ANEU, ADIFF #### [address] [address] ALP [Catalytic activity/Vol] 58 U/L Normal 40-135 [facility] ([place]) Comment on above: Performed By: #### T SH, CBC, FT4, ANEU, ADIFF #### [address] [address] ALT [Catalytic activity/Vol] 20 U/L Normal 14-59 [facility] ([place]) Comment on above: Performed By: #### T SH, CBC, FT4, ANEU, ADIFF #### [address] [address] AST [Catalytic activity/Vol] 12 U/L Normal 10-40 [facility] ([place]) Comment on above: Performed By: #### T SH, CBC, FT4, ANEU, ADIFF #### [address] [address] Bili Total 0.4 mg/dL Normal 0.2-1.0 [facility] ([place]) Comment on above: Result Comment: Use of this assay is not recommended for patients undergoing treatment with eltrombopag due to the potential for falsely elevated results. Performed By: #### T SH, CBC, FT4, ANEU, ADIFF #### [address] [address] BUN/Creatinine Ratio 18 ratio Normal 7-27 [facility] ([place]) Comment on above: Performed By: #### T SH, CBC, FT4, ANEU, ADIFF #### [address] [address] Calcium [Mass/Vol] 8.1 mg/dL Low 8.4-10.2 [facility] ([place]) Comment on above: Performed By: #### T SH, CBC, FT4, ANEU, ADIFF #### [address] [address] Chloride [Moles/Vol] 98 mmol/L Normal 98-107 [facility] ([place]) Comment on above: Performed By: #### T SH, CBC, FT4, ANEU, ADIFF #### [address] [address] CO2 [Moles/Vol] 22 mmol/L Normal 22-29 [facility] ([place]) Comment on above: Performed By: #### T RAQUEL, CBC, FT4, ANEU, ADIFF #### [address] [address] Creatinine [Mass/Vol] 0.55 mg/dL Normal 0.55-1.02 [facility] ([place]) Comment on above: Performed By: #### T SH, CBC, FT4, ANEU, ADIFF #### [address] [address] Electrolyte Balance 12.0 mEq/L Normal 4.0-15.0 [facility] ([place]) Comment on above: Performed By: #### T RAQUEL, CBC, FT4, ANEU, ADIFF #### [address] [address] Globulin 3.1 G/dL Normal [facility] ([place]) Comment on above: Performed By: #### T RAQUEL, CBC, FT4, ANEU, ADIFF #### [address] [address] Glucose [Mass/Vol] 82 mg/dL Normal 70-105 [facility] ([place]) Comment on above: Performed By: #### T RAQUEL, CBC, FT4, ANEU, ADIFF #### [address] [address] Potassium [Moles/Vol] 4.0 mmol/L Normal 3.5-5.1 [facility] ([place]) Comment on above: Performed By: #### T RAQUEL, CBC, FT4, ANEU, ADIFF #### [address] [address] Sodium [Moles/Vol] 132 mmol/L Low 136-145 [facility] ([place]) Comment on above: Performed By: #### T SH, CBC, FT4, ANEU, ADIFF #### [address] [address] Total Protein 6.9 G/dL Normal 6.4-8.2 [facility] ([place]) Comment on above: Performed By: #### T SH, CBC, FT4, ANEU, ADIFF #### [place] [address] [place], [place] [address] Urea nitrogen [Mass/Vol] 10 mg/dL Normal - [facility] ([place]) Comment on above: Performed By: #### T SH, CBC, FT4, ANEU, ADIFF #### [place] [address] [place], [place] [address] FT4on 06-08-2023 Free T4 [Mass/Vol] 1.18 ng/dL Normal 0.76-1.46 [facility] ([place]) Comment on above: Performed By: #### T SH, ANEU, ADIFF, GFR, CBC, CMP, FT4, LIPID #### [place] [address] [place], [place] [address] LABORATORYOrdered By: SYSTEM SYSTEM on 06-08-2023 Albumin BCP dye [Mass/Vol] 3.8 G/dL Normal 3.5 - 5.0 G/dL AO ADM SS Albumin/Globulin [Mass ratio] 1.2 {ratio} Normal 1.1 - 2.5 ratio AO ADM SS ALP [Catalytic activity/Vol] 58 U/L Normal 40 - 135 U/L AO ADM SS ALT With P-5'-P [Catalytic activity/Vol] 20 U/L Normal 14 - 59 U/L AO ADM SS AST With P-5'-P [Catalytic activity/Vol] 12 U/L Normal 10 - 40 U/L AO ADM SS Basophil, Absolute 0.0 103/mcL Normal 0.0 - 0.2 10^3/mcL AO Workflow SS Basophils/100 WBC (Bld) 0.2 % Normal 0.0 - 2.5 % AO Workflow SS Bilirubin [Mass/Vol] 0.4 mg/dL Normal 0.2 - 1.0 mg/dL AO ADM SS Comment on above: Interpretive Data: U se of this assay is not recommended for patients undergoing treatment with eltrombopag due to the potential for falsely elevated results. Calcium [Mass/Vol] 8.1 mg/dL Low 8.4 - 10.2 mg/dL AO ADM SS Chloride [Moles/Vol] 98 mmol/L Normal 98 - 107 mmol/L AO ADM SS CO2 [Moles/Vol] 22 mmol/L Normal 22 - 29 mmol/L AO AD M SS Creatinine [Mass/Vol] 0.55 mg/dL Normal 0.55 - 1.02 mg/dL AO ADM SS Electrolyte Balance 12.0 mEq/L Normal 4.0 - 15.0 mEq/L AO ADM SS Eosinophil, Absolute 0.0 103/mcL Normal 0.0 - 0 .4 10^3/mcL AO Workflow SS Eosinophils/100 WBC (Bld) 0.4 % Normal 0.0 - 7.0 % AO Workflow SS Erythrocyte distribution width (RBC) [Ratio] 13.3 % Normal 11.5 - 14.5 % AO Workflow SS Free T4 [Mass/Vol] 1.18 ng/dL Normal 0.76 - 1. 46 ng/dL AO ADM SS GFR/1.73 sq M.predicted among blacks MDRD (S/P/Bld) [Vol rate/Area] 157 ml/min/1.73sqm Invalid Interpretation Code AO Chemistry S Comment on above: Interpretive Data: GFR Population mean for , Non- Americans Ages 20-29 = 116 mL/min/1.73 sq.m. Ages 30-39 = 107 mL/min/1.73 sq.m. Ages 40-49 = 99 mL/min/1.73 sq.m. Ages 50-59 = 93 mL/min/1.73 sq.m. Ages 60-69 = 85 mL/min/1.73 sq.m. Ages 70+ = 75 mL/min/1.73 sq.m. Chronic Kidney Disease: Less than 60 mL/min/1.73 square meters End Stage Renal Disease: Less than 15 mL/min/1.73 square meters GFR/1.73 sq M.predicted among non-blacks MDRD (S/P/Bld) [Vol rate/Area] 130 ml/min/1.73sqm Invalid Interpretation Code AO Chemistry S Comment on above: Interpretive Data: GFR Population mean for , Non- Americans Ages 20-29 = 116 mL/min/1.73 sq.m. Ages 30-39 = 107 mL/min/1.73 sq.m. Ages 40-49 = 99 mL/min/1.73 sq.m. Ages 50-59 = 93 mL/min/1.73 sq.m. Ages 60-69 = 85 mL/min/1.73 sq.m. Ages 70+ = 75 mL/min/1.73 sq.m. Chronic Kidney Disease: Less than 60 mL/min/1.73 square meters End Stage Renal Disease: Less than 15 mL/min/1.73 square meters Globulin 3.1 G/dL Invalid Interpretation Code AO ADM SS Glucose [Mass/Vol] 82 mg/dL Normal 70 - 105 mg/dL AO ADM SS Hematocrit (Bld) [Volume fraction] 33.7 % Low 37.0 - 47.0 % AO Workflow SS Hemoglobin (Bld) [Mass/Vol] 11.8 G/dL Low 12.0 - 16.0 G/dL AO Workflow SS Lymphocyte, Absolute 1.7 103/mcL Normal 0.8 - 3 .9 10^3/mcL AO Workflow SS Lymphocytes/100 WBC (Bld) 18.6 % Normal 10.0 - 50.0 % AO Workflow SS MCH (RBC) [Entitic mass] 29.5 pg Normal 27.0 - 31.2 pg AO Workflow SS MCHC 35.0 G/dL Normal 33.0 - 37.0 G/dL AO Workf low SS MCV (RBC) [Entitic vol] 84.2 fL Normal 80.0 - 94.0 fL AO Workflow SS Monocyte, Absolute 0.6 103/mcL Normal 0.2 - 1.0 10^3/mcL AO Workflow SS Monocytes/100 WBC (Bld) 6.0 % Normal 1.7 - 13.0 % AO Workflow SS Neutrophil, Absolute 6.9 103/mcL High 2.9 - 6 .2 10^3/mcL AO Workflow SS Neutrophils/100 WBC (Bld) 74.8 % Normal 37.0 - 80.0 % AO Workflow SS Platelet mean volume (Bld) [Entitic vol] 7.5 fL Normal 7.4 - 10.4 fL AO Workflow SS Platelets (Bld) [#/Vol] 277 103/mcL Normal 130 - 400 10^3/mcL AO Workflow SS Potassium [Moles/Vol] 4.0 mmol/L Normal 3.5 - 5.1 mmol/L AO ADM SS Protein [Mass/Vol] 6.9 G/dL Normal 6.4 - 8.2 G/dL AO ADM SS RBC (Bld) [#/Vol] 4.00 106/mcL Low 4.20 - 5.4 0 10^6/mcL AO Workflow SS Sodium [Moles/Vol] 132 mmol/L Low 136 - 145 mmol/L AO ADM SS TSH Qn 0.66 m[IU]/L Normal 0.36 - 3.74 mcIU/mL AO ADM SS Urea nitrogen [Mass/Vol] 10 mg/dL Normal 7 - 18 mg/dL AO ADM SS Urea nitrogen/Creatinine [Mass ratio] 18 ratio Normal 7 - 27 ratio AO ADM SS WBC (Bld) [#/Vol] 9.2 103/mcL Normal 4.6 - 10.8 10^3/mcL AO Workflow SS LABORATORYOrdered By: Vish Morris on 06-08-2023 Cholesterol [Mass/Vol] 166 mg/dL Normal 0 - 200 mg/dL AO ADM SS Comment on above: Interpretive Data: C holesterol Reference Interval: Less than 200 Desirable 200-239 Borderline high risk 240 and above High risk Cholesterol in HDL [Mass/Vol] 60 mg/dL Normal 40 - 60 mg/dL AO ADM SS Cholesterol in LDL [Mass/Vol] 98 mg/dL Normal 0 - 130 mg/dL AO ADM SS Triglyceride [Mass/Vol] 40 mg/dL Normal 0 - 150 mg/dL AO ADM SS Comment on above: Interpretive Data: T riglyceride Reference Interval: Less than 150 Normal 150-199 Borderline high risk 200-499 High risk 500 or higher Very high risk LIPIDon 06-08-2023 Cholesterol [Mass/Vol] 166 mg/dL Normal 0-200 [facility] ([place]) Comment on above: Result Comment: Chol esterol Reference Interval: Less than 200 Desirable 200-239 Borderline high risk 240 and above High risk Performed By: #### T SH, CBC, FT4, ANEU, ADIFF #### [place] [address] [address] Cholesterol in HDL [Mass/Vol] 60 mg/dL Normal 40-60 [facility] ([place]) Comment on above: Performed By: #### T SH, CBC, FT4, ANEU, ADIFF #### [id number] [place], [place] [address] Cholesterol in LDL [Mass/Vol] 98 mg/dL Normal 0-130 [facility] ([place]) Comment on above: Performed By: #### T SH, CBC, FT4, ANEU, ADIFF #### [address] [address] Triglyceride [Mass/Vol] 40 mg/dL Normal 0-150 [facility] ([place]) Comment on above: Result Comment: Trig lyceride Reference Interval: Less than 150 Normal 150-199 Borderline high risk 200-499 High risk 500 or higher Very high risk Performed By: #### T SH, CBC, FT4, ANEU, ADIFF #### [address] [place], [place] [address] TSHon 06-08-2023 TSH Qn 0.66 m[IU]/L Normal 0.36-3.74 [facility] ([place]) Comment on above: Performed By: #### T SH, ANEU, ADIFF, GFR, CBC, CMP, FT4, LIPID #### [address] [address] CNPNon 05-23-2023 [facility] Telephone ([id number]) ---- KATTY CHAUHAN ([id number]) 1995 F Date Time Provider Department 05/23/23 [facility] [facility] [id number] During your visit today, we recorded the following information about you: Josette Green RN 05/23/2023 12:38 PM Signed 1st risk assessment form submitted 05/23/2023. 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 Take 1 tablet and 1 capsule by mouth daily. Problem List As Of Date 05/23/2023 Noted Resolved Excessive or frequent menstruation [N92.0] 01/08/2007 11/13/2014 Dysmenorrhea [N94.6] 01/08/2007 11/13/2014 Iron deficiency anemia, unspecified [D50.9] 01/08/2007 11/13/2014 Patient request for diagnostic testing [Z01.89] 06/16/2016 09/08/2020 Supervision of normal [Z34.90] 06/27/2016 Rubella non-immune status, antepartum [O09.899,* 7 02/28/2017 Antepartum anemia complicating in thi*11/18/2016 02/28/2017 Abnormal glucose complicating [O99.81*11/18/2016 02/28/2017 History of hypothyroidism [Z86.39] 12/05/2019 History of precipitous delivery [Z87.59] 12/05/2019 09/08/2020 Anal fissure [K60.2] 05/22/2023 Encounter Status:Closed by JOSETTE GREEN on 05/23/23 Normal [facility] Bacteria Ur Culton Bacteria identified Cx Nom (U) ORGANISM ID: 1 <10,000 CFU/ml Normal urogenital chante Normal [facility] Comment on above: Performed By: #### 6 30-4 #### [facility] CLIA [id number] [address] [place] [address] [place] C. trachomatis+N. gonorrhoea e DNA ONEL+probe Ql (Unsp spec)on 05-22-2023 C. trachomatis rRNA ONEL+probe Ql (Unsp spec) Negative Normal Negative for Chlamydia trachomatis by amplificaton [facility] Comment on above: Order Comment: Speci men Type: SWABOrdering Facility: [facility] Address: [address] [place] [address] Performed By: #### 3 6902-5 ####[facility] [id number] [place] [address] [place] N. gonorrhoeae rRNA ONEL+probe Ql (Unsp spec) Negative Normal Negative for Neisseria gonorrhoeae by amplification [facility] Comment on above: Order Comment: Speci men Type: SWABOrdering Facility: [facility] Address: [address] [place] [address] Performed By: #### 3 6902-5 ####[facility] [id number] [place] [address] [place] HIGH RISK HUMAN PAPILLOMA BARTOLO (HPV), PCR FOR DETECTION AND GENOTYPINGon 05-22-2023 HPV 16 Ag Ql (Unsp spec) Negative Normal Negative for HPV DNA high risk type 16 by PCR [facility] Comment on above: Order Comment: Speci men Type: FLUID SPECIMENOrdering Facility: [facility] Address: [address] [place] [address] Performed By: #### L [id number], HPVHRT ####[facility] [id number] [place] [address] [place] HPV 18 Ag Ql (Unsp spec) Negative Normal Negative for HPV DNA high risk type 18 by PCR [facility] Comment on above: Order Comment: Speci men Type: FLUID SPECIMENOrdering Facility: [facility] Address: [address] [place] [address] Performed By: #### L [id number], HPVHRT ####[facility] [id number] [place] [address] [place] HPV 31+33+35+39+45+51+52 +56+58+59+66+68 DNA ONEL+probe Ql (Cvx) Negative for HPV DNA high risk types: 31,33,35,39,45,51,5 2,56,58,59,66,68 by PCR. Normal Negative for HPV DNA high risk types: 31,33,35,39,45,5 1,52,56,58,59,66 ,68 by PCR. [facility] Comment on above: Order Comment: Speci men Type: FLUID SPECIMENOrdering Facility: [facility] Address: [address] [place] [address] Performed By: #### L [id number], HPVHRT ####[facility] [id number] [place] [address] [place] PAP TESTon 05-22-2023 ADEQUACY Satisfactory for interpretation. Normal [facility] Comment on above: Order Comment: Speci men Type: FLUID SPECIMENOrdering Facility: [facility] Address: [address] [place] [address] Performed By: #### L [id number], HPVHRT ####[facility] [id number] [address] [place] CASE REPORT Normal [facility] Comment on above: Order Comment: Speci men Type: FLUID SPECIMENOrdering Facility: [facility] Address: [address] [place] [address] Result Comment: Gyne cologic Cytology Report Case: [id number] Authorizing Provider: Sowmya Elder APRN.CNM Collected: 05/22/2023 01:51 PM Ordering Location: OB/Gynecology Received: 05/23/2023 08:49 AM First Screen: Bethanie, Abby, CT, ASCP Specimen: Pap Test, ThinPrep, Cervix Performed By: #### L [id number], HPVHRT ####[facility] [id number] [place] [address] [place] CLINICAL HISTORY, CYTOLOGY, CLOTHING AND TEXTILES TEACHER (Indicate Weeks) Normal [facility] Comment on above: Order Comment: Speci men Type: FLUID SPECIMENOrdering Facility: [facility] Address: [address] [place] [address] Performed By: #### L [id number], HPVHRT ####[facility] [id number] [place] [address] [place] FINAL PERFORMING LAB Normal [facility] Comment on above: Order Comment: Speci men Type: FLUID SPECIMENOrdering Facility: [facility] Address: [address] [place], [place] [address] Result Comment: Tech nical component, liner machine operator helper screening performed at [facility], [address] [place] [address] CLIA# [id number] Diagnostic interpretation performed at [facility], [address] [place] [address] [place] [address] CLIA# [id number] Optical Mechanic Apprentice: Clark Vazquez M.D. Performed By: #### L [id number], HPVHRT ####[facility] [id number] [place] [address] [place] HPV REFLEX Yes HPV Normal [facility] Comment on above: Order Comment: Speci men Type: FLUID SPECIMENOrdering Facility: [facility] Address: [address] [place] [address] Performed By: #### L [id number], HPVHRT ####[facility] [id number] [place] [address] [place] INTERPRETATION, CYTOLOGY, CLOTHING AND TEXTILES TEACHER Normal [facility] Comment on above: Order Comment: Speci men Type: FLUID SPECIMENOrdering Facility: [facility] Address: [address] [place] [address] Result Comment: Nega tive for intraepithelial lesion or malignancy. Performed By: #### L [id number], HPVHRT ####[facility] [id number] [place] [id number] [place] LMP 03/23/2023 Normal [facility] Comment on above: Order Comment: Speci men Type: FLUID SPECIMENOrdering Facility: [facility] Address: [address] [place] [address] Performed By: #### L [id number], HPVHRT ####[facility] [id number] [place] [id number] [place] PAP DISCLAIMER COMMENT The Pap Smear is a screening test for cervical cancer. False negative results occur with all screening tests, emphasizing the need for rescreening at recommended intervals, and clinical correlation. Normal [facility] Comment on above: Order Comment: Speci men Type: FLUID SPECIMENOrdering Facility: [facility] Address: [address] [place] [address] Performed By: #### L [id number], HPVHRT ####[facility] [id number] [place] [address] [place] .Auto Diffon 12-01-2022 Basophil, Absolute 0.0 10 3/mcL Normal 0.0-0.2 [facility] ([place]) Comment on above: Performed By: #### T SH, CBC, FT4, ANEU, ADIFF #### [address] [address] Basophils/100 WBC (Bld) 0.3 % Normal 0.0-2.5 [facility] ([place]) Comment on above: Performed By: #### T SH, CBC, FT4, ANEU, ADIFF #### [address] [address] Eosinophil, Absolute 0.2 10 3/mcL Normal 0.0-0.4 [facility] ([place]) Comment on above: Performed By: #### T SH, CBC, FT4, ANEU, ADIFF #### [address] [address] Eosinophils/100 WBC (Bld) 2.4 % Normal 0.0-7.0 [facility] ([place]) Comment on above: Performed By: #### T SH, CBC, FT4, ANEU, ADIFF #### [address] [address] Lymphocyte, Absolute 2.2 10 3/mcL Normal 0.8-3.9 [facility] ([place]) Comment on above: Performed By: #### T SH, CBC, FT4, ANEU, ADIFF #### [address] [address] Lymphocytes/100 WBC (Bld) 31.2 % Normal 10.0-50.0 [facility] ([place]) Comment on above: Performed By: #### T SH, CBC, FT4, ANEU, ADIFF #### [address] [address] Monocyte, Absolute 0.6 10 3/mcL Normal 0.2-1.0 [facility] ([place]) Comment on above: Performed By: #### T SH, CBC, FT4, ANEU, ADIFF #### [address] [address] Monocytes/100 WBC (Bld) 8.3 % Normal 1.7-13.0 [facility] ([place]) Comment on above: Performed By: #### T SH, CBC, FT4, ANEU, ADIFF #### [address] [address] Neutrophils/100 WBC (Bld) 57.8 % Normal 37.0-80.0 [facility] ([place]) Comment on above: Performed By: #### T SH, CBC, FT4, ANEU, ADIFF #### [address] [address] .NEUABSon 12-01-2022 Neutrophil, Absolute 4.1 10 3/mcL Normal 2.9-6.2 [facility] ([place]) Comment on above: Performed By: #### T SH, CBC, FT4, ANEU, ADIFF #### [address] [address] CBCon 12-01-2022 Erythrocyte distribution width (RBC) [Ratio] 13.4 % Normal 11.5-14.5 [facility] ([place]) Comment on above: Performed By: #### T SH, CBC, FT4, ANEU, ADIFF #### [address] [address] Hematocrit (Bld) [Volume fraction] 38.6 % Normal 37.0-47.0 [facility] ([place]) Comment on above: Performed By: #### T SH, CBC, FT4, ANEU, ADIFF #### [address] [address] Hgb 12.9 G/dL Normal 12.0-16.0 [facility] ([place]) Comment on above: Performed By: #### T SH, CBC, FT4, ANEU, ADIFF #### [address] [address] MCH (RBC) [Entitic mass] 28.2 pg Normal 27.0-31.2 [facility] ([place]) Comment on above: Performed By: #### T SH, CBC, FT4, ANEU, ADIFF #### [place] [id number] MCHC 33.4 G/dL Normal 33.0-37.0 [facility] ([place]) Comment on above: Performed By: #### T SH, CBC, FT4, ANEU, ADIFF #### [address] [address] MCV (RBC) [Entitic vol] 84.4 fL Normal 80.0-94.0 [facility] ([place]) Comment on above: Performed By: #### T SH, CBC, FT4, ANEU, ADIFF #### [address] [address] Platelet 297 10 3/mcL Normal 130-400 [facility] ([place]) Comment on above: Performed By: #### T SH, CBC, FT4, ANEU, ADIFF #### [address] [address] Platelet mean volume (Bld) [Entitic vol] 7.8 fL Normal 7.4-10.4 [facility] ([place]) Comment on above: Performed By: #### T SH, CBC, FT4, ANEU, ADIFF #### [address] [address] RBC 4.57 10 6/mcL Normal 4.20-5.40 [facility] ([place]) Comment on above: Performed By: #### T SH, CBC, FT4, ANEU, ADIFF #### [address] [address] WBC 7.0 10 3/mcL Normal 4.6-10.8 [facility] ([place]) Comment on above: Performed By: #### T SH, CBC, FT4, ANEU, ADIFF #### [address] [address] FT4on 12-01-2022 Free T4 [Mass/Vol] 1.05 ng/dL Normal 0.76-1.46 [facility] ([place]) Comment on above: Performed By: #### T SH, CBC, FT4, ANEU, ADIFF #### [address] [address] TSHon 12-01-2022 TSH Qn 2.55 m[IU]/L Normal 0.36-3.74 [facility] ([place]) Comment on above: Performed By: #### T SH, CBC, FT4, ANEU, ADIFF #### [address] [address] STREP A MOLECULAR (POC)on Procedural Control Valid [facility] Strep A (POCT) Negative Negative [facility] LABORATORYOrdered By: Vish Morris on 11-18-2021 Basophil, Absolute 0.0 103/mcL Invalid Interpretation Code 0.0 - 0.2 10^3/mcL AO Workflow SS Basophils/100 WBC (Bld) 0.2 % Invalid Interpretation Code 0.0 - 2.5 % AO Workflow SS Eosinophil, Absolute 0.1 103/mcL Invalid Interpretation Code 0.0 - 0.4 10^3/mcL AO Workflow SS Eosinophils/100 WBC (Bld) 1.2 % Invalid Interpretation Code 0.0 - 7.0 % AO Workflow SS Erythrocyte distribution width (RBC) [Ratio] 13.5 % Invalid Interpretation Code 11.5 - 14.5 % AO Workflow SS Hematocrit (Bld) [Volume fraction] 36.7 % Invalid Interpretation Code 37.0 - 47.0 % AO Workflow SS Hemoglobin (Bld) [Mass/Vol] 12.4 G/dL Invalid Interpretation Code 12.0 - 16.0 G/dL AO Workflow SS Lymphocyte, Absolute 1.9 103/mcL Invalid Interpretation Code 0.8 - 3.9 10^3/mcL AO Workflow SS Lymphocytes/100 WBC (Bld) 31.7 % Invalid Interpretation Code 10.0 - 50.0 % AO Workflow SS MCH (RBC) [Entitic mass] 28.5 pg Invalid Interpretation Code 27.0 - 31.2 pg AO Workflow SS MCHC 33.7 G/dL Invalid Interpretation Code 33.0 - 37.0 G/dL AO Workflow SS MCV (RBC) [Entitic vol] 84.4 fL Invalid Interpretation Code 80.0 - 94.0 fL AO Workflow SS Monocyte, Absolute 0.4 103/mcL Invalid Interpretation Code 0.2 - 1.0 10^3/mcL AO Workflow SS Monocytes/100 WBC (Bld) 7.1 % Invalid Interpretation Code 1.7 - 13.0 % AO Workflow SS Neutrophil, Absolute 3.6 103/mcL Invalid Interpretation Code 2.9 - 6.2 10^3/mcL AO Workflow SS Neutrophils/100 WBC (Bld) 59.8 % Invalid Interpretation Code 37.0 - 80.0 % AO Workflow SS Platelet mean volume (Bld) [Entitic vol] 7.3 fL Invalid Interpretation Code 7.4 - 10.4 fL AO Workflow SS Platelets (Bld) [#/Vol] 304 103/mcL Invalid Interpretation Code 130 - 400 10^3/mcL AO Workflow SS RBC (Bld) [#/Vol] 4.35 106/mcL Invalid Interpretation Code 4.20 - 5.40 10^6/mcL AO Workflow SS WBC (Bld) [#/Vol] 6.0 103/mcL Invalid Interpretation Code 4.6 - 10.8 10^3/mcL AO Workflow SS LABORATORYOrdered By: Jaquelin Nelson on 11-18-2021 Free T4 [Mass/Vol] 1.15 ng/dL Invalid Interpretation Code 0.76 - 1.46 ng/dL AO ADM SS Iron [Mass/Vol] 98 ug/dL Invalid Interpretation Code 50 - 170 mcg/dL AO ADM SS Iron binding capacity [Mass/Vol] 399 mcg/dL Invalid Interpretation Code 250 - 450 mcg/dL AO ADM SS TSH Qn 1.88 m[IU]/L Invalid Interpretation Code 0.36 - 3.74 mcIU/mL AO ADM SS LABORATORYOrdered By: Amber Correia on 05-13-2021 Albumin BCP dye [Mass/Vol] 4.2 G/dL Invalid Interpretation Code 3.5 - 5.0 G/dL AO ADM SS Albumin/Globulin [Mass ratio] 1.2 {ratio} Invalid Interpretation Code 1.1 - 2.5 ratio AO ADM SS ALP [Catalytic activity/Vol] 104 U/L Invalid Interpretation Code 40 - 135 U/L AO ADM SS ALT With P-5'-P [Catalytic activity/Vol] 21 U/L Invalid Interpretation Code 14 - 59 U/L AO ADM SS AST With P-5'-P [Catalytic activity/Vol] 12 U/L Invalid Interpretation Code 10 - 40 U/L AO ADM SS Bilirubin [Mass/Vol] 0.6 mg/dL Invalid Interpretation Code 0.2 - 1.0 mg/dL AO ADM SS Calcium [Mass/Vol] 8.8 mg/dL Invalid Interpretation Code 8.4 - 10.2 mg/dL AO ADM SS Chloride [Moles/Vol] 102 mmol/L Invalid Interpretation Code 98 - 107 mmol/L AO ADM SS Cholesterol [Mass/Vol] 137 mg/dL Invalid Interpretation Code 0 - 200 mg/dL AO ADM SS Cholesterol in HDL [Mass/Vol] 62 mg/dL Invalid Interpretation Code 40 - 60 mg/dL AO ADM SS Cholesterol in LDL [Mass/Vol] 69 mg/dL Invalid Interpretation Code 0 - 130 mg/dL AO ADM SS CO2 [Moles/Vol] 23 mmol/L Invalid Interpretation Code 22 - 29 mmol/L AO ADM SS Creatinine [Mass/Vol] 0.76 mg/dL Invalid Interpretation Code 0.55 - 1.02 mg/dL AO ADM SS Electrolyte Balance 15.0 mEq/L Invalid Interpretation Code 4.0 - 15.0 mEq/L AO ADM SS Free T4 [Mass/Vol] 1.19 ng/dL Invalid Interpretation Code 0.76 - 1.46 ng/dL AO ADM SS Globulin 3.4 G/dL Invalid Interpretation Code AO ADM SS Glucose [Mass/Vol] 75 mg/dL Invalid Interpretation Code 70 - 105 mg/dL AO ADM SS Iron [Mass/Vol] 37 ug/dL Invalid Interpretation Code 50 - 170 mcg/dL AO ADM SS Iron binding capacity [Mass/Vol] 362 mcg/dL Invalid Interpretation Code 250 - 450 mcg/dL AO ADM SS Potassium [Moles/Vol] 3.8 mmol/L Invalid Interpretation Code 3.5 - 5.1 mmol/L AO ADM SS Protein [Mass/Vol] 7.6 G/dL Invalid Interpretation Code 6.4 - 8.2 G/dL AO ADM SS Sodium [Moles/Vol] 140 mmol/L Invalid Interpretation Code 136 - 145 mmol/L AO ADM SS Triglyceride [Mass/Vol] 29 mg/dL Invalid Interpretation Code 0 - 150 mg/dL AO ADM SS TSH Qn 1.54 m[IU]/L Invalid Interpretation Code 0.36 - 3.74 mcIU/mL AO ADM SS Urea nitrogen [Mass/Vol] 15 mg/dL Invalid Interpretation Code 7 - 18 mg/dL AO ADM SS Urea nitrogen/Creatinine [Mass ratio] 20 ratio Invalid Interpretation Code 7 - 27 ratio AO ADM SS LABORATORYOrdered By: Adriana Bonilla on 05-13-2021 Basophil, Absolute 0.00 103/mcL Invalid Interpretation Code 0.00 - 0.19 10^3/mcL AO Auto Heme SS Basophils/100 WBC (Bld) 0.3 % Invalid Interpretation Code 0.0 - 2.5 % AO Auto Heme SS Eosinophil, Absolute 0.10 103/mcL Invalid Interpretation Code 0.00 - 0.40 10^3/mcL AO Auto Heme SS Eosinophils/100 WBC (Bld) 2.4 % Invalid Interpretation Code 0.0 - 7.0 % AO Auto Heme SS Erythrocyte distribution width (RBC) [Ratio] 13.2 % Invalid Interpretation Code 11.5 - 14.5 % AO Auto Heme SS Hematocrit (Bld) [Volume fraction] 37.9 % Invalid Interpretation Code 37.0 - 47.0 % AO Auto Heme SS Hemoglobin (Bld) [Mass/Vol] 12.9 G/dL Invalid Interpretation Code 12.0 - 16.0 G/dL AO Auto Heme SS Lymphocyte, Absolute 1.30 103/mcL Invalid Interpretation Code 0.77 - 3.85 10^3/mcL AO Auto Heme SS Lymphocytes/100 WBC (Bld) 29.8 % Invalid Interpretation Code 10.0 - 50.0 % AO Auto Heme SS MCH (RBC) [Entitic mass] 28.5 pg Invalid Interpretation Code 27.0 - 31.2 pg AO Auto Heme SS MCHC (RBC) [Mass/Vol] 34.0 G/dL Invalid Interpretation Code 33.0 - 37.0 G/dL AO Auto Heme SS MCV (RBC) [Entitic vol] 84.1 fL Invalid Interpretation Code 80.0 - 94.0 fL AO Auto Heme SS Monocyte, Absolute 0.50 103/mcL Invalid Interpretation Code 0.15 - 1.00 10^3/mcL AO Auto Heme SS Monocytes/100 WBC (Bld) 11.4 % Invalid Interpretation Code 1.7 - 13.0 % AO Auto Heme SS Neutrophil, Absolute 2.50 103/mcL Invalid Interpretation Code 2.85 - 6.16 10^3/mcL AO Auto Heme SS Neutrophils/100 WBC (Bld) 56.1 % Invalid Interpretation Code 37.0 - 80.0 % AO Auto Heme SS Platelet mean volume (Bld) [Entitic vol] 7.7 fL Invalid Interpretation Code 7.4 - 10.4 fL AO Auto Heme SS Platelets (Bld) [#/Vol] 282 103/mcL Invalid Interpretation Code 130 - 400 10^3/mcL AO Auto Heme SS RBC (Bld) [#/Vol] 4.51 106/mcL Invalid Interpretation Code 4.20 - 5.40 10^6/mcL AO Auto Heme SS WBC (Bld) [#/Vol] 4.50 103/mcL Invalid Interpretation Code 4.60 - 10.80 10^3/mcL AO Auto Heme SS LABORATORYOrdered By: SYSTEM SYSTEM on 05-13-2021 GFR 110 ml/min/1.73sqm Invalid Interpretation Code AO Chemistry S GFR Non- 91 ml/min/1.73sqm Invalid Interpretation Code AO Chemistry S Office Visit: OB Routineon 0 09-19-2016 Albumin Ql (U) N [facility] Documentation of current medications (procedure) Done Invalid Interpretation Code [facility] Glucose Test strip mass conc (U) N [facility] Protein mass conc Done [facility] Urine, glucose presence N Invalid Interpretation Code [facility] Urine, protein N Invalid Interpretation Code [facility] Vital Signs Date Time Vital Sign Value Performing Clinician Ines carvalho 02-05-2024 08:41-0500 Body mass index (BMI) [Ratio] 25.23 kg/m2 Danuta Marlow MD Work Phone: [facility] 02-05-2024 08:41-0500 Body weight 66.68 kg Danuta Marlow MD Work Phone: [facility] 02-05-2024 08:41-0500 Diastolic blood pressure 64 mm[Hg] Danuta Marlow MD Work Phone: [facility] 02-05-2024 08:41-0500 Systolic blood pressure 110 mm[Hg] Danuta Marlow MD Work Phone: [facility] 12-29-2023 14:42-0500 Body mass index (BMI) [Ratio] 26.33 kg/m2 Sowmya Plotts HEARING AND SPEECH ASSISTANT.CNM Work Phone: [facility] 12-29-2023 14:42-0500 Body weight 69.58 kg Sowmya Plotts HEARING AND SPEECH ASSISTANT.CNM Work Phone: [facility] 12-29-2023 14:42-0500 Diastolic blood pressure 60 mm[Hg] Sowmya Plotts HEARING AND SPEECH ASSISTANT.CNM Work Phone: [facility] 12-29-2023 14:42-0500 Systolic blood pressure 122 mm[Hg] Sowmya Plotts HEARING AND SPEECH ASSISTANT.CNM Work Phone: [facility] 12-13-2023 10:10-0400 Body mass index (BMI) [Ratio] 27.81 kg/m2 Danuta Marlow MD Work Phone: [facility] 12-13-2023 10:10-0400 Body weight 73.48 kg Danuta Marlow MD Work Phone: [facility] 12-13-2023 10:10-0400 Diastolic blood pressure 68 mm[Hg] Danuta Marlow MD Work Phone: [facility] 12-13-2023 10:10-0400 Systolic blood pressure 118 mm[Hg] Danuta Marlow MD Work Phone: [facility] 12-06-2023 09:22-0400 Body mass index (BMI) [Ratio] 27.64 kg/m2 Danuta Malrow MD Work Phone: [facility] 12-06-2023 09:22-0400 Body weight 73.03 kg Danuta Marlow MD Work Phone: [facility] 12-06-2023 09:22-0400 Diastolic blood pressure 60 mm[Hg] Danuta Marlow MD Work Phone: [facility] 12-06-2023 09:22-0400 Systolic blood pressure 102 mm[Hg] Danuta Marlow MD Work Phone: [facility] 12-01-2023 15:11-0400 Body mass index (BMI) [Ratio] 27.46 kg/m2 Danuta Marlow MD Work Phone: [facility] 12-01-2023 15:11-0400 Body weight 72.58 kg Danuta Marlow MD Work Phone: [facility] 12-01-2023 15:11-0400 Diastolic blood pressure 68 mm[Hg] Danuta Marlow MD Work Phone: [facility] 12-01-2023 15:11-0400 Systolic blood pressure 110 mm[Hg] Danuta Marlow MD Work Phone: [facility] 11-24-2023 11:11-0400 Body mass index (BMI) [Ratio] 27.46 kg/m2 Josette Sharma MD Work Phone: [facility] 11-24-2023 11:11-0400 Body weight 72.58 kg Josette Sharma MD Work Phone: [facility] 11-24-2023 11:11-0400 Diastolic blood pressure 62 mm[Hg] Josette Sharma MD Work Phone: [facility] 11-24-2023 11:11-0400 Systolic blood pressure 118 mm[Hg] Josette Sharma MD Work Phone: [facility] 11-23-2023 09:15-0400 Body mass index (BMI) [Ratio] 27.81 kg/m2 Danuta Marlow MD Work Phone: [facility] 11-23-2023 09:15-0400 Body weight 73.48 kg Danuta Marlow MD Work Phone: [facility] 11-23-2023 09:15-0400 Diastolic blood pressure 60 mm[Hg] Danutasoila Marlow MD Work Phone: [facility] 11-23-2023 09:15-0400 Systolic blood pressure 110 mm[Hg] Danuta Marlow MD Work Phone: [facility] 11-08-2023 10:04-0400 Body mass index (BMI) [Ratio] 26.78 kg/m2 Danuta Marlow MD Work Phone: [facility] 11-08-2023 10:04-0400 Body weight 70.76 kg Danutasoila Marlow MD Work Phone: [facility] 11-08-2023 10:04-0400 Diastolic blood pressure 60 mm[Hg] Danuta Marlow MD Work Phone: [facility] 11-08-2023 10:04-0400 Systolic blood pressure 108 mm[Hg] Danuta Marlow MD Work Phone: [facility] 10-25-2023 10:59-0400 Body mass index (BMI) [Ratio] 26.09 kg/m2 Danuta Marlow MD Work Phone: [facility] 10-25-2023 10:59-0400 Body weight 68.95 kg Danuta Marlow MD Work Phone: [facility] 10-25-2023 10:59-0400 Diastolic blood pressure 74 mm[Hg] Danuta Marlow MD Work Phone: [facility] 10-25-2023 10:59-0400 Systolic blood pressure 128 mm[Hg] Danuta Marlow MD Work Phone: [facility] 10-11-2023 09:30-0400 Body mass index (BMI) [Ratio] 26.09 kg/m2 Danuta Marlow MD Work Phone: [facility] 10-11-2023 09:30-0400 Body weight 68.95 kg Danuta Marlow MD Work Phone: [facility] 10-11-2023 09:30-0400 Diastolic blood pressure 64 mm[Hg] Danuta Marlow MD Work Phone: [facility] 10-11-2023 09:30-0400 Systolic blood pressure 122 mm[Hg] Danuta Marlow MD Work Phone: [facility] 09-27-2023 09:24-0400 Body mass index (BMI) [Ratio] 25.47 kg/m2 Danuta Marlow MD Work Phone: [facility] 09-27-2023 09:24-0400 Body weight 67.31 kg Danuta Marlow MD Work Phone: [facility] 09-27-2023 09:24-0400 Diastolic blood pressure 60 mm[Hg] Danuta Marlow MD Work Phone: [facility] 09-27-2023 09:24-0400 Systolic blood pressure 120 mm[Hg] Danuta Marlow MD Work Phone: [facility] 09-01-2023 11:03-0400 Body mass index (BMI) [Ratio] 24.72 kg/m2 Andreia Raines APRN.TRANSITIONAL CARE MANAGER Work Phone: [facility] 09-01-2023 11:03-0400 Body weight 65.32 kg Andreia Raines HEARING AND SPEECH ASSISTANT.TRANSITIONAL CARE MANAGER Work Phone: [facility] 09-01-2023 11:03-0400 Diastolic blood pressure 70 mm[Hg] Andreia Raines APRN.TRANSITIONAL CARE MANAGER Work Phone: [facility] 09-01-2023 11:03-0400 Heart rate 78 /min Andreia Raines APRN.TRANSITIONAL CARE MANAGER Work Phone: [facility] 09-01-2023 11:03-0400 Respiratory rate 12 /min Andreia Raines APRN.TRANSITIONAL CARE MANAGER Work Phone: [facility] 09-01-2023 11:03-0400 SaO2% (BldA) [Mass fraction] 100 % Andreia Raines APRN.TRANSITIONAL CARE MANAGER Work Phone: [facility] 09-01-2023 11:03-0400 Systolic blood pressure 118 mm[Hg] Andreia Raines APRN.TRANSITIONAL CARE MANAGER Work Phone: [facility] 08-30-2023 09:54-0400 Body mass index (BMI) [Ratio] 24.89 kg/m2 Danuta Marlow MD Work Phone: [facility] 08-30-2023 09:54-0400 Body weight 65.77 kg Danuta Marlow MD Work Phone: [facility] 08-30-2023 09:54-0400 Diastolic blood pressure 60 mm[Hg] Danuta Marlow MD Work Phone: [facility] 08-30-2023 09:54-0400 Systolic blood pressure 114 mm[Hg] Danuta Marlow MD Work Phone: [facility] 08-03-2023 15:31-0400 Body mass index (BMI) [Ratio] 24.03 kg/m2 Danuta Marlow MD Work Phone: [facility] 08-03-2023 15:31-0400 Body weight 63.5 kg Danuta Marlow MD Work Phone: [facility] 08-03-2023 15:31-0400 Diastolic blood pressure 60 mm[Hg] Danuta Marlow MD Work Phone: [facility] 08-03-2023 15:31-0400 Systolic blood pressure 104 mm[Hg] Danuta Marlow MD Work Phone: [facility] 06-23-2023 09:29-0400 Body mass index (BMI) [Ratio] 23.17 kg/m2 Danuta Marlow MD Work Phone: [facility] 06-23-2023 09:29-0400 Body weight 61.24 kg Danuta Marlow MD Work Phone: [facility] 06-23-2023 09:29-0400 Diastolic blood pressure 62 mm[Hg] Danuta Marlow MD Work Phone: [facility] 06-23-2023 09:29-0400 Systolic blood pressure 104 mm[Hg] Danuta Marlow MD Work Phone: [facility] 05-22-2023 13:01-0400 Body height 162.6 cm Sowmya Plotts HEARING AND SPEECH ASSISTANT.CNM Work Phone: [facility] 05-22-2023 13:01-0400 Body weight 60.78 kg Sowmya Plotts HEARING AND SPEECH ASSISTANT.CNM Work Phone: [facility] 05-22-2023 13:01-0400 Diastolic blood pressure 60 mm[Hg] Sowmya Plotts HEARING AND SPEECH ASSISTANT.CNM Work Phone: [facility] 05-22-2023 13:01-0400 Systolic blood pressure 116 mm[Hg] Sowmya Plotts HEARING AND SPEECH ASSISTANT.CNM Work Phone: [facility] 01-23-2023 09:42-0500 Body height 165.1 cm Josette Davila MD Work Phone: [facility] 01-23-2023 09:42-0500 Body mass index (BMI) [Ratio] 22.13 kg/m2 Josette Davila MD Work Phone: [facility] 01-23-2023 09:42-0500 Body weight 60.33 kg Josette Davila MD Work Phone: [facility] 01-23-2023 09:42-0500 Diastolic blood pressure 80 mm[Hg] Josette Davila MD Work Phone: [facility] 01-23-2023 09:42-0500 Heart rate 128 /min Josette Davila MD Work Phone: [facility] 01-23-2023 09:42-0500 Respiratory rate 16 /min Josette Davila MD Work Phone: [facility] 01-23-2023 09:42-0500 Systolic blood pressure 125 mm[Hg] Josette Davila MD Work Phone: [facility] 05-07-2022 08:51-0400 Body temperature 99.19 [degF] Alexis Canas MD Work Phone: [facility] 05-07-2022 08:51-0400 Body weight 59.24 kg Alexis Canas MD Work Phone: [facility] 05-07-2022 08:51-0400 Diastolic blood pressure 76 mm[Hg] Alexis Canas MD Work Phone: [facility] 05-07-2022 08:51-0400 Heart rate 135 /min Alexis Canas MD Work Phone: [facility] 05-07-2022 08:51-0400 Respiratory rate 18 /min Alexis Canas MD Work Phone: [facility] 05-07-2022 08:51-0400 SaO2% (BldA) [Mass fraction] 99 % Alexis Canas MD Work Phone: [facility] 05-07-2022 08:51-0400 Systolic blood pressure 116 mm[Hg] Alexis Canas MD Work Phone: [facility] 06-20-2021 08:21-0400 Body temperature 98.71 [degF] [facility] HEARING AND SPEECH ASSISTANT.TRANSITIONAL CARE MANAGER Work Phone: [facility] 06-20-2021 08:21-0400 Body weight 62.32 [facility] HEARING AND SPEECH ASSISTANT.TRANSITIONAL CARE MANAGER Work Phone: [facility] 06-20-2021 08:21-0400 Diastolic blood pressure 80 mm[Hg] [facility] HEARING AND SPEECH ASSISTANT.TRANSITIONAL CARE MANAGER Work Phone: [facility] 06-20-2021 08:21-0400 Heart rate 124 /min Tone Mckenzievamsi HEARING AND SPEECH ASSISTANT.TRANSITIONAL CARE MANAGER Work Phone: [facility] 06-20-2021 08:21-0400 Respiratory rate 18 /min [facility] HEARING AND SPEECH ASSISTANT.TRANSITIONAL CARE MANAGER Work Phone: [facility] 06-20-2021 08:21-0400 SaO2% (BldA) [Mass fraction] 99 % [facility] HEARING AND SPEECH ASSISTANT.TRANSITIONAL CARE MANAGER Work Phone: [facility] 06-20-2021 08:21-0400 Systolic blood pressure 118 mm[Hg] [facility] HEARING AND SPEECH ASSISTANT.TRANSITIONAL CARE MANAGER Work Phone: [facility] 09-19-2016 14:10-0400 BMI (Body Mass Index) 26.56 kg/m2 Marisel Belle MD [facility] 09-19-2016 14:10-0400 Body Temperature 99.7 [degF] Marisel Belle MD [facility] 09-19-2016 14:10-0400 BP Diastolic 82 mm[Hg] Marisel Belle MD [facility] 09-19-2016 14:10-0400 BP Systolic 121 mm[Hg] Marisel Belle MD [facility] 09-19-2016 14:10-0400 Height 165.1 cm Marisel Belle MD [facility] 09-19-2016 14:10-0400 Pulse (Heart Rate) 116 /min Marisel Belle MD [facility] 09-19-2016 14: Respiratory Rate 18 /min Marisel Belle MD [facility] 09-19-2016 14: Weight 72.39 kg Marisel Belle MD [facility] Encounters Encounter Date Encounter Type Care Provider Facility Start: 07-11-2024 End: 07-15-2024 ambulatory KARLA Alfred NALLELY HEARING AND SPEECH ASSISTANT - TRANSITIONAL CARE MANAGER Facility:[facility] Start: 07-11-2024 End: 07-15-2024 Encounter for general adult medical examination without abnormal findings KARLA Alfred NALLELY HEARING AND SPEECH ASSISTANT - TRANSITIONAL CARE MANAGER Facility:[facility] Start: 07-11-2024 End: 07-15-2024 Outreach Lab KARLA Alfred NALLELY HEARING AND SPEECH ASSISTANT - TRANSITIONAL CARE MANAGER [facility] Start: 05-28-2024 End: 05-28-2024 ambulatory KARLA BROWNING HEARING AND SPEECH ASSISTANT - TRANSITIONAL CARE MANAGER Facility:[facility] Start: 03-06-2024 End: 03-06-2024 ambulatory Danuta Marlow MD Work Phone: OB/Gynecology Comment on above: Start: 02-05-2024 End: 02-05-2024 ambulatory DANUTA MARLOW Facility:[facility] Start: 02-05-2024 End: 02-05-2024 Patient encounter procedure Danuta Marlow MD Work Phone: OB/Gynecology Comment on above: care and examination (Primary Dx) Start: 01-23-2024 End: 01-23-2024 ambulatory KARLA BROWNING HEARING AND SPEECH ASSISTANT - TRANSITIONAL CARE MANAGER Facility:[facility] Start: 01-23-2024 End: 01-23-2024 Patient encounter procedure KARLA BROWNING HEARING AND SPEECH ASSISTANT - TRANSITIONAL CARE MANAGER [facility] Start: 12-29-2023 End: 12-29-2023 Patient encounter procedure Sowmya Elder APRN.CNM Work Phone: OB/Gynecology Comment on above: Vaginal irritation ( Primary Dx); Mother currently breast-feeding; (spontaneous vaginal delivery) Start: 12-29-2023 End: 12-29-2023 ambulatory Danuta Marlow MD Work Phone: OB/Gynecology Comment on above: Itching Start: 12-21-2023 End: 12-22-2023 ambulatory Sowmya Elder CNM Work Phone: OB/Gynecology Comment on above: Ob Delivery Note Start: 12-21-2023 End: 12-22-2023 Evaluation and management of inpatient Sowmya Elder Facility:[facility] Start: 12-13-2023 End: 12-13-2023 ambulatory DANUTA MARLOW Facility:[facility] Start: 12-13-2023 End: 12-13-2023 Patient encounter procedure Danuta Marlow MD Work Phone: OB/Gynecology Comment on above: Supervision of high risk in third trimester (Primary Dx); Anemia during in third trimester; Hypothyroidism during in third trimester; 37 weeks gestation of Start: 12-06-2023 End: 12-06-2023 ambulatory KARLA BROWNING Facility:[facility] Start: 12-06-2023 End: 12-06-2023 Patient encounter procedure Danuta Marlow MD Work Phone: OB/Gynecology Comment on above: Supervision of high risk in third trimester (Primary Dx); Anemia during in third trimester; Hypothyroidism during in third trimester; 36 weeks gestation of Start: 12-01-2023 End: 12-01-2023 ambulatory KARLA BROWNING Facility:[facility] Start: 12-01-2023 End: 12-01-2023 Patient encounter procedure Danuta Marlow MD Work Phone: OB/Gynecology Comment on above: Supervision of high risk in third trimester (Primary Dx); Anemia during in third trimester; Hemorrhoids in in third trimester; Hypothyroidism during in third trimester; 36 weeks gestation of Start: 11-24-2023 End: 11-24-2023 ambulatory Danuta Marlow MD Work Phone: OB/Gynecology Comment on above: Spotting Start: 11-24-2023 End: 11-24-2023 Office outpatient visit 15 minutes Josette Sharma MD Work Phone: OB/Gynecology Comment on above: Supervision of high risk in third trimester (Primary Dx); 35 weeks gestation of ; Anemia during in third trimester; Hypothyroidism during in third trimester Start: 11-23-2023 End: 11-23-2023 ambulatory KARLA BROWNING Facility:[facility] Start: 11-23-2023 End: 11-23-2023 Patient encounter procedure Danuta Malrow MD Work Phone: OB/Gynecology Comment on above: Supervision of high risk in third trimester (Primary Dx); Anemia during in third trimester; Hypothyroidism during in third trimester; 35 weeks gestation of Start: 11-08-2023 End: 11-08-2023 ambulatory KARLA BROWNING Facility:[facility] Start: 11-08-2023 End: 11-08-2023 Patient encounter procedure Danuta Marlow MD Work Phone: OB/Gynecology Comment on above: Supervision of high risk in third trimester (Primary Dx); Anemia during in third trimester; Hypothyroidism during in third trimester; 32 weeks gestation of Start: 11-03-2023 End: 11-03-2023 ambulatory Danuta Marlow MD Work Phone: OB/Gynecology Comment on above: Safe while Start: 10-25-2023 End: 10-25-2023 ambulatory KARLA BROWNING Facility:[facility] Start: 10-25-2023 End: 10-25-2023 Patient encounter procedure Danuta Marlow MD Work Phone: OB/Gynecology Comment on above: Supervision of high risk in third trimester (Primary Dx); Anemia during in third trimester; Hypothyroidism during in third trimester; 30 weeks gestation of Start: 10-12-2023 End: 10-12-2023 Telephone encounter Nurse [employer] [facility] Comment on above: [employer] 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 (PR[employer]) Start: 10-11-2023 End: 10-11-2023 ambulatory KARLA BROWNING Facility:[facility] Start: 10-11-2023 End: 10-11-2023 Patient encounter procedure Danuta Marlow MD Work Phone: OB/Gynecology Comment on above: Supervision of high risk in third trimester (Primary Dx); Anemia during in third trimester; Hypothyroidism during in third trimester; Need for vaccination; 28 weeks gestation of Start: 09-27-2023 End: 09-27-2023 ambulatory DANUTA MARLOW Facility:[facility] Start: 09-27-2023 End: 09-27-2023 Patient encounter procedure Danuta Marlow MD Work Phone: OB/Gynecology Comment on above: Hypothyroidism durin g in second trimester (Primary Dx); Encounter for supervision of other normal in second trimester; 26 weeks gestation of Start: 09-05-2023 Telephone encounter Andreia nogueira APRN.CNP Work Phone: OB/Gynecology Start: 09-05-2023 End: 09-05-2023 ambulatory KARLA VANNPKINS Facility:[facility] Start: 09-05-2023 End: 09-05-2023 Subsequent hospital visit by physician [facility] Work Phone: Radiology Comment on above: Axillary mass, left [R22.32] Start: 09-01-2023 End: 09-01-2023 ambulatory KARLA BROWNING Facility:[facility] Start: 09-01-2023 End: 09-01-2023 Patient encounter procedure Andreia Raines APRN.TRANSITIONAL CARE MANAGER Work Phone: OB/Gynecology Comment on above: Axillary mass, left (Primary Dx); 23 weeks gestation of Start: 08-31-2023 ambulatory Danuta Marlow MD Work Phone: OB/Gynecology Comment on above: Swelling under arm Start: 08-31-2023 Telephone encounter [employer] Web Developer RN OB Gynecology Comment on above: [employer] 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 (PRAF) Start: 08-30-2023 End: 08-30-2023 ambulatory DANUTA MARLOW Facility:[facility] Start: 08-30-2023 End: 08-30-2023 Patient encounter procedure Danuta Marlow MD Work Phone: OB/Gynecology Comment on above: Encounter for superv ision of other normal in second trimester (Primary Dx); Hypothyroidism during in second trimester; 22 weeks gestation of Start: 08-03-2023 End: 08-03-2023 ambulatory DANUTA MARLOW Facility:[facility] Start: 08-03-2023 End: 08-03-2023 Patient encounter procedure Danuta Marlow MD Work Phone: OB/Gynecology Comment on above: Encounter for superv ision of other normal in second trimester (Primary Dx); 19 weeks gestation of Start: 08-03-2023 End: 08-03-2023 ambulatory DANUTA MARLOW Facility:[facility] Start: 08-03-2023 End: 08-03-2023 Patient encounter procedure [employer] [facility] Work Phone: OB/Gynecology Comment on above: Encounter for anatomic survey (Primary Dx); 19 weeks gestation of Start: 06-30-2023 Telephone encounter Josette desouza MD Work Phone: OB/Gynecology Comment on above: Results ([id number]) Start: 06-23-2023 End: 06-23-2023 ambulatory KARLA BROWNING Facility:[facility] Start: 06-23-2023 End: 06-23-2023 Patient encounter procedure Danuta Marlow MD Work Phone: OB/Gynecology Comment on above: Encounter for superv ision of other normal in second trimester (Primary Dx); 13 weeks gestation of ; Encounter for supervision of other normal in first trimester; History of hypothyroidism Encounter for (NT) n uchal translucency scan (Primary Dx); 13 weeks gestation of Start: 06-08-2023 End: 06-13-2023 ambulatory KARLA BROWNING HEARING AND SPEECH ASSISTANT - TRANSITIONAL CARE MANAGER Facility:[facility] Start: 06-08-2023 End: 06-12-2023 Outreach Lab KARLA BROWNING HEARING AND SPEECH ASSISTANT - TRANSITIONAL CARE MANAGER [facility] Start: 06-05-2023 ambulatory Danuta Marlow MD Work Phone: OB/Gynecology Comment on above: Breast Pump RX Start: 05-23-2023 Telephone encounter [employer] Web Developer RN Maternal Medicine Comment on above: [employer] 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 (PRAF) Start: 05-22-2023 End: 05-22-2023 ambulatory KARLA BROWNING Facility:[facility] Start: 05-22-2023 End: 05-22-2023 Patient encounter procedure Sowmya Elder GAURANG.CNM Work Phone: OB/Gynecology Comment on above: with uncer tain dates in first trimester (Primary Dx); History of hypothyroidism; Encounter for supervision of other normal in first trimester; 8 weeks gestation of ; Anal fissure Start: 04-19-2023 ambulatory Danuta Marlow MD Work Phone: OB/Gynecology Comment on above: Appt. Start: 03-31-2023 End: 06-20-2023 ambulatory KARLA BROWNING HEARING AND SPEECH ASSISTANT - TRANSITIONAL CARE MANAGER Facility:[facility] Start: 03-31-2023 End: 06-20-2023 Physical therapy management PHY WO ID REFERRING [facility] Start: 01-23-2023 End: 01-23-2023 Office outpatient new 45 minutes Josette Davila MD Work Phone: [facility] [place] Comment on above: Anal fissure (Primar y Dx) Start: 01-02-2023 Telephone encounter Karla Ontiveros MD Work Phone: General Surgery Comment on above: request for medical records Start: 12-01-2022 End: 12-06-2022 ambulatory KALRA BROWNING HEARING AND SPEECH ASSISTANT - TRANSITIONAL CARE MANAGER Facility:[facility] Start: 05-07-2022 End: 05-07-2022 Patient encounter procedure Alexis Canas MD Work Phone: [facility] Comment on above: Sore throat (Primary Dx); Otalgia, bilateral Start: 11-18-2021 End: 11-22-2021 Outreach Lab KARLA BROWNING HEARING AND SPEECH ASSISTANT - TRANSITIONAL CARE MANAGER [facility] Start: 06-20-2021 End: 06-20-2021 Patient encounter procedure Tone Roy HEARING AND SPEECH ASSISTANT.TRANSITIONAL CARE MANAGER Work Phone: [facility] Comment on above: URI with cough and c ongestion (Primary Dx) Start: 05-13-2021 End: 05-17-2021 Outreach Lab KARLA BROWNING HEARING AND SPEECH ASSISTANT - TRANSITIONAL CARE MANAGER [facility] Start: 06-16-2016 End: 09-08-2020 Patient requested procedure Danuta Marlow MD Work Phone: [facility] Procedures Date Procedure Procedure Detail Performing Clinician Start: 12-13-2023 Urnls dip stick/tabl et rgnt non-auto w/o micrscp Danuta Marlow MD Work Phone: Start: 12-06-2023 Urnls dip stick/tabl et rgnt non-auto w/o micrscp Danuta Marlow MD Work Phone: Start: 12-01-2023 Urnls dip stick/tabl et rgnt non-auto w/o micrscp Danuta Marlow MD Work Phone: Start: 11-24-2023 Urnls dip stick/tabl et rgnt auto w/o microscopy Josette Sharma MD Work Phone: Start: 11-23-2023 Urnls dip stick/tabl et rgnt non-auto w/o micrscp Danuta Marlow MD Work Phone: Start: 09-05-2023 Us breast uni real t galdino with image limited Andreia Rainesfabiola MENESESTRANSITIONAL CARE MANAGER Work Phone: Start: 08-03-2023 Us preg uterus after 1st trimest 1/ gestation Danuta Marlow MD Work Phone: Start: 06-23-2023 Antibody screen DANUTA MARLOW Comment on above: Order Comment: Speci men Type: BLOOD SPECIMENOrdering Facility: [facility] Address: [address] [place] [address] Performed By: #### T SPN ####CC MAIN BLOOD BANKCLIA [id number] [address] [place] Start: 06-23-2023 Us nuchal umana slucency 1st gestation Sowmya Elder APRN.CNM Work Phone: Start: 05-07-2022 STREP A MOLECULAR (POC) Alexis Canas MD Work Phone: Plan of Treatment Date Care Activity Detail Author Start: 2043 Zoster Vaccines (1 of 2) Zoster Vaccines (1 of 2) [facility] Start: 10-10-2033 Urine microalbumin profile DTaP,Tdap,Td Vaccine (10 - Td or Tdap) [facility] Start: 05-12-2030 DTaP/Tdap/Td Vaccines (9 - Td or Tdap) DTaP/Tdap/Td Vaccines (9 - Td or Tdap) [facility] Start: 05-12-2030 Urine microalbumin profile [facility] Start: 05-21-2028 Screening for malignant neoplasm of cervix [facility] Start: 09-09-2025 Screening for malignant neoplasm of cervix Pap Testing [facility] Start: 02-04-2025 End: 02-04-2025 Patient encounter procedure 02/04/2025 1:20 PM EST Office Visit OB/Gynecology [address] [place] [address] Danuta Castillo MD [address] [place] [address] Annual OB/Gynecology Comment on above: Annual Start: 02-05-2024 End: 02-05-2024 Patient encounter procedure 02/05/2024 8:40 AM EST Office Visit OB/Gynecology [address] [place] [address] Danuta Castillo MD [address] [place] [address] 6 week visit OB/Gynecology Comment on above: 6 week visit Start: 12-29-2023 End: 12-29-2023 Patient encounter procedure 12/29/2023 2:30 PM EST Office Visit OB/Gynecology [address] [place] [address] Sowmya Elder APRN.[facility] [address] [place] [address] Post Patum vaginal itching OB/Gynecology Comment on above: Post Patum vaginal itching Start: 12-21-2023 End: 12-21-2023 Patient encounter procedure 12/21/2023 8:40 AM EDT Routine Office Visit OB/Gynecology [address] [place] [address] Danuta Castillo MD [address] [place] [address] Routine OB OB/Gynecology Comment on above: Routine OB Start: 12-13-2023 End: 12-13-2023 Patient encounter procedure 12/13/2023 10:10 AM EDT Routine Office Visit OB/Gynecology [address] [place] [address] Danuta Castillo MD [address] [place] [address] OB OB/Gynecology Comment on above: OB Start: 12-06-2023 End: 12-06-2023 Patient encounter procedure 12/06/2023 9:10 AM EDT Routine Office Visit OB/Gynecology [address] [place] [address] Danuta Castillo MD [address] [place] [address] OB OB/Gynecology Comment on above: OB Start: 12-01-2023 End: 12-01-2023 Patient encounter procedure 12/01/2023 2:50 PM EDT Routine Office Visit OB/Gynecology [address] [place] [address] Danuta Castillo MD [address] [place] [address] OB OB/Gynecology Comment on above: OB Start: 11-23-2023 End: 11-23-2023 Patient encounter procedure 11/23/2023 9:10 AM EDT Routine Office Visit OB/Gynecology [address] [place] [address] Danuta Castillo MD [address] [place] [address] OB OB/Gynecology Comment on above: OB Start: 11-08-2023 End: 11-08-2023 Patient encounter procedure 11/08/2023 9:50 AM EDT Routine Office Visit OB/Gynecology [address] [place] [address] Danuta Castillo MD [address] [place] [address] OB OB/Gynecology Comment on above: OB Start: 11-02-2023 RSV Vaccine (1 - Risk 1-dose series) RSV Vaccine (1 - Risk 1-dose series) [facility] Start: 10-25-2023 End: 10-25-2023 Patient encounter procedure 10/25/2023 10:50 AM EDT Routine Office Visit OB/Gynecology [address] [place] [address] Danuta Castillo MD [address] [place] [address] OB OB/Gynecology Comment on above: OB Start: 10-22-2023 Covid-19 Vaccine () Covid-19 Vaccine () [facility] Start: 10-22-2023 Covid-19 Vaccine () Covid-19 Vaccine () [facility] Start: 10-22-2023 Influenza vaccination [facility] Start: 10-11-2023 End: 10-11-2023 Patient encounter procedure 10/11/2023 9:10 AM EDT Routine Office Visit OB/Gynecology [address] [place] [address] Danuta Castillo MD [address] [address] OB OB/Gynecology Comment on above: OB Start: 09-30-2023 End: 11-29-2023 THYROID STIMULATING IMMUNOGLOBULIN BLOOD THYROID STIMULATING IMMUNOGLOBULIN BLOOD Lab Routine Encounter for supervision of other normal in second trimester Hypothyroidism during in second trimester 22 weeks gestation of Expected: 09/30/2023 (Approximate), Expires: 11/29/2023 [facility] Comment on above: Expected: 09/30/2023 (Approximate), Expi res: 11/29/2023 Start: 09-30-2023 End: 12-30-2023 Thyrotropin [Units/volume] in Serum or Plasma THYROID STIMULATING HORMONE Lab Routine Hypothyroidism during in second trimester 22 weeks gestation of Expected: 09/30/2023 (Approximate), Expires: 12/30/2023 [facility] Comment on above: Expected: 09/30/2023 (Approximate), Expi res: 12/30/2023 Start: 09-30-2023 End: 12-30-2023 Thyroxine (T4) free [Mass/volume] in Serum or Plasma T4 FREE/FREE THYROXINE Lab Routine 22 weeks gestation of Hypothyroidism during in second trimester Expected: 09/30/2023 (Approximate), Expires: 12/30/2023 [facility] Comment on above: Expected: 09/30/2023 (Approximate), Expi res: 12/30/2023 Start: 09-30-2023 End: 12-30-2023 Triiodothyronine (T3) Free [Mass/volume] in Serum or Plasma T3, FREE Lab Routine 22 weeks gestation of Hypothyroidism during in second trimester Expected: 09/30/2023 (Approximate), Expires: 12/30/2023 [facility] Comment on above: Expected: 09/30/2023 (Approximate), Expi res: 12/30/2023 Start: 09-27-2023 End: 09-27-2023 Patient encounter procedure 09/27/2023 9:10 AM EDT Routine Office Visit OB/Gynecology [address] [place] [address] Danuta Castillo MD [address] [place] [address] OB OB/Gynecology Comment on above: OB Start: 09-10-2023 PAP TESTING PAP TESTING [facility] Start: 09-05-2023 End: 09-05-2023 Patient encounter procedure 09/05/2023 9:00 AM EDT Appointment Radiology [address] [place] [address] Axillary mass, left [R22.32]; 23 weeks gestation of [Z3A.23], Ok per [facility] Radiology Comment on above: Axillary mass, left [R22.32]; 23 weeks g estation of [Z3A.23], Ok per JK Start: 09-01-2023 End: 09-01-2023 Patient encounter procedure 09/01/2023 11:00 AM EDT Office Visit OB/Gynecology [address] [place] [address] Andreia Raines APRN.TRANSITIONAL CARE MANAGER [address] [place] [address] Axillary swelling - see [employer] message OB/Gynecology Comment on above: Axillary swelling - see mychart message Start: 08-30-2023 End: 11-29-2023 CBC panel - Blood by Automated count COMPLETE BLOOD COUNT Lab Routine Encounter for supervision of other normal in second trimester Expected: 08/30/2023, Expires: 11/29/2023 [facility] Work Phone: Comment on above: Expected: 08/30/2023, Expires: Start: 08-30-2023 End: 11-29-2023 GESTATIONAL GLUCOSE SCREEN, 1-HOUR, 50 GRAM, NON-FASTING GESTATIONAL GLUCOSE SCREEN, 1-HOUR, 50 GRAM, NON-FASTING Lab Routine Encounter for supervision of other normal in second trimester Expected: 08/30/2023, Expires: 11/29/2023 [facility] Comment on above: Expected: 08/30/2023, Expires: Start: 08-30-2023 End: 11-29-2023 SYPHILIS TOTAL W/REFLEX SYPHILIS TOTAL W/REFLEX Lab Routine Encounter for supervision of other normal in second trimester Expected: 08/30/2023, Expires: 11/29/2023 [facility] Comment on above: Expected: 08/30/2023, Expires: Start: 08-30-2023 End: 11-29-2023 THYROID PEROXIDASE ANTIBODY THYROID PEROXIDASE ANTIBODY Lab Routine Encounter for supervision of other normal in second trimester Hypothyroidism during in second trimester 22 weeks gestation of Expected: 08/30/2023, Expires: 11/29/2023 [facility] Comment on above: Expected: 08/30/2023, Expires: Start: 08-30-2023 End: 08-30-2023 Patient encounter procedure 08/30/2023 9:50 AM EDT Routine Office Visit OB/Gynecology [address] [place] [address] Danuta Castillo MD [address] [place] [address] OB OB/Gynecology Comment on above: OB Start: 08-21-2023 End: 08-21-2023 Patient encounter procedure 08/21/2023 10:30 AM EDT Routine Office Visit OB/Gynecology [address] [place] [address] Danuta Castillo MD [address] [place] [address] OB OB/Gynecology Comment on above: OB Start: 08-03-2023 End: 11-02-2023 ALPHA FETOPRO MATERNAL [facility] Work Phone: Comment on above: Expected: 08/03/2023, Expires: Start: 07-28-2023 End: 07-28-2023 Patient encounter procedure 07/28/2023 10:40 AM EDT Routine Office Visit OB/Gynecology [address] [place] [address] Danuta Castillo MD [address] [place] [address] ob OB/Gynecology Comment on above: ob Start: 07-28-2023 End: 07-28-2023 Patient encounter procedure 07/28/2023 9:30 AM EDT Routine Office Visit OB/Gynecology [address] [place] [address] Anatomy OB/Gynecology Comment on above: Anatomy Start: 06-23-2023 End: 09-22-2023 Chromosome 21 trisomy [Presence] in Blood or Tissue by Cytogenetics [facility] Work Phone: Comment on above: Expected: 06/23/2023, Expires: 4 Start: 06-23-2023 End: 06-22-2024 OBSTETRIC ULTRASOUND WHI OBSTETRIC ULTRASOUND WHI Anc Imaging Routine Encounter for supervision of other normal in second trimester Expected: 06/23/2023, Expires: 06/22/2024 [facility] Comment on above: Expected: 06/23/2023, Expires: 5 Start: 05-22-2023 End: 08-21-2023 CBC panel - Blood by Automated count CBC Lab Routine with uncertain dates in first trimester History of hypothyroidism Encounter for supervision of other normal in first trimester Expected: 05/22/2023, Expires: 08/21/2023 [facility] Work Phone: Comment on above: Expected: 05/22/2023, Expires: 4 Start: 05-22-2023 End: 08-21-2023 Hepatitis B virus surface Ag [Presence] in Serum HEP B SURF AG SCRN Lab Routine with uncertain dates in first trimester History of hypothyroidism Encounter for supervision of other normal in first trimester Expected: 05/22/2023, Expires: 08/21/2023 [facility] Work Phone: Comment on above: Expected: 05/22/2023, Expires: 4 Start: 05-22-2023 End: 08-21-2023 Hepatitis C virus Ab [Presence] in Serum HEPATITIS C ANTIBODY IA WITH CONFIRMATION Lab Routine with uncertain dates in first trimester History of hypothyroidism Encounter for supervision of other normal in first trimester Expected: 05/22/2023, Expires: 08/21/2023 [facility] Work Phone: Comment on above: Expected: 05/22/2023, Expires: 4 Start: 05-22-2023 End: 08-21-2023 HIV 1+2 Ab [Presence] in Serum or Plasma by Immunoassay HIV 1 2 COMBO(AG/AB),WITH REFLEX TO DIFFERENTIATION Lab Routine with uncertain dates in first trimester History of hypothyroidism Encounter for supervision of other normal in first trimester Expected: 05/22/2023, Expires: 08/21/2023 [facility] Work Phone: Comment on above: Expected: 05/22/2023, Expires: 4 Start: 05-22-2023 End: 05-21-2024 NUCHAL TRANSLUCENCY WHI NUCHAL TRANSLUCENCY WHI Anc Imaging Routine with uncertain dates in first trimester 8 weeks gestation of Expected: 05/22/2023, Expires: 05/21/2024 [facility] Work Phone: Comment on above: Expected: 05/22/2023, Expires: 5 Start: 05-22-2023 End: 08-21-2023 RUBELLA IGG AB RUBELLA IGG AB Lab Routine with uncertain dates in first trimester History of hypothyroidism Encounter for supervision of other normal in first trimester Expected: 05/22/2023, Expires: 08/21/2023 [facility] Work Phone: Comment on above: Expected: 05/22/2023, Expires: 4 Start: 05-22-2023 End: 08-21-2023 SYPHILIS TOTAL W/REFLEX SYPHILIS TOTAL W/REFLEX Lab Routine with uncertain dates in first trimester History of hypothyroidism Encounter for supervision of other normal in first trimester Expected: 05/22/2023, Expires: 08/21/2023 [facility] Work Phone: Comment on above: Expected: 05/22/2023, Expires: 4 Start: 05-22-2023 End: 08-21-2023 Thyrotropin [Units/volume] in Serum or Plasma TSH BLD Lab Routine History of hypothyroidism Expected: 05/22/2023, Expires: 08/21/2023 [facility] Work Phone: Comment on above: Expected: 05/22/2023, Expires: 4 Start: 05-22-2023 End: 08-21-2023 TYPE + SCREEN TYPE + SCREEN Blood Bank Routine with uncertain dates in first trimester History of hypothyroidism Encounter for supervision of other normal in first trimester Expected: 05/22/2023, Expires: 08/21/2023 [facility] Work Phone: Comment on above: Expected: 05/22/2023, Expires: Start: 02-20-2023 Behavioral Health Screening Behavioral Health Screening [facility] Start: 02-20-2023 Depression Assessment Depression Assessment [facility] Start: 2023 Screening for malignant neoplasm of cervix HPV Testing [facility] Start: 10-21-2022 Covid-19 Vaccine () Covid-19 Vaccine () [facility] Start: 10-21-2022 Influenza vaccination Influenza Vaccine (#1) [facility] Start: 02-20-2022 DEPRESSION ASSESSMENT DEPRESSION ASSESSMENT [facility] Start: 10-21-2021 Influenza vaccination [facility] Start: 02-15-2017 Varicella vaccination Varicella Vaccines (2 of 2 - 13+ 2-dose series) [facility] Start: 10-17-2016 End: 10-17-2016 Appointment Appointment [facility] Start: 09-19-2016 End: 09-19-[address] [facility] Start: 2014 Screening for malignant neoplasm of cervix [facility] Start: 2011 Annual PCP Team Chronic Disease Visit Annual PCP Team Chronic Disease Visit [facility] Start: 2011 Anxiety Screening Anxiety Screening [facility] Start: 2011 Depression Screening Depression Screening [facility] Start: 2011 Hepatitis C screening Hepatitis C Screening [facility] Start: 2005 Adult depression screening assessment DEPRESSION SCREENING [facility] Start: 1998 COVID-19 VACCINE (1) COVID-19 VACCINE (1) [facility] Start: 1993 COVID-19 VACCINE (#1) COVID-19 VACCINE (#1) [facility] Start: 1993 HIV screening HIV Screening [facility] Start: 1993 Lipid panel Lipid Panel [facility] Start: 1993 Thyroid stimulating hormone measurement TSH Level [facility] Start: 1993 Yearly Adult Physical Yearly Adult Physical [facility] Bacteria identified in Urine by Culture URINE CULTURE Microbiology Routine with uncertain dates in first trimester History of hypothyroidism Encounter for supervision of other normal in first trimester Ordered: 05/22/2023 [facility] Work Phone: Comment on above: Ordered: 05/22/2023 BACTERIAL VAGINOSIS NAAT BACTERI AL VAGINOSIS NAAT Lab Routine Vaginal irritation 12/29/2023 3:04 PM EST [facility] PHOENIX/TRICHOMONAS NAAT PHOENIX /TRICHOMONAS NAAT Lab Routine Vaginal irritation 12/29/2023 3:04 PM EST [facility] Work Phone: Chlamydia trachomatis+Neisseria gonorrhoeae DNA [Presence] in Unspecified specimen by ONEL with probe detection GONORRHEA/CHLAMYDIA NAAT Lab Routine with uncertain dates in first trimester History of hypothyroidism Encounter for supervision of other normal in first trimester Ordered: 05/22/2023 [facility] Work Phone: Comment on above: Ordered: 05/22/2023 PAP TEST PAP TEST Lab Rou nico with uncertain dates in first trimester History of hypothyroidism Encounter for supervision of other normal in first trimester Ordered: 05/22/2023 [facility] Work Phone: Comment on above: Ordered: 05/22/2023 POC INDUSTRIAL TWISTING MACHINE OPERATOR ULTRASOUND POC INDUSTRIAL TWISTING MACHINE OPERATOR ULTRASO UND Anc Imaging Routine with uncertain dates in first trimester Ordered: 05/22/2023 [facility] Work Phone: Comment on above: Ordered: 05/22/2023 ROUTINE, GR OUP B STREP PCR ROUTINE, GROUP B STREP PCR Microbiology Routine 35 weeks gestation of Supervision of high risk in third trimester 11/24/2023 1:00 PM EDT [facility] Work Phone: End: 09-30-2024 US Breast - left limited US BREAST LTD LEFT Radiology Routine Axillary mass, left 23 weeks gestation of 1 Occurrences starting 09/01/2023 until 09/30/2024 [facility] Work Phone: Comment on above: 1 Occurrences starting 09/01/2023 until 09/30/2024 [facility] [place] Immunizations Immunization Date Immunization Notes Care Provider Celestina mir 10-11-2023 tetanus toxoid, reduced diphtheria toxoid, and acellular pertussis vaccine, adsorbed Danuta Barbara Marlow MD Work Phone: [facility] 05-12-2020 tetanus toxoid, reduced diphtheria toxoid, and acellular pertussis vaccine, adsorbed Tone Pendlebury HEARING AND SPEECH ASSISTANT.TRANSITIONAL CARE MANAGER Work Phone: [facility] 01-22-2020 influenza, injectabl e, quadrivalent, contains preservative Tone Pendlebury HEARING AND SPEECH ASSISTANT.TRANSITIONAL CARE MANAGER Work Phone: [facility] 01-22-2020 influenza virus vaccine, unspecified formulation Karla Ontiveros MD Work Phone: [facility] 12-27-2016 influenza, injectabl e, quadrivalent, contains preservative Tone P[place]lebury HEARING AND SPEECH ASSISTANT.TRANSITIONAL CARE MANAGER Work Phone: [facility] 11-17-2016 tetanus toxoid, reduced diphtheria toxoid, and acellular pertussis vaccine, adsorbed Tone Pendlebury HEARING AND SPEECH ASSISTANT.TRANSITIONAL CARE MANAGER Work Phone: [facility] 07-27-2007 tetanus toxoid, reduced diphtheria toxoid, and acellular pertussis vaccine, adsorbed Tone Pendlebury HEARING AND SPEECH ASSISTANT.TRANSITIONAL CARE MANAGER Work Phone: [facility] Work Phone: 07-27-2007 varicella virus vaccine Tone Pendlebury HEARING AND SPEECH ASSISTANT.TRANSITIONAL CARE MANAGER Work Phone: [facility] Work Phone: 09-24-1998 measles, mumps and rubella virus vaccine Tone Pendlebury HEARING AND SPEECH ASSISTANT.TRANSITIONAL CARE MANAGER Work Phone: [facility] Work Phone: 01-31-1997 diphtheria, tetanus toxoids and pertussis vaccine Tone Pendlebury HEARING AND SPEECH ASSISTANT.TRANSITIONAL CARE MANAGER Work Phone: [facility] Work Phone: 01-31-1997 trivalent poliovirus vaccine, live, oral Tone Pendlebury HEARING AND SPEECH ASSISTANT.TRANSITIONAL CARE MANAGER Work Phone: [facility] Work Phone: 08-12-1994 trivalent poliovirus vaccine, live, oral Tone Pendlebury HEARING AND SPEECH ASSISTANT.TRANSITIONAL CARE MANAGER Work Phone: [facility] Work Phone: 05-27-1994 haemophilus influenz ae type b vaccine, HbOC conjugate [facility] HEARING AND SPEECH ASSISTANT.TRANSITIONAL CARE MANAGER Work Phone: [facility] Work Phone: 05-27-1994 measles, mumps and rubella virus vaccine [facility] HEARING AND SPEECH ASSISTANT.[facility] Work Phone: [facility] Work Phone: 01-28-1994 hepatitis B vaccine, pediatric or pediatric/adolescent dosage [facility] HEARING AND SPEECH ASSISTANT.[facility] Work Phone: [facility] Work Phone: 1993 diphtheria, tetanus toxoids and pertussis vaccine [facility] HEARING AND SPEECH ASSISTANT.[facility] Work Phone: [facility] Work Phone: 1993 haemophilus influenz ae type b vaccine, HbOC conjugate [facility] HEARING AND SPEECH ASSISTANT.[facility] Work Phone: [facility] Work Phone: 1993 hepatitis B vaccine, pediatric or pediatric/adolescent dosage [facility] HEARING AND SPEECH ASSISTANT.[facility] Work Phone: [facility] Work Phone: 1993 diphtheria, tetanus toxoids and pertussis vaccine [facility] HEARING AND SPEECH ASSISTANT.[facility] Work Phone: [facility] Work Phone: 1993 haemophilus influenz ae type b vaccine, HbOC conjugate [facility] HEARING AND SPEECH ASSISTANT.TRANSITIONAL CARE MANAGER Work Phone: [facility] Work Phone: 1993 trivalent poliovirus vaccine, live, oral [facility] HEARING AND SPEECH ASSISTANT.TRANSITIONAL CARE MANAGER Work Phone: [facility] Work Phone: 1993 diphtheria, tetanus toxoids and pertussis vaccine [facility] HEARING AND SPEECH ASSISTANT.TRANSITIONAL CARE MANAGER Work Phone: [facility] Work Phone: 1993 haemophilus influenz ae type b vaccine, HbOC conjugate Tone Manuela HEARING AND SPEECH ASSISTANT.TRANSITIONAL CARE MANAGER Work Phone: [facility] Work Phone: 1993 trivalent poliovirus vaccine, live, oral Tone Manuela HEARING AND SPEECH ASSISTANT.TRANSITIONAL CARE MANAGER Work Phone: [facility] Work Phone: 1993 hepatitis B vaccine, pediatric or pediatric/adolescent dosage 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 2019 Medicaid [employer] [employer] [employer] [id number] 2019-Present [phone] [address] [facility] [place] [address] Medicaid [id number] 1993 Unknown [id number] 1993 Unknown [id number] 1993 Unknown [id number] 1993 Unknown [id number] 1993 Unknown [id number] 1993 Unknown [id number] Unknown [id number] Social History Date Type Detail Facility Start: 11-05-2018 End: 05-28-2024 Never smoked tobacco (finding) [facility] Comment on above: No smoke exposure Sex Assigned At Female [facility] Start: 06-20-2021 End: 02-05-2024 Alcohol intake Ex-drinker (finding) [facility] Start: 06-16-2016 History SDOH Alcohol Comment Rarely, not while [facility] Start: 12-05-2019 History SDOH Financial 5 [facility] Start: 12-05-2019 History SDOH Food Worry 1 [facility] Start: 12-05-2019 History SDOH Transpo rt Med 2 [facility] Start: 12-05-2019 Education 15 [facility] Start: 1993 Sex Assigned At Not on file [facility] Start: 06-10-2021 End: 01-23-2023 Exposure to SARS-CoV-2 (event) Not sure [facility] Work Phone: Start: 05-07-2022 Tobacco use and exposure Smokeless tobacco non-user [facility] Start: 09-08-2020 End: 12-27-2022 History of Social function [facility] Work Phone: Start: 09-08-2020 End: 12-27-2022 Tobacco use panel [facility] Work Phone: How hard is it for y ou to pay for the very basics like food, housing, medical care, and heating Not hard at all [facility] Work Phone: (I/We) worried reece er (my/our) food would run out before (I/we) got money to buy more. Never true [facility] Work Phone: The thought of krysten martinez myself has occurred to me Never [facility] Tobacco smoking stat us NHIS Tobacco smoking consumption unknown [facility] Work Phone: Start: 01-19-2023 Gender identity Identifies as female gender (finding) [facility] Start: 04-06-2023 [facility] Sexual Orientation [facility] Start: 08-15-2018 Sex Female (finding) [facility] Goals Date Patient Goal Desired Activity /State Personal health goal Functional Status Date Assessment Result Facility 03-31-2023 Functional Status Home Living Ad ditional Information OBJECTIVE: Posture: slouched posture in sitting Gait: amb with no AD and no deficits Transfers: WNL Lumbar ROM: WFL Pelvis: deferred Hamstring length: deferred Quadricep length: deferred Abdominal: pos diastatis recti at umbilicus , 1.5 finger width EXTERNAL: - integumentary integrity: normal, no discoloration or inflammation observed - discharge: none observed -vaginal mucosa: deep pink, WNL - vaginal introitus: no visible prolapse - perineal body: deferred - time restraint - perineal body contraction: deferred - time restraint Sensation: no abnormalities or asymmetries INTERNAL: -muscle assessment: normal tone and sensation bilateral, no tender points throughout assessment - voluntary PFM contraction: slight pelvic tilt observed, co-contract with TrA PERFECT Scale: Power [2-3/5 strength; questionable lift at times], Endurance [ 3-4 sec hold] , Repetitions [], Fast Twitch [x5 in 10sec], Co-contraction [ yes], [facility] Clinical Notes 12-05-2019 to 02-05-2024 Danuta Castillo MD - 02/05/2024 8:41 AM Sowmya Lucero APRN.CNM - 12/29/2023 2:33 PM ESTTelephone Encounter - Josette Vazquez RN - 12/29/2023 8:50 AM ESTPatient Instructions Note Date & Type Note Facility 02-05-2024 Note HNO ID: [id number] Author: DANUTA CASTILLO MD Service: ? Author Type: Physician Type: Progress Notes Filed: 02/05/2024 08:59 Note Text: Boat Cleaner offered: Patient declines. VISIT Katty Chauhan is a 29 year old year old here for visit. Delivery Summary: 12/21/2023 Female Cee ROS/ Recovery: Feeding: Breast feeding problems: None Menses since delivery: none Menstrual pattern prior to : Regular periods Falling Spring since delivery: Not resumed Depression: denies symptoms of depression. OB Depression and Anxiety Screening- This Encounter (since 02/04/2024) Over the past 2 weeks have you felt down, depressed, or hopeless? Negative Over the past two weeks, have you felt little interest or pleasure in doing things?? Negative Feeling nervous, anxious or on edge 0-Not at all Not being able to stop or control worrying 0-Not al all Anxiety Pre-Screening Total (If >/= 3 additional questions will be reviewed) 0 Emotional support: Yes Bowel symptoms: Negative for abdominal discomfort, blood in stools or black stools and change in bowel habits Abdomen: N/A Bladder symptoms: No dysuria, gross hematuria, urinary frequency, urinary urgency, or incontinence Other issues: None Last Pap: 2023 normal HPV: negative PAST MEDICAL HISTORY Diagnosis Date 2012 Excessive or frequent menstruation Heavy periods Hemorrhoid Hypothyroidism Iron deficiency anemia, unspecified 2006 Anemia, iron def. PMH - PAST MEDICAL HISTORY OF age 6 pneumonia PAST SURGICAL HISTORY Procedure Laterality Date APPENDECTOMY 01/2017 PAST SURGICAL HISTORY OF wisdom teeth FAMILY HISTORY Problem Relation Age of Onset Hypertension Mother Heart Mother Mitrial Valve Thyroid Mother Heart Father Thyroid Father No Known Problems Sister Breast Cancer Maternal Grandmother Thyroid Maternal Grandmother Diabetes Maternal Grandmother Cancer Maternal Grandfather lung other (Parkinson's Disease) Paternal Grandmother Cancer Paternal Grandfather lung Thyroid Maternal Aunt No Known Problems Son Social History Tobacco Use Smoking status: Never Smokeless tobacco: Never Vaping Use Vaping status: Never Used Substance Use Topics Alcohol use: Not Currently Comment: Rarely, not while Drug use: Never PHYSICAL EXAMINATION: SENSITIVE EXAM: The sensitive examination was discussed with the Patient or Patient's Authorized Animal Physiology Teacher. As applicable, any other physician, advance practice provider, medical student, or other health professional student that will be observing or involved in the sensitive examination for educational or training purposes was discussed with the Patient or Authorized Animal Physiology Teacher. The Patient or Authorized Animal Physiology Teacher has agreed to proceed with the sensitive examination. (Sensitive examination includes inspection and/or palpation of the breasts, pelvis, prostate and anorectal regions). BP 110/64 Wt 147 lb (66.7kg) LMP 03/23/2023 GENERAL: pleasant, female in no apparent distress HEENT: Normocephalic, atraumatic, mucus membranes moist, and no lesions NECK: full range of motion, DERMATOLOGY: Normal, without lesions, non-icteric, and non-hirsute BREAST: soft, non-tender, symmetric, no dominant mass, normal nipple-areolar complex, no lymphadenopathy, and no nipple discharge CHEST: Normal inspiratory effort ABDOMEN: soft, non-tender, and no masses. INCISION: N/A PELVIC: external genitalia normal, normal Bartholin's glands, urethra, [place]'s glands, no vulvar lesions, no cervical lesions, good vaginal support, physiologic discharge present, normal appearing perineal body and perianal region BIMANUAL: uterus normal size, shape and consistency, no adnexal masses, and non-tender NEURO: alert and oriented x3,exam grossly non-focal EXTREMITIES: normal ASSESSMENT AND PLAN: 29 year old status post with normal course. Contraception plan: vasectomy considering - vs paragard possible. Follow up: RTC for annual exams and PRN Danuta Thorpe MD [facility] 02-05-2024 History of Presen t illness Narrative Boat Cleaner offered: Patient declines. VISIT Katty Chauhan is a 29 year old year old here for visit. Delivery Summary: 12/21/2023 Female Cee ROS/ Recovery: Feeding: Breast feeding problems: None Menses since delivery: none Menstrual pattern prior to : Regular periods Falling Spring since delivery: Not resumed Depression: denies symptoms of depression. OB Depression and Anxiety Screening- This Encounter (since 02/04/2024) Over the past 2 weeks have you felt down, depressed, or hopeless? Negative Over the past two weeks, have you felt little interest or pleasure in doing things? Negative Feeling nervous, anxious or on edge 0-Not at all Not being able to stop or control worrying 0-Not al all Anxiety Pre-Screening Total (If >/= 3 additional questions will be reviewed) 0 Emotional support: Yes Bowel symptoms: Negative for abdominal discomfort, blood in stools or black stools and change in bowel habits Abdomen: N/A Bladder symptoms: No dysuria, gross hematuria, urinary frequency, urinary urgency, or incontinence Other issues: None Last Pap: 2023 normal HPV: negative PAST MEDICAL HISTORY Diagnosis Date Chlamydia 2012 Excessive or frequent menstruation Heavy periods Hemorrhoid Hypothyroidism Iron deficiency anemia, unspecified 2006 Anemia, iron def. PMH - PAST MEDICAL HISTORY OF age 6 pneumonia PAST SURGICAL HISTORY Procedure Laterality Date APPENDECTOMY 01/2017 PAST SURGICAL HISTORY OF wisdom teeth FAMILY HISTORY Problem Relation Age of Onset Hypertension Mother Heart Mother Mitrial Valve Thyroid Mother Heart Father Thyroid Father No Known Problems Sister Breast Cancer Maternal Grandmother Thyroid Maternal Grandmother Diabetes Maternal Grandmother Cancer Maternal Grandfather lung other (Parkinson's Disease) Paternal Grandmother Cancer Paternal Grandfather lung Thyroid Maternal Aunt No Known Problems Son Social History Tobacco Use Smoking status: Never Smokeless tobacco: Never Vaping Use Vaping status: Never Used Substance Use Topics Alcohol use: Not Currently Comment: Rarely, not while Drug use: Never PHYSICAL EXAMINATION: SENSITIVE EXAM: The sensitive examination was discussed with the Patient or Patient's Authorized Animal Physiology Teacher. As applicable, any other physician, advance practice provider, medical student, or other health professional student that will be observing or involved in the sensitive examination for educational or training purposes was discussed with the Patient or Authorized Animal Physiology Teacher. The Patient or Authorized Animal Physiology Teacher has agreed to proceed with the sensitive examination. (Sensitive examination includes inspection and/or palpation of the breasts, pelvis, prostate and anorectal regions). BP 110/64 Wt 147 lb (66.7kg) LMP 03/23/2023 GENERAL: pleasant, female in no apparent distress HEENT: Normocephalic, atraumatic, mucus membranes moist, and no lesions NECK: full range of motion, DERMATOLOGY: Normal, without lesions, non-icteric, and non-hirsute BREAST: soft, non-tender, symmetric, no dominant mass, normal nipple-areolar complex, no lymphadenopathy, and no nipple discharge CHEST: Normal inspiratory effort ABDOMEN: soft, non-tender, and no masses. INCISION: N/A PELVIC: external genitalia normal, normal Bartholin's glands, urethra, [place]'s glands, no vulvar lesions, no cervical lesions, good vaginal support, physiologic discharge present, normal appearing perineal body and perianal region BIMANUAL: uterus normal size, shape and consistency, no adnexal masses, and non-tender NEURO: alert and oriented x3,exam grossly non-focal EXTREMITIES: normal ASSESSMENT AND PLAN: 29 year old status post with normal course. Contraception plan: vasectomy considering - vs paragard possible. Follow up: RTC for annual exams and PRN Danuta Thorpe MD documented in this encounter [facility] 12-29-2023 Note HNO ID: [id number] Author: SOWMYA ELDER APRN.CNM Service: ? Author Type: Bakery Supervisor Type: Progress Notes Filed: 12/29/2023 15:10 Note Text: Patient declined applied behavior specialist. EARLY VISIT Katty Chauhan is a 28 year old here for 8 days. visit. She requested to be seen for vaginal irritation. Unsure if may have yeast infection. Delivery Summary: [facility], [id number]/31/2024 by CP/ Intact 39 wks, 2:29 PM Female, Shabnam Briana 6 lbs, 7 ozs ROS: General: Denies any fever or chills Hypertension Screening: Headache? Yes. Was it successfully treated with Tylenol? Pt reported not taking Tylenol resolves on own. Visual Changes? No Epigastric Pain? No Increased Swelling? No Taking any BP medications at home? No If applicable, monitoring BP at home? (If Yes, include results) No Mood: normal Depression: denies symptoms of depression. OB Depression and Anxiety Screening- This Encounter (since 12/28/2023) None Feeding: Breast feeding problems: None Bladder: No dysuria, gross hematuria, urinary frequency, urinary urgency, or incontinence Bowel symptoms: Negative for abdominal discomfort, blood in stools or black stools and change in bowel habits Bleeding: light flow Bottom and Perineum: vaginal irritation Sleep: no sleep concerns, feels rested Falling [place] since delivery: Not resumed Emotional support: Yes Exercise: N/A Other issues: None, vaginal irritation SENSITIVE EXAM: The sensitive examination was discussed with the Patient or Patient's Authorized Animal Physiology Teacher. As applicable, any other physician, advance practice provider, medical student, or other health professional student that will be observing or involved in the sensitive examination for educational or training purposes was discussed with the Patient or Authorized Animal Physiology Teacher. The Patient or Authorized Animal Physiology Teacher has agreed to proceed with the sensitive examination. (Sensitive examination includes inspection and/or palpation of the breasts, pelvis, prostate and anorectal regions). PHYSICAL EXAMINATION: LMP 03/23/2023 (Exact Date) General: pleasant,female in no apparent distress, AANDO x 3. Skin warm and intact. Breast: Deferred Abdomen: Deferred /Incision: N/A Pelvic: external genitalia normal, normal Bartholin's glands, urethra, [place]'s glands, no vulvar lesions, no cervical lesions, normal appearing perineal body and perianal region Moderate amount of dark brown/ old blood present in vaginal vault. No lacerations or erythema Bimanual: Deferred ASSESSMENT AND PLAN: 28 year old status post with normal course. Contraception plan: unsure . Reinforced 6-week pelvic rest. Encouraged condom usage should patient deviate. BV/YEAST- collected and sent- suspect contact dermatitis from pads against skin Follow up: Return to Clinic for 6 week visit and as needed Sowmya Elder APRN.[facility] 12-29-2023 History of Presen t illness Narrative Patient declined applied behavior specialist. EARLY VISIT Katty Chauhan is a 28 year old here for 8 days. visit. She requested to be seen for vaginal irritation. Unsure if may have yeast infection. Delivery Summary: [facility], [id number]/31/2024 by CP/ Intact 39 wks, 2:29 PM Female, Shabnam Barbere 6 lbs, 7 ozs ROS: General: Denies any fever or chills Hypertension Screening: Headache? Yes. Was it successfully treated with Tylenol? Pt reported not taking Tylenol resolves on own. Visual Changes? No Epigastric Pain? No Increased Swelling? No Taking any BP medications at home? No If applicable, monitoring BP at home? (If Yes, include results) No Mood: normal Depression: denies symptoms of depression. OB Depression and Anxiety Screening- This Encounter (since 12/28/2023) None Feeding: Breast feeding problems: None Bladder: No dysuria, gross hematuria, urinary frequency, urinary urgency, or incontinence Bowel symptoms: Negative for abdominal discomfort, blood in stools or black stools and change in bowel habits Bleeding: light flow Bottom and Perineum: vaginal irritation Sleep: no sleep concerns, feels rested Falling [place] since delivery: Not resumed Emotional support: Yes Exercise: N/A Other issues: None, vaginal irritation SENSITIVE EXAM: The sensitive examination was discussed with the Patient or Patient's Authorized Animal Physiology Teacher. As applicable, any other physician, advance practice provider, medical student, or other health professional student that will be observing or involved in the sensitive examination for educational or training purposes was discussed with the Patient or Authorized Animal Physiology Teacher. The Patient or Authorized Animal Physiology Teacher has agreed to proceed with the sensitive examination. (Sensitive examination includes inspection and/or palpation of the breasts, pelvis, prostate and anorectal regions). PHYSICAL EXAMINATION: LMP 03/23/2023 (Exact Date) General: pleasant,female in no apparent distress, A&O x 3. Skin warm and intact. Breast: Deferred Abdomen: Deferred /Incision: N/A Pelvic: external genitalia normal, normal Bartholin's glands, urethra, [place]'s glands, no vulvar lesions, no cervical lesions, normal appearing perineal body and perianal region Moderate amount of dark brown/ old blood present in vaginal vault. No lacerations or erythema Bimanual: Deferred ASSESSMENT AND PLAN: 28 year old status post with normal course. Contraception plan: unsure . Reinforced 6-week pelvic rest. Encouraged condom usage should patient deviate. BV/YEAST- collected and sent- suspect contact dermatitis from pads against skin Follow up: Return to Clinic for 6 week visit and as needed Sowmya Elder APRN.CNM documented in this encounter [facility] 12-29-2023 Telephone encounter Note Called patient. Appointment given. Josette Vazquez RN [facility] 12-29-2023 Miscellaneous Notes Called patient. Appointment given. Josette Vazquez RN documented in this encounter [facility] 12-22-2023 Note HNO ID: [id number] Author: JOSETTE VAZQUEZ RN Service: ? Author Type: Registered Nurse Type: Progress Notes Filed: 12/22/2023 09:42 Note Text: Patient delivered via at [facility] on 12/21/23 per Sowmya Elder CNM . See OB Outcome note. Josette Vazquez RN [facility] 12-22-2023 History of Presen t illness Narrative Patient delivered via at [facility] on 12/21/23 per Sowmya Elder CNM . See OB Outcome note. Josette Vazquez RN documented in this encounter [facility] 12-22-2023 Note [facility] Medical Records Department [address] [place] [address] Discharge Summary 12/22/23 0636 MR#: [id number] Acct: [id number] Name: KATTY CHAUHAN Rep #: [id number] : 1995 28 From: Sowmya Elder CNM PCP: JIM Tamez Status:ADM IN Location: [id number] Providers Date of Admission: 12/21/23 Primary Care Physician: JIM Tamez Reason For Visit: VAGINAL DELIVERY Diagnosis Discharge Diagnosis (1) (spontaneous vaginal delivery): Status: Acute Code(s): O80 - Encounter for full-term uncomplicated delivery (2) Thyroid disorder: Status: Acute Code(s): E07.9 - Disorder of thyroid, unspecified (3) Care and examination of lactating mother: Status: Acute Code(s): Z39.1 - Encounter for care and examination of lactating mother Plan PPD 1 Routine care Pain control D/C home with follow up in office Medications at Discharge Home Medications ferrous sulfate 325 mg (65 mg iron) tablet (iron) 325 mg PO QODAY anemia 07/19/20 levothyroxine 50 mcg tablet 50 mcg PO DAILY hypothyroid 07/19/20 [id number] 1 mg tablet 1 tab PO DAILY 07/19/20 Hospital Course Operations None Procedures None Summary of Care Provided Minutes Spent on Discharge: 15 Hospital Course: Patient had vaginal delivery. Hospital course was uneventful. Physical Exam Narrative Patient seen at bedside. Denies pain. Ambulating and voiding without difficulty. Lochia decreased. Desires discharge home today. Const alert and oriented x3 General Appearance: Negative for in distress HEENT normocephalic Eyes General Eye: normal appearance of both eyes Neck General: normal visual inspection Chest Chest: symmetrical chest wall rise Resp normal respiratory effort and normal air movement Effort and Inspection: symmetric chest movement; Negative for tachypneic Auscultation: clear to auscultation bilaterally Cardio regular rate and regular rhythm Peripheral Pulses: pulses 2+ throughout GI normal to inspection, nondistended, normoactive bowel sounds Narrative: Ice to perineum OB / External Speculum: vaginal bleeding and other Lochia decreasing Uterus Palpation: uterus fundus firm (Below U) Extremity normal to inspection, full ROM and normal capillary refill Skin no rashes or lesions noted Neuro oriented x3, CN's II-XII intact bilaterally and gait normal Psych mental status grossly normal, thought process normal and activity/motor behavior normal Weight / BMI Weight Weight: 162 lb 14.746 oz Body Mass Index (BMI) 27.5 ABG / Lab / Microbiology Data 12/21/23 08:00 Laboratory: Laboratory Results - last 24 hr 12/21/23 08:00: WBC 10.0, RBC 3.91 L, Hgb 11.4 L, Hct 34.3 L, MCV 87.7, MCH 29.2, MCHC 33.2, RDW Std Deviation 43.5, RDW Coeff of Binh 13.6, Plt Count 244, MPV 9.2, Immature Gran % (Auto) 0.900, Neut % (Auto) 74.0 H, Lymph % (Auto) 16.9 L, Cochran % (Auto) 7.7, Eos % (Auto) 0.2, Baso % (Auto) 0.3, Absolute Neuts (auto) 7.4, Absolute Lymphs (auto) 1.69, Nucleated RBC % 0, Syphilis Total Ab Non- reactive, Blood Type B POSITIVE, Antibody Screen NEGATIVE D/C Instructions Discharge Diet: No restrictions Discharge Activity: Return to Normal Activity, No Restrictions, May Drive, May Shower and May Take a Tub Bath (Warm water only. No bath salts, soaps, bubbles) May resume sexual activity in: 6-8 weeks Weight Bearing Status: Weight bearing as tolerated Call your doctor if you observe: Fever of 101 or Higher, Inability to urinate, Using more than 1 pad per hour, Shortness of breath, Dizziness, Chest pain, Calf discomfort and Uncontrolled pain Please Follow Up With: [facility] When: 2 weeks in office or virtual Meaningful Use Info Meaningful Use Meaningful Use Diagnoses (Choose all that apply): None applicable Ischemic Stroke Statin Dosing Therapy Reference: STATIN DOSE THERAPY REFERENCE: * Patients > 75 years receive moderate or high dose statin therapy. * Patients 75 years or YOUNGER should receive HIGH intensity statin dose unless contraindicated. You will be required to document reason for non-treatment if statin daily dose does not meet guidelines. HIGH DOSE STATIN THERAPY DAILY Atorvastatin > than or = to 40 mg Rosuvastatin > than or = to 20 mg Amlodipine + Atorvastatin > than or = to 2.5/40 mg Ezetimibe + Simvastatin 10/80 mg Simvastatin 80mg Discharge Plan Admission Admit Date/Time: 12/21/23 07:45 Primary Reason for Your Visit: Labor and Delivery Attending Provider: Sowmya Elder Primary Care Provider: Karla Browning RETAIL ASSOCIATE Discharge Orders/Prescriptions Prescriptions: Continued levothyroxine 50 mcg Tablet 50 mcg PO DAILY ferrous sulfate [iron] 325 mg (65 mg iron (more content not included)... [facility] 12-13-2023 Progress note Formatting of t his note might be different from the original. DM-Pt doing well. Denies vaginal Bleeding, Leaking fluid, or regular Contractions. Pt reports good movement Physical Exam: Gen: female in no apparent distress Abd: soft, Gravid. Non tender to palpation. See flow sheet @ 37.6 weeks Assessment & Plan Supervision of high risk in third trimester Orders: URINE OB DIP B/O Anemia during in third trimester Orders: URINE OB DIP B/O Hypothyroidism during in third trimester Orders: URINE OB DIP B/O 37 weeks gestation of Orders: URINE OB DIP B/O membranes swept per patient request Kick counts and labor reviewed RTO weekly Danuta Thorpe MD [facility] 12-13-2023 Miscellaneous Notes DM-Pt doing well. Denies vaginal Bleeding, Leaking fluid, or regular Contractions. Pt reports good movement Physical Exam: Gen: female in no apparent distress Abd: soft, Gravid. Non tender to palpation. See flow sheet @ 37.6 weeks Assessment & Plan Supervision of high risk in third trimester Orders: URINE OB DIP B/O Anemia during in third trimester Orders: URINE OB DIP B/O Hypothyroidism during in third trimester Orders: URINE OB DIP B/O 37 weeks gestation of Orders: URINE OB DIP B/O membranes swept per patient request Kick counts and labor reviewed RTO weekly Danuta Thorpe MD documented in this encounter [facility] 12-13-2023 Instructions Meghann Gilbert MA - 12/13/2023 10:09 AM EDT SEQUENTIAL SCREENINGS The [facility] offers sequential screenings for women who are interested in screenings for chromosomal abnormalities and certain defects during a . The sequential screen combines ultrasound and blood tests to determine the risk of chromosomal abnormalities, including Down's Syndrome (Trisomy 21) and Trisomy 18, as well as open neural tube defects including spina bifida. Ultrasound examination is performed between 11 weeks and 13 weeks gestational age. Blood tests are drawn after the ultrasound and again later in the between 15 and 21 weeks gestational age. Please let your physician know if you are interested in this testing. It will require an appointment with our visitor services technician. This is not an ultrasound performed by a physician in our office during a routine visit. SIGNS AND SYMPTOMS OF LABOR 1. Contractions every 10 minutes or more often 2. Clear, pink, or brownish fluid (water) leaking from vagina 3. Feeling that baby is pushing down, pressure 4. Low, dull backache 5. Cramps that feel like a period 6. Cramps with or without diarrhea If you notice any of the above symptoms, contact our office at [phone] and ask to speak with a nurse. After hours, you can call doctors registry at [phone] OR call [facility] at [phone] and ask to have the doctor ultrasonic tester paged. If you consider this an emergency, dial 9-7 or go to your nearest emergency department. NEED HELP? Are you dealing with a violent or abusive relationship? Are you a victim of rape or sexual assult? Call [facility] ([place]) 24 hour Crisis Hotline: 964.323.4799 or 792-029-9810. MANUAL Your Guide to a Healthy manual is now on-line. Visit [email or web address] to download your free copy documented in this encounter [facility] 12-06-2023 Progress note Formatting of t his note might be different from the original. DM-Pt doing well. Denies vaginal Bleeding, Leaking fluid, or regular Contractions. Pt reports good movement Physical Exam: Gen: female in no apparent distress Abd: soft, Gravid. Non tender to palpation. See flow sheet @ 36.6 weeks Assessment & Plan Supervision of high risk in third trimester Orders: URINE OB DIP B/O Anemia during in third trimester Hypothyroidism during in third trimester 36 weeks gestation of kick counts and labor reviewed RTO weekly Pt declines flu and RSV today Danuta Thorpe MD [facility] 12-06-2023 Miscellaneous Notes DM-Pt doing well. Denies vaginal Bleeding, Leaking fluid, or regular Contractions. Pt reports good movement Physical Exam: Gen: female in no apparent distress Abd: soft, Gravid. Non tender to palpation. See flow sheet @ 36.6 weeks Assessment & Plan Supervision of high risk in third trimester Orders: URINE OB DIP B/O Anemia during in third trimester Hypothyroidism during in third trimester 36 weeks gestation of kick counts and labor reviewed RTO weekly Pt declines flu and RSV today Danuta Thorpe MD documented in this encounter [facility] [facility] Instructions Aubrey Jurado MA - 12/06/2023 9:16 AM EDT SEQUENTIAL SCREENINGS [facility] offers sequential screenings for women who are interested in screenings for chromosomal abnormalities and certain defects during a . The sequential screen combines ultrasound and blood tests to determine the risk of chromosomal abnormalities, including Down's Syndrome (Trisomy 21) and Trisomy 18, as well as open neural tube defects including spina bifida. Ultrasound examination is performed between 11 weeks and 13 weeks gestational age. Blood tests are drawn after the ultrasound and again later in the between 15 and 21 weeks gestational age. Please let your physician know if you are interested in this testing. It will require an appointment with our visitor services technician. This is not an ultrasound performed by a physician in our office during a routine visit. SIGNS AND SYMPTOMS OF LABOR 1. Contractions every 10 minutes or more often 2. Clear, pink, or brownish fluid (water) leaking from vagina 3. Feeling that baby is pushing down, pressure 4. Low, dull backache 5. Cramps that feel like a period 6. Cramps with or without diarrhea If you notice any of the above symptoms, contact our office at [phone] and ask to speak with a nurse. After hours, you can call doctors registry at [phone] OR call [facility] at [phone] and ask to have the doctor ultrasonic tester paged. If you consider this an emergency, dial 9--1 or go to your nearest emergency department. NEED HELP? Are you dealing with a violent or abusive relationship? Are you a victim of rape or sexual assult? Call [facility] ([place]) 24 hour Crisis Hotline: 861.926.2814 or 899-896-0081. MANUAL Your Guide to a Healthy manual is now on-line. Visit [email or web address] to download your free copy documented in this encounter [facility] 12-01-2023 Progress note Formatting of t his note might be different from the original. DM-Pt doing well. Denies vaginal Bleeding, Leaking fluid, or regular Contractions. Pt reports good movement. C/o hemorrhoid. Physical Exam: Gen: female in no apparent distress Abd: soft, Gravid. Non tender to palpation. See flow sheet @ 36.1 weeks Assessment & Plan Supervision of high risk in third trimester Orders: URINE OB DIP B/O Anemia during in third trimester Hemorrhoids in in third trimester Continue lidocaine cream, miralax, PO water intake, witch renan pads. Hypothyroidism during in third trimester 36 weeks gestation of Continue PO iron discussed if becomes larger may consider sending to General surgery but at this time continue conservative mgmt. -kick counts and labor reviewed. Danuta Thorpe MD [facility] 12-01-2023 Miscellaneous Notes DM-Pt doing well. Denies vaginal Bleeding, Leaking fluid, or regular Contractions. Pt reports good movement. C/o hemorrhoid. Physical Exam: Gen: female in no apparent distress Abd: soft, Gravid. Non tender to palpation. See flow sheet @ 36.1 weeks Assessment & Plan Supervision of high risk in third trimester Orders: URINE OB DIP B/O Anemia during in third trimester Hemorrhoids in in third trimester Continue lidocaine cream, miralax, PO water intake, witch renan pads. Hypothyroidism during in third trimester 36 weeks gestation of Continue PO iron discussed if becomes larger may consider sending to General surgery but at this time continue conservative mgmt. -kick counts and labor reviewed. Danuta Thorpe MD documented in this encounter [facility] 12-01-2023 Instructions Aubrey Jurado MA - 12/01/2023 3:03 PM EDT SEQUENTIAL SCREENINGS [facility] offers sequential screenings for women who are interested in screenings for chromosomal abnormalities and certain defects during a . The sequential screen combines ultrasound and blood tests to determine the risk of chromosomal abnormalities, including Down's Syndrome (Trisomy 21) and Trisomy 18, as well as open neural tube defects including spina bifida. Ultrasound examination is performed between 11 weeks and 13 weeks gestational age. Blood tests are drawn after the ultrasound and again later in the between 15 and 21 weeks gestational age. Please let your physician know if you are interested in this testing. It will require an appointment with our visitor services technician. This is not an ultrasound performed by a physician in our office during a routine visit. SIGNS AND SYMPTOMS OF LABOR 1. Contractions every 10 minutes or more often 2. Clear, pink, or brownish fluid (water) leaking from vagina 3. Feeling that baby is pushing down, pressure 4. Low, dull backache 5. Cramps that feel like a period 6. Cramps with or without diarrhea If you notice any of the above symptoms, contact our office at [phone] and ask to speak with a nurse. After hours, you can call doctors registry at [phone] OR call [facility] at [phone] and ask to have the doctor ultrasonic tester paged. If you consider this an emergency, dial 9-4-3 or go to your nearest emergency department. NEED HELP? Are you dealing with a violent or abusive relationship? Are you a victim of rape or sexual assult? Call [facility] ([facility] 24 hour Crisis Hotline: 170.831.5156 or 653-358-3375. MANUAL Your Guide to a Healthy manual is now on-line. Visit [email or web address] to download your free copy documented in this encounter [facility] 11-24-2023 Progress note Formatting of t his note might be different from the original. S: Katty Chauhan is a 28 year old female who presents at 12/28/2023, by Last Menstrual Period for a routine visit. Denies headache, visual changes, chest pain, shortness of breath, leakage of fluid, or dysuria. Feeling well, no complaints. Good movement, No contractions Back and spotting this Am. Has been doing a lot moving. Hx of fast labor. Just wanted to check. No recent cervical exam or intercourse. O: See flow sheet Gen: No apparent distress Abd: Gravid, nontender VTX on US GBS collected Hx of precipitous labor ASSESSMENT/PLAN: 1. Supervision of high risk in third trimester - ICD9: V23.9, ICD10: O09.93 (primary diagnosis) - ROUTINE, GROUP B STREP PCR 2. 35 weeks gestation of - ICD9: V22.2, ICD10: Z3A.35 - ROUTINE, GROUP B STREP PCR 3. Anemia during in third trimester - ICD9: 648.23, ICD10: O99.013 4. Hypothyroidism during in third trimester - ICD9: 648.13, 244.9, ICD10: O99.283, E03.9 Josette Sharma MD [facility] 11-24-2023 Miscellaneous Notes S: Katty Chauhan is a 28 year old female who presents at 12/28/2023, by Last Menstrual Period for a routine visit. Denies headache, visual changes, chest pain, shortness of breath, leakage of fluid, or dysuria. Feeling well, no complaints. Good movement, No contractions Back and spotting this Am. Has been doing a lot moving. Hx of fast labor. Just wanted to check. No recent cervical exam or intercourse. O: See flow sheet Gen: No apparent distress Abd: Gravid, nontender VTX on US GBS collected Hx of precipitous labor ASSESSMENT/PLAN: 1. Supervision of high risk in third trimester - ICD9: V23.9, ICD10: O09.93 (primary diagnosis) - ROUTINE, GROUP B STREP PCR 2. 35 weeks gestation of - ICD9: V22.2, ICD10: Z3A.35 - ROUTINE, GROUP B STREP PCR 3. Anemia during in third trimester - ICD9: 648.23, ICD10: O99.013 4. Hypothyroidism during in third trimester - ICD9: 648.13, 244.9, ICD10: O99.283, E03.9 Josette Sharma MD documented in this encounter [facility] 11-24-2023 Instructions Aubrey Jurado MA - 11/24/2023 11:07 AM EDT SEQUENTIAL SCREENINGS [facility] offers sequential screenings for women who are interested in screenings for chromosomal abnormalities and certain defects during a . The sequential screen combines ultrasound and blood tests to determine the risk of chromosomal abnormalities, including Down's Syndrome (Trisomy 21) and Trisomy 18, as well as open neural tube defects including spina bifida. Ultrasound examination is performed between 11 weeks and 13 weeks gestational age. Blood tests are drawn after the ultrasound and again later in the between 15 and 21 weeks gestational age. Please let your physician know if you are interested in this testing. It will require an appointment with our visitor services technician. This is not an ultrasound performed by a physician in our office during a routine visit. SIGNS AND SYMPTOMS OF LABOR 1. Contractions every 10 minutes or more often 2. Clear, pink, or brownish fluid (water) leaking from vagina 3. Feeling that baby is pushing down, pressure 4. Low, dull backache 5. Cramps that feel like a period 6. Cramps with or without diarrhea If you notice any of the above symptoms, contact our office at [phone] and ask to speak with a nurse. After hours, you can call doctors registry at [phone] OR call [facility] at [phone] and ask to have the doctor ultrasonic tester paged. If you consider this an emergency, dial 10-21- or go to your nearest emergency department. NEED HELP? Are you dealing with a violent or abusive relationship? Are you a victim of rape or sexual assult? Call [facility] ([place]) 24 hour Crisis Hotline: 630.437.2522 or 815-291-9438. MANUAL Your Guide to a Healthy manual is now on-line. Visit [email or web address] to download your free copy documented in this encounter [facility] 11-24-2023 Telephone encounter Note Ob patient is 35w1d. No recent intercourse or pelvic exam. Discussed with Dr. Sharma. Patient is to monitor and call if any bleeding more than spotting or if pain. Patient stated that she has not noticed any further bleeding/spotting. Bleeding precautions given. [facility] 11-24-2023 Miscellaneous Notes Ob patient is 35w1d. No recent intercourse or pelvic exam. Discussed with Dr. Sharma. Patient is to monitor and call if any bleeding more than spotting or if pain. Patient stated that she has not noticed any further bleeding/spotting. Bleeding precautions given. documented in this encounter [facility] 11-23-2023 Progress note Formatting of t his note might be different from the original. DM-Pt doing well. Denies vaginal Bleeding, Leaking fluid, or regular Contractions. Pt reports good movement Physical Exam: Gen: female in no apparent distress Abd: soft, Gravid. Non tender to palpation. See flow sheet @ 35 weeks Assessment & Plan Supervision of high risk in third trimester Anemia during in third trimester Hypothyroidism during in third trimester 35 weeks gestation of Orders: URINE OB DIP B/O Kick counts and labor reviewed Recheck CBC Continue PO iron Declining RSV and FLu vaccine today Danuta Thorpe MD [facility] 11-23-2023 Miscellaneous Notes DM-Pt doing well. Denies vaginal Bleeding, Leaking fluid, or regular Contractions. Pt reports good movement Physical Exam: Gen: female in no apparent distress Abd: soft, Gravid. Non tender to palpation. See flow sheet @ 35 weeks Assessment & Plan Supervision of high risk in third trimester Anemia during in third trimester Hypothyroidism during in third trimester 35 weeks gestation of Orders: URINE OB DIP B/O Kick counts and labor reviewed Recheck CBC Continue PO iron Declining RSV and FLu vaccine today Danuta Thorpe MD documented in this encounter [facility] 11-23-2023 Instructions Aubrey Jurado MA - 11/23/2023 9:12 AM EDT SEQUENTIAL SCREENINGS [facility] offers sequential screenings for women who are interested in screenings for chromosomal abnormalities and certain defects during a . The sequential screen combines ultrasound and blood tests to determine the risk of chromosomal abnormalities, including Down's Syndrome (Trisomy 21) and Trisomy 18, as well as open neural tube defects including spina bifida. Ultrasound examination is performed between 11 weeks and 13 weeks gestational age. Blood tests are drawn after the ultrasound and again later in the between 15 and 21 weeks gestational age. Please let your physician know if you are interested in this testing. It will require an appointment with our visitor services technician. This is not an ultrasound performed by a physician in our office during a routine visit. SIGNS AND SYMPTOMS OF LABOR 1. Contractions every 10 minutes or more often 2. Clear, pink, or brownish fluid (water) leaking from vagina 3. Feeling that baby is pushing down, pressure 4. Low, dull backache 5. Cramps that feel like a period 6. Cramps with or without diarrhea If you notice any of the above symptoms, contact our office at [phone] and ask to speak with a nurse. After hours, you can call doctors registry at [phone] OR call [facility] at [phone] and ask to have the doctor ultrasonic tester paged. If you consider this an emergency, dial 9--4 or go to your nearest emergency department. NEED HELP? Are you dealing with a violent or abusive relationship? Are you a victim of rape or sexual assult? Call [facility] ([place]) 24 hour Crisis Hotline: 414.353.3338 or 778-525-7458. MANUAL Your Guide to a Healthy manual is now on-line. Visit [email or web address] to download your free copy documented in this encounter [facility] 11-08-2023 Progress note Formatting of t his note might be different from the original. DM-Pt doing well. Denies vaginal Bleeding, Leaking fluid, or regular Contractions. Pt reports good movement Physical Exam: Gen: female in no apparent distress Abd: soft, Gravid. Non tender to palpation. See flow sheet @32.6 weeks Assessment & Plan Supervision of high risk in third trimester Anemia during in third trimester Continue PO iron Hypothyroidism during in third trimester Continue synthroid 32 weeks gestation of Encounter for supervision of normal first in third trimester will get Flu at next visit. RSV vaccine vaccine discussed- will consider for next visit Danuta Thorpe MD [facility] 11-08-2023 Miscellaneous Notes DM-Pt doing well. Denies vaginal Bleeding, Leaking fluid, or regular Contractions. Pt reports good movement Physical Exam: Gen: female in no apparent distress Abd: soft, Gravid. Non tender to palpation. See flow sheet @32.6 weeks Assessment & Plan Supervision of high risk in third trimester Anemia during in third trimester Continue PO iron Hypothyroidism during in third trimester Continue synthroid 32 weeks gestation of Encounter for supervision of normal first in third trimester will get Flu at next visit. RSV vaccine vaccine discussed- will consider for next visit Danuta Thorpe MD documented in this encounter [facility] 11-08-2023 Instructions Aubrey Jurado MA - 11/08/2023 9:53 AM EDT SEQUENTIAL SCREENINGS [facility] offers sequential screenings for women who are interested in screenings for chromosomal abnormalities and certain defects during a . The sequential screen combines ultrasound and blood tests to determine the risk of chromosomal abnormalities, including Down's Syndrome (Trisomy 21) and Trisomy 18, as well as open neural tube defects including spina bifida. Ultrasound examination is performed between 11 weeks and 13 weeks gestational age. Blood tests are drawn after the ultrasound and again later in the between 15 and 21 weeks gestational age. Please let your physician know if you are interested in this testing. It will require an appointment with our visitor services technician. This is not an ultrasound performed by a physician in our office during a routine visit. SIGNS AND SYMPTOMS OF LABOR 1. Contractions every 10 minutes or more often 2. Clear, pink, or brownish fluid (water) leaking from vagina 3. Feeling that baby is pushing down, pressure 4. Low, dull backache 5. Cramps that feel like a period 6. Cramps with or without diarrhea If you notice any of the above symptoms, contact our office at [phone] and ask to speak with a nurse. After hours, you can call doctors registry at [phone] OR call [facility] at [phone] and ask to have the doctor ultrasonic tester paged. If you consider this an emergency, dial 9-1-3 or go to your nearest emergency department. NEED HELP? Are you dealing with a violent or abusive relationship? Are you a victim of rape or sexual assult? Call [facility] ([place]) 24 hour Crisis Hotline: 898.585.3714 or 563-773-6247. MANUAL Your Guide to a Healthy manual is now on-line. Visit [email or web address] to download your free copy documented in this encounter [facility] 11-03-2023 Telephone encounter Note Sorry unfamiliar with that. I can't give any advice on that tablet. [facility] 11-03-2023 Miscellaneous Notes Sorabran unfamiliar with that. I can't give any advice on that tablet. documented in this encounter [facility] 10-25-2023 Progress note Formatting of t his note might be different from the original. DM-Pt doing well. Denies vaginal Bleeding, Leaking fluid, or regular Contractions. Pt reports good movement Physical Exam: Gen: female in no apparent distress Abd: soft, Gravid. Non tender to palpation. See flow sheet @ 30.6 weeks Assessment & Plan Supervision of high risk in third trimester Anemia during in third trimester Repeat cbc next visit. Continue PO iron Hypothyroidism during in third trimester Synthroid to continue 30 weeks gestation of RTO 2 weeks Kick counts reviewed Traveling to [place] today - reviewed travel precautions. Danuta Thorpe MD [facility] 10-25-2023 Miscellaneous Notes DM-Pt doing well. Denies vaginal Bleeding, Leaking fluid, or regular Contractions. Pt reports good movement Physical Exam: Gen: female in no apparent distress Abd: soft, Gravid. Non tender to palpation. See flow sheet @ 30.6 weeks Assessment & Plan Supervision of high risk in third trimester Anemia during in third trimester Repeat cbc next visit. Continue PO iron Hypothyroidism during in third trimester Synthroid to continue 30 weeks gestation of RTO 2 weeks Kick counts reviewed Traveling to [place] today - reviewed travel precautions. Danuta Thorpe MD documented in this encounter [facility] 10-25-2023 Instructions Aubrey Jurado MA - 10/25/2023 10:56 AM EDT SEQUENTIAL SCREENINGS [facility] offers sequential screenings for women who are interested in screenings for chromosomal abnormalities and certain defects during a . The sequential screen combines ultrasound and blood tests to determine the risk of chromosomal abnormalities, including Down's Syndrome (Trisomy 21) and Trisomy 18, as well as open neural tube defects including spina bifida. Ultrasound examination is performed between 11 weeks and 13 weeks gestational age. Blood tests are drawn after the ultrasound and again later in the between 15 and 21 weeks gestational age. Please let your physician know if you are interested in this testing. It will require an appointment with our visitor services technician. This is not an ultrasound performed by a physician in our office during a routine visit. SIGNS AND SYMPTOMS OF LABOR 1. Contractions every 10 minutes or more often 2. Clear, pink, or brownish fluid (water) leaking from vagina 3. Feeling that baby is pushing down, pressure 4. Low, dull backache 5. Cramps that feel like a period 6. Cramps with or without diarrhea If you notice any of the above symptoms, contact our office at [phone] and ask to speak with a nurse. After hours, you can call doctors registry at [phone] OR call [facility] at [phone] and ask to have the doctor ultrasonic tester paged. If you consider this an emergency, dial 9-1-8 or go to your nearest emergency department. NEED HELP? Are you dealing with a violent or abusive relationship? Are you a victim of rape or sexual assult? Call [facility] ([place]) 24 hour Crisis Hotline: 135.200.9617 or 705-824-2198. MANUAL Your Guide to a Healthy manual is now on-line. Visit [email or web address] to download your free copy documented in this encounter [facility] 10-12-2023 Telephone encounter Note 3rd risk assessment form submitted 10/12/2023. Josette Green RN [facility] 10-12-2023 Miscellaneous Notes 3rd risk assessment form submitted 10/12/2023. Josette Green RN documented in this encounter [facility] 10-11-2023 Progress note Formatting of t his note might be different from the original. DM-Pt doing well. Denies vaginal Bleeding, Leaking fluid, or regular Contractions. Pt reports good movement Physical Exam: Gen: female in no apparent distress Abd: soft, Gravid. Non tender to palpation. See flow sheet @ 28.6 weeks Assessment & Plan Supervision of high risk in third trimester Anemia during in third trimester Started iron Hypothyroidism during in third trimester Continue PO synthroid Need for vaccination Orders: TDAP VACCINE, AGE 7+ YR (ADACEL, BOOSTRIX) 28 weeks gestation of Orders: TDAP VACCINE, AGE 7+ YR (ADACEL, BOOSTRIX) kick counts reviewed RTO 2 wks Danuta Thorpe MD [facility] 10-11-2023 Miscellaneous Notes DM-Pt doing well. Denies vaginal Bleeding, Leaking fluid, or regular Contractions. Pt reports good movement Physical Exam: Gen: female in no apparent distress Abd: soft, Gravid. Non tender to palpation. See flow sheet @ 28.6 weeks Assessment & Plan Supervision of high risk in third trimester Anemia during in third trimester Started iron Hypothyroidism during in third trimester Continue PO synthroid Need for vaccination Orders: TDAP VACCINE, AGE 7+ YR (ADACEL, BOOSTRIX) 28 weeks gestation of Orders: TDAP VACCINE, AGE 7+ YR (ADACEL, BOOSTRIX) kick counts reviewed RTO 2 wks Danuta Thorpe MD documented in this encounter [facility] 10-11-2023 Note HNO ID: [id number] Author: AUBREY JURADO MA Service: ? Author Type: Automatic Blocker Type: Progress Notes Filed: 10/11/2023 09:58 Note Text: Patient identified by name and date of . Katty Chauhan presents today for a vaccination of Tdap. Patient denies an allergy to latex: yes Patient denies a severe (life-threatening) allergy to a previous dose of Tdap, DTP, DTaP, DT or Td vaccine. Yes Patient denies history of epilepsy or neurological problems: Yes Patient is afebrile and denies being moderately or severely ill: Yes Patient denies history of Guillain-Lagrange Syndrome (a severe paralytic illness): Yes Tdap Adacel injection was given without incident. See immunizations for details of immunizations administered today. VIS sheet provided: Yes [facility] 10-11-2023 History of Presen t illness Narrative Patient identified by name and date of . Katty Chauhan presents today for a vaccination of Tdap. Patient denies an allergy to latex: yes Patient denies a severe (life-threatening) allergy to a previous dose of Tdap, DTP, DTaP, DT or Td vaccine. Yes Patient denies history of epilepsy or neurological problems: Yes Patient is afebrile and denies being moderately or severely ill: Yes Patient denies history of Guillain-Lagrange Syndrome (a severe paralytic illness): Yes Tdap Adacel injection was given without incident. See immunizations for details of immunizations administered today. VIS sheet provided: Yes documented in this encounter [facility] 10-11-2023 Instructions Aubrey Jurado MA - 10/11/2023 9:27 AM EDT SEQUENTIAL SCREENINGS The [facility] offers sequential screenings for women who are interested in screenings for chromosomal abnormalities and certain defects during a . The sequential screen combines ultrasound and blood tests to determine the risk of chromosomal abnormalities, including Down's Syndrome (Trisomy 21) and Trisomy 18, as well as open neural tube defects including spina bifida. Ultrasound examination is performed between 11 weeks and 13 weeks gestational age. Blood tests are drawn after the ultrasound and again later in the between 15 and 21 weeks gestational age. Please let your physician know if you are interested in this testing. It will require an appointment with our visitor services technician. This is not an ultrasound performed by a physician in our office during a routine visit. SIGNS AND SYMPTOMS OF LABOR 1. Contractions every 10 minutes or more often 2. Clear, pink, or brownish fluid (water) leaking from vagina 3. Feeling that baby is pushing down, pressure 4. Low, dull backache 5. Cramps that feel like a period 6. Cramps with or without diarrhea If you notice any of the above symptoms, contact our office at [phone] and ask to speak with a nurse. After hours, you can call doctors registry at [phone] OR call [facility] at [phone] and ask to have the doctor ultrasonic tester paged. If you consider this an emergency, dial 9-1-0 or go to your nearest emergency department. NEED HELP? Are you dealing with a violent or abusive relationship? Are you a victim of rape or sexual assult? Call [facility] ([place]) 24 hour Crisis Hotline: 218.502.2616 or 533-817-1503. MANUAL Your Guide to a Healthy manual is now on-line. Visit [email or web address] Chaitanya to download your free copy documented in this encounter [facility] 09-27-2023 Progress note Formatting of t his note might be different from the original. DM- Pt doing well today. Denies Vaginal Bleeding, Leaking fluid, or contractions. Pt reports good movement. 28 wk labs today including thryoid. LARC form signed and declined- considering Vasectomy- uncertain at this time. Had Ultrasound of left axillary- negative findings. TDAP next visit. RTO 2 wk. Danuta Thorpe MD [facility] 09-27-2023 Miscellaneous Notes DM- Pt doing well today. Denies Vaginal Bleeding, Leaking fluid, or contractions. Pt reports good movement. 28 wk labs today including thryoid. LARC form signed and declined- considering Vasectomy- uncertain at this time. Had Ultrasound of left axillary- negative findings. TDAP next visit. RTO 2 wk. Danuta Thorpe MD documented in this encounter [facility] 09-27-2023 Instructions Leela Hook MA - 09/27/2023 9:20 AM EDT SEQUENTIAL SCREENINGS The [facility] offers sequential screenings for women who are interested in screenings for chromosomal abnormalities and certain defects during a . The sequential screen combines ultrasound and blood tests to determine the risk of chromosomal abnormalities, including Down's Syndrome (Trisomy 21) and Trisomy 18, as well as open neural tube defects including spina bifida. Ultrasound examination is performed between 11 weeks and 13 weeks gestational age. Blood tests are drawn after the ultrasound and again later in the between 15 and 21 weeks gestational age. Please let your physician know if you are interested in this testing. It will require an appointment with our visitor services technician. This is not an ultrasound performed by a physician in our office during a routine visit. SIGNS AND SYMPTOMS OF LABOR 1. Contractions every 10 minutes or more often 2. Clear, pink, or brownish fluid (water) leaking from vagina 3. Feeling that baby is pushing down, pressure 4. Low, dull backache 5. Cramps that feel like a period 6. Cramps with or without diarrhea If you notice any of the above symptoms, contact our office at [phone] and ask to speak with a nurse. After hours, you can call [employer] registry at [phone] OR call [facility] at [phone] and ask to have the doctor ultrasonic tester paged. If you consider this an emergency, dial 9-1-3 or go to your nearest emergency department. NEED HELP? Are you dealing with a violent or abusive relationship? Are you a victim of rape or sexual assult? Call [facility] ([place]) 24 hour Crisis Hotline: 129.739.3241 or 570-155-5889. MANUAL Your Guide to a Healthy manual is now on-line. Visit [email or web address] Chaitanya to download your free copy documented in this encounter [facility] 09-01-2023 Note HNO ID: [id number] Author: ANDREIA RAINES APRN.TRANSITIONAL CARE MANAGER Service: ? Author Type: Nurse Practitioner Type: Progress Notes Filed: 09/01/2023 11:38 Note Text: Boat Cleaner offered: Patient declines. Katty Chauhan is a 28 year old female who presents for problem visit left axillary lump HPI: Recurring tenderness to left axillae for past few months,. Is 23 weeks and has only noticed this tenderness with the I . Yesterday morning, noticed tenderness during shower and for the first time, noticed swelling. No fever or chills. No redness. No drainage. No nipple discharge. No past breast problems or mammogram. History breast cancer in [facility], diagnosed in 60's. OB History T2 L2 SAB0 IAB0 Ectopic0 Multiple0 Live Births2 Neonatal Nurse History LMP: 03/23/2023 (Exact Date), Age at Menarche: Age at First : Age at Menopause: Neonatal Nurse History Comments: Sexual Activity: Yes; Male Contraception: No contraception data on record PAST MEDICAL HISTORY Diagnosis Date Chlamydia 2012 Excessive or frequent menstruation Heavy periods Hemorrhoid Hypothyroidism Iron deficiency anemia, unspecified 2006 Anemia, iron def. PMH - PAST MEDICAL HISTORY OF age 6 pneumonia PAST SURGICAL HISTORY Procedure Laterality Date APPENDECTOMY 01/2017 PAST SURGICAL HISTORY OF wisdom teeth FAMILY HISTORY Problem Relation Age of Onset Hypertension Mother Heart Mother Mitrial Valve Thyroid Mother Heart Father Thyroid Father No Known Problems Sister Breast Cancer Maternal Grandmother Thyroid Maternal Grandmother Diabetes Maternal Grandmother Cancer Maternal Grandfather lung other (Parkinson's Disease) Paternal Grandmother Cancer Paternal Grandfather lung Thyroid Maternal Aunt No Known Problems Son Social History Tobacco Use Smoking status: Never Smokeless tobacco: Never Vaping Use Vaping Use: Never used Substance Use Topics Alcohol use: Not Currently Comment: Rarely, not while Drug use: No Current Outpatient Medications Medication Sig levothyroxine (SYNTHROID) 25 mcg tablet vit 86-viee-xfare-dha (SELECT-OB+DHA) 29 mg iron-1 mg -250 mg Take by mouth as directed. Take 1 tablet and 1 capsule by mouth daily. No current facility-administered medications for this visit. Allergies As of Date: 09/01/2023 (No Known Allergies) Fully Assessed 08/30/2023 REVIEW OF SYSTEMS Breast: see HPI. Allergies and current medication updated:Yes EXAM: BP 118/70 Pulse 78 Resp 12 Wt 144 lb (65.3kg) SpO2 100% LMP 03/23/2023 GENERAL: pleasant, female in no apparent distress, gravid NECK: Supple, full range of motion, and no adenopathy BREAST: soft, non-tender, symmetric, no dominant mass, normal nipple-areolar complex, no lymphadenopathy, and no nipple discharge. Left axilla - 1 cm tender mass CHEST: Normal inspiratory effort NEURO: alert and oriented x3,exam grossly non-focal ASSESSMENT/PLAN: 1. Axillary mass, left - ICD9: 782.2, ICD10: R22.32 (primary diagnosis) - US BREAST LTD LEFT 2. 23 weeks gestation of - ICD9: V22.2, ICD10: Z3A.23 - US BREAST LTD LEFT Will notify of results. Follow- up at next OB visit 09/27/2023 and as needed Andreia Raines APRN.STEPHY Medical Decision Making: Problems: Moderate: New problem with uncertain prognosis Data: Unique test(s) ordered: 1 Risk: Moderate: Moderate risk from testing/treatment Medical Decision Making Level: 4 - Moderate [facility] 09-01-2023 History of Presen t illness Narrative Boat Cleaner offered: Patient declines. Katty Chauhan is a 28 year old female who presents for problem visit left axillary lump HPI: Recurring tenderness to left axillae for past few months,. Is 23 weeks and has only noticed this tenderness with the I . Yesterday morning, noticed tenderness during shower and for the first time, noticed swelling. No fever or chills. No redness. No drainage. No nipple discharge. No past breast problems or mammogram. History breast cancer in [facility], diagnosed in 60's. OB History T2 L2 SAB0 IAB0 Ectopic0 Multiple0 Live Births2 Neonatal Nurse History LMP: 03/23/2023 (Exact Date), Age at Menarche: Age at First : Age at Menopause: Neonatal Nurse History Comments: Sexual Activity: Yes; Male Contraception: No contraception data on record PAST MEDICAL HISTORY Diagnosis Date Chlamydia 2012 Excessive or frequent menstruation Heavy periods Hemorrhoid Hypothyroidism Iron deficiency anemia, unspecified 2006 Anemia, iron def. PMH - PAST MEDICAL HISTORY OF age 6 pneumonia PAST SURGICAL HISTORY Procedure Laterality Date APPENDECTOMY 01/2017 PAST SURGICAL HISTORY OF wisdom teeth FAMILY HISTORY Problem Relation Age of Onset Hypertension Mother Heart Mother Mitrial Valve Thyroid Mother Heart Father Thyroid Father No Known Problems Sister Breast Cancer Maternal Grandmother Thyroid Maternal Grandmother Diabetes Maternal Grandmother Cancer Maternal Grandfather lung other (Parkinson's Disease) Paternal Grandmother Cancer Paternal Grandfather lung Thyroid Maternal Aunt No Known Problems Son Social History Tobacco Use Smoking status: Never Smokeless tobacco: Never Vaping Use Vaping Use: Never used Substance Use Topics Alcohol use: Not Currently Comment: Rarely, not while Drug use: No Current Outpatient Medications Medication Sig levothyroxine (SYNTHROID) 25 mcg tablet vit 13-njef-owhpa-dha (SELECT-OB+DHA) 29 mg iron-1 mg -250 mg Take by mouth as directed. Take 1 tablet and 1 capsule by mouth daily. No current facility-administered medications for this visit. Allergies As of Date: 09/01/2023 (No Known Allergies) Fully Assessed 08/30/2023 REVIEW OF SYSTEMS Breast: see HPI. Allergies and current medication updated:Yes EXAM: BP 118/70 Pulse 78 Resp 12 Wt 144 lb (65.3kg) SpO2 100% LMP 03/23/2023 GENERAL: pleasant, female in no apparent distress, gravid NECK: Supple, full range of motion, and no adenopathy BREAST: soft, non-tender, symmetric, no dominant mass, normal nipple-areolar complex, no lymphadenopathy, and no nipple discharge. Left axilla - 1 cm tender mass CHEST: Normal inspiratory effort NEURO: alert and oriented x3,exam grossly non-focal ASSESSMENT/PLAN: 1. Axillary mass, left - ICD9: 782.2, ICD10: R22.32 (primary diagnosis) - US BREAST LTD LEFT 2. 23 weeks gestation of - ICD9: V22.2, ICD10: Z3A.23 - US BREAST LTD LEFT Will notify of results. Follow- up at next OB visit 09/27/2023 and as needed Andreia Raines APRN.CNP Medical Decision Making: Problems: Moderate: New problem with uncertain prognosis Data: Unique test(s) ordered: 1 Risk: Moderate: Moderate risk from testing/treatment Medical Decision Making Level: 4 - Moderate documented in this encounter [facility] 08-31-2023 Telephone encounter Note Patient notified. Unable to come in today. Scheduled for tomorrow at 11am. Candace Nolen RN [facility] 08-31-2023 Miscellaneous Notes Patient notified. Unable to come in today. Scheduled for tomorrow at 11am. Candace Nolen RN Would see if someone can see her today or tomorrow while the pain and swelling is apparent. Unfortunately I am not available. documented in this encounter [facility] 08-31-2023 Telephone encounter Note Would see if someone can see her today or tomorrow while the pain and swelling is apparent. Unfortunately I am not available. [facility] 08-31-2023 Telephone encounter Note 2nd risk assessment form submitted 08/31/2023. Josette Green RN [facility] 08-31-2023 Miscellaneous Notes 2nd risk assessment form submitted 08/31/2023. Josette Green RN documented in this encounter [facility] 08-30-2023 Progress note Formatting of t his note might be different from the original. DM- Pt doing well today. Denies Vaginal Bleeding, Leaking fluid, or contractions. Pt reports good movement. AFP negative. Thyroid labs ordered for next visit. RTO 4 wks. Danuta Thorpe MD [facility] 08-30-2023 Miscellaneous Notes DM- Pt doing well today. Denies Vaginal Bleeding, Leaking fluid, or contractions. Pt reports good movement. AFP negative. Thyroid labs ordered for next visit. RTO 4 wks. Danuta Thorpe MD documented in this encounter [facility] 08-30-2023 Aubrey Resendiz MA - 08/30/2023 9:50 AM EDT SEQUENTIAL SCREENINGS The [facility] offers sequential screenings for women who are interested in screenings for chromosomal abnormalities and certain defects during a . The sequential screen combines ultrasound and blood tests to determine the risk of chromosomal abnormalities, including Down's Syndrome (Trisomy 21) and Trisomy 18, as well as open neural tube defects including spina bifida. Ultrasound examination is performed between 11 weeks and 13 weeks gestational age. Blood tests are drawn after the ultrasound and again later in the between 15 and 21 weeks gestational age. Please let your physician know if you are interested in this testing. It will require an appointment with our visitor services technician. This is not an ultrasound performed by a physician in our office during a routine visit. SIGNS AND SYMPTOMS OF LABOR 1. Contractions every 10 minutes or more often 2. Clear, pink, or brownish fluid (water) leaking from vagina 3. Feeling that baby is pushing down, pressure 4. Low, dull backache 5. Cramps that feel like a period 6. Cramps with or without diarrhea If you notice any of the above symptoms, contact our office at [phone] and ask to speak with a nurse. After hours, you can call doctors registry at [phone] OR call [facility] at [phone] and ask to have the doctor ultrasonic tester paged. If you consider this an emergency, dial 6-4-3 or go to your nearest emergency department. NEED HELP? Are you dealing with a violent or abusive relationship? Are you a victim of rape or sexual assult? Call [facility] ([place]) 24 hour Crisis Hotline: 232.425.7112 or 015-154-9034. MANUAL Your Guide to a Healthy manual is now on-line. Visit [email or web address] to download your free copy documented in this encounter [facility] 08-03-2023 Progress note Formatting of t his note might be different from the original. DM- Pt doing well today. Denies Vaginal Bleeding, Leaking fluid, or contractions. Pt reports good movement. Taking miralax every other day- helps with anal fissures. Anatomy us pending- GIRL. AFP today. Left Axillary discomfort, but no swelling or palpable nodes. Started about 2 weeks ago. On exam, no swelling, no masses. Will continue to monitor- if any changes will notify office. RTO 4 wks. Danuta Thorpe MD [facility] 08-03-2023 Miscellaneous Notes DM- Pt doing well today. Denies Vaginal Bleeding, Leaking fluid, or contractions. Pt reports good movement. Taking miralax every other day- helps with anal fissures. Anatomy us pending- GIRL. AFP today. Left Axillary discomfort, but no swelling or palpable nodes. Started about 2 weeks ago. On exam, no swelling, no masses. Will continue to monitor- if any changes will notify office. RTO 4 wks. Danuta Thopre MD documented in this encounter [facility] 08-03-2023 Instructions Aubrey Jurado MA - 08/03/2023 2:48 PM EDT SEQUENTIAL SCREENINGS The [facility] offers sequential screenings for women who are interested in screenings for chromosomal abnormalities and certain defects during a . The sequential screen combines ultrasound and blood tests to determine the risk of chromosomal abnormalities, including Down's Syndrome (Trisomy 21) and Trisomy 18, as well as open neural tube defects including spina bifida. Ultrasound examination is performed between 11 weeks and 13 weeks gestational age. Blood tests are drawn after the ultrasound and again later in the between 15 and 21 weeks gestational age. Please let your physician know if you are interested in this testing. It will require an appointment with our visitor services technician. This is not an ultrasound performed by a physician in our office during a routine visit. SIGNS AND SYMPTOMS OF LABOR 1. Contractions every 10 minutes or more often 2. Clear, pink, or brownish fluid (water) leaking from vagina 3. Feeling that baby is pushing down, pressure 4. Low, dull backache 5. Cramps that feel like a period 6. Cramps with or without diarrhea If you notice any of the above symptoms, contact our office at [phone] and ask to speak with a nurse. After hours, you can call doctors registry at [phone] OR call [facility] at [phone] and ask to have the doctor ultrasonic tester paged. If you consider this an emergency, dial or go to your nearest emergency department. NEED HELP? Are you dealing with a violent or abusive relationship? Are you a victim of rape or sexual assult? Call [facility] ([place]) 24 hour Crisis Hotline: 879.131.4081 or 048-577-5112. MANUAL Your Guide to a Healthy manual is now on-line. Visit [email or web address] to download your free copy documented in this encounter [facility] 06-30-2023 Telephone encounter Note Patient notified. Josette Vazquez RN [facility] 06-30-2023 Miscellaneous Notes Patient notified. Josette Vazquez RN Screen negative. Low risk for trisomy 21/18/15 Gender is available if she wants to know. [place] [employer] 14w1d Patient called to inquire about her [id number] results. Can you please review in CP's absence and release to [employer]. Thank you. Josette Vazquez RN documented in this encounter [facility] 06-30-2023 Telephone encounter Note Screen negative. Low risk for trisomy 21/18/15 Gender is available if she wants to know. [employer] [facility] Work Phone: 06-30-2023 Telephone encounter Note 14w1d Patient called to inquire about her [id number] results. Can you please review in CP's absence and release to [employer]. Thank you. Josette Vazquez, RN [facility] 06-23-2023 Progress note Formatting of t his note might be different from the original. DM- Pt doing well today. Denies Vaginal Bleeding, Leaking fluid, or cramping. No further n/v. NEW OB labs and Maternity 21. NT today. Pt using nifedipine cream and miralax for anal fissures. RTO 5 weeks for anatomy and routine ob. Danuta Thorpe MD [facility] 06-23-2023 Miscellaneous Notes DM- Pt doing well today. Denies Vaginal Bleeding, Leaking fluid, or cramping. No further n/v. NEW OB labs and Maternity 21. NT today. Pt using nifedipine cream and miralax for anal fissures. RTO 5 weeks for anatomy and routine ob. Danuta Thorpe MD documented in this encounter [facility] 06-23-2023 Instructions Aubrey Jurado MA - 06/23/2023 9:04 AM EDT SEQUENTIAL SCREENINGS The [facility] offers sequential screenings for women who are interested in screenings for chromosomal abnormalities and certain defects during a . The sequential screen combines ultrasound and blood tests to determine the risk of chromosomal abnormalities, including Down's Syndrome (Trisomy 21) and Trisomy 18, as well as open neural tube defects including spina bifida. Ultrasound examination is performed between 11 weeks and 13 weeks gestational age. Blood tests are drawn after the ultrasound and again later in the between 15 and 21 weeks gestational age. Please let your physician know if you are interested in this testing. It will require an appointment with our visitor services technician. This is not an ultrasound performed by a physician in our office during a routine visit. SIGNS AND SYMPTOMS OF LABOR 1. Contractions every 10 minutes or more often 2. Clear, pink, or brownish fluid (water) leaking from vagina 3. Feeling that baby is pushing down, pressure 4. Low, dull backache 5. Cramps that feel like a period 6. Cramps with or without diarrhea If you notice any of the above symptoms, contact our office at [phone] and ask to speak with a nurse. After hours, you can call doctors registry at [phone] OR call [facility] at [phone] and ask to have the doctor ultrasonic tester paged. If you consider this an emergency, dial 9-1-5 or go to your nearest emergency department. NEED HELP? Are you dealing with a violent or abusive relationship? Are you a victim of rape or sexual assult? Call [facility] ([place]) 24 hour Crisis Hotline: 125.613.6995 or 679-024-5552. MANUAL Your Guide to a Healthy manual is now on-line. Visit [email or web address] to download your free copy documented in this encounter [facility] 06-05-2023 Note HNO ID: [id number] Author: JOSETTE VAZQUEZ RN Service: ? Author Type: Registered Nurse Type: Progress Notes Filed: 06/05/2023 11:03 Note Text: Received breast pump RX from [employer]. Filed in DME folder in nurse triage room since patient is only 10 weeks along. Josette Vazquez RN [facility] 06-05-2023 History of Presen t illness Narrative Received breast pump RX from [employer]. Filed in DME folder in nurse triage room since patient is only 10 weeks along. Josette Vazquez RN documented in this encounter [facility] 05-23-2023 Miscellaneous Notes 1st risk assessment form submitted 05/23/2023. Josette Green RN documented in this encounter [facility] 05-22-2023 Miscellaneous Notes Patient is at 8.4 weeks gestation here for NOB. See progress note. Sowmya Elder APRN.CNM documented in this encounter [facility] 05-22-2023 Instructions Joan Locke MA - 05/22/2023 1:00 PM EDT Please select the following link to access the [facility] Your Guide to a Healthy . [email or web address] de documented in this encounter [facility] 05-22-2023 Note HNO ID: [id number] Author: JOAN LOCKE MA Service: ? Author Type: Automatic Blocker Type: Progress Notes Filed: 05/22/2023 13:54 Note Text: OB point of care ultrasound was performed. See imaging tab for details. Joan Locke MA [facility] 05-22-2023 History of Presen t illness Narrative OB point of care ultrasound was performed. See imaging tab for details. Joan Locke MA INITIAL OB ASSESSMENT HPI: Katty is a 28 year old White here to establish Obstetrical Care. Patient's last menstrual period was 03/23/2023 (exact date). from OB Dating Form. 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/ [place]- Using cream the past year Complaints: nausea OB History T2 L2 SAB0 IAB0 Ectopic0 Multiple0 Live Births2 # 1 - Date: 01/17/17, Sex: Male, Weight: 7 lb 1 oz (3.204 kg), GA: 37w4d, Delivery: Vaginal, Spontaneous, Apgar1: None, Apgar5: None, Living: Living, Comments: spontaneous labor, precipitus delivery, 2nd degree perineal laceration, EBL 400cc # 2 - Date: 07/28/20, Sex: Male, Weight: 7 lb 13 oz (3.544 kg), GA: 39w0d, Delivery: Vaginal, Spontaneous, Apgar1: 8, Apgar5: 9, Living: Living, Comments: elective induction, precipitous delivery, EBL 100mL, loose nuchal cord x1, 1st degree perineal laceration # 3 - Date: None, Sex: None, Weight: None, GA: None, Delivery: None, Apgar1: None, Apgar5: None, Living: None, Comments: None Previous history: Prior : never History of 4th degree laceration: NO History of shoulder dystocia: No History of Hypertensive disorders including pre-eclampsia or gestational hypertension: NO History of gestational diabetes: Diabetes in NO Patient's Risk Screening for delivery: Have you had a prior kern between 20w and 36w6d? No How many pregnancies have you had before? 2 Did you have a previous baby with a GBS Infection? No Please select all that apply for any prior : N/A MEDICAL/PSYCHOSOCIAL HISTORY: Severe bleeding with delivery NO Thyroid Disease Yes Diabetes in no ABO/RH(D) Date Value Ref Range Status 01/22/2020 B POSITIVE Final BMI 23.00 kg/(m^2) Last Pap: 09/14/2020 History of abnormal pap: Abnormal Pap No Prior treatment for cervical dysplasia: none. History of STDs: chlamydia Partner History of STDs: None Did you have a partner with Herpes? No Tobacco use: No E-Cigarette/Vaping Use: No Caffeine use: No Drug use: No Alcohol use: No Multivitamin with Folic acid: Yes Would refuse blood transfusion if medically necessary: No Social Needs: How often does this describe you? I don't have enough money to pay my bills: Never Within the past 12 months, have you worried that your food would run out before you had money to buy more? Never In the past 12 months, has lack of reliable transportation kept you from going to medical appointments or work, or from getting things needed for daily living? Never In the past 12 months, have you had any concerns about having a place to live, or about the condition or quality of your housing? Never Would you like more information on any of the following (please check all that apply)? Not interested Social History: Do you have any history of depression, anxiety, PTSD, or other mood problems? No Do you have a history of abuse or trauma that may impact your experience? No Are you currently employed? No Depression/Anxiety Screening: denies symptoms of depression. OB Depression and Anxiety Screening- This Encounter (since 05/21/2023) Over the past 2 weeks have you felt down, depressed, or hopeless? Negative Over the past two weeks, have you felt little interest or pleasure in doing things? Negative Feeling nervous, anxious or on edge 0-Not at all Not being able to stop or control worrying 0-Not al all Anxiety Pre-Screening Total (If >/= 3 additional questions will be reviewed) 0 Genetic Screening: Partner present: No Patient verbalized knowledge of partner family health history: Yes Do you or your partner have any personal or family history of defects not previously discussed: No Do you have history of a complicated by anomaly, genetic condition, or demise: No ACOG Recommended Screening: Screening for early gestational diabetes testing: Criteria for early testing requires elevated BMI plus one other risk factor: BMI 23.00 kg/(m^2) (risk factor if > than 25 or 23 in Americans) Additional risk factors: None She does not meet ACOG criteria for early gestational DM screening. Screening for low dose aspirin use for the prevention of pre-eclampsia: Low dose aspirin should be considered if the patient has one high or two moderate risk factors: High risk factors: None Moderate risk ractors: None She does not meet criteria for low dose ASA OB Risk Screening: Completed, no positive findings documented. Marital Status: Partner: Name: Mello Barron Age: 27 Occupation: [email or web address] Gender: Male PAST MEDICAL HISTORY Diagnosis Date 2012 Excessive or frequent menstruation Heavy periods Hemorrhoid Hypothyroidism Iron deficiency anemia, unspecified 2006 Anemia, iron def. PMH - PAST MEDICAL HISTORY OF age 6 pneumonia PAST SURGICAL HISTORY Procedure Laterality Date APPENDECTOMY 01/2017 PAST SURGICAL HISTORY OF wisdom teeth Current Outpatient Medications Medication Sig Dispense Refill vit 48-epyx-czenz-dha (SELECT-OB+DHA) 29 mg iron-1 mg -250 mg Take by mouth as directed. Take 1 tablet and 1 capsule by mouth daily. levothyroxine (SYNTHROID) 25 mcg tablet No current facility-administered medications for this visit. Allergies As of Date: 05/22/2023 (No Known Allergies) Fully Assessed 05/22/2023 Does patient have penicillin allergy: No REVIEW OF SYSTEMS: GENERAL: Negative for: Fever or Chills and Positive for: Fatigue HEENT: Negative for: Headache, Impaired Vision, Ringing in Ears, Nosebleeds NECK: Negative for: Swelling, Pain, Stiffness RESPIRATORY: Negative for: Cough, Shortness of breath, Wheezing GASTROINTESTINAL: Negative for: Heartburn, Constipation, Diarrhea, Blood in stool, Vomiting MUSCULOSKELETAL: Negative for: Muscle or joint pain, stiffness, Joint swelling NEUROLOGIC/PSYCHIATRIC: Negative for: Weakness, Paralysis, Numbness, Tingling, Tremor, Memory loss Currently seeing counselor for past 2 years / no medicaions SKIN: Negative for: Rash, Itching GENITOURINARY: Negative for: vaginal itching, vaginal discharge, hematuria or dysuria PHYSICAL EXAM: BP 116/60 Ht 5' 4 (1.63m) Wt 134 lb (60.8kg) LMP 03/23/2023 BMI 22.99 kg/(m^2). GENERAL: pleasant in no apparent distress DERMATOLOGY: Normal, without lesions, non-icteric, and non-hirsute NECK: Supple, full range of motion, no adenopathy, and thyroid normal CHEST: Normal inspiratory effort BREAST: soft, non-tender, symmetric, no dominant mass, normal nipple-areolar complex, no lymphadenopathy, and no nipple discharge ABDOMEN: soft, non-tender, and no masses NEURO: alert and oriented x3,exam grossly non-focal PELVIS: External genitalia normal without lesions. Perineal body intact. No vaginal or cervical lesions. Cervix closed. Uterus week size. No adnexal masses or tenderness. Cervix friable Clinical Pelvimetry: Pelvimetry clinically assessed as adequate Limited OB ultrasound exam: single intrauterine NORA of 12/28/23 confirmed via measurements. ASSESSMENT/PLAN: 1. with uncertain dates in first trimester - ICD9: V22.1, ICD10: Z34.91 (primary diagnosis) 2. History of hypothyroidism - ICD9: V12.29, ICD10: Z86.39 3. Encounter for supervision of other normal in first trimester - ICD9: V22.1, ICD10: Z34.81 4. 8 weeks gestation of - ICD9: V22.2, ICD10: Z3A.08 5. Anal fissure - ICD9: 565.0, ICD10: K60.2 PLAN: 1) Patient oriented to practice. Discussed nutrition, folic acid supplementation, dietary guidelines, exercise, smoking, alcohol, caffeine, and drug use. Discussed routine OB labs including STD/HIV. Discussed how to access Your guide to a health and the [employer]. Discussed aneuploidy screening, nuchal translucency/first trimester early anatomy ultrasound and NIPT. The risks/benefits and limitations of NIPT/aneuploidy screening were reviewed including the potential for false negative and false positive results. The availability of genetic counseling was reviewed. Information on aneuploidy screening was provided. The patient is uncertain. She will call back if she wants to proceed with screening. Pt aware of timing. Discussed myriad carrier screening. We discussed the availability of professional-society guided carrier screening and reviewed the conditions screened and limitations of screening. The availability of genetic counseling was reviewed. Information on carrier screening was provided. The patient Declines 2) Patient offered option of Virtual Visits. Patient prefers in person visits. 3) Thyroid Disease: TSH ordered Follow up in 4 weeks or sooner prn. Sowmya Elder APRN.CNM documented in this encounter [facility] 05-17-2023 Note HNO ID: [id number] Author: SOWMYA ELDER APRN.CNM Service: ? Author Type: Bakery Supervisor Type: Progress Notes Filed: 05/22/2023 13:54 Note Text: INITIAL OB ASSESSMENT HPI: Katty is a 28 year old White here to establish Obstetrical Care. Patient's last menstrual period was 03/23/2023 (exact date). from OB Dating Form. 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/ [place]- Using cream the past year Complaints: nausea OB History T2 L2 SAB0 IAB0 Ectopic0 Multiple0 Live Births2 # 1 - Date: 01/17/17, Sex: Male, Weight: 7 lb 1 oz (3.204 kg), GA: 37w4d, Delivery: Vaginal, Spontaneous, Apgar1: None, Apgar5: None, Living: Living, Comments: spontaneous labor, precipitus delivery, 2nd degree perineal laceration, EBL 400cc # 2 - Date: 07/28/20, Sex: Male, Weight: 7 lb 13 oz (3.544 kg), GA: 39w0d, Delivery: Vaginal, Spontaneous, Apgar1: 8, Apgar5: 9, Living: Living, Comments: elective induction, precipitous delivery, EBL 100mL, loose nuchal cord x1, 1st degree perineal laceration # 3 - Date: None, Sex: None, Weight: None, GA: None, Delivery: None, Apgar1: None, Apgar5: None, Living: None, Comments: None Previous history: Prior : never History of 4th degree laceration: NO History of shoulder dystocia: No History of Hypertensive disorders including pre-eclampsia or gestational hypertension: NO History of gestational diabetes: Diabetes in NO Patient's Risk Screening for delivery: Have you had a prior kern between 20w and 36w6d? No How many pregnancies have you had before? 2 Did you have a previous baby with a GBS Infection? No Please select all that apply for any prior : N/A MEDICAL/PSYCHOSOCIAL HISTORY: Severe bleeding with delivery NO Thyroid Disease Yes Diabetes in no ABO/RH(D) Date Value Ref Range Status 01/22/2020 B POSITIVE Final BMI 23.00 kg/(m2) Last Pap: 09/14/2020 History of abnormal pap: Abnormal Pap No Prior treatment for cervical dysplasia: none. History of STDs: chlamydia Partner History of STDs: None Did you have a partner with Herpes? No Tobacco use: No E-Cigarette/Vaping Use: No Caffeine use: No Drug use: No Alcohol use: No Multivitamin with Folic acid: Yes Would refuse blood transfusion if medically necessary: No Social Needs: How often does this describe you? I don't have enough money to pay my bills: Never Within the past 12 months, have you worried that your food would run out before you had money to buy more? Never In the past 12 months, has lack of reliable transportation kept you from going to medical appointments or work, or from getting things needed for daily living? Never In the past 12 months, have you had any concerns about having a place to live, or about the condition or quality of your housing? Never Would you like more information on any of the following (please check all that apply)? Not interested Social History: Do you have any history of depression, anxiety, PTSD, or other mood problems? No Do you have a history of abuse or trauma that may impact your experience? No Are you currently employed? No Depression/Anxiety Screening: denies symptoms of depression. OB Depression and Anxiety Screening- This Encounter (since 05/21/2023) Over the past 2 weeks have you felt down, depressed, or hopeless? Negative Over the past two weeks, have you felt little interest or pleasure in doing things?? Negative Feeling nervous, anxious or on edge 0-Not at all Not being able to stop or control worrying 0-Not al all Anxiety Pre-Screening Total (If >/= 3 additional questions will be reviewed) 0 Genetic Screening: Partner present: No Patient verbalized knowledge of partner family health history: Yes Do you or your partner have any personal or family history of defects not previously discussed: No Do you have history of a complicated by anomaly, genetic condition, or demise: No ACOG Recommended Screening: Screening for early gestational diabetes testing: Criteria for early testing requires elevated BMI plus one other risk factor: BMI 23.00 kg/(m2) (risk factor if > than 25 or 23 in Americans) Additional risk factors: None She does not meet ACOG criteria for early gestational DM screening. Screening for low dose aspirin use for the prevention of pre-eclampsia: Low dose aspirin should be considered if the patient has one high or two moderate risk factors: High risk factors: None Moderate risk ractors: None She does not meet criteria for low dose ASA OB Risk Screening: Completed, no positive findings documented. Marital Status: Partner: Name: Mello Barron Age: 27 Occupation: [email or web address] Gender: Male PAST MEDICAL HISTORY Diagnosis Date 2012 Excessive or frequent menstru (more content not included)... [facility] 01-23-2023 History of Presen t illness Narrative Pelvic History Of Present Illness Katty Chauhan is a 28 y.o. female presenting to clinic today for 2nd opinion of anal fissure. Subjective Katty Chauhan was self-referred for evaluation of pain. Symptoms began 2 years ago. Has had pain with BM's for past 2 years, since having her youngest son. PCP gave her some suppositories that did help for a time. Has hard stools, history of hypothyroidism. 2 vaginal births, tearing with both. No issues with leakage or incontinence of stool Pain: Yes - with BM's. Protruding Tissue: Yes, small Bleeding: Yes - with most BM's, occasionally on the stool and always on the tissue when she wipes. Bowel habits: Moves bowels: daily occasionally every two days. Hard stool. Yes straining. Usually not in the bathroom for a few minutes. Stool is hard she does strain and spends 10 minutes on the toilet to have a BM Dietary history: and does not take a fiber supplement Fiber gummies- did not work Miralax for 1 week- this did help. Colonoscopy: No Past Medical History She has a past medical history of Hypothyroidism. Surgical History She has a past surgical history that includes Appendectomy (2017). Social History She has no history on file for tobacco use, alcohol use, and drug use. Family History No family history on file. Allergies Patient has no known allergies. Home Medications Prior to Admission medications Not on File Review of Systems Gastrointestinal: Negative for abdominal distention, abdominal pain, anal bleeding, blood in stool, constipation, diarrhea, nausea, rectal pain and vomiting. All other systems reviewed and are negative. Physical Exam Vitals reviewed. HENT: Head: Normocephalic. Eyes: Extraocular Movements: Extraocular movements intact. Cardiovascular: Rate and Rhythm: Normal rate. Pulmonary: Effort: Pulmonary effort is normal. Abdominal: General: There is no distension. Palpations: Abdomen is soft. There is no mass. Tenderness: There is no abdominal tenderness. Hernia: No hernia is present. Musculoskeletal: General: Normal range of motion. Cervical back: Normal range of motion. Skin: General: Skin is warm and dry. Neurological: General: No focal deficit present. Mental Status: She is alert. Psychiatric: Mood and Affect: Mood normal. Perineal/Rectal Exam Perineum: external skin tags, eversion demonstrates healing anal fissures at both anterior and posterior midline FIDEL: dyssynergia present Tone: high Last Recorded Vitals Blood pressure 125/80, pulse (!) 128, resp. rate 16, height 1.651 m (5' 5), weight 60.3 kg (133 lb). Relevant Results Assessment/Plan 28 F with healing anal fissure I discussed the anatomy, pathophysiology, treatment and options, and longitudinal float operator outcomes in detail. I recommended that a bowel management program be started. This includes a high fiber diet (25-30 gm qd), a fiber supplement such as Metamucil, Konsyl, Benefiber or Fibercon once or twice a day, a stool softener such a docusate (Colace, Surfak) 1-2 bid, and 6-8 glasses of fluid per day. Warm tub baths 1-2 qd and with episodes of pain are helpful to allow sphincter relaxation and to improve perianal hygiene. We recommended pelvic floor PT A prescription was given for topical nifedipine ointment to be used 2 times per day. RTC acutely prn or in 6-8 weeks if symptoms persist. Discussed in detail including conservative vs surgical management (Botox injection vs. lateral internal sphincterotomy - LIS) and risk of incontinence More than 45 min spent on this encounter documented in this encounter [facility] Work Phone: 01-02-2023 Miscellaneous Notes Received request for Dr. Ontiveros's office visit note from 12/27/2022 to be faxed to Dr. Hidalgo at [facility]. Faxed to [phone]. Fax confirmation sheet received. Emerita Dunn RN documented in this encounter [facility] 05-07-2022 History of Presen t illness Narrative Patient presents with: Ear Pain: Bilateral, R worse x2 days HPI: Feeling ear pain for 2 days, R>L. Pain radiates down to the neck and is worse with swallowing. Pain interrupted sleep last night. Has had a URI since last week which is mostly improved. Positive symptoms: slight Cough, Sore throat, Earache, Nasal Congestion, Rhinorrhea, Negative symptoms: Fever, hearing loss, OTC: Tylenol MEDICATIONS: Current Outpatient Medications Medication Sig levothyroxine (SYNTHROID) 50 mcg tablet Take 0.5 tablets by mouth once daily. No current facility-administered medications for this visit. ALLERGIES: ALLERGIES No Known Allergies VITALS: BP 116/76 Pulse (!) 135 Temp 37.3 C (99.2 F) Resp 18 Wt 59.2 kg (130 lb 9.6 oz) LMP 10/29/2019 (Approximate) SpO2 99% BMI 22.16 kg/m PHYSICAL EXAM: GEN: Pleasant, in no acute distress. Somewhat anxious. HEENT: PERRL, EOMI, conjunctiva clear Ears: canals clear. TMs without erythema, bulge, or effusion Sinuses: non-tender frontal sinus, non-tender maxillary sinuses Throat: moist mucous membranes, mild erythema, no exudate Neck: supple, no thyromegaly, anterior lymphadenopathy HEART: regular rate during my exam, regurlar rhythm, no murmurs LUNGS: clear to auscultation, no wheezes or crackles, no increased WOB ASSESSMENT/PLAN: 1. Sore throat - ICD9: 462, ICD10: J02.9 (primary diagnosis) 2. Otalgia, bilateral - ICD9: 388.70, ICD10: H92.03 Normal ear exam. Differential includes referred pharyngitis pain and eustachian tube dysfunction. - STREP A MOLECULAR (POC) - negative. Supportive care. Follow up if not improving. Alexis Canas MD documented in this encounter [facility] 06-20-2021 History of Presen t illness Narrative Subjective HPI Nontoxic-appearing female presents urgent care chief complaint cough sore throat runny nose. Duration of symptoms 1 week. Associated symptoms listed above. Patient presents today for evaluation. Denies any OTC medications. Denies any known sick contacts. Denies any pain currently. Denies any fever body aches productive cough chest pain shortness of breath pleuritic pain hemoptysis nausea vomiting abdominal pain or change in bowel or bladder habits. Past medical history prescription medication use allergies reviewed. History of COVID-19 in December last year. .Patient presents with: Sore Throat: cough, right ear pain, runny nose x 7days PAST MEDICAL HISTORY Diagnosis Date 2012 Excessive or frequent menstruation Heavy periods Hypothyroidism Iron deficiency anemia, unspecified 2006 Anemia, iron def. PMH - PAST MEDICAL HISTORY OF age 6 pneumonia PAST SURGICAL HISTORY Procedure Laterality Date APPENDECTOMY 01/2017 PAST SURGICAL HISTORY OF wisdom teeth ALLERGIES Patient has no known allergies. MEDICATIONS levothyroxine (SYNTHROID) 50 mcg tablet Take 1 tablet by mouth once daily. hydrocortisone (ANUSOL-HC) 2.5 % rectal cream by RECTAL route twice daily. Norethindrone, Contraceptive, (ORTHO MICRONOR) 0.35 mg tablet Take 1 tablet by mouth once daily. hydrocortisone (ANUSOL-HC) 25 mg suppository 1 Suppository by RECTAL route twice daily. Hjpsrfcm-Ze-Qhc-Fe-FA ( VITAMIN) tab Take 1 tablet by mouth. FAMILY HISTORY Problem Relation Age of Onset Hypertension Mother Heart Mother Mitrial Valve Thyroid Mother Heart Father Thyroid Father No Known Problems Sister Breast Cancer Maternal Grandmother Thyroid Maternal Grandmother Diabetes Maternal Grandmother Cancer Maternal Grandfather lung other (Parkinson's Disease) Paternal Grandmother Cancer Paternal Grandfather lung Thyroid Maternal Aunt No Known Problems Son Social History Tobacco Use Smoking status: Never Smoker Smokeless tobacco: Never Used Vaping Use Vaping Use: Never used Substance Use Topics Alcohol use: Not Currently Comment: Rarely, not while Drug use: No BP 118/80 Pulse (!) 124 Temp 37.1 C (98.7 F) Resp 18 Wt 62.3 kg (137 lb 6.4 oz) LMP 10/29/2019 (Approximate) SpO2 99% BMI 23.31 kg/m Hr 92 Review of Systems Constitutional: Negative for chills, fever and malaise/fatigue. HENT: Positive for congestion, ear pain and sore throat. Negative for ear discharge and sinus pain. Eyes: Negative for blurred vision, pain, discharge and redness. Respiratory: Positive for cough. Negative for hemoptysis, sputum production, shortness of breath, wheezing and stridor. Cardiovascular: Negative for chest pain. Gastrointestinal: Negative for abdominal pain, diarrhea, nausea and vomiting. Musculoskeletal: Negative for myalgias. Skin: Negative for itching and rash. Neurological: Positive for headaches. Negative for dizziness. Objective Physical Exam Vitals and nursing note reviewed. Constitutional: General: She is not in acute distress. Appearance: She is not diaphoretic. HENT: Head: Normocephalic and atraumatic. Jaw: No trismus. Right Ear: Hearing, tympanic membrane, ear canal and external ear normal. No decreased hearing noted. No drainage, swelling or tenderness. Tympanic membrane is not perforated, erythematous or bulging. Left Ear: Hearing, tympanic membrane, ear canal and external ear normal. No decreased hearing noted. No drainage, swelling or tenderness. Tympanic membrane is not perforated, erythematous or bulging. Mouth/Throat: Mouth: Mucous membranes are moist. Pharynx: Oropharynx is clear. Uvula midline. No oropharyngeal exudate, posterior oropharyngeal erythema or uvula swelling. Tonsils: No tonsillar abscesses. Eyes: General: Right eye: No discharge. Left eye: No discharge. Conjunctiva/sclera: Conjunctivae normal. Pupils: Pupils are equal, round, and reactive to light. Cardiovascular: Rate and Rhythm: Normal rate and regular rhythm. Heart sounds: Normal heart sounds. Pulmonary: Effort: Pulmonary effort is normal. No tachypnea, accessory muscle usage or respiratory distress. Breath sounds: Normal breath sounds. No stridor. No wheezing or rales. Chest: Chest wall: No tenderness. Abdominal: Palpations: Abdomen is soft. Tenderness: There is no abdominal tenderness. Musculoskeletal: General: No tenderness. Normal range of motion. Cervical back: Normal range of motion and neck supple. No rigidity or tenderness. Lymphadenopathy: Head: Right side of head: No submental, submandibular, tonsillar, preauricular, posterior auricular or occipital adenopathy. Left side of head: No submental, submandibular, tonsillar, preauricular, posterior auricular or occipital adenopathy. Cervical: No cervical adenopathy. Right cervical: No superficial or posterior cervical adenopathy. Left cervical: No superficial or posterior cervical adenopathy. Skin: General: Skin is warm and dry. Findings: No rash. Neurological: Mental Status: She is alert and oriented to person, place, and time. ASSESSMENT/PLAN: 1. URI with cough and congestion - ICD9: 465.9, ICD10: J06.9 Patient diagnosed with URI with cough. Vital signs within normal limits nontoxic-appearing. COVID-19 test offered declined testing at this time. Patient was educated on supportive therapies. Patient will follow up with primary care provider as needed. Patient was instructed to immediately proceed to emergency room for any new, worsening, or symptoms lasting longer than anticipated. The patient's clinical presentation is otherwise unremarkable at this time. Based on exam and clinical finding, the patient is stable for discharge. Plan of care was discussed with patient. Patient verbalizes understanding and agrees to plan of care. This note was generated using CSS99 software. It may contain errors in wording, punctuation, or spelling. Tone Roy APRN.STEPHY documented in this encounter [facility] 12-05-2019 History of Past i llness Narrative Problem Noted Date Resolved Date History of precipitous delivery 12/05/2019 09/08/2020 Antepartum anemia complicating in thir d trimester 11/18/2016 02/28/2017 Abnormal glucose complicating 11/19/19 17 02/28/2017 Overview: November 18, 2016 abnl 1 hr. needs 3 hr. Savi Rucker MD November 22, 2016 Normal 3 hr. Savi Rucker MD Rubella non-immune status, antepartum 07/27/2016 02/28/2017 Encounter for supervision of normal first in second trimester 06/27/2016 02/28/2017 Patient request for diagnostic testing 7 09/08/2020 Overview: 12/05/2019 Patient desires nuchal ultrasound Declines genetic carrier screening testing.TKRN Excessive or frequent menstruation 01/08/2007 11/13/2014 Dysmenorrhea 01/08/2007 11/13/2014 Iron deficiency anemia, unspecified 01/08/2007 11/13/2014 documented as of this encounter (statuses as of 06/20/2021) [facility] History of Past illness Narrative* Problem Noted Date Resolved Date History of precipitous delivery 12/05/2019 09/08/2020 Antepartum anemia complicating in thir d trimester 11/18/2016 02/28/2017 Abnormal glucose complicating 11/19/19 17 02/28/2017 Overview: November 18, 2016 abnl 1 hr. needs 3 hr. Savi Rucker MD November 22, 2016 Normal 3 hr. Savi Rucker MD Rubella non-immune status, antepartum 07/27/2016 02/28/2017 Encounter for supervision of normal first in second trimester 06/27/2016 02/28/2017 Patient request for diagnostic testing 09/08/2020 Overview: 12/05/2019 Patient desires nuchal ultrasound Declines genetic carrier screening testing.TKRN Excessive or frequent menstruation 01/08/2007 11/13/2014 Dysmenorrhea 01/08/2007 11/13/2014 Iron deficiency anemia, unspecified 01/08/2007 11/13/2014 documented as of this encounter (statuses as of 05/07/2022) [facility] History of Past illness Narrative* Problem Noted Date Diagnosed Date Resolved Date History of precipitous delivery 12/05/2019 09/08/2020 Antepartum anemia complicati ng in third trimester 11/18/2016 02/28/2017 Abnormal glucose complicating 11/18/2016 02/28/2017 Overview: November 18, 2016 abnl 1 hr. needs 3 hr. Savi Rucker MD November 22, 2016 Normal 3 hr. Savi Rucker MD Rubella non-immune status, antepartum 07/27/2016 02/28/2017 Encounter for supervision of normal first in second trimester 06/27/2016 02/28/2017 Patient request for diagnostic testing 06/16/2016 09/08/2020 Overview: 12/05/2019 Patient desires nuchal ultrasound Declines genetic carrier screening testing.TKRN Excessive or frequent menstruation 01/08/2007 11/13/2014 Dysmenorrhea 01/08/2007 11/13/2014 Iron deficiency anemia, unspecified 01/08/2007 11/13/2014 documented as of this encounter (statuses as of 01/02/2023) [facility] History of Past illness Narrative* Problem Noted Date Diagnosed Date Resolved Date History of precipitous delivery 12/05/2019 09/08/2020 Antepartum anemia complicati ng in third trimester 11/18/2016 02/28/2017 Abnormal glucose complicating 11/18/2016 02/28/2017 Overview: November 18, 2016 abnl 1 hr. needs 3 hr. Savi Rucker MD November 22, 2016 Normal 3 hr. Savi Rucker MD Rubella non-immune status, antepartum 07/27/2016 02/28/2017 Encounter for supervision of normal first in second trimester 06/27/2016 02/28/2017 Patient request for diagnostic testing 06/16/2016 09/08/2020 Overview: 12/05/2019 Patient desires nuchal ultrasound Declines genetic carrier screening testing.TKRN Excessive or frequent menstruation 01/08/2007 11/13/2014 Dysmenorrhea 01/08/2007 11/13/2014 Iron deficiency anemia, unspecified 01/08/2007 11/13/2014 documented as of this encounter (statuses as of 04/20/2023) [facility] History of Past illness Narrative* Problem Noted Date Diagnosed Date Resolved Date History of precipitous delivery 12/05/2019 09/08/2020 Antepartum anemia complicati ng in third trimester 11/18/2016 02/28/2017 Abnormal glucose complicating 11/18/2016 02/28/2017 Overview: November 18, 2016 abnl 1 hr. needs 3 hr. Savi Rucker MD November 22, 2016 Normal 3 hr. Savi Rucker MD Rubella non-immune status, antepartum 07/27/2016 02/28/2017 Patient request for diagnostic testing 06/16/2016 09/08/2020 Overview: 12/05/2019 Patient desires nuchal ultrasound Declines genetic carrier screening testing.TKRN Excessive or frequent menstruation 01/08/2007 11/13/2014 Dysmenorrhea 01/08/2007 11/13/2014 Iron deficiency anemia, unspecified 01/08/2007 11/13/2014 documented as of this encounter (statuses as of 05/23/2023) [facility] History of Past illness Narrative* Problem Noted Date Diagnosed Date Resolved Date History of precipitous delivery 12/05/2019 09/08/2020 Antepartum anemia complicati ng in third trimester 11/18/2016 02/28/2017 Abnormal glucose complicating 11/18/2016 02/28/2017 Overview: November 18, 2016 abnl 1 hr. needs 3 hr. Savi Rucker MD November 22, 2016 Normal 3 hr. Savi Rucker MD Rubella non-immune status, antepartum 07/27/2016 02/28/2017 Patient request for diagnostic testing 06/16/2016 09/08/2020 Overview: 12/05/2019 Patient desires nuchal ultrasound Declines genetic carrier screening testing.TKRN Excessive or frequent menstruation 01/08/2007 11/13/2014 Dysmenorrhea 01/08/2007 11/13/2014 Iron deficiency anemia, unspecified 01/08/2007 11/13/2014 documented as of this encounter (statuses as of 05/23/2023) [facility] History of Past illness Narrative* Problem Noted Date Diagnosed Date Resolved Date History of precipitous delivery 12/05/2019 09/08/2020 Antepartum anemia complicati ng in third trimester 11/18/2016 02/28/2017 Abnormal glucose complicating 11/18/2016 02/28/2017 Overview: November 18, 2016 abnl 1 hr. needs 3 hr. Savi Rucker MD November 22, 2016 Normal 3 hr. Savi Rucker MD Rubella non-immune status, antepartum 07/27/2016 02/28/2017 Patient request for diagnostic testing 06/16/2016 09/08/2020 Overview: 12/05/2019 Patient desires nuchal ultrasound Declines genetic carrier screening testing.TKRN Excessive or frequent menstruation 01/08/2007 11/13/2014 Dysmenorrhea 01/08/2007 11/13/2014 Iron deficiency anemia, unspecified 01/08/2007 11/13/2014 documented as of this encounter (statuses as of 06/06/2023) [facility] Appointment Date:05/20/2021 10:20:00 AM Scheduled Provider:KARLA BROWNING APRN, CNP Location:[facility] Appointment Type:PC OV Follow Up [facility] Evaluation + Plan note Future Appointments Appointment Date:11/25/2021 09:40:00 AM Scheduled Provider:KARLA BROWNING APRN, CNP Location:[facility] Appointment Type:PC OV Follow Up [facility] Evaluation + Plan note Future Appointments Appointment Date:06/13/2023 09:00:00 AM Scheduled Provider:KARLA BROWNING APRN, CNP Location:[facility] Appointment Type:PC Wellness Annual Appointment Date:06/19/2023 09:00:00 AM Scheduled Provider: Location:[facility] Appointment Type:PT Treatment - [facility] Evaluation + Plan note Future Scheduled Tests Laboratory* Thyroid Stimulating Hormone 12/13/23 * Free T4 12/13/23 * Complete Blood Count 12/13/23 * Free T3 12/13/[address] [facility] Evaluation + Plan note Future Appointments Appointment Date:01/25/2024 01:00:00 PM Scheduled Provider:KARLA BROWNING APRN, CNP Location:[facility] Appointment Type:PC OV [facility] Evaluation + Plan note Future Appointments Appointment Date:07/25/2024 09:00:00 AM Scheduled Provider:KARLA BROWNING APRN, CNP Location:[facility] Appointment Type:PC OV Follow Up [facility] EvHALO2CLOUDation note* Diagnosis URI with cough and congestion- Primary [facility] Diagnosis Sore throat- Primary Acute pharyngitis Otalgia, bilateral [facility]* Diagnosis Anal fissure- Primary documented in this encounter [facility] Work Phone: Evaluation note* Diagnosis with uncertain dates in first trimester- Primary History of hypothyroidism Personal history of other endocrine, metabolic, and immunity disorders Encounter for supervision of other normal in first trimester 8 weeks gestation of state, incidental Anal fissure [facility] Diagnosis Encounter for supervision of other normal in second trimester- Primary 13 weeks gestation of state, incidental Encounter for supervision of other normal in first trimester History of hypothyroidism Personal history of other endocrine, metabolic, and immunity disorders [facility] Diagnosis Encounter for (NT) nuchal translucency scan- Primary Other specified screening 13 weeks gestation of state, incidental [facility] Diagnosis Encounter for supervision of other normal in second trimester- Primary 19 weeks gestation of state, incidental [facility] Diagnosis Encounter for anatomic survey- Primary 19 weeks gestation of state, incidental [facility] Diagnosis Encounter for supervision of other normal in second trimester- Primary Hypothyroidism during in second trimester 22 weeks gestation of state, incidental [facility]* Diagnosis Axillary mass, left- Primary 23 weeks gestation of state, incidental [facility]* Diagnosis Axillary mass, left 23 weeks gestation of state, incidental [facility]* Diagnosis Hypothyroidism during in second trimester- Primary Encounter for supervision of other normal in second trimester 26 weeks gestation of state, incidental [facility]* Diagnosis Supervision of high risk in third trimester- Primary Unspecified high-risk Anemia during in third trimester Hypothyroidism during in third trimester Need for vaccination Need for prophylactic vaccination and inoculation against unspecified single disease 28 weeks gestation of state, incidental * Assessment & Plan Note - Danuta Castillo MD - 10/11/2023 9:48 AM EDT Associated Problem(s): Anemia during in third trimester Started iron documented in this encounter [facility] note* Diagnosis Supervision of high risk in third trimester- Primary Unspecified high-risk Anemia during in third trimester Hypothyroidism during in third trimester Need for vaccination Need for prophylactic vaccination and inoculation against unspecified single disease 28 weeks gestation of state, incidental Supervision of high risk in third trimester- Primary Unspecified high-risk Anemia during in third trimester Hypothyroidism during in third trimester 30 weeks gestation of state, incidental * Assessment & Plan Note - Danuta Castillo MD - 10/25/2023 11:24 AM EDTAssociated Problem(s): Anemia during in third trimester Repeat cbc next visit. Continue PO iron documented in this encounter [facility] note* Diagnosis Supervision of high risk in third trimester- Primary Unspecified high-risk Anemia during in third trimester Hypothyroidism during in third trimester Need for vaccination Need for prophylactic vaccination and inoculation against unspecified single disease 28 weeks gestation of state, incidental Supervision of high risk in third trimester- Primary Unspecified high-risk Anemia during in third trimester Hypothyroidism during in third trimester 30 weeks gestation of state, incidental Supervision of high risk in third trimester- Primary Unspecified high-risk Anemia during in third trimester Hypothyroidism during in third trimester 32 weeks gestation of state, incidental * Assessment & Plan Note - Danuta Castillo MD - 11/08/2023 10:20 AM EDTAssociated Problem(s): Supervision of normal will get Flu at next visit. RSV vaccine vaccine discussed- will consider for next visit * Assessment & Plan Note - Danuta Castillo MD - 11/08/2023 10:08 AM EDTAssociated Problem(s): Anemia during in third trimester Continue PO iron documented in this encounter [facility] note* Diagnosis Supervision of high risk in third trimester- Primary Unspecified high-risk Anemia during in third trimester Hypothyroidism during in third trimester Need for vaccination Need for prophylactic vaccination and inoculation against unspecified single disease 28 weeks gestation of state, incidental Supervision of high risk in third trimester- Primary Unspecified high-risk Anemia during in third trimester Hypothyroidism during in third trimester 30 weeks gestation of state, incidental Supervision of high risk in third trimester- Primary Unspecified high-risk Anemia during in third trimester Hypothyroidism during in third trimester 32 weeks gestation of state, incidental Supervision of high risk in third trimester- Primary Unspecified high-risk Anemia during in third trimester Hypothyroidism during in third trimester 35 weeks gestation of state, incidental * Assessment & Plan Note - Danuta Castillo MD - 11/23/2023 9:35 AM EDT Associated Problem(s): Anemia during in third trimester documented in this encounter [facility] note* Diagnosis Supervision of high risk in third trimester- Primary Unspecified high-risk Anemia during in third trimester Hypothyroidism during in third trimester Need for vaccination Need for prophylactic vaccination and inoculation against unspecified single disease 28 weeks gestation of state, incidental Supervision of high risk in third trimester- Primary Unspecified high-risk Anemia during in third trimester Hypothyroidism during in third trimester 30 weeks gestation of state, incidental Supervision of high risk in third trimester- Primary Unspecified high-risk Anemia during in third trimester Hypothyroidism during in third trimester 32 weeks gestation of state, incidental Supervision of high risk in third trimester- Primary Unspecified high-risk Anemia during in third trimester Hypothyroidism during in third trimester 35 weeks gestation of state, incidental Supervision of high risk in third trimester- Primary Unspecified high-risk 35 weeks gestation of state, incidental Anemia during in third trimester Hypothyroidism during in third trimester documented in this encounter [facility] note* Diagnosis Supervision of high risk in third trimester- Primary Unspecified high-risk Anemia during in third trimester Hypothyroidism during in third trimester Need for vaccination Need for prophylactic vaccination and inoculation against unspecified single disease 28 weeks gestation of state, incidental Supervision of high risk in third trimester- Primary Unspecified high-risk Anemia during in third trimester Hypothyroidism during in third trimester 30 weeks gestation of state, incidental Supervision of high risk in third trimester- Primary Unspecified high-risk Anemia during in third trimester Hypothyroidism during in third trimester 32 weeks gestation of state, incidental Supervision of high risk in third trimester- Primary Unspecified high-risk Anemia during in third trimester Hypothyroidism during in third trimester 35 weeks gestation of state, incidental Supervision of high risk in third trimester- Primary Unspecified high-risk Anemia during in third trimester Hemorrhoids in in third trimester Other venous complication, antepartum Hypothyroidism during in third trimester 36 weeks gestation of state, incidental * Assessment & Plan Note - Danuta Castillo MD - 12/01/2023 3:21 PM EDT Associated Problem(s): Anemia during in third trimester [facility] Diagnosis Supervision of high risk in third trimester- Primary Unspecified high-risk Anemia during in third trimester Hypothyroidism during in third trimester Need for vaccination Need for prophylactic vaccination and inoculation against unspecified single disease 28 weeks gestation of state, incidental Supervision of high risk in third trimester- Primary Unspecified high-risk Anemia during in third trimester Hypothyroidism during in third trimester 30 weeks gestation of state, incidental Supervision of high risk in third trimester- Primary Unspecified high-risk Anemia during in third trimester Hypothyroidism during in third trimester 32 weeks gestation of state, incidental Supervision of high risk in third trimester- Primary Unspecified high-risk Anemia during in third trimester Hypothyroidism during in third trimester 35 weeks gestation of state, incidental Supervision of high risk in third trimester- Primary Unspecified high-risk Anemia during in third trimester Hemorrhoids in in third trimester Other venous complication, antepartum Hypothyroidism during in third trimester 36 weeks gestation of state, incidental Supervision of high risk in third trimester- Primary Unspecified high-risk Anemia during in third trimester Hypothyroidism during in third trimester 36 weeks gestation of state, incidental * Assessment & Plan Note - Danuta Castillo MD - 12/06/2023 9:25 AM EDT Associated Problem(s): Supervision of high risk in third trimester Orders: URINE OB DIP B/O * Assessment & Plan Note - Danuta Castillo MD - 12/06/2023 9:25 AM EDT Associated Problem(s): Anemia during in third trimester * Assessment & Plan Note - Danuta Castillo MD - 12/06/2023 9:25 AM EDT Associated Problem(s): Hypothyroidism during in third trimester [facility] Diagnosis Supervision of high risk in third trimester- Primary Unspecified high-risk Anemia during in third trimester Hypothyroidism during in third trimester Need for vaccination Need for prophylactic vaccination and inoculation against unspecified single disease 28 weeks gestation of state, incidental Supervision of high risk in third trimester- Primary Unspecified high-risk Anemia during in third trimester Hypothyroidism during in third trimester 30 weeks gestation of state, incidental Supervision of high risk in third trimester- Primary Unspecified high-risk Anemia during in third trimester Hypothyroidism during in third trimester 32 weeks gestation of state, incidental Supervision of high risk in third trimester- Primary Unspecified high-risk Anemia during in third trimester Hypothyroidism during in third trimester 35 weeks gestation of state, incidental Supervision of high risk in third trimester- Primary Unspecified high-risk Anemia during in third trimester Hemorrhoids in in third trimester Other venous complication, antepartum Hypothyroidism during in third trimester 36 weeks gestation of state, incidental Supervision of high risk in third trimester- Primary Unspecified high-risk Anemia during in third trimester Hypothyroidism during in third trimester 36 weeks gestation of state, incidental Supervision of high risk in third trimester- Primary Unspecified high-risk Anemia during in third trimester Hypothyroidism during in third trimester 37 weeks gestation of state, incidental * Assessment & Plan Note - Danuta Castillo MD - 12/13/2023 10:25 AM EDTAssociated Problem(s): Anemia during in third trimester Orders: URINE OB DIP B/O * Assessment & Plan Note - Danuta Castillo MD - 12/13/2023 10:25 AM EDTAssociated Problem(s): Supervision of high risk in third trimester Orders: URINE OB DIP B/O * Assessment & Plan Note - Danuta Castillo MD - 12/13/2023 10:25 AM EDTAssociated Problem(s): Hypothyroidism during in third trimester Orders: URINE OB DIP B/O [facility] Diagnosis Supervision of high risk in third trimester- Primary Unspecified high-risk Anemia during in third trimester Hypothyroidism during in third trimester Need for vaccination Need for prophylactic vaccination and inoculation against unspecified single disease 28 weeks gestation of state, incidental Supervision of high risk in third trimester- Primary Unspecified high-risk Anemia during in third trimester Hypothyroidism during in third trimester 30 weeks gestation of state, incidental Supervision of high risk in third trimester- Primary Unspecified high-risk Anemia during in third trimester Hypothyroidism during in third trimester 32 weeks gestation of state, incidental Supervision of high risk in third trimester- Primary Unspecified high-risk Anemia during in third trimester Hypothyroidism during in third trimester 35 weeks gestation of state, incidental Supervision of high risk in third trimester- Primary Unspecified high-risk Anemia during in third trimester Hemorrhoids in in third trimester Other venous complication, antepartum Hypothyroidism during in third trimester 36 weeks gestation of state, incidental Supervision of high risk in third trimester- Primary Unspecified high-risk Anemia during in third trimester Hypothyroidism during in third trimester 36 weeks gestation of state, incidental Supervision of high risk in third trimester- Primary Unspecified high-risk Anemia during in third trimester Hypothyroidism during in third trimester 37 weeks gestation of state, incidental Vaginal irritation- Primary Unspecified noninflammatory disorder of vagina Mother currently breast-feeding (spontaneous vaginal delivery) Normal delivery [facility] Diagnosis care and examination- Primary Routine follow-up documented in this encounter [facility] course Narrative No data available for this section [facility] Hospital Discharge instructions No data available for this section [facility] Progress note No data available for this section [facility] Reason for referral (narrative)* Consultation (Emergency) - Pending Review Specialty Diagnoses / Procedures Referred By Faraz hua Referred To Contact Physical Therapy [place] [id number] [place] [address] Referral ID Status Reason Start Date Expiration Date Visits Requested Visits Authorized [id number] Pending Review Specialty Services Required 01/23/2023 01/23/2024 1 1 [facility] Work Phone: Reason for referral (narrative)* Diagnostic Procedure Only (Routine) - Authorized Specialty Diagnoses / Procedures Referred By Faraz hua Referred To Contact [facility] Diagnoses with uncertain dates in first trimester 8 weeks gestation of Procedures NUCHAL TRANSLUCENCY WHI US NUCHAL TRANSLUCENCY 1ST GESTATION Sowmya Elder APRN.CNM [address] [place] [address] [address] Referral ID Status Reason Start Date Expiration Date Visits Requested Visits Authorized [id number] Authorized Auto-Generat ed Referral 05/22/2023 05/21/2024 1 1 [facility] for referral (narrative)* Diagnostic Procedure Only (Routine) - Authorized Specialty Diagnoses / Procedures Referred By Faraz hua Referred To Contact [facility] Diagnoses Encounter for supervision of other normal in second trimester Procedures OBSTETRIC ULTRASOUND WHI US PREG UTERUS AFTER 1ST TRIMEST GESTATION Danuta Castillo MD [address] [place] [address] [facility] [address] [place] [id number] Referral ID Status Reason Start Date Expiration Date Visits Requested Visits Authorized [id number] Authorized Auto-Generat ed Referral 06/23/2023 06/22/2024 1 1 [facility] for referral (narrative)* Diagnostic Procedure Only (Routine) - Authorized Specialty Diagnoses / Procedures Referred By Faraz hua Referred To Contact [facility] Diagnoses Axillary mass, left 23 weeks gestation of Procedures US BREAST LTD LEFT US BREAST UNI REAL TIME WITH IMAGE LIMITED Andreia Raines APRN.TRANSITIONAL CARE MANAGER [address] [place] [address] [facility] [address] [place] [address] Referral ID Status Reason Start Date Expiration Date Visits Requested Visits Authorized [id number] Authorized Auto-Generat ed Referral 09/01/2023 09/30/2024 1 1 [facility] for referral (narrative)* Diagnostic Procedure Only (Routine) - Closed Specialty Diagnoses / Procedures Referred By Contac t Referred To Contact [facility] Diagnoses Axillary mass, left 23 weeks gestation of Procedures US BREAST LTD LEFT US BREAST UNI REAL TIME WITH IMAGE LIMITED Andreia Raines APRN.CNP [address] [place] [address] [facility] [address] [place] [address] Referral ID Status Reason Start Date Expiration Date V isits Requested Visits Authorized [id number] Closed Auto-Generate d Referral 09/01/2023 09/30/2024 1 1 [facility] for visit Narrative* Diagnostic Procedure Only (Routine) - Closed Specialty Diagnoses / Procedures Referred By Contac t Referred To Contact [facility] Diagnoses Axillary mass, left 23 weeks gestation of Procedures US BREAST LTD LEFT US BREAST UNI REAL TIME WITH IMAGE LIMITED Andreia Raines APRN.CNP [address] [place] [address] [facility] [address] [place] [address] Referral ID Status Reason Start Date Expiration Date V isits Requested Visits Authorized [id number] Closed Auto-Generate d Referral 09/01/2023 09/30/2024 1 1 [facility] Concerns Active Problems Noted Date Diagnosed Date [facility] Education - [facility] 05/22/2023 Education - [place] 05/22/2023 Active Problems Noted Date Diagnosed Date [facility] Education - [facility] 05/22/2023 Education - [place] 05/22/2023 Summary Purpose Family History No Family History Records Found Advance Directives No Advanced Directives Records FoundNo Advanced Directives Records FoundNo Advanced Directives Records FoundNo Advanced Directives Records Found Additional Source Comments Source Comments (unrecognize d section and content) In the event this informatio n is protected by the Federal Confidentiality of Alcohol and Drug Abuse Patient Records regulations: The Federal rules restrict any use of the information to criminally investigate or prosecute any alcohol or drug abuse patient.[facility] the event this information is protected by the Federal Confidentiality of Alcohol and Drug Abuse Patient Records regulations: The Federal rules restrict any use of the information to criminally investigate or prosecute any alcohol or drug abuse patient.[facility] HospitalIn the event this information is protected by the Federal Confidentiality of Alcohol and Drug Abuse Patient Records regulations: The Federal rules restrict any use of the information to criminally investigate or prosecute any alcohol or drug abuse patient.[facility]In the event this information is protected by the Federal Confidentiality of Alcohol and Drug Abuse Patient Records regulations: The Federal rules restrict any use of the information to criminally investigate or prosecute any alcohol or drug abuse patient.[facility]In the event this information is protected by the Federal Confidentiality of Alcohol and Drug Abuse Patient Records regulations: The Federal rules restrict any use of the information to criminally investigate or prosecute any alcohol or drug abuse patient.[facility]In the event this information is protected by the Federal Confidentiality of Alcohol and Drug Abuse Patient Records regulations: The Federal rules restrict any use of the information to criminally investigate or prosecute any alcohol or drug abuse patient.[facility]In the event this information is protected by the Federal Confidentiality of Alcohol and Drug Abuse Patient Records regulations: The Federal rules restrict any use of the information to criminally investigate or prosecute any alcohol or drug abuse patient.[facility] HospitalIn the event this information is protected by the Federal Confidentiality of Alcohol and Drug Abuse Patient Records regulations: The Federal rules restrict any use of the information to criminally investigate or prosecute any alcohol or drug abuse patient.[facility]In the event this information is protected by the Federal Confidentiality of Alcohol and Drug Abuse Patient Records regulations: The Federal rules restrict any use of the information to criminally investigate or prosecute any alcohol or drug abuse patient.[facility]In the event this information is protected by the Federal Confidentiality of Alcohol and Drug Abuse Patient Records regulations: The Federal rules restrict any use of the information to criminally investigate or prosecute any alcohol or drug abuse patient.[facility] HospitalIn the event this information is protected by the Federal Confidentiality of Alcohol and Drug Abuse Patient Records regulations: The Federal rules restrict any use of the information to criminally investigate or prosecute any alcohol or drug abuse patient.[facility] HospitalIn the event this information is protected by the Federal Confidentiality of Alcohol and Drug Abuse Patient Records regulations: The Federal rules restrict any use of the information to criminally investigate or prosecute any alcohol or drug abuse patient.[facility] HospitalIn the event this information is protected by the Federal Confidentiality of Alcohol and Drug Abuse Patient Records regulations: The Federal rules restrict any use of the information to criminally investigate or prosecute any alcohol or drug abuse patient.[facility] HospitalIn the event this information is protected by the Federal Confidentiality of Alcohol and Drug Abuse Patient Records regulations: The Federal rules restrict any use of the information to criminally investigate or prosecute any alcohol or drug abuse patient.[facility] HospitalIn the event this information is protected by the Federal Confidentiality of Alcohol and Drug Abuse Patient Records regulations: The Federal rules restrict any use of the information to criminally investigate or prosecute any alcohol or drug abuse patient.[facility] HospitalIn the event this information is protected by the Federal Confidentiality of Alcohol and Drug Abuse Patient Records regulations: The Federal rules restrict any use of the information to criminally investigate or prosecute any alcohol or drug abuse patient.[facility] HospitalIn the event this information is protected by the Federal Confidentiality of Alcohol and Drug Abuse Patient Records regulations: The Federal rules restrict any use of the information to criminally investigate or prosecute any alcohol or drug abuse patient.[facility] HospitalIn the event this information is protected by the Federal Confidentiality of Alcohol and Drug Abuse Patient Records regulations: The Federal rules restrict any use of the information to criminally investigate or prosecute any alcohol or drug abuse patient.[facility] HospitalIn the event this information is protected by the Federal Confidentiality of Alcohol and Drug Abuse Patient Records regulations: The Federal rules restrict any use of the information to criminally investigate or prosecute any alcohol or drug abuse patient.[facility] HospitalIn the event this information is protected by the Federal Confidentiality of Alcohol and Drug Abuse Patient Records regulations: The Federal rules restrict any use of the information to criminally investigate or prosecute any alcohol or drug abuse patient.[facility] HospitalIn the event this information is protected by the Federal Confidentiality of Alcohol and Drug Abuse Patient Records regulations: The Federal rules restrict any use of the information to criminally investigate or prosecute any alcohol or drug abuse patient.[facility] HospitalIn the event this information is protected by the Federal Confidentiality of Alcohol and Drug Abuse Patient Records regulations: The Federal rules restrict any use of the information to criminally investigate or prosecute any alcohol or drug abuse patient.[facility] HospitalIn the event this information is protected by the Federal Confidentiality of Alcohol and Drug Abuse Patient Records regulations: The Federal rules restrict any use of the information to criminally investigate or prosecute any alcohol or drug abuse patient.[facility] HospitalIn the event this information is protected by the Federal Confidentiality of Alcohol and Drug Abuse Patient Records regulations: The Federal rules restrict any use of the information to criminally investigate or prosecute any alcohol or drug abuse patient.[facility] HospitalIn the event this information is protected by the Federal Confidentiality of Alcohol and Drug Abuse Patient Records regulations: The Federal rules restrict any use of the information to criminally investigate or prosecute any alcohol or drug abuse patient.[facility] HospitalIn the event this information is protected by the Federal Confidentiality of Alcohol and Drug Abuse Patient Records regulations: The Federal rules restrict any use of the information to criminally investigate or prosecute any alcohol or drug abuse patient.[facility] HospitalIn the event this information is protected by the Federal Confidentiality of Alcohol and Drug Abuse Patient Records regulations: The Federal rules restrict any use of the information to criminally investigate or prosecute any alcohol or drug abuse patient.[facility] HospitalIn the event this information is protected by the Federal Confidentiality of Alcohol and Drug Abuse Patient Records regulations: The Federal rules restrict any use of the information to criminally investigate or prosecute any alcohol or drug abuse patient.[facility] HospitalIn the event this information is protected by the Federal Confidentiality of Alcohol and Drug Abuse Patient Records regulations: The Federal rules restrict any use of the information to criminally investigate or prosecute any alcohol or drug abuse patient.[facility] HospitalIn the event this information is protected by the Federal Confidentiality of Alcohol and Drug Abuse Patient Records regulations: The Federal rules restrict any use of the information to criminally investigate or prosecute any alcohol or drug abuse patient.[facility] HospitalIn the event this information is protected by the Federal Confidentiality of Alcohol and Drug Abuse Patient Records regulations: The Federal rules restrict any use of the information to criminally investigate or prosecute any alcohol or drug abuse patient.[facility] HospitalIn the event this information is protected by the Federal Confidentiality of Alcohol and Drug Abuse Patient Records regulations: The Federal rules restrict any use of the information to criminally investigate or prosecute any alcohol or drug abuse patient.[facility] HospitalIn the event this information is protected by the Federal Confidentiality of Alcohol and Drug Abuse Patient Records regulations: The Federal rules restrict any use of the information to criminally investigate or prosecute any alcohol or drug abuse patient.[facility] HospitalIn the event this information is protected by the Federal Confidentiality of Alcohol and Drug Abuse Patient Records regulations: The Federal rules restrict any use of the information to criminally investigate or prosecute any alcohol or drug abuse patient.[facility] HospitalIn the event this information is protected by the Federal Confidentiality of Alcohol and Drug Abuse Patient Records regulations: The Federal rules restrict any use of the information to criminally investigate or prosecute any alcohol or drug abuse patient.[facility] Reason for Visit (unrecogniz ed section and content) Reason Comments Sore Throat cough, right ear alex n, runny nose x 7days Reason Comments Ear Pain Bilateral, R worse x 2 days Reason Comments request for medical records Reason Comments Initial OB Visit Reason Comments [employer]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 Reason Comments Breast Pump RX Reason Onset Date Comments Care 06/23/2023 Reason Comments US Specialty Diagnoses / Procedures Referred By Contac t Referred To Contact [facility] Diagnoses with uncertain dates in first trimester 8 weeks gestation of Procedures NUCHAL TRANSLUCENCY WHI US NUCHAL TRANSLUCENCY 1ST GESTATION Sowmya Elder APRN.BIANCA [address] [place] [address] [facility] [address] [place] [address] Referral ID Status Reason Start Date Expiration Date V isits Requested Visits Authorized [id number] Closed Auto-Generate d Referral 05/22/2023 05/21/2024 1 1 Reason Comments Results [id number] Reason Onset Date Comments Care 08/03/2023 Specialty Diagnoses / Procedures Referred By Contac t Referred To Contact [facility] Diagnoses Encounter for supervision of other normal in second trimester Procedures OBSTETRIC ULTRASOUND WHI US PREG UTERUS AFTER 1ST TRIMEST GESTATION Danuta Castillo MD [address] [place] [address] [facility] [address] [place] [address] Referral ID Status Reason Start Date Expiration Date V isits Requested Visits Authorized [id number] Closed Auto-Generate d Referral 06/23/2023 06/22/2024 1 1 Reason Onset Date Comments Care 08/30/2023 Reason Comments Axillary swelling Reason Onset Date Comments Care 09/27/2023 Reason Onset Date Comments Care 10/11/2023 Reason Onset Date Comments Care 10/25/2023 Reason Onset Date Comments Care 11/08/2023 Reason Onset Date Comments Care 11/23/2023 Reason Onset Date Comments Care 11/24/2023 Reason Onset Date Comments Care 12/01/2023 Reason Onset Date Comments Care 12/06/2023 Reason Onset Date Comments Care 12/13/2023 Reason Comments Ob Delivery Note Reason Comments Early Reason Comments Care Care Teams (unrecognized sec tion and content) Epic Anesthesia Analyst Relationship Specialty Start Date End Date Karla Browning, TRANSITIONAL CARE MANAGER [address] [place] [address] PCP - General Family Practice 04/27/18 Epic Anesthesia Analyst Relationship Specialty Start Date End Date Karla Browning, TRANSITIONAL CARE MANAGER [address] [place] [address] PCP - General Family Medicine 04/27/18 Epic Anesthesia Analyst Relationship Specialty Start Date End Date Karla Browning, TRANSITIONAL CARE MANAGER [address] [place] [address] PCP - General Family Medicine 04/27/18 Epic Anesthesia Analyst Relationship Specialty Start Date End Date Karla Browning, TRANSITIONAL CARE MANAGER [address] [place] [address] PCP - General Family Medicine 04/27/18 Epic Anesthesia Analyst Relationship Specialty Start Date End Date Karla Browning, TRANSITIONAL CARE MANAGER [address] [place] [address] PCP - General Family Medicine 04/27/18 Epic Anesthesia Analyst Relationship Specialty Start Date End Date Karla Browning, STEPHY [address] [place] [address] PCP - General Family Medicine 04/27/18 Epic Anesthesia Analyst Relationship Specialty Start Date End Date Karla Browning, STEPHY [address] [place] [address] PCP - General Family Medicine 04/27/18 Epic Anesthesia Analyst Relationship Specialty Start Date End Date Karla Browning, TRANSITIONAL CARE MANAGER [address] [place] [address] PCP - General Family Medicine 04/27/18 Epic Anesthesia Analyst Relationship Specialty Start Date End Date Karla Browning, TRANSITIONAL CARE MANAGER [address] [place] [address] PCP - General Family Medicine 04/27/18 Epic Anesthesia Analyst Relationship Specialty Start Date End Date Karla Browning, STE[address] [place] [address] PCP - General Family Medicine 04/27/18 Epic Anesthesia Analyst Relationship Specialty Start Date End Date Karla Browning, TRANSITIONAL CARE MANAGER [address] [place] [address] PCP - General Family Medicine 04/27/18 Epic Anesthesia Analyst Relationship Specialty Start Date End Date Karla Browning, TRANSITIONAL CARE MANAGER [address] [place] [address] PCP - General Family Medicine 04/27/18 Epic Anesthesia Analyst Relationship Specialty Start Date End Date Karla Browning, STEPHY [address] [place] [address] PCP - General Family Medicine 04/27/18 Epic Anesthesia Analyst Relationship Specialty Start Date End Date Karla Browning, STEPHY [address] [place] [address] PCP - General Family Medicine 04/27/18 Epic Anesthesia Analyst Relationship Specialty Start Date End Date Karla Browning, TRANSITIONAL CARE MANAGER [address] [place] [address] PCP - General Family Medicine 04/27/18 Epic Anesthesia Analyst Relationship Specialty Start Date End Date Karla Browning, TRANSITIONAL CARE MANAGER [address] [place] [address] PCP - General Family Medicine 04/27/18 Epic Anesthesia Analyst Relationship Specialty Start Date End Date Karla Browning, TRANSITIONAL CARE MANAGER [address] [place] [address] PCP - General Family Medicine 04/27/18 Epic Anesthesia Analyst Relationship Specialty Start Date End Date Karla Browning, TRANSITIONAL CARE MANAGER [address] [place] [address] PCP - General Family Medicine 04/27/18 Epic Anesthesia Analyst Relationship Specialty Start Date End Date Karla Browning, TRANSITIONAL CARE MANAGER [address] [place] [address] PCP - General Family Medicine 04/27/18 Epic Anesthesia Analyst Relationship Specialty Start Date End Date Karla Browning, TRANSITIONAL CARE MANAGER [address] [place] [address] PCP - General Family Medicine 04/27/18 Epic Anesthesia Analyst Relationship Specialty Start Date End Date Karla Browning, STEPHY [address] [place] [address] PCP - General Family Medicine 04/27/18 Epic Anesthesia Analyst Relationship Specialty Start Date End Date Karla Browning, TRANSITIONAL CARE MANAGER [address] [place] [address] PCP - General Family Medicine 04/27/18 Epic Anesthesia Analyst Relationship Specialty Start Date End Date Karla Browning, TRANSITIONAL CARE MANAGER [address] [place] [address] PCP - General Family Medicine 04/27/18 Epic Anesthesia Analyst Relationship Specialty Start Date End Date Karla Browning, STEPHY [address] [place] [address] PCP - General Family Medicine 04/27/18 Epic Anesthesia Analyst Relationship Specialty Start Date End Date Karla Browning, STEPHY [address] [place] [address] PCP - General Family Medicine 04/27/18 Epic Anesthesia Analyst Relationship Specialty Start Date End Date Karla Browning, TRANSITIONAL CARE MANAGER [address] [place] [address] PCP - General Family Medicine 04/27/18 Epic Anesthesia Analyst Relationship Specialty Start Date End Date Karla Browning, STEPHY [address] [place] [address] PCP - General Family Medicine 04/27/18 Epic Anesthesia Analyst Relationship Specialty Start Date End Date Karla Browning, TRANSITIONAL CARE MANAGER [address] [place] [address] PCP - General Family Medicine 04/27/18 Care Team (unrecognized sect ion and content) Care Team Personnel Name: KARLA BROWNING APRN - TRANSITIONAL CARE MANAGER Position: P4 Advanced Practice Nurse Med Service: Employed Provider Member Role: Primary Care Physician Address: Address: [address] [facility] [place] [address]- Care Team Related Persons Name: DARREL OLMOS INFORMATION SOURCE (unrecogn ized section and content) DATE CREATED AUTHOR 06/22/2023 [facility] DATE CREATED AUTHOR AUTHOR'S ORGANIZ ATION 02/06/2024 [facility] DATE CREATED AUTHOR AUTHOR'S ORGANIZ ATION 02/22/2024 [facility] DATE CREATED AUTHOR AUTHOR'S ORGANIZ ATION 07/17/[address] [facility] FOR RECORDS PERTAINING TO PATIENTS WHO ARE OR HAVE BEEN ENROLLED IN A CHEMICAL DEPENDENCY/SUBSTANCEABUSE PROGRAM, SOME INFORMATION MAY BE OMITTED. This clinical summary was aggregated from multiple sources. Caution should be exercised in using it in the provision of clinical care. This summary normalizes information from multiple sources, and as a consequence, information in this document may materially change the coding, format and clinical context of patient data. In addition, data may be omitted in some cases. CLINICAL DECISIONS SHOULD BE BASED ON THE PRIMARY CLINICAL RECORDS. [facility]. provides no warranty or guarantee of the accuracy or completeness of information in this document.
--- NOTE | 2024-08-04 14:54 | EDS_ITS ---
HPI History of Present Illness Chief Complaint: Dental Informant: patient Onset/Context/Timing Onset: Days (3) Context: Gradual Onset Timing: Continuous Quality: Aching, dull Location: Right upper molar Worsened by: Activities Relieved by: - (Nothing) Associated Symptoms Assocated Symptom - Dental: jaw swelling and face swelling; Negative for fever, cold sensitivity or hot sensitivity Narrative Narrative: Patient presents with right upper dental pain that has been getting worse over the past 3 days. Patient states it is gradually getting worse. Patient states she had a tooth extracted last week. Patient states that her dentist told her that her roots were going up into her sinus cavity. Patient states she was doing better initially and then started having worsening pain. Patient states she contacted her dentist who prescribed a Medrol Dosepak and a Z-Nikko. Patient states she has noted some purulent drainage from the dental socket. Patient states her pain is worse when she is up and active. Patient admits to some mild swelling of her face and upper jaw. Patient denies any fevers or chills. Patient denies any hot or cold sensitivity. [facility] Medical History (Updated 08/04/24 @ 15:[address] Torey Lambert, DO) Care and examination of lactating mother (spontaneous vaginal delivery) Thyroid disorder Home Medications ?Medication ?Instructions ?Recorded ?Last Taken ?Type ferrous sulfate 325 mg (65 mg 325 mg PO QODAY anemia 0 07/19/20 12/20/23 22:00 History iron) tablet (iron) 325 mg levothyroxine 50 mcg tablet 50 mcg PO DAILY hypothyroi d 07/19/20 12/21/23 06:00 History [id number]-[id number] 1 mg 1 tab PO DAILY pregna ncy 07/19/20 12/18/23 12:00 History tablet 1 TAB amoxicillin 875 mg-potassium 875 mg PO Q12H #20 TABLET S 08/04/24 Unknown Rx clavulanate 125 mg tablet Allergy/AdvReac Type Severity Reaction Status Date / Time No Known Allergies Allergy Verified 08/04/24 14:20 Surgical History (Updated 08/04/24 @ 14:[address] Torey Lambert, DO) Hx of wisdom tooth extraction Hx of appendectomy History of surgery Social History Smoking Status: Never smoker ROS ROS ED Constitutional Constitutional ED: Denies chills or fever(s) Eyes Eyes: Denies blurry vision or change in vision ENT ENT ED: Reports sore throat; Denies rhinorrhea Cardiovascular Cardiovascular: Denies chest pain or palpitations Respiratory/Chest Respiratory/Chest: Denies cough or dyspnea Gastrointestinal Gastrointestinal: Reports nausea; Denies vomiting Genitourinary Genitourinary ED: Denies dysuria or hematuria Musculoskeletal Musculoskeletal: Reports neck pain; Denies back pain Integumentary Denies abscess or rash Neurologic Neurologic: Denies headache(s) or weakness Allergic/Immunologic Allergic/Immunologic ED: Denies mouth swelling or urticaria EXAM Physical Exam Const Vital Signs: 08/04/24 14:20 08/04/24 14:22 Temperature 97.7 F L 97.7 F L Temperature Source Temporal Oral Pulse Rate 104 H 104 H Respiratory Rate 19 H 19 H Blood Pressure 146/94 H 146/94 H Blood Pressure Mean 111 111 Pulse Ox 98 98 Oxygen Delivery Method Room Air Room Air Positive well nourished and well developed General Appearance ED: well developed and NAD HEENT HEENT Narrative: There is gingival edema around the socket of the right upper first molar. There is no active discharge or drainage. There is no clotted blood in the socket. There is tenderness to palpation around the tooth socket. Oropharynx is clear. Airway is patent. There is no sublingual edema. There is no evidence of Hardik's angina. Teeth and Gingiva: gingiva abnormal Positive for gingival edema Throat: posterior oropharynx normal Neck General: Negative for anterior neck swelling, tenderness or submandibular swelling Neuro oriented x3, CN's II-XII intact bilaterally, moves all extremities, no focal motor deficits and no sensory deficits noted Sensorium / Orientation: alert Motor Exam: strength 5/5 throughout Psych mental status grossly normal MDM MDM MDM Narrative Medical decision making narrative: Patient was advised that this is likely a dry socket. Dry socket paste was applied to the right upper first molar area. Patient was instructed to stop taking the Zithromax. Patient was given a prescription for Augmentin. Patient was instructed to follow-up with her dentist in 3 to 5 days. Patient was instructed to return if worse in any way. Patient understood and was agreeable with the plan. All questions were answered. Discharge Plan Triage Chief Complaint: Dental ED Provider: Schwiger,Torey Dx/Rx/DC Orders Clinical Impression: Dry tooth socket, Sinusitis, acute maxillary Instructions: ED Dental Pain, ED Dry Socket Prescriptions: New amoxicillin-pot clavulanate 875-125 mg tablet 875 mg PO Q12H Qty: 20 0RF No Action levothyroxine 50 mcg Tablet 50 mcg PO DAILY ferrous sulfate [iron] 325 mg (65 mg iron) Tablet 325 mg PO QODAY [id number]-[id number]-[id number] 1 mg Tablet 1 tab PO DAILY Primary Care Provider: Nitish Browning NP Referrals: Nitish Browning NP, BRINE ROOM LABORER-C [Primary Care Provider] - Dentist,Your [STAFF PHYSICIAN] - 3-5 Days Print Language: Botswanan Disposition Disposition: Home, Self Care
[2024-08-04 15:24] VITALS: BP 115/74; PULSE 89; RESP 16; TEMP 36.6; O2SAT 97
== END 2024-08-04 15:31 | disposition home or self-care (01) ==
PROVIDERS: Emergency Provider Emergency Medicine; PCP Nurse Practitioner Family; Visit Provider Emergency Medicine
DX: M27.3 Alveolitis of jaws (principal); J01.00 Acute maxillary sinusitis, unspecified; Z98.818 Other dental procedure status; E07.9 Disorder of thyroid, unspecified; Z79.890 Hormone replacement therapy
CPT/HCPCS: 99282